=== PATIENT | female | born 1950 | race Caucasian/White ===

== ENCOUNTER 2016-08-05 13:36 | Inpatient (IN) | payer OTHER ==
[~2016-08-05] VITALS: Ht 170.2 cm; Wt 74.5 kg
[~2016-08-05 13:36] MED LIST: GLC/500 PO; GLYB5TAB8 PO; IBUP-1450 PO
[2016-08-05] MEDS ORDERED: SODIUM CHLORIDE 0.9% 1000ML 1,000 ML IV STA (14:06)
[2016-08-05] MEDS ORDERED: ONDANSETRON INJ 2 MG/ML 2 ML VIAL IV STA (14:06)
[2016-08-05] MEDS ORDERED: KETOROLAC TROMETHAMINE 30 MG/ML VIAL IV STA (14:06)
[2016-08-05 14:12] LABS: BASO % 0.2 %; BASO ABS # 0.02 K/uL (0-0.2); COMPLETE YES; EOS % 2.2 %; HEMATOCRIT 37.4 % (37-47); IG% 0.3 %; LYMPH % 20.8 %; LYMPH ABS # 1.95 K/uL (1.2-3.4); MEAN CORPUSCULAR HEMOGLOBIN 29.5 pg (25-34); MEAN CORPUSCULAR HGB CONC 33.2 g/dl (32-36); MEAN PLATELET VOLUME 10.1 fL (7.4-10.4); MONO % 7.5 %; PLATELET COUNT 218 K/uL (130-400); WHITE BLOOD COUNT 9.39 K/uL (4.8-10.8)
[2016-08-05 14:27] LABS: BUN/CREATININE RATIO 15.1 (10-20); CALCIUM 8.9 mg/dl (8.5-10.1); POTASSIUM 3.6 mmol/L (3.5-5.1)
[2016-08-05] MEDS: MoRPHine SULFATE 4 MG/ML 1 ML CARP\\VIAL IV PRN ×4 (14:32→17:18)
--- NOTE | 2016-08-05 14:32 | EMERGENCY ROOM VISIT NOTE ---
History Report prepared by Andreina: George Vital Under the Supervision of: Dr. Ash Rodriguez D.O. First contact with patient: 14:01 Chief Complaint: BACK PAIN Stated Complaint: Back pain History of Present Illness The patient is a 65 year old female with a history of sciatica who presents to the Emergency Room with complaints of persistent lower back pain for the past five days. The pain radiates down her right leg. The pain is worse when she sits down. The patient denies any weakness of the legs. She also denies any fevers, chills, hematuria, or numbness. The patient had Ibuprofen for pain this morning. She has been taking Oxycodone for pain as well, which she had leftover from a previous visit. The patient follow up with Dr. Hitchcock. The patient cannot recall having steroids for her back or when she had her last MRI. She has never followed up with a back specialist. She is s/p appendectomy and hysterectomy. The patient has a history of diabetes, and states that her BSG has been under control. The patient has never been diagnosed with cancer. Source of History: patient Onset: five days Position: back (lower) Timing: other (persistent) Modifying Factors (Worsening): other (sitting down) Associated Symptoms: No chills, No fevers, No numbness, No urinary symptoms , No weakness Review of Systems See HPI for pertinent positives & negatives. A total of 10 systems reviewed and were otherwise negative. 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 (3) Other ureteric obstruction (4) Renal calculus Surgical Problems: (1) S/P appendectomy (2) S/P hysterectomy Family History Cancer Diabetes mellitus Heart disease Kidney disease Kidney stones Social History Smoking Status: Former Smoker Alcohol Use: none Marital Status: single Housing Status: lives alone Current/Historical Medications Scheduled Glyburide (Micronase), 10 MG PO BID Metformin Hcl (Glucophage), 1,000 MG PO BID Scheduled PRN Ibuprofen (Motrin), 200-600 MG PO DIRECTED PRN for Pain or Fever Allergies Coded Allergies: No Known Allergies (Unverified , 08/05/16) Physical Exam Vital Signs Date Time Temp Pulse Resp B/P Pulse Ox O2 Delivery O2 Flow Rate FiO2 08/05/16 17:01 83 15 153/97 96 Room Air 08/05/16 15:59 84 14 136/74 96 Room Air 08/05/16 14:41 80 08/05/16 14:39 79 16 149/73 95 Room Air 08/05/16 13:43 36.7 89 24 171/79 97 Room Air Physical Exam GENERAL: Patient is awake, alert, very anxious appearing, appears to be in significant pain. EYES: The conjunctivae are clear. The pupils are round and reactive. EARS, NOSE, MOUTH AND THROAT: The nose is without any evidence of any deformity. Mucous membranes are moist tongue is midline NECK: The neck is nontender and supple. RESPIRATORY: Normal respiratory effort is noted there is no evidence of wheezing rhonchi or rales CARDIOVASCULAR: Regular rate and rhythm noted there no murmurs rubs or gallops normal S1 normal S2 GASTROINTESTINAL: The abdomen is soft. Bowel sounds are present in all quadrants. Abdomen is nontender PELVIS: The Pelvis is stable. No tenderness to palpation is noted. BACK: Lower lumbar tenderness to palpation noted, range of motion limited secondary to pain. Pain appeared to be illicited over the right sacroiliac joint. MUSCULOSKELETAL/EXTREMITIES: There is no evidence of gross deformity full range of motion is noted in the hips and shoulders SKIN: There is no obvious evidence of any rash. There are no petechiae, pallor or cyanosis noted. NEUROLOGIC: Patient is awake alert and oriented x3, patellar tendon reflex 1+ bilaterally, Achilles reflex 1+ bilaterally, straight toe raise was bilateral. Medical Decision & Procedures ER Provider Diagnostic Interpretation: MRI results as stated below per my review and radiologist interpretation. LUMBAR SPINE MRI HISTORY: Back pain LBP to RLE TECHNIQUE: Multiplanar multisequence MRI of the lumbar spine was performed without the use of contrast. COMPARISON: None. FINDINGS: For the purpose of the report the L5-S1 disc space will be located on axial image 27 of 30. Moderate degenerative disc changes throughout. Most prominent at L4-L5 and L5-S1. No evidence for bone marrow replacing process. L1-L2: No significant central canal or neural foraminal narrowing. L2-L3: Left lateral bulging disc. Moderate narrowing of the left neural foramina. L3-L4: Broad-based bulging disc with minimal impact anterior thecal sac. Moderate narrowing left neuroforamina. L4-L5: Prominent right central disc herniation creating significant multifactorial narrowing of the spinal canal. Significant compromise of the neuroforamina bilaterally. L5-S1: Mild broad-based left central bulging disc. Moderate compromise left neural foramina. Minimal impact anterior thecal sac. IMPRESSION: 1. Prominent right central disc herniation L4-L5. Significant multifactorial spinal stenosis. 2. This level also demonstrates significant right, and to lesser extent left neural foraminal narrowing. 3. Mild left central disc bulge L5-S1. 4. Mild narrowing of the neuroforamina on the left at L3-L4 and L2-L3. Electronically signed by: Samy Evans M.D. 08/05/2016 3:49 PM Dictated Date/Time: 08/05/2016 3:44 PM Laboratory Results 08/05/16 13:50 Red Blood Count 4.20, Mean Corpuscular Volume 89.0, Mean Corpuscular Hemoglobin 29.5, Mean Corpuscular Hemoglobin Concent 33.2, Mean Platelet Volume 10.1, Neutrophils (%) (Auto) 69.0, Lymphocytes (%) (Auto) 20.8, Monocytes (%) (Auto) 7.5, Eosinophils (%) (Auto) 2.2, Basophils (%) (Auto) 0.2, Neutrophils # (Auto) 6.48, Lymphocytes # (Auto) 1.95, Monocytes # (Auto) 0.70, Eosinophils # (Auto) 0.21, Basophils # (Auto) 0.02 08/05/16 13:50 Test 08/05/16 13:50 08/05/16 14:25 White Blood Count 9.39 K/uL (4.8-10.8) Red Blood Count 4.20 M/uL (4.2-5.4) Hemoglobin 12.4 g/dL (12.0-16.0) Hematocrit 37.4 % (37-47) Mean Corpuscular Volume 89.0 fL (80-100) Mean Corpuscular Hemoglobin 29.5 pg (25-34) Mean Corpuscular Hemoglobin Concent 33.2 g/dl (32-36) Platelet Count 218 K/uL (130-400) Mean Platelet Volume 10.1 fL (7.4-10.4) Neutrophils (%) (Auto) 69.0 % Lymphocytes (%) (Auto) 20.8 % Monocytes (%) (Auto) 7.5 % Eosinophils (%) (Auto) 2.2 % Basophils (%) (Auto) 0.2 % Neutrophils # (Auto) 6.48 K/uL (1.4-6.5) Lymphocytes # (Auto) 1.95 K/uL (1.2-3.4) Monocytes # (Auto) 0.70 K/uL (0.11-0.59) Eosinophils # (Auto) 0.21 K/uL (0-0.5) Basophils # (Auto) 0.02 K/uL (0-0.2) RDW Standard Deviation 42.1 fL (36.4-46.3) RDW Coefficient of Variation 13.0 % (11.5-14.5) Immature Granulocyte % (Auto) 0.3 % Immature Granulocyte # (Auto) 0.03 K/uL (0.00-0.02) Prothrombin Time 10.7 SECONDS (9.0-12.0) Prothromb Time International Ratio 1.0 (0.9-1.1) Activated Partial Thromboplast Time 26.1 SECONDS (21.0-31.0) Partial Thromboplastin Ratio 1.0 Anion Gap 12.0 mmol/L (3-11) Est Creatinine Clear Calc Drug Dose 59.1 ml/min Estimated GFR () 68.5 Estimated GFR (Non- 59.1 BUN/Creatinine Ratio 15.1 (10-20) Calcium Level 8.9 mg/dl (8.5-10.1) Total Bilirubin 0.5 mg/dl (0.2-1) Direct Bilirubin 0.1 mg/dl (0-0.2) Aspartate Amino Transf (AST/SGOT) 23 U/L (15-37) Alanine Aminotransferase (ALT/SGPT) 32 U/L (12-78) Alkaline Phosphatase 56 U/L (45-117) Total Protein 7.6 gm/dl (6.4-8.2) Albumin 3.8 gm/dl (3.4-5.0) Lipase 121 U/L (73-393) Urine Color YELLOW Urine Appearance CLOUDY (CLEAR) Urine pH 5.0 (4.5-7.5) Urine Specific [place] 1.009 (1.000-1.030) Urine Protein NEG (NEG) Urine Glucose (UA) 2+ (NEG) Urine Ketones NEG (NEG) Urine Occult Blood NEG (NEG) Urine Nitrite NEG (NEG) Urine Bilirubin NEG (NEG) Urine Urobilinogen NEG (NEG) Urine Leukocyte Esterase NEG (NEG) Urine WBC (Auto) 0 /hpf (0-5) Urine RBC (Auto) 0-4 /hpf (0-4) Urine Hyaline Casts (Auto) 1-5 /lpf (0-5) Urine Epithelial Cells (Auto) 10-20 /lpf (0-5) Urine Bacteria (Auto) NEG (NEG) Laboratory results per my review. Medications Administered Medications (Trade) Dose Ordered Sig/Adelita Route Start Time Stop Time Status Last Admin Dose Admin Morphine Sulfate (MoRPHine SULFATE INJ) 4 mg Q15M PRN IV 08/05/16 14:15 08/19/16 14:14 08/05/16 17:18 4 MG Ondansetron HCl 4 mg 4 mg NOW STAT IV 08/05/16 14:06 08/05/16 14:08 DC 08/05/16 14:31 4 MG Sodium Chloride (Nss 1000ml) 1,000 ml @ 125 mls/hr Q8H STAT IV 08/05/16 14:06 08/05/16 22:05 08/05/16 14:32 125 MLS/HR Ketorolac Tromethamine (Toradol Inj) 30 mg NOW STAT IV 08/05/16 14:06 08/05/16 14:08 DC 08/05/16 14:31 30 MG Dexamethasone Sodium Phosphate (Decadron Inj) 10 mg NOW ONCE IV 08/05/16 16:15 08/05/16 16:16 DC 08/05/16 16:58 10 MG ED Course 1404: The patient was evaluated in room B11b. A complete history and physical examination were performed. 1406: Toradol 30 mg IV, NSS 1000 ml @ 125 mls/hr, Zofran 4 mg IV. 1415: Morphine Sulfate 4 mg IV. 1614: Discussed the MRI report with Dr. Steve, Orthopedics. He will see the patient as an outpatient if she goes home or in the hospital if she stays. 1615: Decadron 10 mg IV. 1650: Updated the patient. She verbalized understanding and agreement of the treatment plan. 1714: Spoke with Dr. Jeong, [facility]. The patient will be evaluated. Medical Decision Etiologies such as musculoskeletal, disc herniation, fracture, aortic disease, metastatic disease, cord compression, discitis, infection, renal colic, gastrointestinal, acute exacerbation of chronic back pain, sciatica, cauda equina, as well as others were entertained. Nursing notes reviewed. The patient is a 65-year-old female who presented to the emergency department for an evaluation of low back pain. The patient was shoveling snow last week and has had slowly worsening low back pain over the course of the last few days. She is also noticed pain radiating to her right leg. The patient's reflexes were symmetric but diminished. Because of her past medical history as well as the degree of pain the patient had an MRI without contrast. The MRI did show signs of a herniated disc which could explain the patient's pain. I discussed the patient's laboratory and radiographic studies with her. She was treated with IV pain medication as well as IV steroids. On subsequent reevaluation she was somewhat improved. She still had significant pain with any ambulation. Initially I discussed her case with the orthopedic school library media specialist. I then discussed her case with the on-call [facility] hospitalist group. They've agreed to evaluate the patient in the emergency department for further management and disposition. Consults Time Called: 1610 Consulting Physician: Dr. Steve, Orthopedics Returned Call: [phone]: Discussed the MRI report with Dr. Steve [facility]opedic[facility] Additional Consults: Time Called: 1710 Consulted Physician: Dr. Jeong, [facility] Returned Call: 1714 Additional Comments: 171: Spoke with Dr. Jeong [facility]. The patient will be evaluated. Impression Primary Impression: Herniated disc Additional Impressions: Lumbar radiculopathy Intractable back pain Scribe Attestation The scribe's documentation has been prepared under my direction and personally reviewed by me in its entirety. I confirm that the note above accurately reflects all work, treatment, procedures, and medical decision making performed by me. Departure Information Dispostion Being Evaluated By Hospitalist Referrals Glory Mcneil PA-C (PCP) Patient Instructions My [facility] Problem Qualifiers
[2016-08-05 15:42] LABS: URINE APPEARANCE CLOUDY (CLEAR); URINE BILIRUBIN NEG (NEG); URINE COLOR YELLOW; URINE NITRITE NEG (NEG); URINE SPECIFIC GRAVITY 1.009 (1.000-1.030); UROBILINOGEN NEG (NEG)
[2016-08-05 15:44] LABS: MANUAL MICROSCOPIC REQUIRED? NO; REVIEW REQ? NO
--- NOTE | 2016-08-05 15:51 | DIAGNOSTIC IMAGING REPORT ---
LUMBAR SPINE MRI HISTORY: Back pain LBP to RLE TECHNIQUE: Multiplanar multisequence MRI of the lumbar spine was performed without the use of contrast. COMPARISON: None. FINDINGS: For the purpose of the report the L5-S1 disc space will be located on axial image 27 of 30. Moderate degenerative disc changes throughout. Most prominent at L4-L5 and L5-S1. No evidence for bone marrow replacing process. L1-L2: No significant central canal or neural foraminal narrowing. L2-L3: Left lateral bulging disc. Moderate narrowing of the left neural foramina. L3-L4: Broad-based bulging disc with minimal impact anterior thecal sac. Moderate narrowing left neuroforamina. L4-L5: Prominent right central disc herniation creating significant multifactorial narrowing of the spinal canal. Significant compromise of the neuroforamina bilaterally. L5-S1: Mild broad-based left central bulging disc. Moderate compromise left neural foramina. Minimal impact anterior thecal sac. IMPRESSION: 1. Prominent right central disc herniation L4-L5. Significant multifactorial spinal stenosis. 2. This level also demonstrates significant right, and to lesser extent left neural foraminal narrowing. 3. Mild left central disc bulge L5-S1. 4. Mild narrowing of the neuroforamina on the left at L3-L4 and L2-L3. Electronically signed by: Samy Evans M.D. 08/05/2016 3:49 PM Dictated Date/Time: 08/05/2016 3:44 PM
[2016-08-05] MEDS ORDERED: DEXAMETHASONE SOD INJ 10 MG/ML VIAL IV ONE (16:15)
[2016-08-05] MEDS ORDERED: GLUCAGON FOR INJ 1 MG VIAL SQ PRN (17:00)
[2016-08-05] MEDS ORDERED: ZOLPIDEM TARTRATE 5 MG TAB PO PRN (17:00)
[2016-08-05] MEDS ORDERED: ALUMINUM/MAGNESIUM/SIMETH (MAALOX MAX) 30 ML UDC PO PRN (17:00)
[2016-08-05] MEDS ORDERED: DiphenhydrAMINE HCL 50 MG/ML VIAL IV PRN (17:00)
[2016-08-05] MEDS ORDERED: LORAZEPAM 2 MG/ML 1 ML VIAL IV PRN (17:00)
[2016-08-05] MEDS ORDERED: ACETAMINOPHEN 325 MG TAB PO PRN (17:00)
[2016-08-05] MEDS ORDERED: PROMETHAZINE HCL INJ 12.5 MG in SODIUM CHLORIDE 0.9% 50ML 50 ML IV PRN (17:00)
[2016-08-05] MEDS ORDERED: DEXTROSE 50% 50 ML SYR IV PRN (17:00)
[2016-08-05] MEDS ORDERED: MAGNESIUM HYDROXIDE SUSP 30 ML UDC PO PRN (17:00)
[2016-08-05] MEDS ORDERED: GLUCOSE 10 TABS/TUBE PO PRN (17:00)
[2016-08-05] MEDS ORDERED: GLUCOSE 40% GEL 15 GM TUBE PO PRN (17:00)
[2016-08-05] MEDS ORDERED: ONDANSETRON INJ 2 MG/ML 2 ML VIAL IV PRN (17:00)
[2016-08-05] MEDS ORDERED: BISACODYL 10 MG SUPP PR PRN (17:00)
[2016-08-05] MEDS ORDERED: MoRPHine SULFATE 4 MG/ML 1 ML CARP\\VIAL IV PRN (17:00)
[2016-08-05 17:39] VITALS: O2SAT 96; Ht 170.2 cm; Wt 74.5 kg
[2016-08-05 17:49] LABS: PROTHROMBIN TIME (PATIENT) 10.7 SECONDS (9.0-12.0)
[2016-08-05 19:00] VITALS: BP 156/75; PULSE 84; TEMP 36.9; O2SAT 92
[2016-08-05] MEDS ORDERED: LORAZEPAM INJ 0.5 MG in SYRINGE 0.75 ML IV PRN (19:15)
[2016-08-05] MEDS: NSS + 20MEQ KCL 1000ML 1,000 ML IV SCH (20:02)
--- NOTE | 2016-08-05 21:05 | History and Physical ---
History & Physical Date & Time of Service: Aug 05, 2016 at 20:55 Chief Complaint: Herniation Of Lumber Intervertebral Disc W/Radicul Primary Care Physician: Glory Mcneil PA-C History of Present Illness Source: patient The patient is a 65-year-old female who developed worsening low back pain with radiation down her right leg after shoveling snow 5 days ago. She has not had any loss of bowel or bladder control. She reports that she's never had pain this intense in the past or going down her right leg. Past Medical/Surgical History Medical Problems: (1) Diabetes Status: Chronic Surgical Problems: (1) S/P appendectomy Status: Resolved (2) S/P hysterectomy Status: Resolved Family History Cancer Diabetes mellitus Heart disease Kidney disease Kidney stones Social History Smoking Status: Former Smoker Alcohol Use: none Drug Use: none Marital Status: single, Housing status: lives alone Occupational Status: retired Multi-Drug Resistant Organisms History of MDRO: No Allergies Coded Allergies: No Known Allergies (Unverified , 08/05/16) Home Medications Scheduled Glyburide (Micronase), 10 MG PO BID Metformin Hcl (Glucophage), 1,000 MG PO BID Scheduled PRN Ibuprofen (Motrin), 200-600 MG PO DIRECTED PRN for Pain or Fever Review of Systems The patient denies chest pain, palpitations, shortness of breath, cough, lower extremity swelling, vision change, hearing change, sore throat, fevers, chills, sweats, weight change, fatigue, nausea, vomiting, abdominal pain, pelvic pain, blood in urine or stool, dysuria, urinary frequency or urgency, lightheadedness , dizziness, headache, memory loss, rash, abnormal bruising or bleeding, focal weakness, numbness or tingling in arms, arthralgias or myalgias, neck pain, night sweats, or allergy symptoms. The review of systems is otherwise negative other than for that already noted above, and at least 10 systems have been reviewed. Physical Exam Vital Signs Date Time Temp Pulse Resp B/P Pulse Ox O2 Delivery O2 Flow Rate FiO2 08/05/16 19:00 36.9 84 16 156/75 92 Room Air 08/05/16 19:00 Room Air 08/05/16 18:22 87 17 160/77 95 Room Air 08/05/16 17:39 96 Room Air 08/05/16 17:01 83 15 153/97 96 Room Air 08/05/16 15:59 84 14 136/74 96 Room Air 08/05/16 14:41 80 08/05/16 14:39 79 16 149/73 95 Room Air 08/05/16 13:43 36.7 89 24 171/79 97 Room Air The patient is awake, well-developed and adequately nourished, alert and oriented 3, normocephalic and atraumatic, lying in bed and in mild acute distress secondary to low back and right leg pain. HEENT--PERRL, EOMI, mucous membranes and oropharynx moist. Neck--supple, no JVD or bruits, thyroid normal, trachea midline, no adenopathy. Heart--normal S1 and S2, no extra beats, no murmurs, rubs or gallops. Lungs--clear bilaterally with good air movement, no respiratory distress, no accessory muscle use. Abdomen--normal bowel sounds and soft, nontender and nondistended, no hernias or masses, no organomegaly. Extremities--no cyanosis, clubbing or edema. There are good distal pulses b/l. Dermatologic--normal skin turgor, normal color, warm and dry, no abnormal lymph nodes, no rash. Neurologic--cranial nerves II through XII grossly intact, motor exam limited due to pain. Sensory examination is intact. Rheumatologic--normal range of motion limited due to pain Psychiatric--normal affect. Diagnostics Laboratory Results Results Past 24 Hours Test 08/05/16 13:50 08/05/16 14:25 08/05/16 20:29 Range/Units White Blood Count 9.39 4.8-10.8 K/uL Red Blood Count 4.20 4.2-5.4 M/uL Hemoglobin 12.4 12.0-16.0 g/dL Hematocrit 37.4 37-47 % Mean Corpuscular Volume 89.0 80-100 fL Mean Corpuscular Hemoglobin 29.5 25-34 pg Mean Corpuscular Hemoglobin Concent 33.2 32-36 g/dl Platelet Count 218 130-400 K/uL Mean Platelet Volume 10.1 7.4-10.4 fL Neutrophils (%) (Auto) 69.0 % Lymphocytes (%) (Auto) 20.8 % Monocytes (%) (Auto) 7.5 % Eosinophils (%) (Auto) 2.2 % Basophils (%) (Auto) 0.2 % Neutrophils # (Auto) 6.48 1.4-6.5 K/uL Lymphocytes # (Auto) 1.95 1.2-3.4 K/uL Monocytes # (Auto) 0.70 0.11-0.59 K/uL Eosinophils # (Auto) 0.21 0-0.5 K/uL Basophils # (Auto) 0.02 0-0.2 K/uL RDW Standard Deviation 42.1 36.4-46.3 fL RDW Coefficient of Variation 13.0 11.5-14.5 % Immature Granulocyte % (Auto) 0.3 % Immature Granulocyte # (Auto) 0.03 0.00-0.02 K/uL Prothrombin Time 10.7 9.0-12.0 SECONDS Prothromb Time International Ratio 1.0 0.9-1.1 Activated Partial Thromboplast Time 26.1 21.0-31.0 SECONDS Partial Thromboplastin Ratio 1.0 Sodium Level 141 136-145 mmol/L Potassium Level 3.6 3.5-5.1 mmol/L Chloride Level 105 98-107 mmol/L Carbon Dioxide Level 24 21-32 mmol/L Anion Gap 12.0 3-11 mmol/L Blood Urea Nitrogen 15 7-18 mg/dl Creatinine 1.00 0.60-1.20 mg/dl Est Creatinine Clear Calc Drug Dose 59.1 ml/min Estimated GFR () 68.5 Estimated GFR (Non- 59.1 BUN/Creatinine Ratio 15.1 10-20 Random Glucose 168 70-99 mg/dl Calcium Level 8.9 8.5-10.1 mg/dl Total Bilirubin 0.5 0.2-1 mg/dl Direct Bilirubin 0.1 0-0.2 mg/dl Aspartate Amino Transf (AST/SGOT) 23 15-37 U/L Alanine Aminotransferase (ALT/SGPT) 32 12-78 U/L Alkaline Phosphatase 56 45-117 U/L Total Protein 7.6 6.4-8.2 gm/dl Albumin 3.8 3.4-5.0 gm/dl Lipase 121 73-393 U/L Urine Color YELLOW Urine Appearance CLOUDY CLEAR Urine pH 5.0 4.5-7.5 Urine Specific [place] 1.009 1.000-1.030 Urine Protein NEG NEG Urine Glucose (UA) 2+ NEG Urine Ketones NEG NEG Urine Occult Blood NEG NEG Urine Nitrite NEG NEG Urine Bilirubin NEG NEG Urine Urobilinogen NEG NEG Urine Leukocyte Esterase NEG NEG Urine WBC (Auto) 0 0-5 /hpf Urine RBC (Auto) 0-4 0-4 /hpf Urine Hyaline Casts (Auto) 1-5 0-5 /lpf Urine Epithelial Cells (Auto) 10-20 0-5 /lpf Urine Bacteria (Auto) NEG NEG Bedside Glucose 224 70-90 mg/dl Diagnostic Radiology Patient Name: SHAHRAM MUÑOZ Unit Number: [id number] Dictated: 08/05/[id number] Transcribed: 08/05/16 154 MS Printed Date/Time: [~ rep prt dt]/[~ rep prt tm] [~ rep ct labl] - [~ rep ct ivnm] [facility] [place] [address] Dictated: 08/05/[id number] Transcribed: 08/05/16 1544 MS Printed Date/Time: [~ rep prt dt]/[~ rep prt tm] [~ rep ct labl] - [~ rep ct ivnm] LUMBAR SPINE MRI HISTORY: Back pain LBP to RLE TECHNIQUE: Multiplanar multisequence MRI of the lumbar spine was performed without the use of contrast. COMPARISON: None. FINDINGS: For the purpose of the report the L5-S1 disc space will be located on axial image 27 of 30. Moderate degenerative disc changes throughout. Most prominent at L4-L5 and L5-S1. No evidence for bone marrow replacing process. L1-L2: No significant central canal or neural foraminal narrowing. L2-L3: Left lateral bulging disc. Moderate narrowing of the left neural foramina. L3-L4: Broad-based bulging disc with minimal impact anterior thecal sac. Moderate narrowing left neuroforamina. L4-L5: Prominent right central disc herniation creating significant multifactorial narrowing of the spinal canal. Significant compromise of the neuroforamina bilaterally. L5-S1: Mild broad-based left central bulging disc. Moderate compromise left neural foramina. Minimal impact anterior thecal sac. IMPRESSION: 1. Prominent right central disc herniation L4-L5. Significant multifactorial spinal stenosis. 2. This level also demonstrates significant right, and to lesser extent left neural foraminal narrowing. 3. Mild left central disc bulge L5-S1. 4. Mild narrowing of the neuroforamina on the left at L3-L4 and L2-L3. Electronically signed by: Samy Evans M.D. 08/05/2016 3:49 PM Dictated Date/Time: 08/05/2016 3:44 PM The status of this report is Signed. Draft = Not yet reviewed or approved by Radiologist. Signed = Reviewed and approved by Radiologist. <AttendingPhy></AttendingPhy> <FamilyPhy>Glory Mcneil PA-C</FamilyPhy> < PrimaryPhy>Glory Mcneil PA-C</PrimaryPhy> <UnitNumber>[id number]</ UnitNumber> <VisitNumber>[id number]</VisitNumber> <PatientName>SHAHRAM MUÑOZ</PatientName> <DateOfBirth>1950</DateOfBirth> <Location>C.[facility]</Location > <ServiceDate>08/05/16</ServiceDate> <MNE>ESINDI</MNE> <OrderingPhy>Ash Rodriguez D.O.</OrderingPhy> <OrderingPhyMNE>f rep ord dr phillips</OrderingPhyMNE> <DictatingPhyMNE>f rep dict dr phillips</DictatingPhyMNE> <CCListMNE>f rep ct taylae</ CCListMNE> <AdmittingPhyMNE>f pt admit dr phillips</AdmittingPhyMNE> <AttendingPhyMNE >f pt attend dr phillips</AttendingPhyMNE> <ConsultingPhyMNE>f pt consult dr phillips</ConsultingPhyMNE> <FamilyPhyMNE>f pt fam dr phillips</FamilyPhyMNE> <OtherPhyMNE>f pt other dr phillips</OtherPhyMNE> < PrimaryPhyMNE>f pt prim care dr phillips</PrimaryPhyMNE> <ReferringPhyMNE>f pt referring dr phillips</ReferringPhyMNE> Impression Assessment and Plan Prominent right central disc herniation with significant multifactorial spinal stenosis, and significant right and to a lesser extent left neural foraminal narrowing at the L4 to L5 level--the patient be admitted to the medical surgical floor for pain control. She's received Decadron 10 mg IV in the emergency department, and will receive Decadron 4 mg IV every [address]. [address] on morphine sulfate 2-4 mg IV every 2 hours when necessary, gabapentin 100 mg by mouth at bedtime, and will start a Lidoderm patch in the a.m.. We'll consult Dr. Prosper Steve from orthopedic spine surgery. Diabetes mellitus--continue glyburide 10 mg by mouth twice a day. Hold metformin 1000 mg by mouth twice a day. Start Lantus 12 units subcutaneous at bedtime tonight, to help address the probable increase in blood sugar with steroids. We'll place on Accu-Cheks before meals and at bedtime with NovoLog coverage. Level of Care Med/Surg Advanced Directives Existing Advance Directive: No Existing Living Will: No Existing Power of Sand Analyst: No Resuscitation Status FULL RESUSCITATION VTE Prophylaxis VTE Risk Assessment Done? Y/N: Yes Risk Level: Moderate Given or contraindicated: SCD's Social Service Consult None Apply
[2016-08-05] MEDS: LIDODERM (LIDOCAINE) PATCH 5% TD SCH (22:36)
[2016-08-05] MEDS: ENOXAPARIN 40 MG/0.4 ML SYR SQ SCH (22:36)
[2016-08-05] MEDS: DEXAMETHASONE INJ 4 MG in SYRINGE 0 ML IV SCH (22:36)
[2016-08-05] MEDS: DOCUSATE SODIUM 100 MG CAP PO SCH (22:42)
[2016-08-05] MEDS: INSULIN ASPART 100 UNITS/ML 3 ML PEN SC SCH (22:48)
[2016-08-05] MEDS: INSULIN GLARGINE SOLOSTAR 100 UNITS/ML 3 ML PEN SC SCH (22:48)
[2016-08-05 23:31] VITALS: BP 121/68; PULSE 79; TEMP 36.8; O2SAT 94
[2016-08-06] MEDS: MoRPHine SULFATE 2 MG/ML CARP IV PRN ×2 (01:34→07:14)
[2016-08-06] MEDS: DEXAMETHASONE INJ 4 MG in SYRINGE 0 ML IV SCH ×4 (04:59→21:25)
[2016-08-06] MEDS: NSS + 20MEQ KCL 1000ML 1,000 ML IV SCH ×2 (05:00→15:55)
[2016-08-06 05:53] LABS: COMPLETE YES; IG% 0.2 %; LYMPH % 14.3 %; LYMPH ABS # 0.95 K/uL (1.2-3.4); MEAN CORPUSCULAR HEMOGLOBIN 29.3 pg (25-34); MEAN CORPUSCULAR HGB CONC 32.9 g/dl (32-36); MEAN PLATELET VOLUME 9.9 fL (7.4-10.4); MONO % 2.6 %; NEUT % 82.9 %; PLATELET COUNT 186 K/uL (130-400); RED BLOOD COUNT 3.82 M/uL (4.2-5.4); WHITE BLOOD COUNT 6.66 K/uL (4.8-10.8)
[2016-08-06 06:30] LABS: BUN/CREATININE RATIO 19.9 (10-20); CALCIUM 8.2 mg/dl (8.5-10.1); CREATININE 0.77 mg/dl (0.60-1.20); MAGNESIUM 1.8 mg/dl (1.8-2.4); POTASSIUM 4.1 mmol/L (3.5-5.1)
[2016-08-06] MEDS: DOCUSATE SODIUM 100 MG CAP PO SCH ×2 (07:13→21:12)
[2016-08-06 07:38] VITALS: BP 133/76; PULSE 70; TEMP 36.5; O2SAT 95
[2016-08-06] MEDS: INSULIN ASPART 100 UNITS/ML 3 ML PEN SC SCH ×4 (08:53→21:22)
--- NOTE | 2016-08-06 10:16 | CONSULTATION REPORT ---
DATE OF CONSULTATION: 08/06/2016 CHIEF COMPLAINT: Low back pain, right lower extremity pain. SUBJECTIVE EXAMINATION: Ms. Davenport is a 65-year-old with an acute sudden onset of worsening low back pain and right lower extremity pain that began approximately a week ago. She reports the pain begins in her back and radiates down the front of her right leg to her knee. She denied any numbness or tingling or weakness to this lower extremity. She reports that because of the worsening severity of this pain, it prompted her visit to the emergency room where she was admitted under the medical service for pain control. She denies any left lower extremity symptoms or bowel or bladder function. She has had some prior back pain in her past, but not to this extent or not to this caliber. Consultation was placed to orthopedics spine for evaluation and treatment options. PAST MEDICAL AND SURGICAL HISTORY: Includes diabetes, appendicitis, status post appendectomy, and hysterectomy. FAMILY HISTORY: Cancer, diabetes, heart disease, kidney disease. SOCIAL HISTORY: She is , former smoker, nonalcohol user, nondrug user, lives alone and retired. ALLERGIES: No known allergies. CURRENT MEDICATIONS: Include glyburide and metformin. REVIEW OF SYSTEMS: The patient reports pertinent positives as noted above. She denies any chest pain, shortness of breath, cough or recent respiratory illnesses. She denies any racing heart, chest pain, bluing of the skin or dizziness. She denies any type of nausea, vomiting or fatigue. She denies any fevers or chills. She denies any urinary frequency or urgency. She denies any depression or mental health status changes. PHYSICAL EXAMINATION: VITAL SIGNS: Temperature 36.5, pulse 70, respiratory rate 16, blood pressure 133/76, pulse ox 95 on room air. GENERAL APPEARANCE: She is alert and oriented x3, sitting upright in bed in no acute distress. CUTANEOUS LUMBAR EXAMINATION: No dimplings, retractions, deformities, scarrings, or markings. LUMBAR EXAMINATION: The patient has normal posturing. She has painful range of motion which is diminished secondary to discomfort. Strength throughout her lower extremities is bilaterally symmetric 4/5 with hip flexion, knee flexion, extension, plantarflexion, dorsiflexion, eversion and great toe extension. Sensation is intact in all dermatomal patterns. Reflexes are diminished at the patella and Achilles. DIAGNOSTIC IMAGING: Lumbar spine MRI reviewed in full course today. Demonstrates multiple levels of degenerative disc disease most notably at L4-L5, L5-S1, Modic changes noted at L4-L5, L5-S1, significant stenosis exists at L4-L5 centrally and foraminally along with noted stenosis at L5-S1, more foraminally at this level. Facet arthrosis also noted. IMPRESSION: 1. Right lumbar radiculopathy. 2. Lumbar disc disease. 3. Lumbar stenosis. PLAN OF CARE: After discussion with the patient involving her findings I would repeat conservative and definitive measures in treating her symptoms given that she has not completed any type of conservative treatment up to this point. Regarding her disease, I would recommend attempting this first. Options are to include physical therapy versus interventional management to include injections. At this point pain control is an issue. I will defer this to medical services. Toradol as an adjunct medication can be considered for pain control. I would recommend consultation to physical therapy for evaluation and/or consultation to pain management for evaluation and consider an injection if pain control is not sustained. We also reviewed definitive measures, but ultimately would not like to make this her first choice in treatment. At this point, I will place a consultation to physical therapy for evaluation. Certainly at this time I do not see any acute indication for surgical management. We will be happy to follow her on an outpatient basis. If there are any questions or concerns regarding her treatment, please feel free to contact Dr. Steve's office for further recommendations and options. Thank you for the consultation and opportunity to participate in Ms. Davenport' care.
--- NOTE | 2016-08-06 14:55 | Family Medicine Progress Note ---
Progress Note Date of Service Aug 06, 2016. Subjective Pt evaluation today including: conversation w/ patient, physical exam, chart review, lab review Patient relatively comfortable at rest. Says that pain minimized with sitting at incline, but exacerbated with movement. Usually aching at 5/10 severity at best, becoming sharp 10/10. 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 6 days ago, pain post snow-shovelling, which became progressively more debilitating. Denies weakness, saddle paresthesia, and fecal incontinence. Has long standing urinary incontinence secondary to cystocele. Constitutional: No chills, No fever, No sweats, No weakness Respiratory: No cough, No shortness of breath Cardiovascular: No chest pain, No palpitations Abdomen: No constipation, No diarrhea, No nausea, No pain, No vomiting Musculoskeletal: + joint pain (Lumbar/sacral back) Female : No dysuria Neurologic: + balance problems (now using cane to ambulate), No numbness/ tingling, No weakness Resident Involvement: Resident Care Provided Care Provided: Adult [facility] Medicine Objective Vital Signs Date Time Temp Pulse Resp B/P Pulse Ox O2 Delivery O2 Flow Rate FiO2 08/06/16 15:17 36.4 84 16 133/65 96 Room Air 08/06/16 07:38 36.5 70 16 133/76 95 Room Air 08/06/16 07:25 Room Air 08/06/16 00:00 Room Air 08/05/16 23:31 36.8 79 14 121/68 94 Room Air 08/05/16 19:00 36.9 84 16 156/75 92 Room Air 08/05/16 19:00 Room Air 08/05/16 18:22 87 17 160/77 95 Room Air 08/05/16 17:39 96 Room Air Physical Exam General Appearance: WD/WN, no apparent distress Neck: supple Respiratory/Chest: lungs clear, normal breath sounds, no respiratory distress, no accessory muscle use Cardiovascular: regular rate, rhythm, no murmur Abdomen: normal bowel sounds, non tender, soft, no organomegaly, + pertinent finding Extremities: normal range of motion, no pedal edema, no calf tenderness Neurologic/Psychiatric: no motor/sensory deficits, alert, normal mood/affect, oriented x 3 Skin: normal color, warm/dry, no rash Laboratory Results Results Past 24 Hours Test 08/05/16 20:29 08/06/16 05:40 08/06/16 07:52 08/06/16 12:01 Range/Units Bedside Glucose 224 175 202 70-90 mg/dl White Blood Count 6.66 4.8-10.8 K/uL Red Blood Count 3.82 4.2-5.4 M/uL Hemoglobin 11.2 12.0-16.0 g/dL Hematocrit 34.0 37-47 % Mean Corpuscular Volume 89.0 80-100 fL Mean Corpuscular Hemoglobin 29.3 25-34 pg Mean Corpuscular Hemoglobin Concent 32.9 32-36 g/dl Platelet Count 186 130-400 K/uL Mean Platelet Volume 9.9 7.4-10.4 fL Neutrophils (%) (Auto) 82.9 % Lymphocytes (%) (Auto) 14.3 % Monocytes (%) (Auto) 2.6 % Eosinophils (%) (Auto) 0.0 % Basophils (%) (Auto) 0.0 % Neutrophils # (Auto) 5.53 1.4-6.5 K/uL Lymphocytes # (Auto) 0.95 1.2-3.4 K/uL Monocytes # (Auto) 0.17 0.11-0.59 K/uL Eosinophils # (Auto) 0.00 0-0.5 K/uL Basophils # (Auto) 0.00 0-0.2 K/uL RDW Standard Deviation 41.2 36.4-46.3 fL RDW Coefficient of Variation 12.9 11.5-14.5 % Immature Granulocyte % (Auto) 0.2 % Immature Granulocyte # (Auto) 0.01 0.00-0.02 K/uL Sodium Level 142 136-145 mmol/L Potassium Level 4.1 3.5-5.1 mmol/L Chloride Level 108 98-107 mmol/L Carbon Dioxide Level 26 21-32 mmol/L Anion Gap 8.0 3-11 mmol/L Blood Urea Nitrogen 15 7-18 mg/dl Creatinine 0.77 0.60-1.20 mg/dl Est Creatinine Clear Calc Drug Dose 76.8 ml/min Estimated GFR () 93.9 Estimated GFR (Non- 81.0 BUN/Creatinine Ratio 19.9 10-20 Random Glucose 188 70-99 mg/dl Calcium Level 8.2 8.5-10.1 mg/dl Magnesium Level 1.8 1.8-2.4 mg/dl Test 08/06/16 16:41 Range/Units Bedside Glucose 199 70-90 mg/dl Assessment and Plan 65 year old female with history of spinal stenosis and T2DM presents with acute low back pain with radicular symptoms Pain Xray showed prominent right central disc herniation with significant multifactorial spinal stenosis. Analgesic for pain control and steroids to help decrease acute inflammation administered. Orthoconsulted and recommend conservative and interventioal therapy prior to definitive intervention, with follow up as outpatient. - Continue Decadron 4mg IV every 6 hours, morphine sulfate 2-4mg IV every 2 hours PRN pain, gabapentin 100mg HS, Lidoderm and heat pad - OT/PT consulted - Consider local corticosteroid injection if conservative management unsuccessful. T2DM History of poorly controlled diabetes but recently modified medications. Last HbA1c 7.6% as per patient. Hold metformin 1000 mg by mouth twice a day in view of need for imaging. Acknowledge elevated sugars in view of steroid usage. - Continue glyburide 10mg BID - Continue Lantus and NovoLog sliding scale coverage with Accu-Cheks before meals and at bedtime Hypocalcemia - borderline - Supplemented with calcium citrate Continued [facility] stay due to: ambulation difficulties, multiple IV medications needed Resident Involvement: Resident Care Provided Care Provided: Adult Hospital Medicine History Resident Physician Supervision Note: I was present with Dr. Rankin during the history and exam. I discussed the case with the resident and agree with the findings and plan as documented in the note. Any exceptions or clarifications are listed here. Pt seen and examined at bedside. Sitting upright in bed - back pain is mild and aching but nonradiating and located predominantly on the right mid/lower back with significant worsening with movement including flexion/extension and movement of the legs. Intermittent radiation down the anterior thigh on the right with exacerbation of pain. Reports no change in continence, paresthesia, weakness, gait change, BOLIVAR. General Appearance: WD/WN, no apparent distress Respiratory: chest non-tender, lungs clear, normal breath sounds, no respiratory distress Cardiovascular: normal peripheral pulses, regular rate, rhythm, no edema, no murmur Gastrointestinal: normal bowel sounds, non tender, soft, no organomegaly Extremities: other (TTP centrally along the spine at the L2-3 region with exacerbation of local pain which extends to the paraspinals b/l) Neurologic/Psychiatric: no motor/sensory deficits (DTR 2+ b/l at knees), alert , normal mood/affect, oriented x 3 Assessment/Plan 65 y/o female h/o DMII and intermittent LBP presents with severe lower back pain radiating down the RLE LBP - XR L-spine reviewed - continue dexamethasone, morphine for breakthrough pain, heating pad, PT/OT evaluation - ortho spine c/s rec's conservative mgmt DMII - d/c PO hypoglycemics, lantus and aspart to be uptitrated with data present Dispo: Awaiting improvement on anti-inflammatory and evaluation by PT/OT
[2016-08-06 15:17] VITALS: BP 133/65; PULSE 84; TEMP 36.4; O2SAT 96
[2016-08-06] MEDS: KETOROLAC TROMETHAMINE 15 MG/ML VIAL IV PRN (16:00)
[2016-08-06] MEDS: CALCIUM CITRATE 950 MG TAB PO SCH (18:29)
[2016-08-06] MEDS: GABAPENTIN 100 MG CAP PO SCH (21:12)
[2016-08-06] MEDS: LIDODERM (LIDOCAINE) PATCH 5% TD SCH (21:12)
[2016-08-06] MEDS: ENOXAPARIN 40 MG/0.4 ML SYR SQ SCH (21:12)
[2016-08-06] MEDS: INSULIN GLARGINE SOLOSTAR 100 UNITS/ML 3 ML PEN SC SCH (21:21)
[2016-08-06] MEDS ORDERED: GABAPENTIN 100 MG CAP PO ONE (21:30)
[2016-08-06 23:13] VITALS: BP 148/78; PULSE 69; TEMP 36.7; O2SAT 94
[2016-08-07] MEDS: NSS + 20MEQ KCL 1000ML 1,000 ML IV SCH (01:37)
[2016-08-07] MEDS: DEXAMETHASONE INJ 4 MG in SYRINGE 0 ML IV SCH ×4 (03:29→21:31)
[2016-08-07 05:26] LABS: COMPLETE YES; HEMATOCRIT 34.2 % (37-47); IG% 0.3 %; LYMPH % 12.8 %; LYMPH ABS # 1.18 K/uL (1.2-3.4); MEAN CELL VOLUME 89.8 fL (80-100); MEAN CORPUSCULAR HEMOGLOBIN 28.9 pg (25-34); MEAN CORPUSCULAR HGB CONC 32.2 g/dl (32-36); MEAN PLATELET VOLUME 10.5 fL (7.4-10.4); MONO % 4.1 %; NEUT % 82.8 %; PLATELET COUNT 196 K/uL (130-400); RED BLOOD COUNT 3.81 M/uL (4.2-5.4); WHITE BLOOD COUNT 9.23 K/uL (4.8-10.8)
[2016-08-07 06:04] LABS: BUN/CREATININE RATIO 22.8 (10-20); CALCIUM 8.3 mg/dl (8.5-10.1); CREATININE 0.7 mg/dl (0.60-1.20); POTASSIUM 4.2 mmol/L (3.5-5.1)
[2016-08-07] MEDS: KETOROLAC TROMETHAMINE 15 MG/ML VIAL IV PRN (07:35)
[2016-08-07 07:58] VITALS: BP 147/72; PULSE 75; TEMP 36.4; O2SAT 96
[2016-08-07] MEDS: INSULIN ASPART 100 UNITS/ML 3 ML PEN SC SCH ×4 (09:41→21:26)
[2016-08-07] MEDS: DOCUSATE SODIUM 100 MG CAP PO SCH ×2 (09:42→21:29)
[2016-08-07] MEDS: CALCIUM CITRATE 950 MG TAB PO SCH ×3 (09:42→18:48)
--- NOTE | 2016-08-07 10:27 | Family Medicine Progress Note ---
Progress Note Date of Service Aug 07, 2016. Subjective Pt evaluation today including: conversation w/ patient, physical exam, chart review, lab review The patient was seen and examined at bedside. No acute overnight events. Pt is reporting discomfort due to her SCDs that continue to press her calves. Pt doesn't think her back pain has improved. She states she was told not to ambulate. Her concern is that if she goes home she will be unable to perform the activities of daily living which include taking care of her dogs and lighting her wood burning stove/heater? Pt denies any new complaints, denies radiating of her back pain, rates her back pain as 6/10, denies bladder or bowel incontinence. Plan of care was described to the patient and all questions were answered. Constitutional: No chills, No fever, No sweats, No weight loss Respiratory: No cough, No sputum Cardiovascular: No chest pain Abdomen: No diarrhea, No nausea, No pain, No vomiting Musculoskeletal: No joint pain, No muscle pain Neurologic: No memory loss Psychiatric: No depression symptoms Objective Physical Exam General Appearance: WD/WN, no apparent distress Respiratory/Chest: chest non-tender, lungs clear, normal breath sounds, no respiratory distress, no accessory muscle use Cardiovascular: regular rate, rhythm, no edema, no gallop, no JVD, no murmur Abdomen: normal bowel sounds, non tender, soft Extremities: + pertinent finding (Patient is able to turn her trunk to the left and right without back pain. Straight legt test was negative bilaterally. Patient is able to sit forward for posterior lung ausculation with minor centrally located back pain. Patient has FROM of her legs bilaterally. Pedal push is intact. Sensation to light touch is intact bilaterally over the lower extremities. Slight tenderness to palpation over the lumbar region over the spinous processes. Lidoderm patch is in place. ) Neurologic/Psychiatric: alert, normal mood/affect, oriented x 3 Skin: normal color, warm/dry, no rash Assessment and Plan 65 year old female with history of spinal stenosis and DM2 presents with acute low back pain with radiation down RLE after multiple episodes of recent shovelling snow of single car driveway. Lumbar MRI revealed right central disk herniation and spinal stenosis. Ortho recommended conservative management. Pt is improving clinically with OT/PT and pain medication. Hospital Day #2. Intractable Lower Back Pain and ambulatory dysfunction 2/2 Disk Herniation and Spinal Stenosis - Pt reports minimal to no clinical improvement, yet based on exam pt is improving clinically. Pt reports no radiation down RLE. Last morphine dose was 2mg on 08/06/16 at 7AM. - Lumbar MRI- right central disc herniation with significant multifactorial spinal stenosis. - Ortho-> conservative management. - Progress pain medications to PO, Oxycodone-Acetaminophen 5mg Q4 PRN and Tramadol 50mg QID scheduled. - continue with OT and PT. - Pt will need placement, likely [facility], tomorrow. - Pain management consult in place. DM2 - Continue glyburide 10mg BID - Continue Lantus and NovoLog sliding scale coverage with Accu-Cheks before meals and at bedtime Hypocalcemia - Ca2+ is 8.2 today - Supplemented with calcium citrate - Adding on vitamin D 2000 IU. DVT Proph - Lovenox Q24 Inj 40units. - Discontinued SCDs due to patient comfort. Dispo: Lives at home, full code. Resident Involvement: Resident Care Provided Care Provided: Adult Hospital Medicine Reviewed: Pt Seen/Exam by Me Constitutional: denies: fever Respiratory: negative: short of breath Cardiovascular: denies chest pain Musculoskeletal: positive: other (back pain better controlled with morphine. ) General Appearance: no apparent distress Respiratory: lungs clear, no respiratory distress Neurologic/Psychiatric: no motor/sensory deficits, alert, oriented x 3 Skin Characteristics: warm/dry Assessment/Plan I have reviewed the medical record and performed a history and physical examination of this patient today. I have discussed the case with Dr. Castro. The above note reflects my findings, conclusions, and recommendations. Transition to oral pain med. Will likely need chronic tramadol to control the pain. unclear why it was stopped by her pcp. pain mx consult pt/ot anticipate d/c in am if pain controlled.
[2016-08-07] MEDS ORDERED: CHOLECALCIFEROL 1000 INTER.UNIT TAB PO ONE (11:00)
[2016-08-07] MEDS ORDERED: OXYCODONE/ACETAMINOPHEN 5-325 TAB PO PRN (13:30)
[2016-08-07 15:07] VITALS: BP 154/74; PULSE 65; TEMP 36.7; O2SAT 97
[2016-08-07 15:15] VITALS: O2SAT 97
[2016-08-07] MEDS: TRAMADOL HCL 50 MG TAB PO SCH ×2 (16:23→21:29)
[2016-08-07] MEDS: INSULIN GLARGINE SOLOSTAR 100 UNITS/ML 3 ML PEN SC SCH (21:27)
[2016-08-07] MEDS: GABAPENTIN 100 MG CAP PO SCH (21:28)
[2016-08-07] MEDS: ENOXAPARIN 40 MG/0.4 ML SYR SQ SCH (21:30)
[2016-08-07] MEDS: LIDODERM (LIDOCAINE) PATCH 5% TD SCH (21:30)
[2016-08-07 23:21] VITALS: BP 152/69; PULSE 62; TEMP 36.7; O2SAT 98
[2016-08-08] MEDS: DEXAMETHASONE INJ 4 MG in SYRINGE 0 ML IV SCH ×3 (03:58→15:53)
[2016-08-08 06:52] LABS: COMPLETE YES; HEMATOCRIT 34.4 % (37-47); IG% 0.1 %; LYMPH ABS # 1.21 K/uL (1.2-3.4); MEAN CELL VOLUME 89.4 fL (80-100); MEAN CORPUSCULAR HEMOGLOBIN 29.4 pg (25-34); MEAN CORPUSCULAR HGB CONC 32.8 g/dl (32-36); MEAN PLATELET VOLUME 10.3 fL (7.4-10.4); MONO % 4.2 %; NEUT % 78.7 %; PLATELET COUNT 206 K/uL (130-400); RED BLOOD COUNT 3.85 M/uL (4.2-5.4); WHITE BLOOD COUNT 7.13 K/uL (4.8-10.8)
[2016-08-08 07:16] LABS: BUN/CREATININE RATIO 22.4 (10-20); CALCIUM 8.6 mg/dl (8.5-10.1); CREATININE 0.75 mg/dl (0.60-1.20); POTASSIUM 3.9 mmol/L (3.5-5.1)
[2016-08-08 07:51] VITALS: BP 165/80; PULSE 69; TEMP 36.8; O2SAT 97
[2016-08-08] MEDS: INSULIN ASPART 100 UNITS/ML 3 ML PEN SC SCH ×2 (08:59→12:58)
[2016-08-08] MEDS: DOCUSATE SODIUM 100 MG CAP PO SCH (08:59)
[2016-08-08] MEDS: CALCIUM CITRATE 950 MG TAB PO SCH ×2 (08:59→12:54)
[2016-08-08] MEDS ORDERED: CHOLECALCIFEROL 1000 INTER.UNIT TAB PO SCH (09:00)
[2016-08-08] MEDS: TRAMADOL HCL 50 MG TAB PO SCH ×3 (09:01→16:40)
--- NOTE | 2016-08-08 09:18 | CONSULTATION REPORT ---
DATE OF CONSULTATION: 08/08/2016 INPATIENT PAIN SERVICE CONSULTATION REPORT CHIEF COMPLAINT: Low back and right lower extremity radicular pain. HISTORY OF PRESENT ILLNESS: Ms. Davenport is a 65-year-old white female who was admitted due to acute low back and right lower extremity radicular pain traveling to the level of the knee. The patient reported onset approximately 1-2 weeks ago after shoveling snow. She reported progressive increase in pain in the axial lumbar spine, predominantly right sided, radiating into L4 distribution to the level of the knee. She describes the pain as aching, occasionally sharp, shooting and stabbing in characteristic, aggravated with positional change and ambulatory activity. Her pain has moderately improved during the inpatient admission. She is out of bed to the bathroom without complications and is reporting further improvement from yesterday. She denies pain below the level of the knee, weaknesses in the lower extremity or paresthesias. She denies any bowel or bladder incontinence. She denies left lower extremity radicular pain. The patient is concerned about returning to home as she lives alone and performs household activities to care for her pets and heat her home. Referral to rehabilitative setting has been discussed. The patient reports prior utilization of tramadol in the outpatient setting for control of chronic low back pain, which had been efficacious. There has been a recent change in her family care provider, who discontinued the tramadol. She finds tramadol to be efficacious without notable side effects. She reported prior use of 1-2 times daily and occasionally up to 4 times daily based on exacerbating activities. The patient denies any further constitutional complaints at today's visit. PAST MEDICAL HISTORY: 1. Insulin-dependent diabetes mellitus. 2. History of renal calculus. PAST SURGICAL HISTORY: 1. Appendectomy. 2. Hysterectomy. SOCIAL HISTORY: The patient is single and lives alone. She denies alcohol, tobacco or illicit drug use. FAMILY HISTORY: 1. Cancer -- unknown type. 2. Diabetes mellitus. 3. CAD. 4. Kidney disease. 5. Nephrolithiasis. ALLERGIES: No known drug allergies. CURRENT MEDICATIONS: Reviewed extensively in the EMR -- refer for current list. REVIEW OF SYSTEMS: The patient denies complaints related to cardiac, pulmonary, GI, , endocrine, neurologic, hepatic, renal, ENT, dermatologic, or musculoskeletal as described above in the HPI. PHYSICAL EXAMINATION: VITAL SIGNS: Temperature 36.8 degrees Celsius, pulse 69, respirations 18, BP 165/80, and pulse oximetry 97% on room air. GENERAL: Ms. Davenport is lying quietly upon entering the room in no acute distress. Speech and thought process are appropriate. Mood and affect are appropriate. Cognition is intact. BACK AND SPINE: Loss of lumbar lordosis. Lidoderm patch is present in the lumbosacral junction. She is nontender over the midline. She is tender to provocative testing of the lumbar facet joints bilaterally, right greater than left sided at the L4 through S1 level. She is moderately tender over the SI joints bilaterally, right greater than left sided. She is minimally tender to the gluteal musculature on the right, nontender correspondingly on the left. There is no appreciable myofascial spasm or myoneural trigger points. LOWER EXTREMITIES: The patient is tender over the right greater trochanter to direct palpation. Nontender correspondingly on the left. SLR was negative in the supine position at approximately 45 degrees bilaterally. No aggravation appreciated with dorsiflexion. Strength was 5/5 with dorsiflexion, plantar flexion, hip flexion and extension maneuvering. Sensation was intact without deficits. NEUROLOGIC: Cranial nerves grossly intact. Ambulatory function was not witnessed. No evidence of ankle clonus is appreciated. There is no evidence of edema, erythema or skin breakdown at the lower extremities. IMAGING STUDIES: Lumbar spine MRI dated 08/05/2016 was reviewed, which revealed a prominent right central disk herniation at L4-L5. There is significant multifactorial lumbar spinal canal stenosis. There is significant right and to a lesser extent left-sided neural foraminal narrowing at L4-L5. Mild left-sided central disk bulge at L5 and S1. Mild narrowing of the neural foramen on the left at L3-L4 and L2-L3 levels. ASSESSMENT: 1. Lumbar radiculopathy. 2. Prominent right central disk herniation at L4-L5, creating significant multifactorial narrowing of the spinal canal and significant compromise of the neural foramina bilaterally. 3. Lumbago. 4. Diabetes mellitus -- insulin dependent. TREATMENT AND RECOMMENDATIONS: 1. The patient appears to be symptomatically improving during the inpatient admission. Short-term rehabilitative stay appears to be appropriate to ensure she can return to her home as she lives alone for ADL activities. 2. Would recommend maintaining tramadol 50 mg q. 6 hours on a p.r.n. basis for breakthrough pain in the outpatient setting. 3. Agree with current medications at this time without change. Consider progressing gabapentin in the outpatient setting. 4. We discussed her potential candidacy for epidural steroid injection in the outpatient setting with persisting/increased symptomatic complaints of lumbar radicular pain. Information was provided for the patient to contact our clinic for evaluation in the outpatient setting. All of her questions were answered and she verbalized understanding. Thank you for allowing us to participate in the care of Ms. Davenport. AILYN
--- NOTE | 2016-08-08 09:23 | Family Medicine Progress Note ---
Progress Note Date of Service Aug 08, 2016. Subjective Pt evaluation today including: conversation w/ patient, physical exam, chart review, lab review The patient was seen and examined at bedside. No acute overnight events. Patient states that she has only minor improvement in her lower back pain. Patient has not received any PO percoset yet - patient has not been asking for it. Patient is resting comfortably in bed. Eating and urinating well. Back pain is not radiating. Pt denies urinary or bowel incontinence. Plan of care was described to the patient and all questions were answered. Constitutional: No chills, No fever, No sweats Respiratory: No cough, No shortness of breath, No sputum, No wheezing Abdomen: + constipation, No nausea, No pain Objective Physical Exam General Appearance: WD/WN, no apparent distress Eyes: normal inspection Respiratory/Chest: chest non-tender, lungs clear, normal breath sounds, no respiratory distress, no accessory muscle use Cardiovascular: regular rate, rhythm, no edema, no gallop, no JVD, no murmur Abdomen: normal bowel sounds, non tender, soft, no organomegaly Extremities: + pertinent finding (straight leg test negative, power 5/5 in both LE, sensation to light touch intact in outer and inner LE bilaterally, hand drip equal bilaterally. ) Neurologic/Psychiatric: alert, normal mood/affect, oriented x 3 Assessment and Plan 65 year old female with history of spinal stenosis and DM2 presents with acute low back pain with radiation down RLE after multiple episodes of recent shovelling snow of single car driveway. Lumbar MRI revealed right central disk herniation and spinal stenosis. Ortho recommended conservative management. Pt is improving clinically with OT/PT and pain medication. Hospital Day #2. Lower Back Pain 2/2 Disk Herniation and Spinal Stenosis - Pt reports minimal to no clinical improvement, yet based on exam pt is improving clinically. Pt reports no radiation down RLE. Last morphine dose was 2mg on 08/06/16 at 7AM. - Lumbar MRI- right central disc herniation with significant multifactorial spinal stenosis. - Ortho-> conservative management. - Progress pain medications to PO, Percocet Q4 PRN and Tramadol 50mg QID scheduled. - continue with OT and PT. - Pt will need placement, likely [facility], today. - Pain management consult in place. DM2 - Continue glyburide 10mg BID - Continue Lantus and NovoLog sliding scale coverage with Accu-Cheks before meals and at bedtime HTN - Systoic between 120-150s, consider HTCZ or GURVINDER if continues to be high. Constipation - c/w Colace Caps, no BM today, if doesn't improve consider adding Miralax. Hypocalcemia (Resolved) - Ca2+ is 8.6<--8.2 today - Supplemented with calcium citrate - Adding on vitamin D 2000 IU. DVT Proph - Lovenox Q24 Inj 40units. - Discontinued SCDs due to patient comfort. FULL CODE Resident Involvement: Resident Care Provided Care Provided: Adult Hospital Medicine
[2016-08-08 13:00] VITALS: BP 160/77
--- NOTE | 2016-08-08 14:18 | Discharge Summary ---
Discharge Summary Admission Date: Aug 05, 2016 at 17:33 [facility] Principal Diagnosis: Disk Herniation Problems/Secondary Diagnoses: Spinal Stenosis Diabetes Mellitus Type 2 (Samy Castro M.D.) Medication Reconciliation New Medications: Oxycodone Ir (Roxicodone Ir) 5 Mg Tab 5 MG PO BID PRN for Pain for 10 Days, #20 TAB Cholecalciferol (Vitamin D3) 1,000 Inter.unit Tab 2000 INTER.UNIT PO QAM for 30 Days, #60 TAB 2 Refills Tramadol HCl (Tramadol HCl) 50 Mg Tab 50 MG PO QID PRN for Pain MDD 4 for 10 Days, #40 TAB Continued Medications: Glyburide (Micronase) 5 Mg Tab 10 MG PO BID, TAB Ibuprofen (Motrin) 600 Mg Tab 200-600 MG PO DIRECTED PRN for Pain or Fever, #15 TAB Metformin Hcl (Glucophage) 500 Mg Tab 1000 MG PO BID, TAB Discharge Exam Subjective The patient was seen and examined at bedside. No acute overnight events. Patient states that she has only minor improvement in her lower back pain. Patient has not received any PO percoset yet - patient has not been asking for it. Patient is resting comfortably in bed. Eating and urinating well. Back pain is not radiating. Pt denies urinary or bowel incontinence. Plan of care was described to the patient and all questions were answered. Constitutional: No chills, No fever, No sweats Respiratory: No cough, No shortness of breath, No sputum, No wheezing Abdomen: + constipation, No nausea, No pain Physical Exam General Appearance: WD/WN, no apparent distress Eyes: normal inspection Respiratory/Chest: chest non-tender, lungs clear, normal breath sounds, no respiratory distress, no accessory muscle use Cardiovascular: regular rate, rhythm, no edema, no gallop, no JVD, no murmur Abdomen: normal bowel sounds, non tender, soft, no organomegaly Extremities: + pertinent finding (straight leg test negative, power 5/5 in both LE, sensation to light touch intact in outer and inner LE bilaterally, hand drip equal bilaterally. ) Neurologic/Psychiatric: alert, normal mood/affect, oriented x 3 (Samy Castro M.D.) Review of Systems: Constitutional: No fever Respiratory: No shortness of breath Cardiovascular: No chest pain Musculoskeletal: + problem reported (back pain much better controlled with medications) Physical Exam: General Appearance: no apparent distress Respiratory/Chest: lungs clear, no respiratory distress Cardiovascular: regular rate, rhythm Abdomen / GI: normal bowel sounds, non tender, soft Neurologic/Psychiatric: no motor/sensory deficits, alert, oriented x 3 Skin: warm/dry (Rosa Narvaez M.D.) Hospital Course 65 year old female with history of spinal stenosis and DM2 presents with acute low back pain with radiation down RLE after multiple episodes of recent shovelling snow of a single car driveway. Lumbar MRI revealed right central disk herniation and spinal stenosis. Orthopedics was consulted and recommended conservative management. Pain management was also consulted regarding their recommendations. Patient's symptoms were treated with Tramadol 50mg QID scheduled and Percocet Q4 PRN. The patient was also seen by occupational and physical therapy during her visit and was encouraged to ambulate. The patient improved clinically in the 48 hours after admission and placement for a rehabilitation facility was obtained. The patient's comorbidities include Type 2 Diabetes that in hospital was managed with long and short acting insulin to achieve excellent blood sugar controls. The patient's also had an incidental finding of hypocalcemia that was treated with calcium and Vitamin D 2000IU supplements. The patient's DVT Prophylaxis was daily Lovenox injections of 40units SQ. The patient was discharged on 10 days of Ultram 50mg QID (40 pills) and 20 Tabs of Oxycodone IR 5mg BID PRN for pain. The patient will likely need [facility] pain management of Ultram and/or other pain medication as her back pain seems to be a chronic issue. Total Time Spent: Greater than 30 minutes This includes examination of the patient, discharge planning, medication reconciliation, and communication with other providers. (Samy Castro M.D.) I have reviewed the medical record and performed a history and physical examination of this patient today. I have discussed the case with Dr Castro. The above note reflects my findings, conclusions, and recommendations. Total Time Spent: Greater than 30 minutes (35) (Rosa Narvaez M.D.) Discharge Instructions Please refer to the electronic Patient Visit Report (Discharge Instructions) for additional information. (Samy Castro M.D.) Follow-Up Follow up with Primary Care Provider for evaluation of lower back pain. 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 (Samy Castro M.D.) Additional Copies To Glory Mcneil PA-C Resident Involvement: Resident Care Provided Care Provided: [facility] (Samy Castro M.D.)
[2016-08-08] MEDS ORDERED: ULT50X PO (14:24)
[2016-08-08] MEDS ORDERED: OXYC1TAB3 PO ×2 (14:24→14:59)
[2016-08-08] MEDS ORDERED: VTMD1000 PO (14:24)
--- NOTE | 2016-08-08 14:26 | Discharge Instructions ---
Discharge Instructions Admission Reason for Admission: Herniation Of Lumber Intervertebral Disc W/Radicul Discharge Discharge Diagnosis / Problem: Disk Herniation and Spinal Stenosis Discharge Goals Goal(s): Decrease discomfort, Improve function, Improve disease control, Improve nutritional status, Diagnostic testing Activity Recommendations Activity Limitations: as noted below Lifting Limitations: none, gradually increase as tolerated Exercise/Sports Limitations: gradually increase as tolerated . Instructions / Follow-Up Instructions / Follow-Up Gradual return to normal activity. We recommend light activity as tolerated. Stop when you are in pain. Current Hospital Diet Patient's current hospital diet: Diabetes Type 2 Diet Discharge Diet Recommended Diet: Diabetes Type 2 Diet Pending Studies Studies pending at discharge: no Medical Emergencies . Who to Call and When: Medical Emergencies: If at any time you feel your situation is an emergency, please call 911 immediately. . Non-Emergent Contact Non-Emergency issues call your: Primary Care Provider . . "Provider Documentation" section prepared by Samy Castro. VTE Core Measure Inpt VTE Proph given/why not?: Enoxaparin (Lovenox)SQ
[2016-08-08] MEDS ORDERED: CHOL100027 PO (14:52)
[2016-08-08] MEDS ORDERED: TRAM-10 PO (14:59)
[2016-08-08 16:09] VITALS: BP 177/82; PULSE 67; TEMP 36.7; O2SAT 97
[2016-08-08 16:57] VITALS: BP 177/82; PULSE 67; TEMP 36.7; O2SAT 97
[2017-01-30] MEDS ORDERED: TRAM-10 PO (10:58)
[2017-01-30] MEDS ORDERED: CHOL1000 PO (10:58)
[2017-03-26] MEDS ORDERED: METH1TAB81 PO (15:03)
== END 2016-08-08 17:42 | DRG 552 ==
LOC: ENRESERVDT → ENRESERVTM → EDSEX 13:36 → EDBD 13:36 → C.EDB 13:37 → C.MSW 17:33
PROVIDERS: ADMIT Hospitalist; ATTEND Family Medicine
DX: M54.5 Low back pain (principal); G89.29 Other chronic pain; M51.16 Intervertebral disc disorders with radiculopathy, lumbar region; M48.06 Spinal stenosis, lumbar region; Y93.H1 Activity, digging, shoveling and raking; X50.0XXA Overexertion from strenuous movement or load, initial encounter; Y92.008 Other place in unspecified non-institutional (private) residence as the place of occurrence of the external cause; R26.2 Difficulty in walking, not elsewhere classified; E11.65 Type 2 diabetes mellitus with hyperglycemia; T38.0X5A Adverse effect of glucocorticoids and synthetic analogues, initial encounter; E83.51 Hypocalcemia; Z87.891 Personal history of nicotine dependence; Z79.84 Long term (current) use of oral hypoglycemic drugs

== ENCOUNTER → 2017-02-21 | Day surgery (SDC) | payer OTHER ==
[2017-01-30 10:58] VITALS: Ht 170.2 cm; Wt 70.9 kg
[~2017-02-21] VITALS: Ht 170.2 cm; Wt 70.9 kg
[~2017-02-21] MED LIST changes: +CHOL1000 PO; +IOPAMIDOL INJ 61% 15 ML VIAL ONE; +LIDOCAINE HCL 1% MPF 5 ML VIAL ONE; +METH1TAB81 PO; +SODIUM CHLORIDE 0.9% INJ 10 ML VIAL ONE; +TRAM-10 PO; +VTMD1000 PO
--- NOTE | 2017-02-21 15:08 | History & Physical Bridge - SC ---
H&P Re-Evaluation Bridge Note: I have examined the patient, reviewed the History & Physical and in the interval since the performance of the History & Physical I have noted the following changes of clinical significance: No changes noted
[2017-02-21 15:30] VITALS: TEMP 36.5
--- NOTE | 2017-02-21 15:37 | Discharge Instructions ---
Discharge Instructions Date of Service Feb 21, 2017. Visit Reason for Visit: Lumbar Radiculopathy Discharge Discharge Diagnosis / Problem: right leg Discharge Goals Goal(s): Decrease discomfort, Improve function Activity Recommendations Activity Limitations: resume your previous activity Anesthesia . Post Anesthesia Instructions: If you have had General Anesthesia or IV Sedation: * Do not drive today. * Resume driving when surgeon permits. * Do not make important decisions or sign legal documents today. * Call surgeon for: 1. Temperature elevations greater than 101 degrees F. 2. Uncontrollable pain. 3. Excessive bleeding. 4. Persistent nausea and vomiting. 5. Medication intolerance (nausea, vomiting or rash). * For nausea and vomiting use only clear liquids such as: tea, soda, bouillon until nausea subsides, then gradually increase diet as tolerated. * If you have any concerns or questions, call your surgeon's office. If physician is unavailable and it is an emergency, call 911 or go to the nearest emergency room. . Diet Recommendations Recommended Home Diet: resume previous diet Procedures Procedures Performed: LUMBAR EPIDURAL STEROID INJECTION Pending Studies Studies pending at discharge: no Medical Emergencies . Who to Call and When: Medical Emergencies: If at any time you feel your situation is an emergency, please call 911 immediately. . Non-Emergent Contact Non-Emergency issues call your: Specialist . . "Provider Documentation" section prepared by James Steele. .
[2017-02-21 15:48] VITALS: BP 163/77; PULSE 85; O2SAT 98
--- NOTE | 2017-02-21 16:05 | OPERATIVE REPORT ---
DATE OF OPERATION: 02/21/2017 PREOPERATIVE DIAGNOSIS: Lumbar disk disease with a right L5 radiculopathy. POSTOPERATIVE DIAGNOSIS: Same. INDICATIONS: The patient is a 66-year-old white female that has not responded appropriately to conservative measures. She has persistent right radiculopathy secondary to multifactorial stenosis with spondylitic changes and discogenic bulge. She presents today for an epidural steroid injection to try to relieve her right lower extremity radicular pain. CONSENT: Verbal and written consent was obtained from the patient. Risks and benefits were reviewed. Risks include, but are not limited to epidural abscess, epidural hematoma, allergic reaction, and dural puncture. The patient wishes to proceed. DESCRIPTION OF PROCEDURE: The patient was taken back to the special procedures room of [facility]. She was maintained in a prone position. Backside was cleansed with Betadine x3 and a dry sterile dressing was applied. Fluoroscope was used to identify the L5-S1 intralaminar space. Overlying skin on the right side was anesthetized with 4 mL of lidocaine 1% with a 25-gauge 1-1/2 inch needle. A 22-gauge 3-1/2 inch Tuohy needle was directed down towards the intralaminar space. It was advanced under lateral fluoroscopic guidance and loss of resistance was noted at a depth of 6 cm. Isovue-300 contrast 1 mL was injected in which demonstrated epidural uptake pattern, which was confirmed with lateral views. She then underwent injection after negative aspiration of 40 mg of Depo-Medrol and 4 mL of preservative free sodium chloride. Injection was well tolerated and reproduced a familiar radicular sensation down the leg. DISPOSITION: 1. The patient was taken out into the discharge recovery area, where she will be discharged home once discharge criteria have been met. 2. Follow up in the [facility] office in 2-4 weeks. I attest to the content of the Intraoperative Record and any orders documented therein. Any exception s are noted below.
== END | disposition home or self-care (01) ==
LOC: X.SURG 13:49
PROVIDERS: ATTEND Physical Medicine & Rehabilitation
DX: M51.16 Intervertebral disc disorders with radiculopathy, lumbar region (principal); E11.9 Type 2 diabetes mellitus without complications; I10 Essential (primary) hypertension; F32.9 Major depressive disorder, single episode, unspecified; F41.9 Anxiety disorder, unspecified; M10.9 Gout, unspecified; Z79.84 Long term (current) use of oral hypoglycemic drugs; Z79.899 Other long term (current) drug therapy; Z82.49 Family history of ischemic heart disease and other diseases of the circulatory system; Z83.3 Family history of diabetes mellitus

== ENCOUNTER → 2017-04-12 | Day surgery (SDC) | payer OTHER ==
[2017-03-26 15:03] VITALS: Ht 170.2 cm; Wt 70.9 kg
[~2017-04-12] VITALS: Ht 170.2 cm; Wt 70.9 kg
[~2017-04-12] MED LIST changes: -VTMD1000 PO
--- NOTE | 2017-04-12 14:45 | Discharge Instructions ---
Discharge Instructions Date of Service Apr 12, 2017. Visit Reason for Visit: Intervertebral Lumbar Disc Displacement Discharge Discharge Diagnosis / Problem: low back pain Discharge Goals Goal(s): Decrease discomfort, Improve function Medications Stopped Medications Name(s): ibuprofen, last dose 04/08/17 Activity Recommendations Activity Limitations: resume your previous activity Anesthesia . Post Anesthesia Instructions: If you have had General Anesthesia or IV Sedation: * Do not drive today. * Resume driving when surgeon permits. * Do not make important decisions or sign legal documents today. * Call surgeon for: 1. Temperature elevations greater than 101 degrees F. 2. Uncontrollable pain. 3. Excessive bleeding. 4. Persistent nausea and vomiting. 5. Medication intolerance (nausea, vomiting or rash). * For nausea and vomiting use only clear liquids such as: tea, soda, bouillon until nausea subsides, then gradually increase diet as tolerated. * If you have any concerns or questions, call your surgeon's office. If physician is unavailable and it is an emergency, call 911 or go to the nearest emergency room. . Diet Recommendations Recommended Home Diet: resume previous diet Pending Studies Studies pending at discharge: no Medical Emergencies . Who to Call and When: Medical Emergencies: If at any time you feel your situation is an emergency, please call 911 immediately. . Non-Emergent Contact Non-Emergency issues call your: Specialist . . "Provider Documentation" section prepared by James Steele. .
[2017-04-12 15:10] VITALS: TEMP 37
[2017-04-12 15:18] VITALS: BP 170/71; PULSE 85; O2SAT 99
--- NOTE | 2017-04-12 15:31 | OPERATIVE REPORT ---
DATE OF OPERATION: 04/12/2017 PREOPERATIVE DIAGNOSIS: L4-L5 herniated nucleus pulposus with a right lower extremity radiculopathy. POSTOPERATIVE DIAGNOSIS: Same. PROCEDURE: Right L4-L5 paramedian interlaminar epidural steroid injection under fluoroscopic guidance. INDICATIONS: The patient is a 66-year-old white female who underwent an epidural injection a month ago and did great 80% relief; however, the pain started to come back following a delivery of firewood she stacked and moved. She is doing better than she was prior to the injection, but not quite as well and a decision is made to do a second injection to try to stack the effects. PHYSICAL EXAMINATION: Pleasant female seated comfortably. She has no focal weakness. Negative seated straight leg raises. Intact sensation with the exception of the left S1 dermatomal distribution, which is reduced. CONSENT: Verbal and written consent was obtained from the patient. Risks and benefits were reviewed. Risks include, but are not limited to epidural abscess, epidural hematoma, allergic reaction, and dural puncture. The patient wishes to proceed. DESCRIPTION OF PROCEDURE: The patient was taken back to the special procedures room of the [facility]. She was maintained in a prone position. Backside was cleansed with Betadine x3 and a dry sterile dressing was applied. Fluoroscope was used to identify the L5-S1 intralaminar space, which was very narrowed. Overlying skin on the right side was anesthetized with 4 mL of lidocaine 1% with a 25-gauge 1-1/2 inch needle. A 22-gauge 3-1/2 inch Tuohy needle was then directed under fluoroscopic guidance into the intralaminar space. It was advanced under lateral fluoroscopic guidance. Loss of resistance was noted at a depth of 6 cm. Isovue-300 contrast 1 mL was injected in which demonstrated epidural uptake pattern and she then followed up with injection after negative aspiration of 40 mg of Depo-Medrol and 4 mL of preservative free sodium chloride. Injection reproduced a transient radicular sensation down the leg. DISPOSITION: 1. The patient was taken out into the discharge recovery area, where she will be discharged home once discharge criteria have been met. 2. Follow up in [facility] office in 4 weeks' time. I attest to the content of the Intraoperative Record and any orders documented therein. Any exception s are noted below.
== END | disposition home or self-care (01) ==
LOC: X.SURG 13:35
PROVIDERS: ATTEND Physical Medicine & Rehabilitation
DX: M51.26 Other intervertebral disc displacement, lumbar region (principal); M54.16 Radiculopathy, lumbar region

== ENCOUNTER → 2017-06-18 | Outpatient (CLI) | payer OTHER ==
[~2017-06-18] MED LIST changes: -IOPAMIDOL INJ 61% 15 ML VIAL ONE; -LIDOCAINE HCL 1% MPF 5 ML VIAL ONE; -METH1TAB81 PO; -SODIUM CHLORIDE 0.9% INJ 10 ML VIAL ONE
--- NOTE | 2017-06-19 07:53 | MAMMOGRAPHY REPORT ---
BILATERAL DIGITAL SCREENING MAMMOGRAM WITH CAD: 06/18/2017 CLINICAL HISTORY: Routine screening. Patient has no complaints. TECHNIQUE: Bilateral CC and MLO views were obtained. Current study was also evaluated with a Compute r Aided Detection (CAD) system. COMPARISON: No prior exams were available for comparison. BREAST COMPOSITION: There are scattered areas of fibroglandular density in both breasts. FINDINGS: There is an 11 mm mass with associated spiculation in the lower inner anterior left breast , for which additional spot compression tomosynthesis views and targeted ultrasound are recommended. A 6 mm focal asymmetry in the lower inner middle one third of the left breast could represent additi onal mass. Again, spot compression tomosynthesis views and possible ultrasound are recommended. Lef t axillary ultrasound is also recommended. Tomosynthesis CC and MLO images should also be performed of the right breast at the time of diagnostic workup. There are scattered benign rim calcifications in both breasts. No other suspicious mass, architectur al distortion or cluster of microcalcifications is seen. IMPRESSION: ACR BI-RADS CATEGORY 0: INCOMPLETE EVALUATION: NEED ADDITIONAL IMAGING EVALUATION The 11 mm left breast mass with associated spiculation and 6 mm focal asymmetry in the lower inner le ft breast need additional imaging evaluation. At the time of diagnostic workup, left axillary ultras ound and tomosynthesis CC and MLO views of the right breast should also be performed. The patient will be called to schedule an appointment. Approximately 10% of breast cancers are not detected with mammography. A negative mammographic report should not delay biopsy if a clinically suggestive mass is present. Tawnya Leyva M.D. ay/:06/18/2017 15:40:39 Machinery Mover: Ekaterina ANG(Noel)(M), [facility] letter sent: Addl Imaging 0 BI-RADS Code: ACR BI-RADS Category 0: Incomplete Evaluation: Need Additional Imaging Evaluation
== END | disposition home or self-care (01) ==
LOC: C.MAMM 14:26
PROVIDERS: ATTEND Physician Assistant
DX: Z12.31 Encounter for screening mammogram for malignant neoplasm of breast (principal); N63.20 Unspecified lump in the left breast, unspecified quadrant

== ENCOUNTER → 2017-06-21 | Outpatient (CLI) | payer OTHER ==
--- NOTE | 2017-06-21 14:35 | MAMMOGRAPHY REPORT ---
BILATERAL DIGITAL DIAGNOSTIC MAMMOGRAM TOMOSYNTHESIS AND TARGETED LEFT ULTRASOUND: 06/21/2017 CLINICAL HISTORY: Callback from screening mammogram for left breast masses. TECHNIQUE: Breast tomosynthesis in addition to standard 2D mammography was performed. Spot compress ion left CC and MLO 2-D and tomosynthesis images and right CC and MLO tomosynthesis images including C views were obtained. COMPARISON: Comparison is made to exam dated: 06/18/2017 mammogram - [facility]. BREAST COMPOSITION: There are scattered areas of fibroglandular density in both breasts. FINDINGS: The spot compression views demonstrate a spiculated irregular mass in the left 6:00 anterio r breast, which is ill-defined mammographically but measures at least 13 x 10 mm. Additionally, ther e is an irregular spiculated 6 mm mass within the left lower inner quadrant middle depth. The masses are approximately 2.7 cm apart mammographically. Tomosynthesis images of the right breast demonstra te no suspicious masses, calcifications, or areas of architectural distortion. Targeted ultrasound was performed of the left breast masses. In the left 6:00 subareolar breast, the re is an irregular spiculated hypoechoic solid mass which measures 1.3 x 1.4 x 1.2 cm. This extends to the skin surface. This corresponds with the larger mammographic mass and is highly suspicious. I n the left breast at 8:00, 3 cm from the nipple, there is an isoechoic irregular non-circumscribed so lid mass with internal vascularity which measures 5 x 3 x 5 mm. This corresponds with the other mamm ographic mass and is highly suspicious. Recommend ultrasound guided core needle biopsy of both kyra s for further evaluation. Targeted ultrasound was also performed of the left axilla. The ultrasound exam of the axilla is slig htly limited as the patient could not turn into an oblique position for the exam. However, morpholog ically normal left axillary lymph nodes are seen without evidence of axillary adenopathy. IMPRESSION: ACR BI-RADS CATEGORY 5: HIGHLY SUGGESTIVE OF MALIGNANCY, TARGETED ULTRASOUND ACR BI-RADS CATEGORY 5: HIGHLY SUGGESTIVE OF MALIGNANCY 1. Spiculated irregular 1.4 cm mass in the left 6:00 subareolar breast, as well as an irregular 5 mm mass in the left 8:00 breast. The masses are highly suspicious for malignancy and ultrasound-guided core needle biopsy 2 is recommended for further evaluation. 2. No evidence of left axillary adenopathy on ultrasound. 3. No mammographic evidence of malignancy in the right breast. A phone call was made to the physician's office to confirm faxed results were received. The patient has been verbally notified of the results. She tentatively scheduled the biopsies before leaving the department. Approximately 10% of breast cancers are not detected with mammography. A negative mammographic report should not delay biopsy if a clinically suggestive mass is present. Jessenia Rosales M.D. ah/:06/21/2017 12:07:14 Packing And Final Assembly Supervisor: Ekaterina ANG(Noel)(Omaira), [facility] letter sent: Abnormal 4/5 BI-RADS Code: ACR BI-RADS Category 5: Highly Suggestive Of Malignancy Ultrasound BI-RADS: ACR BI-RAD S Category 5: Highly Suggestive Of Malignancy
== END | disposition home or self-care (01) ==
LOC: C.MAMM 11:12
PROVIDERS: ATTEND Physician Assistant
DX: N63.42 Unspecified lump in left breast, subareolar (principal); N63.23 Unspecified lump in the left breast, lower outer quadrant; N64.89 Other specified disorders of breast

== ENCOUNTER → 2017-06-29 | Outpatient (CLI) | payer OTHER ==
[~2017-06-29] MED LIST changes: +ACAR25TA PO; +ANAS1TAB59 PO; +B-COCAP2 PO; +HYDR12.55 PO; +METF-384 PO; +NIFE30TA83 PO
--- NOTE | 2017-06-29 13:24 | Discharge Instructions ---
Discharge Instructions Procedure Procedure Date: Jun 29, 2017. Reason for visit: Left Masses--Pt Takes Ibuprofen For Back/Leg Pain. Discharge Discharge Date: Jun 29, 2017. Discharge Diagnosis: status post breast biopsy Instructions Activity Recommendations: Additional Limitations (see below) Return to School/Work: no limitations Recommended Home Diet: No Limitations Provider Instructions: ACTIVITY RECOMMENDATIONS: * No lifting, pushing, pulling or exercising the affected side for three days. RETURN TO SCHOOL/WORK: * You may return to work/school after the procedure, but do not perform any strenuous activities for 24 to 48 hours. MEDICATIONS: * Tylenol (two 325 mg) every four to six hours if needed for mild pain (if not allergic to Tylenol). DIET: * Resume previous diet. SPECIAL CARE INSTRUCTIONS: * Keep biopsy site dry for 24 hours. May shower after 24 hours, but do not soak (bathe) incision. * May remove Tegaderm (plastic patch) tomorrow AFTER showering. * Leave the steri-strips on for one week. Allow the steri-strips to fall off by themselves. If not off after one week, you may remove them. You may place a Bandaid crosswise over the strips, if desired. * Apply ice 10 minutes on and 10 minutes off as needed. * Wear a bra at bedtime to sleep more comfortably for 2-3 days. * Your referring physician should have the results after approximately 5 to 7 business days. * Call for unusual bleeding, fever, drainage, etc or if you have any questions call during normal business hours or after hours call Dr Rosales, . FOLLOW UP VISIT: Follow-up with Referring Physician as scheduled. Allergies Coded Allergies: No Known Allergies (Unverified , 04/12/17) Britton Chavez Recommendations: Call your doctor if: * Temperature above 101 degrees * Pain not relieved by pain medicine ordered * There is increased drainage or redness from any incision * You have any unanswered questions or concerns. Your Doctors Instructions noted above were prepared by provider Jessenia Rosales. Patient Signature Section: Patient Instructions Signature Page Aminata Davenport Patient (or Guardian) Signature/Date: I have read and understand the instructions given to me by my caregivers. Caregiver/RN/Doctor Signature/Date: The above-named patient and/or guardian has received patient instructions on this date. + Original Patient Signature Page (only) stays with chart. Please make copy for patient.
--- NOTE | 2017-07-03 13:37 | MAMMOGRAPHY REPORT ---
UNILATERAL LEFT DIGITAL DIAGNOSTIC MAMMOGRAM TOMOSYNTHESIS: 06/29/2017 CLINICAL HISTORY: Status post left breast biopsy 2. TECHNIQUE: Breast tomosynthesis in addition to standard 2D mammography was performed. Post procedur e left CC and ML tomosynthesis images including C views were obtained. COMPARISON: Comparison is made to exams dated: 06/29/2017 ultrasound biopsy, 06/21/2017 ultrasound, 06/21/2017 mammogram, and 06/18/2017 mammogram - [facility]. BREAST COMPOSITION: There are scattered areas of fibroglandular density in the left breast. FINDINGS: A new ribbon-shaped biopsy marker clip is seen within the biopsied mass in the left 6:00 s ubareolar breast. A new wing-shaped biopsy marker clip is seen at the site of the biopsied mass in t he left 8:00 breast. No significant postbiopsy hematoma is seen. The 2 masses are located approxima tely 2.7 cm apart on both views. IMPRESSION: POST PROCEDURE IMAGING FOR MARKER PLACEMENT New biopsy marker clips status post ultrasound guided biopsy of the left 6:00 and left 8:00 breast ma sses. Pathology results are pending. Approximately 10% of breast cancers are not detected with mammography. A negative mammographic report should not delay biopsy if a clinically suggestive mass is present. Jessenia Rosales M.D. /:06/29/2017 13:39:26 Miniature Set Designer: Rika ANG(Noel)(Omaira), [facility] BI-RADS Code: Post Procedure Imaging For Marker Placement
--- NOTE | 2017-07-03 13:37 | MAMMOGRAPHY REPORT ---
ULTRASOUND GUIDED BIOPSY LEFT BREAST: 06/29/2017 CLINICAL HISTORY: Suspicious mass in the left 8:00 breast. PATIENT CONSENT: The procedure, risks and benefits were discussed with the patient and informed writt en consent was obtained. A timeout was performed immediately prior to the procedure. PROCEDURE DESCRIPTION: With ultrasound guidance, aseptic technique, and lidocaine as the local anesth etic (1% lidocaine to anesthetize the skin and 1% lidocaine with epinephrine to anesthetize the deepe r tissues), the mass of concern in the left 8:00 breast was sampled 5 times with a 14-gauge Achieve b iopsy needle. Immediately thereafter, with ultrasound guidance, aseptic technique, and lidocaine as t he local anesthetic, a metallic localizer clip (wing-shaped) was placed at the biopsy site. Direct p ressure was applied to the site immediately post procedure and hemostasis was achieved. Postprocedur e unilateral mammograms were performed to confirm placement of the clip in the expected location of t he breast mass. The patient tolerated the procedure without complication. She was given wound care instructions. The specimens were sent to pathology for analysis. COMPARISON: Comparison is made to exams dated: 06/21/2017 ultrasound, 06/21/2017 mammogram, and 06/01 mammogram - [facility]. IMPRESSION: ULTRASOUND GUIDED BIOPSY Ultrasound guided core needle biopsy of the left 8:00 breast mass, with clip placement. The patient will receive pathology results from her referring provider. Jessenia Rosales M.D. ah/:06/29/2017 13:27:15 [facility] Caretaker: Sydney ANG(Noel)(M), [facility]
--- NOTE | 2017-07-03 13:37 | MAMMOGRAPHY REPORT ---
ULTRASOUND GUIDED BIOPSY LEFT BREAST: 06/29/2017 CLINICAL HISTORY: Suspicious mass in the left 6:00 subareolar breast. PATIENT CONSENT: The procedure, risks and benefits were discussed with the patient and informed writt en consent was obtained. A timeout was performed immediately prior to the procedure. PROCEDURE DESCRIPTION: With ultrasound guidance, aseptic technique, and lidocaine as the local anesth etic (1% lidocaine to anesthetize the skin and 1% lidocaine with epinephrine to anesthetize the deepe r tissues), the mass of concern in the left 6:00 subareolar breast was sampled 4 times with a 14-gaug e Achieve biopsy needle. Immediately thereafter, with ultrasound guidance, aseptic technique, and li docaine as the local anesthetic, a ribbon-shaped metallic localizer clip was placed centrally in the mass. Direct pressure was applied to the site immediately post procedure and hemostasis was achieved . Postprocedure unilateral mammograms were performed to confirm placement of the clip in the expecte d location of the breast mass. The patient tolerated the procedure without complication. She was gi heather wound care instructions. The specimens were sent to pathology for analysis. COMPARISON: Comparison is made to exams dated: 06/21/2017 ultrasound, 06/21/2017 mammogram, and 06/01 mammogram - [facility]. IMPRESSION: ULTRASOUND GUIDED BIOPSY Ultrasound guided core needle biopsy of the left 6:00 subareolar breast mass, with clip placement. T he patient will receive pathology results from her referring provider. Jessenia Rosales M.D. ah/:06/29/2017 13:25:50 Roll Former: Rika ANG(R)(M), [facility]
== END | disposition home or self-care (01) ==
LOC: C.MAMM 12:32
PROVIDERS: ATTEND Physician Assistant
DX: C50.912 Malignant neoplasm of unspecified site of left female breast (principal)

== ENCOUNTER → 2017-07-19 | Outpatient (CLI) | payer OTHER ==
[~2017-07-19] MED LIST changes: -ACAR25TA PO; -ANAS1TAB59 PO; -B-COCAP2 PO; +GADAVIST IV PRN; -HYDR12.55 PO; -METF-384 PO; -NIFE30TA83 PO
--- NOTE | 2017-07-20 13:59 | MAMMOGRAPHY REPORT ---
BREAST MRI OF BOTH BREASTS : 07/19/2017 CLINICAL HISTORY: Recent ultrasound-guided biopsies of left 6:00 and 8:00 breast masses, with patholo gy yielding malignancy of both masses. COMPARISON: Comparison is made to exams dated: 06/29/2017 mammogram, 06/29/2017 ultrasound biopsy, 1 ultrasound biopsy, 06/21/2017 ultrasound, 06/21/2017 mammogram, and 06/18/2017 mammogram - [facility]. Technique: The patient was placed prone in a dedicated breast imaging coil. Precontrast axial T1-larry ghted, axial T2-weighted fat saturation, and axial T1-weighted fat saturation images were obtained. After the administration of 7.5 mL of Gadavist IV contrast, sequential T1-weighted fat saturation chidi ges were obtained. Subtraction images were obtained of the dynamic contrast enhanced sequences, and 3-D reformations were performed. The ScoreStream software was used for kinetic analysis. Findings: Right breast: There is mild background parenchymal enhancement. There are no suspicious enhancing ma sses or areas of abnormal non-mass enhancement within the right breast. Left breast: There is mild background parenchymal enhancement. In the left 6:00 anterior breast, the re is an irregular enhancing mass which contains clip artifact, measuring 10 x 10 x 14 mm (series 6 i mage 29 and series [id number] image 72). The mass demonstrates a mixed plateau and persistent kinetic pat tern. Findings are consistent with the biopsy-proven malignancy. The mass abuts the overlying skin although there is no skin enhancement in this region. Additionally, there is an enhancing 5 mm mass within the left breast at approximately 8:00 middle depth, which contains clip artifact and is consis tent with the other biopsy-proven malignancy (series [id number] image 76). This demonstrates a mixed plat eau and persistent kinetic pattern. The masses are located approximately 2.5 cm apart on the sagitta l images. The remainder of the left breast is negative, without suspicious enhancing masses or areas of abnormal enhancement noted. There is no clear evidence of axillary adenopathy. The chest wall structures are negative. Visualiz ed portions of the extramammary soft tissues are grossly unremarkable. IMPRESSION: ACR BI-RADS CATEGORY 6: KNOWN BIOPSY PROVEN MALIGNANCY 1. Enhancing irregular 14 mm mass in the left 6:00 anterior breast and enhancing 5 mm mass in the le ft 8:00 breast middle depth, consistent with the biopsy proven malignancies. Appropriate clinical ac tion should be taken. No other suspicious findings seen within the left breast. 2. No MRI evidence of malignancy in the right breast. Jessenia Rosales M.D. 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
== END | disposition home or self-care (01) ==
LOC: C.MRI 12:52
PROVIDERS: ATTEND Surgery
DX: Z01.818 Encounter for other preprocedural examination (principal); C50.312 Malignant neoplasm of lower-inner quadrant of left female breast

== ENCOUNTER 2017-09-11 13:11 | Emergency (ER) | payer OTHER ==
[~2017-09-11] VITALS: Ht 162.6 cm; Wt 74.5 kg
[~2017-09-11 13:11] MED LIST changes: -GADAVIST IV PRN; +HYDR12.55 PO
[2017-09-11 13:13] VITALS: TEMP 36.4; Ht 162.6 cm; Wt 74.5 kg
[2017-09-11] MEDS ORDERED: SODIUM CHLORIDE 0.9% 500ML 500 ML IV STA (14:29)
[2017-09-11 15:09] LABS: BASO % 0.7 %; BASO ABS # 0.05 K/uL (0-0.2); EOS % 3.9 %; EOS ABS # 0.28 K/uL (0-0.5); HEMATOCRIT 35.6 % (37-47); IG# 0.02 K/uL (0.00-0.02); LYMPH % 29.6 %; LYMPH ABS # 2.12 K/uL (1.2-3.4); MEAN CELL VOLUME 85.6 fL (80-100); MEAN CORPUSCULAR HEMOGLOBIN 28.8 pg (25-34); MEAN CORPUSCULAR HGB CONC 33.7 g/dl (32-36); MEAN PLATELET VOLUME 9.1 fL (7.4-10.4); MONO % 6.8 %; MONO ABS # 0.49 K/uL (0.11-0.59); NEUT % 58.7 %; NEUT ABS # 4.21 K/uL (1.4-6.5); PLATELET COUNT 238 K/uL (130-400); RED CELL DISTRIBUTION WIDTH SD 40.4 fL (36.4-46.3); WHITE BLOOD COUNT 7.17 K/uL (4.8-10.8)
[2017-09-11 15:17] LABS: PTT PATIENT 23.8 SECONDS (21.0-31.0)
[2017-09-11 15:22] LABS: ALBUMIN 3.9 gm/dl (3.4-5.0); ALT/SGPT 37 U/L (12-78); AST/SGOT 28 U/L (15-37); BLOOD UREA NITROGEN 24 mg/dl (7-18); CALCIUM 9.7 mg/dl (8.5-10.1); CARBON DIOXIDE 28 mmol/L (21-32); CREATININE 1.42 mg/dl (0.60-1.20); GLUCOSE 206 mg/dl (70-99); POTASSIUM 3.9 mmol/L (3.5-5.1); SODIUM 133 mmol/L (136-145)
[2017-09-11 15:43] LABS: ALKALINE PHOSPHATASE 77 U/L (45-117); TOTAL PROTEIN 7.8 gm/dl (6.4-8.2)
[2017-09-11 16:21] VITALS: BP 153/65; PULSE 88; O2SAT 96
--- NOTE | 2017-09-11 20:05 | EMERGENCY ROOM VISIT NOTE ---
History Report prepared by Andreina: Cody Konwles Under the Supervision of: Dr. Geoff Truong M.D. First contact with patient: 14:21 Chief Complaint: HYPERGLYCEMIA Stated Complaint: HIGH BLOOD SUGAR Nursing Triage Summary: pt reports blood sugar is in the 400's today called pcp told to come to ed takes metformin and glyburide History of Present Illness The patient is a 66 year old female with a history of diabetes and hypertension who presents to the Emergency Room with complaints of worsening hyperglycemia that started a month ago after being started on HCTZ. The patient states that her blood sugars have been in the 200s to 300s, and was noted to have blood sugars over 400 today, so her primary care physician recommended that she come here for evaluation. She notes that she has been feeling tired but otherwise okay. She adds that she sometimes gets nauseous and feels like vomiting, but has not vomited. The patient says that when she gets up in the morning she has been spitting up white mucous. She denies having any flulike symptoms otherwise. The patient says that she takes Metformin and Glyburide for her diabetes, but does not take any insulin. She denies any chest pain, shortness of breath, fevers, chills, cough, or urinary symptoms. She states that she does not feel like she is getting a cold. The patient notes that her diet has not changed much recently, and she does eat some sugar but not enough to drive her sugars so high. She adds that she has breast cancer. Source of History: patient Onset: A month ago Position: other (global) Symptom Intensity: blood sugars up to 495 today Quality: other (hyperglycemia) Timing: worsening Associated Symptoms: + nausea (at times), + fatigue, No fevers, No chills, No cough, No chest pain, No SOB, No vomiting (but has been spitting up white mucous), No urinary symptoms Note: Associated symptoms: Denies feeling like she is getting a cold. Review of Systems See HPI for pertinent positives & negatives. A total of 10 systems reviewed and were otherwise negative. 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 (3) Other ureteric obstruction (4) Renal calculus Surgical Problems: (1) S/P appendectomy (2) S/P hysterectomy Family History Cancer Diabetes mellitus Heart disease Kidney disease Kidney stones Social History Smoking Status: Never Smoker Alcohol Use: none Drug Use: none Marital Status: single, Housing Status: lives alone Occupation Status: retired Current/Historical Medications Scheduled Cholecalciferol (Vitamin D3), 1 TAB PO QAM Glyburide (Micronase), 10 MG PO BID Hydrochlorothiazide (Hydrochlorothiazide), 1 TAB PO DAILY Metformin Hcl (Glucophage), 1,000 MG PO BID Scheduled PRN Ibuprofen (Motrin), 200-600 MG PO DIRECTED PRN for Pain or Fever Tramadol (Ultram), 50 MG PO BID PRN for Pain Allergies Coded Allergies: No Known Allergies (Unverified , 09/11/17) Physical Exam Vital Signs Date Time Temp Pulse Resp B/P (MAP) Pulse Ox O2 Delivery O2 Flow Rate FiO2 09/11/17 16:21 88 18 153/65 96 Room Air 09/11/17 15:15 84 09/11/17 15:02 82 16 144/93 95 Room Air 09/11/17 13:13 36.4 97 18 167/84 96 Room Air Physical Exam Constitutional: Vital signs reviewed. Eyes: Pupils are equal round reactive to light. Conjunctiva are noninjected. ENT: Pharynx is clear without erythema or exudate. Mucous membranes are moist. Neck supple without meningeal signs. Respiratory: Clear to auscultation bilaterally. Breath sounds are equal bilaterally. Cardiovascular: Regular rate and rhythm. No rubs or gallops. GI: Soft, nondistended and nontender. Bowel sounds are present. Musculoskeletal: No peripheral edema. No lower extremity tenderness. Integumentary: No cyanosis. Neurological: The patient is awake and alert. No focal deficits. Psychiatric: Normal affect. Medical Decision & Procedures Laboratory Results 09/11/17 15:00 Red Blood Count 4.16, Mean Corpuscular Volume 85.6, Mean Corpuscular Hemoglobin 28.8, Mean Corpuscular Hemoglobin Concent 33.7, Mean Platelet Volume 9.1, Neutrophils (%) (Auto) 58.7, Lymphocytes (%) (Auto) 29.6, Monocytes (%) (Auto) 6.8, Eosinophils (%) (Auto) 3.9, Basophils (%) (Auto) 0.7, Neutrophils # (Auto) 4.21, Lymphocytes # (Auto) 2.12, Monocytes # (Auto) 0.49, Eosinophils # (Auto) 0.28, Basophils # (Auto) 0.05 09/11/17 15:00 Test 09/11/17 13:18 09/11/17 15:00 09/11/17 15:50 Bedside Glucose 245 mg/dl (70-90) White Blood Count 7.17 K/uL (4.8-10.8) Red Blood Count 4.16 M/uL (4.2-5.4) Hemoglobin 12.0 g/dL (12.0-16.0) Hematocrit 35.6 % (37-47) Mean Corpuscular Volume 85.6 fL (80-100) Mean Corpuscular Hemoglobin 28.8 pg (25-34) Mean Corpuscular Hemoglobin Concent 33.7 g/dl (32-36) Platelet Count 238 K/uL (130-400) Mean Platelet Volume 9.1 fL (7.4-10.4) Neutrophils (%) (Auto) 58.7 % Lymphocytes (%) (Auto) 29.6 % Monocytes (%) (Auto) 6.8 % Eosinophils (%) (Auto) 3.9 % Basophils (%) (Auto) 0.7 % Neutrophils # (Auto) 4.21 K/uL (1.4-6.5) Lymphocytes # (Auto) 2.12 K/uL (1.2-3.4) Monocytes # (Auto) 0.49 K/uL (0.11-0.59) Eosinophils # (Auto) 0.28 K/uL (0-0.5) Basophils # (Auto) 0.05 K/uL (0-0.2) RDW Standard Deviation 40.4 fL (36.4-46.3) RDW Coefficient of Variation 13.0 % (11.5-14.5) Immature Granulocyte % (Auto) 0.3 % Immature Granulocyte # (Auto) 0.02 K/uL (0.00-0.02) Prothrombin Time 10.0 SECONDS (9.0-12.0) Prothromb Time International Ratio 1.0 (0.9-1.1) Activated Partial Thromboplast Time 23.8 SECONDS (21.0-31.0) Partial Thromboplastin Ratio 0.9 Anion Gap 8.0 mmol/L (3-11) Est Creatinine Clear Calc Drug Dose 38.5 ml/min Estimated GFR () 44.5 Estimated GFR (Non- 38.4 BUN/Creatinine Ratio 16.8 (10-20) Calcium Level 9.7 mg/dl (8.5-10.1) Total Bilirubin 0.2 mg/dl (0.2-1) Direct Bilirubin < 0.1 mg/dl (0-0.2) Aspartate Amino Transf (AST/SGOT) 28 U/L (15-37) Alanine Aminotransferase (ALT/SGPT) 37 U/L (12-78) Alkaline Phosphatase 77 U/L (45-117) Troponin I < 0.015 ng/ml (0-0.045) Total Protein 7.8 gm/dl (6.4-8.2) Albumin 3.9 gm/dl (3.4-5.0) Beta-Hydroxybutyric Acid 1.31 mg/dL (0.2-2.81) Urine Color YELLOW Urine Appearance CLEAR (CLEAR) Urine pH 5.0 (4.5-7.5) Urine Specific [place] 1.017 (1.000-1.030) Urine Protein NEG (NEG) Urine Glucose (UA) 3+ (NEG) Urine Ketones NEG (NEG) Urine Occult Blood TRACE (NEG) Urine Nitrite NEG (NEG) Urine Bilirubin NEG (NEG) Urine Urobilinogen NEG (NEG) Urine Leukocyte Esterase NEG (NEG) Urine WBC (Auto) 1-5 /hpf (0-5) Urine RBC (Auto) 0-4 /hpf (0-4) Urine Hyaline Casts (Auto) 1-5 /lpf (0-5) Urine Epithelial Cells (Auto) 10-20 /lpf (0-5) Urine Bacteria (Auto) NEG (NEG) Laboratory results as reviewed by me. Medications Administered Medications (Trade) Dose Ordered Sig/Adelita Route Start Time Stop Time Status Last Admin Dose Admin Sodium Chloride 500 ml @ 999 mls/hr Q31M STAT IV 09/11/17 14:29 09/11/17 14:59 DC 09/11/17 15:02 999 MLS/HR ECG Per My Interpretation Indication: other (hyperglycemia) Rate (beats per minute): 82 Rhythm: normal sinus Findings: no ectopy, other (no ST elevations) ED Course 1423: The patient was evaluated in room C7. A complete history and physical exam was performed. 1429: NSS 500 ml @ 999 mls/hr IV. 1539: I reevaluated the patient and told her about the test results. She will try to give a urine sample. Her blood pressure is down but not normal. 1609: Upon reevaluation, the patient appeared to be resting comfortably. I told the patient to stop taking the HCTZ. I discussed today's findings with her. She verbalized agreement of the treatment plan. She was discharged home. Medical Decision This is a 66-year-old female presents with hyperglycemia. Differential diagnosis includes diabetic ketoacidosis, HHS, dehydration, metabolic derangement, electrolyte abnormality, infection. I did perform a limited focused review of portions of the patient's old chart on the electronic medical record. The patient has had no recent pertinent visits to this hospital. I did evaluate the patient as noted above. The patient is presenting because she has had steadily increasing blood sugars for the past month. She thinks it is related to her being started on hydrochlorothiazide for her blood pressure. She has otherwise not had any changes in her medication. She denies any changes in her dietary intake of carbohydrates although does admit to some sugar intake which is normal for her. She denies any chest pain or shortness of breath to suggest an acute ischemic event. She denies any fevers or signs of infection other than some mucus production which is white in the morning. IV access was established. I did order and personally review the patient's 12- lead EKG as described above. I did order and review the patient's blood work as noted in the electronic medical record. Creatinine is elevated. No signs of DKA. She was treated with normal saline IV. I did order a urine analysis. I did speak to the ED pharmacist regarding her medications. She did feel that the hydrochlorothiazide may potentially be contributing to the hyperglycemia. Given her elevated creatinine I did recommend she stop taking the hydrochlorothiazide and to increase her fluid intake. She was advised to talk to her doctor as soon as possible about a replacement for the hydrochlorothiazide and also have her doctor recheck her blood work. The patient was discharged in good condition. Medication Reconcilliation Current Medication List: was personally reviewed by me Blood Pressure Screening Patient's blood pressure: Elevated blood pressure Impression Primary Impression: Hyperglycemia Additional Impressions: Dehydration Elevated serum creatinine Scribe Attestation The scribe's documentation has been prepared under my direct and personally reviewed by me in its entirety. I confirm that the note above accurately reflects all work, treatment, procedures, and medical decision making performed by me. Departure Information Dispostion Home / Self-Care Referrals Glory Mcneil PA-C (PCP) Patient Instructions ED Hyperglycemia Diabetic, My [facility] Additional Instructions You have been examined and treated today on an emergency basis only. This is not a substitute for, or an effort to provide, complete comprehensive medical care. It is impossible to recognize and treat all injuries or illnesses in a single emergency department visit. It is therefore important that you follow up closely with your physician. Call as soon as possible for an appointment. Return for worsening symptoms or if you develop fever, vomiting, chest pain, shortness of breath, very dark urine, decreased urinary output or any other concerning symptoms. Stop your hydrochlorothiazide. Problem Qualifiers
== END 2017-09-11 16:30 | disposition home or self-care (01) ==
LOC: C.EDB 13:12 → C.EDC 16:30
DX: E11.65 Type 2 diabetes mellitus with hyperglycemia (principal); E86.0 Dehydration; R79.89 Other specified abnormal findings of blood chemistry; C50.919 Malignant neoplasm of unspecified site of unspecified female breast; M51.16 Intervertebral disc disorders with radiculopathy, lumbar region; Z87.442 Personal history of urinary calculi; Z80.9 Family history of malignant neoplasm, unspecified; Z83.3 Family history of diabetes mellitus; Z82.49 Family history of ischemic heart disease and other diseases of the circulatory system; Z84.1 Family history of disorders of kidney and ureter; Z79.899 Other long term (current) drug therapy

== ENCOUNTER → 2018-02-01 | Outpatient (CLI) | payer OTHER ==
[~2018-02-01] MED LIST changes: +ACAR25TA PO; +ANAS1TAB59 PO; +B-CO1CAP17 PO; -GLC/500 PO; -HYDR12.55 PO; +METF-384 PO; +NIFE30TA83 PO
== END | disposition home or self-care (01) ==
LOC: C.RDSM 09:58
PROVIDERS: ATTEND Orthopaedic Surgery
DX: S82.891A Other fracture of right lower leg, initial encounter for closed fracture (principal); X58.XXXA Exposure to other specified factors, initial encounter

== ENCOUNTER → 2018-02-01 | Outpatient (CLI) | payer OTHER ==
--- NOTE | 2018-02-01 11:27 | DIAGNOSTIC IMAGING REPORT ---
THYROID ULTRASOUND HISTORY: SUBCLINICAL HYPERTHYROIDISM COMPARISON: None. FINDINGS: Right lobe: 5.1 x 1.7 x 1.5 cm. The gland is heterogeneous. However, no definite nodules. Left lobe: 4.3 x 1.9 x 0.9 cm. The gland is heterogeneous. However, no definite nodules. Isthmus: 3 mm in thickness. No nodules. IMPRESSION: Heterogeneous thyroid gland. No definite nodules. Electronically signed by: Johnny Nobles M.D. 02/01/2018 11:26 AM Dictated Date/Time: 02/01/2018 11:25 AM
== END | disposition home or self-care (01) ==
LOC: C.ULTR 10:25
PROVIDERS: ATTEND Physician Assistant
DX: E05.80 Other thyrotoxicosis without thyrotoxic crisis or storm (principal)

== ENCOUNTER 2021-12-26 11:59 | Observation (INO) ==
[2021-12-26] MEDS ORDERED: FAMOTIDINE 20MG IV PUSH 20 MG/5 ML SYR IV STA (12:08)
[2021-12-26] MEDS ORDERED: methylPREDNISolone 125 MG/2 ML VIAL IV STA (12:08)
--- NOTE | 2021-12-26 12:13 | Emergency Department Note ---
Impression & Plan Allergic reaction, Syncope ED Provider Note NAME: SHAHRAM MUÑOZ AGE: 70 SEX: F : 1950 ARRIVES VIA: Ambulance INFORMANT: Patient ED PROVIDER(S): Marcelo Heart DO CHIEF COMPLAINT: allergic reaction HPI: Patient is a 70-year-old female who has a past medical history of hypertension, diabetes and paroxysmal A. fib on apixaban who presents to the ER following working in her garden and being stung multiple times. She was digging up a piece of wood and was stung multiple times by bees. She went inside and passed out. She did call EMS after she woke up. When they arrived she was unresponsive. They gave her a dose of epinephrine. She was found to be hypoxic at 74% per the report. She denies any focal pain but notes that she has pain all over and this is normal for her. Denies any trouble breathing or swallowing. She does admit to some new pain over her right orbit. No chest pain or shortness of breath. No dysuria urgency or frequency. No other exacerbating or remitting factors. She was given IM epinephrine prior to arrival as well as 50 mg of Benadryl IV prior to arrival. ROS: See above HPI for pertinent positives & negatives. A total of 10 systems reviewed and were otherwise negative. PAST MEDICAL HISTORY:See Below PAST SURGICAL HISTORY:See Below FAMILY HISTORY:See Below SOCIAL HISTORY:See Below HOME MEDICATIONS:See Below ALLERGIES:See Below VITALS:See Below PHYSICAL EXAMINATION: GENERAL: alert, well appearing, well nourished, no distress, non-toxic HEAD: normal cephalic, Bruising over right eyebrow EYE EXAM: normal conjunctiva, PERRL and EOM's grossly intact OROPHARYNX: no exudate, no erythema, lips, buccal mucosa, and tongue normal and mucous membranes are moist NECK: supple, no nuchal rigidity, no adenopathy, non-tender CHEST: stable to compression anteriorly and posteriorly LUNGS: clear to auscultation. Normal chest wall mechanics HEART: no murmurs, S1 normal and S2 normal ABDOMEN: abdomen soft, non-tender, normo-active bowel sounds, no masses, no rebound or guarding. PELVIS: stable to compression anteriorly and posteriorly BACK: Back is symmetrical on inspection and there is no deformity, no midline tenderness, no CVA tenderness. SKIN: Diffuse blanching erythema which is raised throughout entire body UPPER EXTREMITIES: full active and passive range of motion of all joints without tenderness to palpation LOWER EXTREMITIES: full active and passive range of motion of all joints without tenderness to palpation NEURO EXAM: Normal sensorium, cranial nerves II-XII grossly intact, normal speech, no gross weakness of arms, no gross weakness of legs. GCS: 15. MEDICAL DECISION MAKING: Patient is a 70-year-old female who presents ER for above-stated complaint. IV was established blood work was obtained.Labs show leukocytosis of 12,000. No significant anemia. BMP with a creatinine 1.2 consistent with previous. LFTs bilirubin was unremarkable. Troponin was negative. Lipase was unremarkable. COVID was negative.Did obtain 2 troponins. On repeat evaluation she got up and she was very lightheaded. She was high also having some sacrum and right chest wall pain. X-rays of the ribs and sacrum were unremarkable. CT of the head was unremarkable as well.CT cervical spine was negative. With the 2 episodes of syncope and still being fairly dizzy following standing did discuss with hospitalist for further observation. She was given epinephrine and Benadryl p rior to arrival. She was given IV fluids, Pepcid and steroids while in the ER. Start Time: 1210 Reason: Patient with PMHx of Randal tarango underwent ED Observation for Syncope. Fam Hx: No pertinent family history SocHx: See Below Assessment(s): Reevaluated multiple times Summary: As discussed above in the MDM Disposition: 12/26/2021 at 6 PM. Total Time: 6 Triage Nursing notes reviewed. Limited review of prior medical records performed Vital Signs: reviewed and remarkable for tachy Differential diagnosis: Allergic reaction, anaphylaxis, urticaria, Lovell-Sanjiv syndrome, toxic epidermal necrolysis, erythema multiforme, contact dermatitis, cellulitis, as well as other pathologies. ER treatment provided: See below Diagnostics interpreted by me: ECG:EKG 1 Sinus tachycardia rate only 106 Normal axis Poor baseline QTC 438 EKG #2 Sinus tachycardia rate of 109 Left axis No PVCs Poor baseline in the inferior leads Cardiac Monitoring: An order was placed for continuous cardiac monitoring. The monitor shows a rate of 98 with sinus rhythm. Laboratory studies: As stated above and show below. 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) Family History Mother Myocardial infarction Social History Smoking Status: Never smoker Hx Alcohol Use: No Hx Substance Use: No Preferred Language: Danish Communication Ability: Effective Cosmetologist Required: No Beliefs That Will Affect Care: None Current Living Situation: Alone Feels Safe at Home: Yes Assistive Devices: Cane Allergies Allergies Allergy/AdvReac Type Severity Reaction Status Date / Time bee pollen Allergy Severe Anaphylaxis Verified 12/26/21 17:36 amlodipine AdvReac Unknown Unknown Verified 12/26/21 17:36 furosemide AdvReac Unknown Unknown Verified 12/26/21 17:36 hydrochlorothiazide AdvReac Unknown Unknown Verified 12/26/21 17:36 lisinopril AdvReac Unknown Unknown Verified 12/26/21 17:36 losartan AdvReac Unknown Unknown Verified 12/26/21 17:36 nifedipine AdvReac Unknown Unknown Verified 12/26/21 17:36 Home Meds Home Medications Medication Instructions Recorded Confirmed anastrozole 1 mg tablet 1 mg PO QAM 07/15/18 12/26/21 metformin 1,000 mg tablet 1,000 mg PO BID 07/15/18 12/26/21 levothyroxine 25 mcg tablet 25 mcg PO QAM 01/13/19 12/26/21 acetaminophen 500 mg tablet 500 mg PO UD PRN 05/25/19 12/26/21 (Tylenol Extra Strength) vitamin B complex 1 tab PO BID tab 06/05/19 12/26/21 insulin glargine 100 unit/mL (3 20 unit SUBCUT QPM ml 03/23/20 12/26/21 mL) subcutaneous pen (Lantus Solostar U-100 Insulin) nifedipine 30 mg tablet,extended 30 mg PO DAILY tab 06/02/20 12/26/21 release insulin glargine 100 unit/mL (3 35 unit SUBCUT QAM ml 06/02/21 12/26/21 mL) subcutaneous pen (Lantus Solostar U-100 Insulin) cholecalciferol (vitamin D3) 25 100 mcg PO DAILY 12/26/21 12/26/21 mcg (1,000 unit) tablet (Vitamin D3) diclofenac sodium 1 % topical gel 4 g TOPICAL QID PRN 12/26/21 12/26/21 tramadol 50 mg tablet 50 mg PO BID PRN 12/26/21 12/26/21 Previous Rx's Medication Instructions Recorded apixaban 5 mg tablet (Eliquis) 5 mg PO BID #180 tab 10/13/21 Results & Data (ED) Vital Signs Vital Signs - 24 hr 12/26/21 12:05 12/26/21 12:10 12/26/21 12:18 Pulse Rate 107 H 102 H Pulse Rate [Left Finger] 105 H Pulse Rhythm [Left Finger] Pulse Strength [Left Finger] Respiratory Rate 22 22 Respiratory Effort / Characteristics Labored Respiratory Depth Normal Respiratory Pattern Blood Pressure 127/78 Blood Pressure [Right Arm] 127/78 Blood Pressure Mean 94 Blood Pressure Mean [Right Arm] 94 Blood Pressure Position [Right Arm] Pulse Oximetry 98 98 97 Oxygen Delivery Method Room Air Room Air Room Air Sepsis Recent Fever Within 48 Hours No Sepsis New/Unexplained Change in Mental Status No Sepsis Action Taken by Nursing No Action Required Pulse Oximetry Post Tiitration 98 12/26/21 12:20 12/26/21 12:50 12/26/21 13:06 Pulse Rate 109 H 88 Pulse Rate [Left Finger] 100 H Pulse Rhythm [Left Finger] Regular Pulse Strength [Left Finger] Normal Respiratory Rate 20 20 18 Respiratory Effort / Characteristics Non-Labored Respiratory Depth Normal Respiratory Pattern Regular Blood Pressure Blood Pressure [Right Arm] 149/76 H Blood Pressure Mean Blood Pressure Mean [Right Arm] 100 Blood Pressure Position [Right Arm] Lying Pulse Oximetry 96 99 99 Oxygen Delivery Method Room Air Room Air Room Air Sepsis Recent Fever Within 48 Hours Sepsis New/Unexplained Change in Mental Status Sepsis Action Taken by Nursing Pulse Oximetry Post Tiitration 12/26/21 14:13 12/26/21 14:50 12/26/21 15:00 Pulse Rate 106 H Pulse Rate [Left Finger] 104 H 96 H Pulse Rhythm [Left Finger] Regular Regular Pulse Strength [Left Finger] Normal Normal Respiratory Rate 18 20 Respiratory Effort / Characteristics Non-Labored Respiratory Depth Normal Respiratory Pattern Regular Blood Pressure 159/69 H Blood Pressure [Right Arm] 136/76 Blood Pressure Mean 99 Blood Pressure Mean [Right Arm] 96 Blood Pressure Position [Right Arm] Standing Pulse Oximetry 98 93 93 Oxygen Delivery Method Room Air Room Air Sepsis Recent Fever Within 48 Hours Sepsis New/Unexplained Change in Mental Status Sepsis Action Taken by Nursing Pulse Oximetry Post Tiitration 12/26/21 16:00 12/26/21 17:00 Pulse Rate 102 H 107 H Pulse Rate [Left Finger] Pulse Rhythm [Left Finger] Pulse Strength [Left Finger] Respiratory Rate 22 22 Respiratory Effort / Characteristics Respiratory Depth Respiratory Pattern Blood Pressure 152/72 H 147/80 H Blood Pressure [Right Arm] Blood Pressure Mean 98 102 Blood Pressure Mean [Right Arm] Blood Pressure Position [Right Arm] Pulse Oximetry 93 93 Oxygen Delivery Method Sepsis Recent Fever Within 48 Hours Sepsis New/Unexplained Change in Mental Status Sepsis Action Taken by Nursing Pulse Oximetry Post Tiitration Laboratory Data Result diagrams: 12/26/21 12:12 12/26/21 13:27 Lab Results 12/26/21 12/26/21 12/26/21 Range/Units 12:12 12:12 12:25 WBC 12.00 H (4.8-10.8) K/uL RBC 4.43 (4.2-5.4) M/uL Hgb 13.4 (12.0-16.0) g/dL Hct 41.6 (37-47) % MCV 93.9 (80-100) fL MCH 30.2 (25-34) pg MCHC 32.2 (32-36) g/dL RDW Std Deviation 46.4 H (36.4-46.3) fL RDW Coeff of Ho 13.4 (11.5-14.5) % Plt Count 291 (130-400) K/uL MPV 9.7 (7.4-10.4) fL Immature Gran % (Auto) 0.5 % Neut % (Auto) 70.3 % Lymph % (Auto) 24.2 % Valencia % (Auto) 3.7 % Eos % (Auto) 1.2 % Baso % (Auto) 0.1 % Neut # (Auto) 8.45 H (1.4-6.5) K/uL Lymph # (Auto) 2.90 (1.2-3.4) K/uL Valencia # (Auto) 0.44 (0.11-0.59) K/uL Eos # (Auto) 0.14 (0-0.5) K/uL Baso # (Auto) 0.01 (0-0.2) K/uL Immature Gran # (Auto) 0.06 H (0.00-0.02) K/uL Sodium 140 (136-145) mmol/L Potassium TNP Chloride 105 (98-107) mmol/L Carbon Dioxide 23 (21-32) mmol/L Anion Gap 12 H (3-11) BUN 17 (6-23) mg/dl Creatinine 1.21 H (0.6-1.2) mg/dl Est Cr Clr Drug Dosing 44.4 ml/min Est GFR ( Amer) 52.5 ml/min Est GFR (Non-Af Amer) 45.3 ml/min BUN/Creatinine Ratio 14.0 (10-20) Glucose 180 H (70-99(Fasting)) mg/dl Calcium 9.3 (8.5-10.1) mg/dl Total Bilirubin 0.4 (0.2-1.0) mg/dl AST TNP ALT 21 (7-52) U/L Alkaline Phosphatase 54 (34-104) U/L Troponin I High Sens 7.5 (0-14) pg/ml Total Protein 7.1 (6.0-8.3) gm/dl Albumin 4.1 (3.4-5.0) gm/dl Globulin 3.0 (2.5-4.0) gm/dl Albumin/Globulin Ratio 1.4 (0.9-2) Lipase 32 (11-82) U/L SARS-CoV-2, RNA, NAAT NEGATIVE (NEGATIVE) 12/26/21 12/26/21 Range/Units 13:27 15:10 WBC (4.8-10.8) K/uL RBC (4.2-5.4) M/uL Hgb (12.0-16.0) g/dL Hct (37-47) % MCV (80-100) fL MCH (25-34) pg MCHC (32-36) g/dL RDW Std Deviation (36.4-46.3) fL RDW Coeff of Ho (11.5-14.5) % Plt Count (130-400) K/uL MPV (7.4-10.4) fL Immature Gran % (Auto) % Neut % (Auto) % Lymph % (Auto) % Valencia % (Auto) % Eos % (Auto) % Baso % (Auto) % Neut # (Auto) (1.4-6.5) K/uL Lymph # (Auto) (1.2-3.4) K/uL Valencia # (Auto) (0.11-0.59) K/uL Eos # (Auto) (0-0.5) K/uL Baso # (Auto) (0-0.2) K/uL Immature Gran # (Auto) (0.00-0.02) K/uL Sodium (136-145) mmol/L Potassium 4.2 Chloride (98-107) mmol/L Carbon Dioxide (21-32) mmol/L Anion Gap (3-11) BUN (6-23) mg/dl Creatinine (0.6-1.2) mg/dl Est Cr Clr Drug Dosing ml/min Est GFR ( Amer) ml/min Est GFR (Non-Af Amer) ml/min BUN/Creatinine Ratio (10-20) Glucose (70-99(Fasting)) mg/dl Calcium (8.5-10.1) mg/dl Total Bilirubin (0.2-1.0) mg/dl AST 17 ALT (7-52) U/L Alkaline Phosphatase (34-104) U/L Troponin I High Sens 9.4 (0-14) pg/ml Total Protein (6.0-8.3) gm/dl Albumin (3.4-5.0) gm/dl Globulin (2.5-4.0) gm/dl Albumin/Globulin Ratio (0.9-2) Lipase (11-82) U/L SARS-CoV-2, RNA, NAAT (NEGATIVE) Administered Medications Discontinued Medications Famotidine (Pepcid 20mg Iv Push) 20 mg in 5 mls @ 2.5 mls/min IV NOW STA Stop: 12/26/21 12:09 Last Admin: 12/26/21 12:15 Dose: 2.5 mls/min Documented by: [id number] Sodium Chloride (Nss 1000ml) 1,000 mls @ 999 mls/hr IV .Q1H1M ONE Stop: 12/26/21 13:14 Last Infusion: 12/26/21 13:23 Dose: 0 mls/hr Documented by: [id number] Admin: 12/26/21 12:17 Dose: 999 mls/hr Documented by: [id number] Methylprednisolone (Methylprednisolone 125 Mg/2 Ml Vial) 125 mg IV NOW STA Stop: 12/26/21 12:09 Last Admin: 12/26/21 12:15 Dose: 125 mg Documented by: [id number] Morphine Sulfate (Morphine Sulfate 4 Mg/Ml 1 Ml Carp\Vial) 4 mg IV NOW STA Stop: 12/26/21 16:13 Last Admin: 12/26/21 17:32 Dose: 4 mg Documented by: [id number] Ondansetron HCl (Ondansetron Inj 2 Mg/Ml 2 Ml Vial) 4 mg IV NOW STA Stop: 12/26/21 16:13 Last Admin: 12/26/21 17:32 Dose: 4 mg Documented by: [id number] Imaging Data Radiologist's Impression: Cervical Spine CT 12/26/21 12:08 CT cervical spine wo con CLINICAL HISTORY: 70 years-old Female with fall. Acute neck pain status post fall COMPARISON: Head CT of same day TECHNIQUE: Multiple axial CT images of the cervical spine were obtained without contrast. A dose lowering technique was utilized adhering to the principles of ALARA. FINDINGS: Moderate anterior predominant multilevel spondylitic spurring with moderate and moderate to severe multilevel facet arthrosis. No significant intervertebral disc space narrowing. 3 mm anterolisthesis C7 on T1 is likely degenerative. Multilevel neural foraminal narrowing. Diffusely heterogeneous thyroid. No pneumothorax. IMPRESSION: No acute cervical spine fracture or subluxation. ACT 112: Negative or not required by law. The above report was generated using voice recognition software. It may contain grammatical, syntax or spelling errors. Electronically signed by: Bola Stovall M.D. 12/26/2021 12:56 PM Chest X-Ray 12/26/21 12:08 XR chest 1V portable HISTORY: 70 years-old Female Chest Pain acute atypical chest pain COMPARISON: 05/25/2019 TECHNIQUE: Portable AP view of the chest FINDINGS: The cardiomediastinal and hilar silhouettes are within normal limits. Atherosclerosis of the thoracic aorta. There is no pneumothorax, pleural effusion, airspace consolidation or overt pulmonary edema. Degenerative changes of the shoulders and spine. Right shoulder rotator cuff calcific tendinosis. IMPRESSION: No acute process. ACT 112: Negative or not required by law. The above report was generated using voice recognition software. It may contain grammatical, syntax or spelling errors. Electronically signed by: Bola Stovall M.D. 12/26/2021 12:[address] 12/26/21 12:08 CT OF THE HEAD WITHOUT CONTRAST CLINICAL HISTORY: fall COMPARISON STUDY: Head CT July 15, 2018. CT DOSE: 1103.19 mGycm TECHNIQUE: Helical axial images of the head were obtained without IV contrast. Automated exposure control was utilized for the study. A dose lowering technique was utilized adhering to the principles of ALARA. FINDINGS: No acute intracranial hemorrhage, midline shift or mass effect is present. The ventricular system is unremarkable. The basal cisterns are patent. No extra-axial collections are present. There are no findings to suggest acute dural sinus thrombosis or acute territorial infarct. No significant calvarial ab normalities are present. Right periorbital contusion is present. Right globe is intact with no retrobulbar hematoma. Note is made of a polypoid mucosal thickening of the maxillary sinuses, greater on the right. There is extensive ethmoid sinus mucosal thickening. Findings have mildly progressed since exam of July 15, 2018. IMPRESSION: 1. No acute intracranial findings. 2. Right periorbital contusion. Right globe intact. 3. No acute calvarial fracture. ACT 112: Negative or not required by law. Electronically signed by: Phillip Flores M.D. 12/26/2021 12:50 PM Ribs X-Ray 12/26/21 16:11 RIGHT-SIDED RIB SERIES CLINICAL HISTORY: Fall. Right-sided chest wall pain. FINDINGS: 4 views from a right-sided rib series are correlated with chest x-ray performed the same day 12/26/2021. The skeletal structures are osteopenic. There is no radiographic evidence of acute/displaced right-sided rib fracture. Calcific tendinopathy is noted in the right shoulder. The visualized lung parenchyma appears clear. IMPRESSION: There is no radiographic evidence of acute/displaced right-sided rib fracture on the rib series. Electronically signed by: Bang Mckeon M.D. 12/26/2021 4:44 PM Sacrum and Coccyx X-Ray 12/26/21 16:24 SACRUM AND COCCYX 3 VIEWS CLINICAL HISTORY: Fall. Sacrococcygeal pain. FINDINGS: 3 views of the sacrum and coccyx are correlated with pelvic CT dated 06/11/2016. The skeletal structures are osteopenic. No fracture is seen. Degenerative sclerosis is noted in the sacroiliac joints. Mild degenerative change is seen in the hips. Lumbosacral spondylosis is partially visualized. IMPRESSION: There is no radiographic evidence of sacrococcygeal fracture. Electronically signed by: Bang Mckeon M.D. 12/26/2021 5:03 PM Discharge Plan Visit Data Chief Complaint: Allergic Reaction ED Provider: Marcelo Heart Discharge Problem: Allergic reaction, Syncope Forms Stand Alone Forms: [facility] Prescriptions Prescriptions: No Action Eliquis 5 mg tablet 5 mg PO BID Qty: 180 RF: 3 nifedipine 30 mg tablet extended release 30 mg PO DAILY RF: 0 levothyroxine 25 mcg tablet 25 mcg PO QAM RF: 0 Lantus Solostar U-100 Insulin 100 unit/mL (3 mL) insulin pen 20 unit subcut QPM RF: 0 Lantus Solostar U-100 Insulin 100 unit/mL (3 mL) insulin pen 35 unit subcut QAM RF: 0 anastrozole 1 mg tablet 1 mg PO QAM RF: 0 metformin 1,000 mg tablet 1,000 mg PO BID RF: 0 acetaminophen [Tylenol Extra Strength] 500 mg Tablet 500 mg PO UD PRN (Reason: Fever Or Pain) RF: 0 vitamin B complex tablet 1 tab PO BID RF: 0 tramadol 50 mg tablet 50 mg PO BID PRN (Reason: Pain, Moderate) RF: 0 diclofenac sodium 1 % gel 4 g TOPICAL QID PRN (Reason: Pain) RF: 0 cholecalciferol (vitamin D3) [Vitamin D3] 25 mcg (1,000 unit) Tablet 100 mcg PO DAILY RF: 0 Referrals Referrals: Satinder Liang MD [Primary Care Provider] - Discharge Problem: Allergic reaction Qualifiers: Encounter type: initial encounter Qualified Code(s): T78.40XA - Allergy, unspecified, initial encounter Syncope Qualifiers: Syncope type: unspecified Qualified Code(s): R55 - Syncope and collapse
[2021-12-26] MEDS ORDERED: SODIUM CHLORIDE 0.9% 1000ML 1,000 ML IV ONE (12:14)
[2021-12-26 12:37] LABS: Basophils # (auto) 0.01 K/uL (0-0.2); Basophils % (auto) 0.1 %; Eosinophils # (auto) 0.14 K/uL (0-0.5); Eosinophils % (auto) 1.2 %; Hematocrit (blood only) 41.6 % (37-47); Hemoglobin 13.4 g/dL (12.0-16.0); Immature Granulocytes # (auto) 0.06 K/uL (0.00-0.02); Immature Granulocytes % (auto) 0.5 %; Lymphocytes % (auto) 24.2 %; Mean Corpuscular Hemoglobin 30.2 pg (25-34); Mean Corpuscular Hgb Conc 32.2 g/dL (32-36); Mean Corpuscular Volume 93.9 fL (80-100); Mean Platelet Volume 9.7 fL (7.4-10.4); Monocytes # (auto) 0.44 K/uL (0.11-0.59); Monocytes % (auto) 3.7 %; Neutrophils # (auto) 8.45 K/uL (1.4-6.5); Neutrophils % (auto) 70.3 %; Platelet Count 291 K/uL (130-400); RDW Coefficient of Variation 13.4 % (11.5-14.5); RDW Standard Deviation 46.4 fL (36.4-46.3); Red Blood Count 4.43 M/uL (4.2-5.4)
--- NOTE | 2021-12-26 12:37 | XRay Report ---
XR chest 1V portable HISTORY: 70 years-old Female Chest Pain acute atypical chest pain COMPARISON: 05/25/2019 TECHNIQUE: Portable AP view of the chest FINDINGS: The cardiomediastinal and hilar silhouettes are within normal limits. Atherosclerosis of the thoracic aorta. There is no pneumothorax, pleural effusion, airspace consolidation or overt pulmonary edema. Degenerative changes of the shoulders and spine. Right shoulder rotator cuff calcific tendinosis. IMPRESSION: No acute process. ACT 112: Negative or not required by law. The above report was generated using voice recognition software. It may contain grammatical, syntax o r spelling errors. Electronically signed by: Bola Stovall M.D. 12/26/2021 12:36 PM
--- NOTE | 2021-12-26 12:51 | CT Scan Report ---
CT OF THE HEAD WITHOUT CONTRAST CLINICAL HISTORY: fall COMPARISON STUDY: Head CT July 15, 2018. CT DOSE: 1103.19 mGycm TECHNIQUE: Helical axial images of the head were obtained without IV contrast. Automated exposure con trol was utilized for the study. A dose lowering technique was utilized adhering to the principles o f ALARA. FINDINGS: No acute intracranial hemorrhage, midline shift or mass effect is present. The ventricular system is unremarkable. The basal cisterns are patent. No extra-axial collections are present. There are no findings to suggest acute dural sinus thrombosis or acute territorial infarct. No significant calvarial abnormalities are present. Right periorbital contusion is present. Right globe is intact wi th no retrobulbar hematoma. Note is made of a polypoid mucosal thickening of the maxillary sinuses, g reater on the right. There is extensive ethmoid sinus mucosal thickening. Findings have mildly progre ssed since exam of July 15, 2018. IMPRESSION: 1. No acute intracranial findings. 2. Right periorbital contusion. Right globe intact. 3. No acute calvarial fracture. ACT 112: Negative or not required by law. Electronically signed by: Phillip Flores M.D. 12/26/2021 12:50 PM
--- NOTE | 2021-12-26 12:58 | CT Scan Report ---
CT cervical spine wo con CLINICAL HISTORY: 70 years-old Female with fall. Acute neck pain status post fall COMPARISON: Head CT of same day TECHNIQUE: Multiple axial CT images of the cervical spine were obtained without contrast. A dose low ering technique was utilized adhering to the principles of ALARA. FINDINGS: Moderate anterior predominant multilevel spondylitic spurring with moderate and moderate to severe multilevel facet arthrosis. No significant intervertebral disc space narrowing. 3 mm anteroli sthesis C7 on T1 is likely degenerative. Multilevel neural foraminal narrowing. Diffusely heterogeneous thyroid. No pneumothorax. IMPRESSION: No acute cervical spine fracture or subluxation. ACT 112: Negative or not required by law. The above report was generated using voice recognition software. It may contain grammatical, syntax o r spelling errors. Electronically signed by: Bola Stovall M.D. 12/26/2021 12:56 PM
[2021-12-26 13:10] LABS: Alanine Aminotransferase 21 U/L (7-52); Albumin Globulin Ratio 1.4 (0.9-2); Albumin Level 4.1 gm/dl (3.4-5.0); Alkaline Phosphatase 54 U/L (34-104); Anion Gap 12 (3-11); Bilirubin,Total 0.4 mg/dl (0.2-1.0); Blood Urea Nitrogen 17 mg/dl (6-23); Calcium 9.3 mg/dl (8.5-10.1); Carbon Dioxide 23 mmol/L (21-32); Chloride 105 mmol/L (98-107); Creatinine Clr Calc Pharmacy 44.4 ml/min; Est GFR (African American) 52.5 ml/min; Est GFR (Non-African American) 45.3 ml/min; Glucose 180 mg/dl (70-99(Fasting)); Lipase 32 U/L (11-82); Sodium 140 mmol/L (136-145); Total Protein 7.1 gm/dl (6.0-8.3); Troponin I High Sensitivity 7.5 pg/ml (0-14)
--- NOTE | 2021-12-26 13:21 | Electrocardiogram Report ---
Test Reason : Blood Pressure : / mmHG Vent. Rate : 106 BPM Atrial Rate : 106 BPM P-R Int : 126 ms QRS Dur : 074 ms QT Int : 330 ms P-R-T Axes : 013 -13 029 degrees QTc Int : 438 ms Poor data quality, interpretation may be adversely affected Sinus tachycardia Abnormal ECG When compared with ECG of 25-MAY-2019 07:13, Premature atrial complexes are no longer Present HR has increased by 16 bpm Confirmed by Sandro Willis ([id number]) on 12/26/2021 1:20:57 PM Referred By: Confirmed By:Sandro Willis
[2021-12-26 14:05] LABS: Potassium 4.2 mmol/L (3.5-5.1)
--- NOTE | 2021-12-26 15:15 | Electrocardiogram Report ---
Test Reason : Blood Pressure : / mmHG Vent. Rate : 108 BPM Atrial Rate : 110 BPM P-R Int : 000 ms QRS Dur : 078 ms QT Int : 358 ms P-R-T Axes : 000 -13 032 degrees QTc Int : 479 ms Poor data quality, interpretation may be adversely affected Sinus tachycardia Abnormal ECG When compared with ECG of 26-DEC-2021 12:26, No significant change Confirmed by Sandro Willis ([id number]) on 12/26/2021 3:14:33 PM Referred By: REFERRED SELF Confirmed By:Sandro Willis
[2021-12-26] MEDS ORDERED: MoRPHine SULFATE 4 MG/ML 1 ML CARP\\VIAL IV STA (16:12)
[2021-12-26] MEDS ORDERED: ONDANSETRON INJ 2 MG/ML 2 ML VIAL IV STA (16:12)
--- NOTE | 2021-12-26 16:45 | XRay Report ---
RIGHT-SIDED RIB SERIES CLINICAL HISTORY: Fall. Right-sided chest wall pain. FINDINGS: 4 views from a right-sided rib series are correlated with chest x-ray performed the same da y 12/26/2021. The skeletal structures are osteopenic. There is no radiographic evidence of acute/displ aced right-sided rib fracture. Calcific tendinopathy is noted in the right shoulder. The visualized l brittany parenchyma appears clear. IMPRESSION: There is no radiographic evidence of acute/displaced right-sided rib fracture on the rib series. Electronically signed by: Bang Mckeon M.D. 12/26/2021 4:44 PM
--- NOTE | 2021-12-26 17:04 | XRay Report ---
SACRUM AND COCCYX 3 VIEWS CLINICAL HISTORY: Fall. Sacrococcygeal pain. FINDINGS: 3 views of the sacrum and coccyx are correlated with pelvic CT dated 06/11/2016. The skelet al structures are osteopenic. No fracture is seen. Degenerative sclerosis is noted in the sacroiliac joints. Mild degenerative change is seen in the hips. Lumbosacral spondylosis is partially visualized . IMPRESSION: There is no radiographic evidence of sacrococcygeal fracture. Electronically signed by: Bang Mckeon M.D. 12/26/2021 5:03 PM
--- NOTE | 2021-12-26 19:28 | History & Physical Report ---
Date of Service December 26, 2021 Assessment & Plan (1) 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 Pt received epi and diphenhydramine in the field, steroids and famotidine in the ED. 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 - will need to be discharged with script for epi pen and instructed on use (2) Periorbital contusion of right eye: Plan: - Monitor H&H - Ice/cool compresses for comfort (3) Syncope: Plan: Due to #1 - monitoring in PCU (4) Diabetes: Plan: - Continue Lantus but holding Metformin - Sliding scale insulin - Last A1c earlier this month - Accuchecks and diabetic diet (5) Paroxysmal atrial fibrillation: Plan: Continue anticoagulation with Eliquis (6) Malignant neoplasm of upper-inner quadrant of left breast in female, estrogen receptor positive: Plan: Continue Arimidex (7) Hypertension: (8) Chronic anticoagulation: (9) Hypothyroidism: Plan: Continue other home medications as appropriate. Pt seen and reviewed with collaborating physician, Dr. Meier. Plan of care discussed and as outlined above. DVT Prophylaxis: on Eliquis for PAF Code Status: Full code Ashlee Johnson PA-C History of Present Illness Chief Complaint: Allergic Reaction Primary Care Provider: Satinder Liang MD This is a 70 y/o female with a PMH of insulin-requiring DM, CKD3a, PAF on chronic AC with Eliquis, hx BRCA on Arimidex, HTN, GABRIELLA, dyslipidemia and hypothyroidism who presents to the ED today via EMS with an allergic reaction and syncope after multiple bee stings. Pt reports that she was working in her yard and apparently disturbed a nest of ground hornets. She was stung on the top of her head and on her right hand - she thinks that she was stung at least twice. She started to feel dizzy and lightheaded so she went inside. The next thing she remembers is waking up on the floor - she does not recall passing out. She called 911 and when EMS arrived, she was apparently unresponsive on the floor. She was found to be hypoxic so O2 applied via NRB. Pt was given Epi and Benadryl at the scene with improvement in her condition. Pt denies prior episodes of anaphylaxis but she did have a significant local reaction to a bee sting on her face previously. Initially, she had diffuse hives. Noted nausea and vomiting in the ambulance that is better at present. She has a feeling of "fogginess" and like "I couldn't concentrate" initially but this also seems to be improving. She denies palpitations, wheezing or chest pain. She has a large swollen area of bruising around her right eye that she reports is uncomfortable but not painful - she thinks that she caught her glasses on the chair leg when she passed out. She also has right rib pain from where she landed. She is on chronic anticoagulation with Eliquis. History of insulin-requiring DM. Last A1c was 7.2 on 12/14/21. Allergies Allergy/AdvReac Type Severity Reaction Status Date / Time bee pollen Allergy Severe Anaphylaxis Verified 12/26/21 17:36 amlodipine AdvReac Unknown Unknown Verified 12/26/21 17:36 furosemide AdvReac Unknown Unknown Verified 12/26/21 17:36 hydrochlorothiazide AdvReac Unknown Unknown Verified 12/26/21 17:36 lisinopril AdvReac Unknown Unknown Verified 12/26/21 17:36 losartan AdvReac Unknown Unknown Verified 12/26/21 17:36 nifedipine AdvReac Unknown Unknown Verified 12/26/21 17:36 Home Medications Medication Instructions Recorded Confirmed Type anastrozole 1 mg tablet 1 mg PO QAM 07/15/18 12/26/21 History metformin 1,000 mg tablet 1,000 mg PO BIDWMEAL 07/15/18 12/26/21 History levothyroxine 25 mcg tablet 25 mcg PO QAM 01/13/19 12/26/21 History acetaminophen 500 mg tablet 500 mg PO Q4H PRN 05/25/19 12/26/21 History (Tylenol Extra Strength) vitamin B complex 1 tab PO BID tab 06/05/19 12/26/21 History insulin glargine 100 unit/mL (3 20 unit SUBCUT QPM ml 03/23/20 12/26/21 History mL) subcutaneous pen (Lantus Solostar U-100 Insulin) nifedipine 30 mg tablet,extended 30 mg PO DAILY tab 06/02/20 12/26/21 History release insulin glargine 100 unit/mL (3 35 unit SUBCUT QAM ml 06/02/21 12/26/21 History mL) subcutaneous pen (Lantus Solostar U-100 Insulin) apixaban 5 mg tablet (Eliquis) 5 mg PO BID #180 tab 10/13/21 12/26/21 Rx cholecalciferol (vitamin D3) 25 100 mcg PO DAILY 12/26/21 12/26/21 History mcg (1,000 unit) tablet (Vitamin D3) diclofenac sodium 1 % topical gel 4 g TOPICAL QID PRN 12/26/21 12/26/21 History tramadol 50 mg tablet 50 mg PO HS 12/26/21 12/26/21 History Past Med/Surg History Medical History Chronic anticoagulation CKD (chronic kidney disease) stage 3, GFR 30-59 ml/min Diabetes Dyslipidemia Hypertension Hypothyroidism Iron deficiency anemia Malignant neoplasm of upper-inner quadrant of left breast in female, estrogen receptor positive (06/29/17) Paroxysmal atrial fibrillation Surgical History History of partial mastectomy of left breast 2018 - with sentinel node biopsy (Dr. Diana Jansen) Family History Mother Myocardial infarction Social History Smoking Status: Never smoker Second Hand Exposure: No; Do You Dip or Chew Tobacco: No; Tobacco Cessation Education Requested by Patient: No Hx Alcohol Use: No Hx Substance Use: No Preferred Language: Syriac Communication Ability: Effective Smasher Hand Required: No Beliefs That Will Affect Care: None Current Living Situation: Alone Other Information That Helps Us Care for You: No Feels Safe at Home: Yes Safety Concerns: Feels Safe At This Time Assistive Devices: Cane Review of Systems Review of Systems: All systems reviewed & are unremarkable except as noted in HPI & below Constitutional: no fever, no chills and no sweats Eyes: no diplopia Decreased vision right eye due to edema/ecchymosis with associated discomfort Ear, Nose, Mouth, Throat: no sore throat and no dysphagia Respiratory: no cough, no dyspnea and no wheezing Cardiovascular: + lightheadedness and + syncope; no chest pain and no palpitations Gastrointestinal: + nausea and + vomiting; no abdominal pain and no diarrhea/loose stools Genitourinary: no dysuria and no hematuria Musculoskeletal: right rib pain, pain in tailbone area Integumentary: as per Subjective / HPI; no yellowing of the skin Neurologic: as per Subjective / HPI; no headache(s) Psychiatric: no depression and no anxiety Physical Exam Constitutional: well developed and well nourished; no acute distress Eyes: right periorbital area and eyelids with significant edema and ecchymosis - unable to significantly open ENMT: external ear and nose normal, oropharynx normal Neck: trachea midline Respiratory: no respiratory distress and no labored breathing Auscultation: lungs clear to auscultation bilaterally; no rales, no rhonchi and no wheezes Cardiovascular: Rate/Rhythm: regular rhythm and + tachycardic Vessels: dorsalis pedis pulses present and radial pulses present Extremities: no edema Chest (Breasts): Additional Comments: right inferior lateral ribs with tenderness Gastrointestinal (Abdomen): Inspection/Auscultation: normal bowel sounds; abdomen not distended Percussion/Palpation: abdomen soft; abdomen nontender Musculoskeletal: Extremities: full ROM of extremities Skin: + ecchymosis (as noted); no jaundice Neurologic: moves all extremities; no focal motor deficits and not confused Speech / Cognition: normal speech Psychiatric: A+Ox3, euthymic affect Results & Data Results & Data ([facility]) Vital Signs (Past 12 Hours) Vital Signs Pulse Pulse Resp BP BP Pulse Ox 12/26/21 19:00 111 H 16 154/94 H 97 12/26/21 17:00 107 H 22 147/80 H 93 12/26/21 16:00 102 H 22 152/72 H 93 12/26/21 15:00 106 H 20 159/69 H 93 12/26/21 14:50 96 H 93 12/26/21 14:13 104 H 18 136/76 98 12/26/21 13:06 100 H 18 149/76 H 99 12/26/21 12:50 88 20 99 12/26/21 12:20 109 H 20 96 12/26/21 12:18 102 H 97 06/27/22 12:10 105 H 127/78 98 12/26/21 12:05 107 H 127/78 98 Laboratory Results Laboratory Results - last 24 hr 12/26/21 12/26/21 12/26/21 12:12 12:12 12:25 WBC 12.00 H RBC 4.43 Hgb 13.4 Hct 41.6 MCV 93.9 MCH 30.2 MCHC 32.2 RDW Std Deviation 46.4 H RDW Coeff of Ho 13.4 Plt Count 291 MPV 9.7 Immature Gran % (Auto) 0.5 Neut % (Auto) 70.3 Lymph % (Auto) 24.2 Isabella % (Auto) 3.7 Eos % (Auto) 1.2 Baso % (Auto) 0.1 Neut # (Auto) 8.45 H Lymph # (Auto) 2.90 Isabella # (Auto) 0.44 Eos # (Auto) 0.14 Baso # (Auto) 0.01 Immature Gran # (Auto) 0.06 H Sodium 140 Potassium TNP Chloride 105 Carbon Dioxide 23 Anion Gap 12 H BUN 17 Creatinine 1.21 H Est Cr Clr Drug Dosing 44.4 Est GFR ( Amer) 52.5 Est GFR (Non-Af Amer) 45.3 BUN/Creatinine Ratio 14.0 Glucose 180 H Calcium 9.3 Total Bilirubin 0.4 AST TNP ALT 21 Alkaline Phosphatase 54 Troponin I High Sens 7.5 Total Protein 7.1 Albumin 4.1 Globulin 3.0 Albumin/Globulin Ratio 1.4 Lipase 32 SARS-CoV-2, RNA, NAAT NEGATIVE 12/26/21 12/26/21 13:27 15:10 WBC RBC Hgb Hct MCV MCH MCHC RDW Std Deviation RDW Coeff of Ho Plt Count MPV Immature Gran % (Auto) Neut % (Auto) Lymph % (Auto) Isabella % (Auto) Eos % (Auto) Baso % (Auto) Neut # (Auto) Lymph # (Auto) Isabella # (Auto) Eos # (Auto) Baso # (Auto) Immature Gran # (Auto) Sodium Potassium 4.2 Chloride Carbon Dioxide Anion Gap BUN Creatinine Est Cr Clr Drug Dosing Est GFR ( Amer) Est GFR (Non-Af Amer) BUN/Creatinine Ratio Glucose Calcium Total Bilirubin AST 17 ALT Alkaline Phosphatase Troponin I High Sens 9.4 Total Protein Albumin Globulin Albumin/Globulin Ratio Lipase SARS-CoV-2, RNA, NAAT Diagnostic Findings Cervical Spine CT 12/26/21 - IMPRESSION: No acute cervical spine fracture or subluxation. Chest X-ray 12/26/21 - IMPRESSION: No acute process. Head CT 12/26/21 - IMPRESSION: 1. No acute intracranial findings. 2. Right periorbital contusion. Right globe intact. 3. No acute calvarial fracture. Right Rib X-ray 12/26/21 - IMPRESSION: There is no radiographic evidence of acute/displaced right-sided rib fracture on the rib series. Sacrum and Coccyx X-ray 12/26/21 - IMPRESSION: There is no radiographic evidence of sacrococcygeal fracture. Medications Administered Discontinued Medications Famotidine (Pepcid 20mg Iv Push) 20 mg in 5 mls @ 2.5 mls/min IV NOW STA Stop: 12/26/21 12:09 Last Admin: 12/26/21 12:15 Dose: 2.5 mls/min Documented by: [id number] Sodium Chloride (Nss 1000ml) 1,000 mls @ 999 mls/hr IV .Q1H1M ONE Stop: 12/26/21 13:14 Last Infusion: 12/26/21 13:23 Dose: 0 mls/hr Documented by: [id number] Admin: 12/26/21 12:17 Dose: 999 mls/hr Documented by: [id number] Methylprednisolone (Methylprednisolone 125 Mg/2 Ml Vial) 125 mg IV NOW STA Stop: 12/26/21 12:09 Last Admin: 12/26/21 12:15 Dose: 125 mg Documented by: [id number] Morphine Sulfate (Morphine Sulfate 4 Mg/Ml 1 Ml Carp\\Vial) 4 mg IV NOW STA Stop: 12/26/21 16:13 Last Admin: 12/26/21 17:32 Dose: 4 mg Documented by: [id number] Ondansetron HCl (Ondansetron Inj 2 Mg/Ml 2 Ml Vial) 4 mg IV NOW STA Stop: 12/26/21 16:13 Last Admin: 12/26/21 17:32 Dose: 4 mg Documented by: [id number] Code Status & VTE Plan VTE Prophylaxis Plan VTE Prophylaxis will be ordered: Yes Supervising Physician Co-Signing Physician Notes I have seen and examined the patient and have discussed the case with the provider above. I agree with the assessment and plan as stated with the following exceptions. 70 yo F with large local/anaphylactic reaction to hymenoptera stings (multiple). She was found unconscious and hypoxic by EMS and was given IM epinephrine and Benadryl 50mg IV prehospital. She was then treated wtih Famotidine, Solumedrol 125mg IV, NSS x 1L with improvement in hemodynamics. She is on apixaban and hit her head with questionable trauma from glasses that she was wearing, and has a significant periorbital hematoma. Cannot evaluate her pupils/sclera of this eye. She denies any pain in the eye. She is sore from sarah fall reporting right chest wall pain, back pain. She has no rash which was reported initially on the chest and abdomen. There are no hives present and she denies any itching. Physical exam reveals eye findings above and she is mentating clearly. She has no other overt bleding or bruising present. CV exam reveals S1/2 heard without m/g/r and reg rate and rhythm. Lungs are CTA throughout. There is pain to the right lateral chest wall. Abdomen is soft, NTND. No gross focal neuro deficits. Workup reveals a mild leukocytosis of 12K, otherwise normal CBC. BMP normal aside from a mildly elevated creat of 1.2 with 1.1 baseline. Multiple xrays revealed no evidence of fracture from the fall. Assessment as listed above. Regarding her anaphylaxis, this may be cyclical for a couple of days. Agree with scheduled prednisone and benadyrl for that reason. Adjust insulin accordingly . Cont to monitor for signs/symptoms of cognitive decline with current head trauma on apixaban. CT head is clear for now, but cont to monitor closely for any changes. Holding apixaban until starting to see some clearance of the ecchymosis and reduction of swelling. Ice as tolerated. Tylenol/tramadol ok for pain. Counseled on Allergy referral for consideration of VIT at discharge and agree with epi pen script at time of discharge, also. Roberta Meier DO [facility] Hospitalist (1) Syncope Syncope type: unspecified Qualified Code(s): R55 - Syncope and collapse
[2021-12-26] MEDS ORDERED: GLUCAGON FOR INJ 1 MG VIAL SQ PRN (21:34)
[2021-12-26] MEDS ORDERED: GLUCOSE 40% GEL 15 GM TUBE PO PRN (21:34)
[2021-12-26] MEDS ORDERED: DEXTROSE 50% 50 ML SYRINGE IV PRN (21:34)
[2021-12-26] MEDS ORDERED: APIXABAN 5 MG TABLET PO SCH (21:34)
[2021-12-26] MEDS ORDERED: CARBOHYDRATES FOR HYPOGLYCEMIA PO PRN (21:34)
[2021-12-26] MEDS ORDERED: ACETAMINOPHEN 500 MG TAB PO STA (21:34)
[2021-12-26] MEDS ORDERED: GLUCOSE 10 TABS/TUBE PO PRN (21:34)
[2021-12-26] MEDS ORDERED: traMADol HCL 50 MG TABLET PO SCH (21:34)
[2021-12-26] MEDS: INSULIN ASPART PER UNIT SC SCH (23:06)
[2021-12-26] MEDS: INSULIN GLARGINE SOLOSTAR 100 UNITS/ML 3 ML PEN SC SCH (23:07)
[2021-12-26] MEDS: VITAMIN B COMPLEX TAB PO SCH (23:08)
[2021-12-26] MEDS: diphenhydrAMINE Capsule 25 MG CAP PO SCH (23:09)
[2021-12-26] MEDS: predniSONE 20 MG TAB PO SCH (23:09)
[2021-12-27] MEDS: diphenhydrAMINE Capsule 25 MG CAP PO SCH ×2 (04:50→13:03)
[2021-12-27] MEDS: ACETAMINOPHEN 325 MG TAB PO PRN ×2 (04:50→15:33)
[2021-12-27] MEDS ORDERED: LEVOTHYROXINE SODIUM 25 MCG TABLET PO SCH (06:30)
[2021-12-27] MEDS: INSULIN ASPART PER UNIT SC SCH ×2 (08:22→12:37)
[2021-12-27] MEDS: INSULIN GLARGINE SOLOSTAR 100 UNITS/ML 3 ML PEN SC SCH (08:23)
[2021-12-27] MEDS: predniSONE 20 MG TAB PO SCH (08:24)
[2021-12-27] MEDS: VITAMIN B COMPLEX TAB PO SCH (08:24)
[2021-12-27] MEDS ORDERED: CHOLECALCIFEROL 1,000 UNITS 25 MCG TAB PO SCH (09:00)
[2021-12-27] MEDS ORDERED: APIXABAN 5 MG TABLET PO SCH (09:00)
[2021-12-27] MEDS ORDERED: ' PO SCH (09:00)
[2021-12-27] MEDS ORDERED: ANASTROZOLE 1 MG TAB PO SCH (09:00)
[2021-12-27] MEDS ORDERED: FAMOTIDINE 40 MG TABLET PO SCH (09:00)
[2021-12-27] MEDS ORDERED: cephALEXin 500 MG CAP PO SCH (13:45)
--- NOTE | 2021-12-27 14:52 | Discharge Summary ---
Date of Service December 27, 2021 Admission HPI Per Admitting Provider This is a 70 y/o female with a PMH of insulin-requiring DM, CKD3a, PAF on chronic AC with Eliquis, hx BRCA on Arimidex, HTN, GABRIELLA, dyslipidemia and hypothyroidism who presents to the ED today via EMS with an allergic reaction and syncope after multiple bee stings. Pt reports that she was working in her yard and apparently disturbed a nest of ground hornets. She was stung on the top of her head and on her right hand - she thinks that she was stung at least twice. She started to feel dizzy and lightheaded so she went inside. The next thing she remembers is waking up on the floor - she does not recall passing out. She called 911 and when EMS arrived, she was apparently unresponsive on the floor. She was found to be hypoxic so O2 applied via NRB. Pt was given Epi and Benadryl at the scene with improvement in her condition. Pt denies prior episodes of anaphylaxis but she did have a significant local reaction to a bee sting on her face previously. Initially, she had diffuse hives. Noted nausea and vomiting in the ambulance that is better at present. She has a feeling of "fogginess" and like "I couldn't concentrate" initially but this also seems to be improving. She denies palpitations, wheezing or chest pain. She has a large swollen area of bruising around her right eye that she reports is uncomfortable but not painful - she thinks that she caught her glasses on the chair leg when she passed out. She also has right rib pain from where she landed. She is on chronic anticoagulation with Eliquis. History of insulin-requiring DM. Last A1c was 7.2 on 12/14/21. Admission Exam Per Admitting Provider Constitutional: well developed and well nourished; no acute distress Eyes: right periorbital area and eyelids with significant edema and ecchymosis - unable to significantly open ENMT: external ear and nose normal, oropharynx normal Neck: trachea midline Respiratory: no respiratory distress and no labored breathing Auscultation: lungs clear to auscultation bilaterally; no rales, no rhonchi and no wheezes Cardiovascular: Rate/Rhythm: regular rhythm and + tachycardic Vessels: dorsalis pedis pulses present and radial pulses present Extremities: no edema Chest (Breasts): Additional Comments: right inferior lateral ribs with tenderness Gastrointestinal (Abdomen): Inspection/Auscultation: normal bowel sounds; abdomen not distended Percussion/Palpation: abdomen soft; abdomen nontender Musculoskeletal: Extremities: full ROM of extremities Skin: + ecchymosis (as noted); no jaundice Neurologic: moves all extremities; no focal motor deficits and not confused Speech / Cognition: normal speech Psychiatric: A+Ox3, euthymic affect Principal Diagnosis 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 NAD, on RA. HEENT: No pallor, no icterus. Pupils equal, round and reactive to light. Oral mucosa moist. Rt eye edema/ecchymoses noted, no signs of infection, non tender, vision not affected in Rt eye when lids forced open. NECK: No JVD, no neck masses. HEART: S1 and S2 heard. Regular rate and rhythm. No murmur, no gallop. RESPIRATORY SYSTEM: Normal AP diameter. No accessory muscle use. No wheezing, no crackles. ABDOMEN: Soft, bowel sounds present, nontender, no distention. CENTRAL NERVOUS SYSTEM: No facial droop. Speech is clear. Obeys simple commands. Moves extremities. EXTREMITIES: No edema, no erythema seen. Discharge Data Allergies Allergy/AdvReac Type Severity Reaction Status Date / Time bee pollen Allergy Severe Anaphylaxis Verified 12/26/21 17:36 amlodipine AdvReac Unknown Unknown Verified 12/26/21 17:36 furosemide AdvReac Unknown Unknown Verified 12/26/21 17:36 hydrochlorothiazide AdvReac Unknown Unknown Verified 12/26/21 17:36 lisinopril AdvReac Unknown Unknown Verified 12/26/21 17:36 losartan AdvReac Unknown Unknown Verified 12/26/21 17:36 nifedipine AdvReac Unknown Unknown Verified 12/26/21 17:36 Consultations 12/26/21 17:13 ED Decision to Admit Stat Ordered Studies 12/26/21 12:08 CT cervical spine wo con Stat CT head/brain wo con Stat Hospital Course (1) 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 Pt received epi and diphenhydramine in the field, steroids and famotidine in the ED. Patient with no dizziness or lightheadedness, no wheezing/belly pain/shortness of breath, no new complaints, reports eating okay, physical therapy evaluated. Discharging home with home health PT. CM to assist with DC planning. No new issues overnight. Patient to continue with Medrol Dosepak, famotidine and Benadryl as prescribed upon discharge. Patient will be discharged with epinephrine autoinjector, pamphlets on emergency anaphylaxis plan provided. Instructions on use of epinephrine autoinjector provided. Patient will need to follow-up with PCP in a week time. 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 (2). Orbital contusion of right eye Plan: -H&H stable, WBC mildly elevated. Prophylactic antibiotic. Patient to follow- up with PCP. Avoid trauma to the right eye. - Ice/cool compresses for comfort. (3) Syncope: Plan: Due to #1 -patient with no complaints of lightheadedness or dizziness. Patient reports feeling better back to baseline. (4) Diabetes: Plan: - Continue Lantus but holding Metformin - Sliding scale insulin - Last A1c earlier this month -Follow-up with primary care physician for chronic management of diabetes. (5) Paroxysmal atrial fibrillation: Plan: Eliquis on hold due to contusion of right eye until evaluated by PCP in 3 to 5 days upon discharge. Patient in sinus rhythm on telemetry review. (6) Malignant neoplasm of upper-inner quadrant of left breast in female, estrogen receptor positive: Plan: Continue Arimidex (7) Hypertension: (8) Chronic anticoagulation: (9) Hypothyroidism: Plan: Continue other home medications as appropriate. Patient being discharged to home with home health PT with following instruction at the point of discharge: Follow-up with your primary care physician within a week time. You will be provided with pamphlets with information for anaphylaxis emergency plan prior to discharge. You will be discharged with epinephrine autoinjector. Collect the epinephrine autoinjector while going to your home today. You will also be discharged on Medrol Dosepak/famotidine/Benadryl. Take your medications as prescribed. Start your Medrol Dosepak from tomorrow morning. Few instruction regarding use of epinephrine autoinjector: In the setting of an allergic reaction, use the epinephrine autoinjector immediatelyif you: Are having trouble breathing. Feel tightness in the throat. Feel lightheaded or think you might pass out. Epinephrineshould ideally be injected into the mid-outer part of the thigh, into the underlying muscle. The autoinjector should be held in place for at le ast three seconds after the injection. If the you are alone,epinephrine should be self-administered first, and then you should call for help and be transported to the nearest emergency department as soon as possible in case the symptoms of anaphylaxis worsen or recur without further exposure to the trigger. It is important to make to be clear that the reason for proceeding to the emergency department is the possibility of worsening or recurrent symptoms. 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 For your right eye contusion, clean with clean water, cold compresses 3-4 times a day. Avoid picking/tearing/rupturing the overlying skin. Avoid excessive pressure. You will be discharged on prophylactic antibiotic, have your primary care physician evaluate you in 3 to 5 days upon discharge and discuss further management accordingly. If you have any increasing swelling/redness/pain, contact your primary care physician or emergency immediately. Because of your right eye contusion, will hold your Eliquis upon discharge, you will need your primary care physician visit in 3 to 5 days prior to resuming Eliquis for further evaluation and resuming of your Eliquis. Get your blood work CBC and CMP done in a week time and have the results forwarded to your primary care physician. You can use your home tramadol for your severe pain. You can take [id number] extra strength Tylenol for pain. Take your medications as prescribed. 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 Periorbital contusion of right eye Syncope Activity: Resume your previous activity Non-emergency contact: Primary Care Provider Call non-emergency contact if: you have any medication questions, your symptoms worsen, your pain is not controlled and your temperature is above 101 Follow-up/Referrals: Satinder Liang MD [Primary Care Provider] - (Date & Time 12/30/2021 12:00 PM Provider Satinder Liang MD Department [facility] ) Diet: Carb Consistent or DM2 and Heart Healthy Addtl Attending Provider Instructions: Follow-up with your primary care physician within a week time. You will be provided with pamphlets with information for anaphylaxis emergency plan prior to discharge. You will be discharged with epinephrine autoinjector. Collect the epinephrine autoinjector while going to your home today. You will also be discharged on Medrol Dosepak/famotidine/Benadryl. Take your medications as prescribed. Start your Medrol Dosepak from tomorrow morning. Few instruction regarding use of epinephrine autoinjector: In the setting of an allergic reaction, use the epinephrine autoinjector immediatelyif you: Are having trouble breathing. Feel tightness in the throat. Feel lightheaded or think you might pass out. Epinephrineshould ideally be injected into the mid-outer part of the thigh, into the underlying muscle. The autoinjector should be held in place for at least three seconds after the injection. If the you are alone,epinephrine should be self-administered first, and then you should call for help and be transported to the nearest emergency department as soon as possible in case the symptoms of anaphylaxis worsen or recur without further exposure to the trigger. It is important to make to be clear that the reason for proceeding to the emergency department is the possibility of worsening or recurrent symptoms. 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 For your right eye contusion, clean with clean water, cold compresses 3-4 times a day. Avoid picking/tearing/rupturing the overlying skin. Avoid excessive pressure. You will be discharged on prophylactic antibiotic, have your primary care physician evaluate you in 3 to 5 days upon discharge and discuss further management accordingly. If you have any increasing swelling/redness/pain, contact your primary care physician or emergency immediately. Because of your right eye contusion, will hold your Eliquis upon discharge, you will need your primary care physician visit in 3 to 5 days prior to resuming Eliquis for further evaluation and resuming of your Eliquis. Get your blood work CBC and CMP done in a week time and have the results forwarded to your primary care physician. You can use your home tramadol for your severe pain. You can take [id number] extra strength Tylenol for pain. Take your medications as prescribed. Pending Studies at Discharge: No Stand-Alone Forms: My [facility], Smoking Cessation Medications and DC Order Prescriptions: New cephalexin 500 mg Capsule 500 mg PO BID 7 Days Qty: 14 RF: 0 diphenhydramine HCl [Benadryl] 25 mg Capsule 25 mg PO Q8H 3 Days Qty: 9 RF: 0 famotidine 40 mg Tablet 40 mg PO BID 6 Days Qty: 12 RF: 0 methylprednisolone [Medrol (Cristofer)] 4 mg tablets,dose pack 4 mg PO DAILY Qty: 21 RF: 0 epinephrine 0.3 mg/0.3 mL auto-injector 0.3 mg IM .q5-15m PRN (Reason: anaphylaxis) Qty: 2 RF: 0 Continued nifedipine 30 mg tablet extended release 30 mg PO DAILY RF: 0 levothyroxine 25 mcg tablet 25 mcg PO QAM RF: 0 Lantus Solostar U-100 Insulin 100 unit/mL (3 mL) insulin pen 20 unit subcut QPM RF: 0 Lantus Solostar U-100 Insulin 100 unit/mL (3 mL) insulin pen 35 unit subcut QAM RF: 0 anastrozole 1 mg tablet 1 mg PO QAM RF: 0 metformin 1,000 mg tablet 1,000 mg PO BIDWMEAL RF: 0 acetaminophen [Tylenol Extra Strength] 500 mg Tablet 500 mg PO Q4H PRN (Reason: Fever Or Pain) RF: 0 vitamin B complex tablet 1 tab PO BID RF: 0 tramadol 50 mg tablet 50 mg PO HS RF: 0 diclofenac sodium 1 % gel 4 g TOPICAL QID PRN (Reason: Pain) RF: 0 cholecalciferol (vitamin D3) [Vitamin D3] 25 mcg (1,000 unit) Tablet 100 mcg PO DAILY RF: 0 Discontinued Eliquis 5 mg tablet 5 mg PO BID Qty: 180 RF: 3 Discharge Orders: Discharge Order (Routine); Ordered 12/27/21 Ordered By: Lori Salas Admission Data Admit Date/Time: 12/26/21 19:00 Attending Provider: Lori Salas Admit Provider: Roberta Meier Primary Care Provider: Satinder Liang Other Providers: Roberta Meier ; Holden Wills holli
[2021-12-27 15:54] VITALS: BP 144/69; PULSE 99; TEMP 98.4; O2SAT 97
== END 2021-12-27 17:17 | disposition home health service (06) ==
LOC: ED 11:59 → 2S 11:59 → SUATTDRO 19:00 → 2S 20:53

== ENCOUNTER 2023-09-01 18:26 | Inpatient (IN) ==
--- NOTE | 2023-09-01 18:58 | XRay Report ---
XR chest 1V portable HISTORY: 72 years-old Female Chest pain, nonspecific COMPARISON: 12/18/2022 TECHNIQUE: AP view of the chest FINDINGS: Cardiomediastinal hilar silhouettes are within normal limits. No pneumothorax, pleural effusion or ai rspace consolidation. Bones appear grossly intact. IMPRESSION: No acute process. ACT 112: Negative or not required by law. The above report was generated using voice recognition software. It may contain grammatical, syntax o r spelling errors. Electronically signed by: Bola Stovall M.D. 09/01/2023 6:56 PM
[2023-09-01 19:16] LABS: Basophils # (auto) 0.05 K/uL (0.00-0.20); Basophils % (auto) 0.6 %; Eosinophils # (auto) 0.25 K/uL (0.00-0.50); Eosinophils % (auto) 2.8 %; Hematocrit (blood only) 39.3 % (37.0-47.0); Hemoglobin 12.9 g/dl (12.0-16.0); Immature Granulocytes # (auto) 0.03 K/uL (0.01-0.20); Immature Granulocytes % (auto) 0.3 %; Lymphocytes # (auto) 1.77 K/uL (1.20-3.40); Lymphocytes % (auto) 19.7 %; Mean Corpuscular Hgb Conc 32.8 g/dL (32.0-36.0); Mean Corpuscular Volume 91.4 fL (80.0-100.0); Mean Platelet Volume 9.7 fL (9.4-12.4); Monocytes # (auto) 0.65 K/uL (0.11-0.59); Monocytes % (auto) 7.2 %; Neutrophils # (auto) 6.24 K/uL (1.40-6.50); Neutrophils % (auto) 69.4 %; Platelet Count 284 K/uL (130-400); RDW Coefficient of Variation 12.7 % (11.5-14.5); RDW Standard Deviation 41.4 fL (36.4-46.3); White Blood Count 8.99 K/ul (4.8-10.8)
--- NOTE | 2023-09-01 19:38 | Emergency Department Note ---
Impression & Plan Chest pain ED Provider Note NAME: SHAHRAM MUÑOZ AGE: 72 SEX: F : 1950 ARRIVES VIA: Ambulance INFORMANT: Patient, ED PROVIDER(S): Sarah Soares MD CHIEF COMPLAINT: Chest pain HPI: This is a 72-year-old female with history of previous breast cancer, CKD, paroxysmal atrial fibrillation on Eliquis presenting for chest pain. Patient notes that over the past 2 days she has intermittent chest pain in the center of her chest. The pain she reports is a burning sensation. She reports it goes into her bilateral shoulder blades, not into her back. She took Tums which sometimes improves her symptoms but today the symptoms got significantly worse and she has as 10/10 pain. She does not feel short of breath currently but does feel SOB when she has the pain spiking. Otherwise she notes no nausea or vomiting. No new diarrhea. No history of blood clots or leg swelling. ROS: See above HPI for pertinent positives & negatives. A total of 10 systems reviewed and were otherwise negative. PAST MEDICAL HISTORY: See Below PAST SURGICAL HISTORY: See Below FAMILY HISTORY: See Below SOCIAL HISTORY: See Below HOME MEDICATIONS: See Below ALLERGIES: See Below VITALS: See Below PHYSICAL EXAMINATION: General: resting comfortably in no acute distress Head: Normocephalic and atraumatic Eyes: Normal inspection, extraocular muscles intact Ear, nose, throat: Normal external exam Neck: Normal range of motion Respiratory: lungs clear to auscultation bilaterally Cardiovascular: Tachycardic regular rate/rhythm, no murmur GI: soft, nontender, no guarding or rebound Extremities: nontender, moves all extremities Neuro: The patient awake and alert, appropriately conversive, no focal deficits, symmetric faces Skin: Warm, dry, and intact MEDICAL DECISION MAKING: This is a 72-year-old female with history of breast cancer, CKD, atrial fibrillation on Eliquis presenting for chest pain. -Will do blood work, EKG and chest x-ray -Patient reassessed after 1 L were saline with only minimal improvement heart rate -Patient still having symptoms including chest pain - chest Xray independently interpreted by me showing no pneumothorax, focal opacity, or pleural effusions. -Patient is still currently tachycardic with intermittent chest pain. While patient is on Eliquis, concern for PE as patient still tachycardic with unclear etiology, will do CTA of the chest to rule out pulm embolism. -CTA at this time reveals no acute process in the arteries as per radiology. -Laboratories reviewed showing no leukocytosis or anemia, troponin is only minimally elevated at 19. -Due to tachycardia 100 etiology as well as persistent chest pain, will admit for further workup. Patient is moderate heart score at this time. Differential diagnosis: ACS, PE, dissection, pneumonia ER treatment provided: See below Diagnostics interpreted by me: ECG: ECG independently interpreted by me with sinus tachycardia, rate of 120, possible left axis deviation, normal TN, normal QRS, normal QTc, no ST segment elevations consistent with STEMI criteria Cardiac Monitoring: An order was placed for continuous cardiac monitoring. The monitor shows a rate of 117 with sinus] rhythm. Laboratory studies: As stated above and show below. Imaging studies: See below. Past Med/Surg History Medical History Chronic anticoagulation CKD (chronic kidney disease) stage 3, GFR 30-59 ml/min Diabetes Dyslipidemia Hypertension Hypothyroidism Iron deficiency anemia Malignant neoplasm of upper-inner quadrant of left breast in female, estrogen receptor positive (06/29/17) Paroxysmal atrial fibrillation Surgical History History of partial mastectomy of left breast Family History Mother Myocardial infarction Social History Smoking Status: Never smoker Second Hand Exposure: No; Do You Dip or Chew Tobacco: No; Hx Alcohol Use: No Hx Substance Use: No Preferred Language: [place] Communication Ability: Effective Office Support Assistant Required: No Beliefs That Will Affect Care: None marital status: / Current Living Situation: Alone Feels Safe at Home: Yes Assistive Devices: Cane Allergies Allergies Allergy/AdvReac Type Severity Reaction Status Date / Time bee pollen Allergy Severe Anaphylaxis Verified 04/02/23 11:17 amlodipine AdvReac Unknown Unknown Verified 04/02/23 11:17 furosemide AdvReac Unknown Unknown Verified 04/02/23 11:17 hydrochlorothiazide AdvReac Unknown Unknown Verified 04/02/23 11:17 lisinopril AdvReac Unknown Unknown Verified 04/02/23 11:17 losartan AdvReac Unknown Unknown Verified 04/02/23 11:17 Home Meds Home Medications Medication Instructions Recorded Confirmed apixaban 5 mg tablet (Eliquis) 5 mg PO BID 09/01/23 09/01/23 diclofenac sodium 1 % topical gel 4 g topical QID PRN Pain 09/01/23 09/01/23 epinephrine 0.3 mg/0.3 mL 0.3 mg IM UD PRN Anaphylaxis 09/01/23 09/01/23 injection, auto-injector insulin glargine 100 unit/mL (3 33 unit subcut UD 09/01/23 09/01/23 mL) subcutaneous pen (Lantus Solostar U-100 Insulin) levothyroxine 25 mcg tablet 25 mcg PO DAILY 09/01/23 09/01/23 metformin 1,000 mg tablet 1,000 mg PO BID 09/01/23 09/01/23 nifedipine 30 mg tablet,extended 30 mg PO DAILY 09/01/23 09/01/23 release tramadol 50 mg tablet 50 mg PO BID PRN Pain 09/01/23 09/01/23 acetaminophen 500 mg tablet 500 mg PO Q4H PRN Fever Or Pain 09/02/23 09/02/23 cholecalciferol (vitamin D3) 50 100 mcg PO QAM 09/02/23 09/02/23 mcg (2,000 unit) tablet (Vitamin D3) vitamin B complex 1 tab PO BID 09/02/23 09/02/23 Results & Data (ED) Vital Signs Vital Signs - 24 hr 09/01/23 18:37 09/01/23 18:53 09/01/23 18:53 Temperature 37.2 C Temperature Source Oral Pulse Rate 121 H 120 H Pulse Rate [Apical] Pulse Rate from SpO2 Sensor Respiratory Rate 18 Respiratory Effort / Characteristics Non-Labored Non-Labored Respiratory Depth Normal Normal Respiratory Pattern Regular Blood Pressure 154/79 H Blood Pressure [Left Arm] Blood Pressure Mean 104 Blood Pressure Mean [Left Arm] Pulse Oximetry 98 Oxygen Delivery Method Sepsis Recent Fever Within 48 Hours No Sepsis New/Unexplained Change in Mental Status N/A Sepsis Action Taken by Nursing No Action Required 09/01/23 19:01 09/01/23 19:01 09/01/23 19:01 Temperature Temperature Source Pulse Rate 116 H Pulse Rate [Apical] 117 H Pulse Rate from SpO2 Sensor Respiratory Rate 18 18 Respiratory Effort / Characteristics Respiratory Depth Respiratory Pattern Blood Pressure Blood Pressure [Left Arm] 154/79 H Blood Pressure Mean Blood Pressure Mean [Left Arm] 104 Pulse Oximetry 96 98 Oxygen Delivery Method Room Air Room Air Sepsis Recent Fever Within 48 Hours Sepsis New/Unexplained Change in Mental Status Sepsis Action Taken by Nursing 09/01/23 19:49 09/01/23 22:00 09/01/23 22:36 Temperature Temperature Source Pulse Rate 123 H 111 H 108 H Pulse Rate [Apical] Pulse Rate from SpO2 Sensor 124 H 111 H Respiratory Rate 12 16 Respiratory Effort / Characteristics Respiratory Depth Respiratory Pattern Blood Pressure 149/84 H 152/84 H Blood Pressure [Left Arm] Blood Pressure Mean 105 106 Blood Pressure Mean [Left Arm] Pulse Oximetry 97 98 Oxygen Delivery Method Room Air Sepsis Recent Fever Within 48 Hours Sepsis New/Unexplained Change in Mental Status Sepsis Action Taken by Nursing 09/01/23 23:49 Temperature Temperature Source Pulse Rate Pulse Rate [Apical] 112 H Pulse Rate from SpO2 Sensor Respiratory Rate 22 Respiratory Effort / Characteristics Respiratory Depth Respiratory Pattern Blood Pressure Blood Pressure [Left Arm] 137/88 Blood Pressure Mean Blood Pressure Mean [Left Arm] 104 Pulse Oximetry 96 Oxygen Delivery Method Room Air Sepsis Recent Fever Within 48 Hours Sepsis New/Unexplained Change in Mental Status Sepsis Action Taken by Nursing Laboratory Data 09/02/23 06:32 09/02/23 06:32 Lab Results 09/01/23 09/01/23 09/01/23 Range/Units 18:49 21:06 23:39 WBC 8.99 (4.8-10.8) K/ul RBC 4.30 (4.20-5.40) M/uL Hgb 12.9 (12.0-16.0) g/dl Hct 39.3 (37.0-47.0) % MCV 91.4 (80.0-100.0) fL MCH 30.0 (25.0-34.0) pg MCHC 32.8 (32.0-36.0) g/dL RDW Std Deviation 41.4 (36.4-46.3) fL RDW Coeff of Ho 12.7 (11.5-14.5) % Plt Count 284 (130-400) K/uL MPV 9.7 (9.4-12.4) fL Immature Gran % (Auto) 0.3 % Neut % (Auto) 69.4 % Lymph % (Auto) 19.7 % Barrow % (Auto) 7.2 % Eos % (Auto) 2.8 % Baso % (Auto) 0.6 % Neut # (Auto) 6.24 (1.40-6.50) K/uL Lymph # (Auto) 1.77 (1.20-3.40) K/uL Barrow # (Auto) 0.65 H (0.11-0.59) K/uL Eos # (Auto) 0.25 (0.00-0.50) K/uL Baso # (Auto) 0.05 (0.00-0.20) K/uL Immature Gran # (Auto) 0.03 (0.01-0.20) K/uL Sodium TNP 133 L Potassium TNP TNP 3.8 Chloride 99 (98-107) mmol/L Carbon Dioxide 22 (21-32) mmol/L Anion Gap TNP BUN 16 (6-23) mg/dl Creatinine 0.95 (0.6-1.2) mg/dl Est Cr Clr Drug Dosing 56.7 ml/min Est GFR ( Amer) 69.4 ml/min Est GFR (Non-Af Amer) 59.8 ml/min BUN/Creatinine Ratio 16.8 (10-20) Glucose 230 H (70-99(Fasting)) mg/dl Calcium 9.8 (8.6-10.3) mg/dl Total Bilirubin 0.3 (0.2-1.0) mg/dl AST TNP TNP 15 ALT 21 (7-52) U/L Alkaline Phosphatase 55 (34-104) U/L Troponin I High Sens 19.0 H 44.8 H D (0-14) pg/ml Total Protein 8.0 (6.0-8.3) gm/dl Albumin 4.7 (3.4-5.0) gm/dl Globulin 3.3 (2.5-4.0) gm/dl Albumin/Globulin Ratio 1.4 (0.9-2) Lipase 38 (11-82) U/L Administered Medications Apixaban (Apixaban 5 Mg Tablet) 5 mg PO BID LALO Stop: 10/02/23 08:59 Last Admin: 09/02/23 07:17 Dose: 5 mg Documented By: ES Insulin Aspart (Insulin Aspart Per Unit Charge) 0 units SC Q6 LALO Stop: 10/02/23 05:59 Last Admin: 09/02/23 06:06 Dose: Not Given Documented By: NEDA Co-signed By: REGLA Insulin Glargine (Lantus Per Unit Charge) 15 units SQ BID LALO Stop: 10/02/23 08:59 Last Admin: 09/02/23 07:17 Dose: Not Given Documented By: JORGE Levothyroxine Sodium (Levothyroxine Sodium 25 Mcg Tablet) 25 mcg PO DAILY[facility] Stop: 10/02/23 06:29 Last Admin: 09/02/23 06:06 Dose: 25 mcg Documented By: NEDA Nifedipine (Nifedipine Extended Rel 30 Mg Tabcr) 30 mg PO DAILY LALO Stop: 10/02/23 08:59 Last Admin: 09/02/23 07:17 Dose: 30 mg Documented By: JORGE Tramadol HCl (Tramadol Hcl 50 Mg Tablet) 50 mg PO BID PRN PRN Reason: Pain Stop: 10/02/23 00:46 Last Admin: 09/02/23 04:38 Dose: 50 mg Documented By: NEDA Discontinued Medications Acetaminophen (Ofirmev) 1,000 mg in 100 mls @ 400 mls/hr IV NOW STA Stop: 09/01/23 19:47 Last Infusion: 09/01/23 20:22 Dose: Infused Documented By: Admin: 09/01/23 19:52 Dose: 400 mls/hr Documented By: REID Sodium Chloride (Nss) 1,000 mls @ 999 mls/hr IV .Q1H1M ONE Stop: 09/01/23 21:31 Last Infusion: 09/01/23 22:40 Dose: Infused Documented By: Admin: 09/01/23 21:06 Dose: 999 mls/hr Documented By: REID Insulin Aspart (Insulin Aspart Per Unit Charge) 6 units SC NOW STA Stop: 09/01/23 23:57 Last Admin: 09/02/23 01:18 Dose: Not Given Documented By: NEDA Co-signed By: SHAW Ioversol (Optiray 320 125ml) 119 ml IV ONCE ONE Stop: 09/01/23 20:34 Last Admin: 09/01/23 20:33 Dose: 119 ml Documented By: KP Ketorolac Tromethamine (Ketorolac Tromethamine 15 Mg/Ml Vial) 15 mg IV NOW ONE Stop: 09/01/23 19:33 Last Admin: 09/01/23 19:52 Dose: Not Given Documented By: REID Metoprolol Tartrate (Metoprolol Tartrate 1 Mg/Ml Vial) 2.5 mg IV NOW STA Stop: 09/02/23 00:27 Last Admin: 09/02/23 01:23 Dose: 2.5 mg Documented By: NEDA Metoprolol Tartrate (Metoprolol Tartrate 1 Mg/Ml Vial) 2.5 mg IV NOW STA Stop: 09/02/23 07:41 Last Admin: 09/02/23 08:48 Dose: 2.5 mg Documented By: JORGE Imaging Data Radiologist's Impression: Chest X-Ray 09/01/23 18:32 XR chest 1V portable HISTORY: 72 years-old Female Chest pain, nonspecific COMPARISON: 12/18/2022 TECHNIQUE: AP view of the chest FINDINGS: Cardiomediastinal hilar silhouettes are within normal limits. No pneumothorax, pleural effusion or airspace consolidation. Bones appear grossly intact. IMPRESSION: No acute process. ACT 112: Negative or not required by law. The above report was generated using voice recognition software. It may contain grammatical, syntax or spelling errors. Electronically signed by: Bola Stovall M.D. 09/01/2023 6:56 PM Discharge Plan Visit Data Chief Complaint: Chest Pain Stated Complaint: CHEST PAIN ED Provider: Sarah Soares Discharge Problem: Chest pain Patient Disposition: Admitted As Inpatient Discharge Instructions Interventions: ED Discharge Assessment Last Done: 09/02/23 00:48
[2023-09-01] MEDS: KETOROLAC TROMETHAMINE 15 MG/ML VIAL IV ONE (19:52)
[2023-09-01] MEDS: ACETAMINOPHEN 1,000 MG/100 ML VIAL IV STA (19:52)
[2023-09-01 20:19] LABS: Alanine Aminotransferase 21 U/L (7-52); Albumin Globulin Ratio 1.4 (0.9-2); Albumin Level 4.7 gm/dl (3.4-5.0); Alkaline Phosphatase 55 U/L (34-104); BUN Creatinine Ratio 16.8 (10-20); Bilirubin,Total 0.3 mg/dl (0.2-1.0); Blood Urea Nitrogen 16 mg/dl (6-23); Calcium 9.8 mg/dl (8.6-10.3); Carbon Dioxide 22 mmol/L (21-32); Chloride 99 mmol/L (98-107); Creatinine Clr Calc Pharmacy 56.7 ml/min; Est GFR (African American) 69.4 ml/min; Est GFR (Non-African American) 59.8 ml/min; Globulin 3.3 gm/dl (2.5-4.0); Glucose 230 mg/dl (70-99(Fasting)); Lipase 38 U/L (11-82)
[2023-09-01] MEDS: OPTIRAY 320 125ml IV ONE (20:33)
--- OUTSIDE RECORDS SUMMARY | 2023-09-01 20:57 | External Medical Summary | Summary of Care ---
Author Name Unknown Organization [facility] Address [address] [place] [address] Phone [phone] Care Team Providers Care Fertilizer Supervisor Name Role Phone Satinder Sevilla MD Primary Care Provider [phone] Reason for Visit * Reason Onset Date Comments Medication Refill 07/16/2023 Encounter Details Date Type Department Care Team (Late st Contact Info) Description 07/16/2023 Refill [facility] [address] [place] [address] Satinder Sevilla MD [address] [place] [address] Allergies Active Allergy Reactions Criticality Noted Date Comments Bee Venom Anaphylaxis High 12/26/2021 documented as of this encounter (statuses as of 07/17/2023) Medications Medication Sig Dispensed Refills Start Date End Date Status Cholecalciferol (VITAMIN D) 1000 units Tablet Take 4 Tablets by mouth in the morning. 0 Active B Complex Capsule Take by mouth 1 Capsule 2 times a day . 0 Active Apixaban 5 MG Oral Tablet Take 1 Tablet by mouth in the morning and 1 Tablet before bedtime. 0 Active acetaminophen (TYLENOL) 500 MG Tablet Take 1 Tablet by mouth every 6 hours as needed for Pain. 0 Active Nystatin 580364 UNIT/GM External Powder (Nystop)Indication s:Fungal infection of skin Apply topically to affected area 3 times a day . Apply to area under breast twice daily x 2 weeks. 15 g 2 12/14/2021 Active diphenhydrAMINE HCl 25 MG Oral Capsule (Benadryl) Take 1 Capsule by mouth in the morning and 1 Capsule at noon and 1 Capsule before bedtime. 0 2021 Active Famotidine 40 MG Oral Tablet (Pepcid) Take 1 Tablet by mouth in the morning and 1 Tablet before bedtime. 0 2021 Active Diclofenac Sodium 1 % External Gel (Voltaren) APPLY 4 GRAMS TOPICALLY 4 TIMES DAILY TO AFFECTED AREA 350 g 3 10/10/2022 Active BD Pen Needle Short U/F 31G X 8 MM (Insulin Pen Needle) USE TWICE DAILY 200 Each 2 10/10/2022 Active EPINEPHrine 0.3 MG/0.3ML Injection Solution Auto-injector (Autoinjector) Inject 0.3 mg into a large muscle as needed for Anaphylaxis (severe allergic reaction). 2 Each 1 12/05/2022 Active traMADol HCl 50 MG Oral Tablet (Ultram)Indication s:Lumbar radiculopathy Take 1 Tablet by mouth 2 times a day as needed for Pain, Moderate. 60 Tablet 0 06/07/2023 Active NIFEdipine ER 30 MG Oral Tablet Extended Release 24 Hour (Adalat CC) Take 1 Tablet by mouth in the morning. On an empty stomach. 90 Tablet 3 07/17/2023 Active metFORMIN HCl 1000 MG Oral Tablet (Glucophage) TAKE 1 TABLET BY MOUTH TWICE DAILY WITH MORNING MEAL AND WITH EVENING MEAL 180 Tablet 1 07/17/2023 Active Levothyroxine Sodium 25 MCG Oral Capsule (Tirosint) Take 1 Capsule by mouth daily first thing in the morning. (at least 30 min prior to breakfast or other meds) 90 Capsule 2 07/17/2023 Active Insulin Glargine Solostar 100 UNIT/ML Subcutaneous Solution Pen-injector (Lantus SoloStar) 35 units in the AM and 20 units in the PM 60 mL 1 07/17/2023 Active NIFEdipine ER 30 MG Oral Tablet Extended Release 24 Hour (Adalat CC) Take 1 Tablet by mouth in the morning. On an empty stomach. 90 Tablet 3 09/13/2022 4 Discontinue d(Refill) Levothyroxine Sodium 25 MCG Oral Capsule (Tirosint) Take 1 Capsule by mouth daily first thing in the morning. (at least 30 min prior to breakfast or other meds) 90 Capsule 2 10/10/2022 4 Discontinue d(Refill) Insulin Glargine Solostar 100 UNIT/ML Subcutaneous Solution Pen-injector (Lantus SoloStar) 35 units in the AM and 20 units in the PM 60 mL 1 03/07/2023 4 Discontinue d(Refill) metFORMIN HCl 1000 MG Oral Tablet (Glucophage) TAKE 1 TABLET BY MOUTH TWICE DAILY WITH MORNING MEAL AND WITH EVENING MEAL 180 Tablet 1 03/12/2023 4 Discontinue d(Refill) documented as of this encounter (statuses as of 07/17/2023) Active Problems Problem Noted Date Diagnosed Date Paroxysmal atrial fibrillation 08/06/2021 HTN, goal below 140/90 08/06/2021 Dyslipidemia, goal LDL below 100 08/06/2021 Type 2 diabetes mellitus wit h hemoglobin A1c goal of less than 8.0% 08/06/2021 Acquired hypothyroidism 08/06/2021 Stage 3a chronic kidney disease 08/06/2021 MEDICATION USE AGREEMENT 03/01/2021 Iron deficiency anemia 11/02/2020 Malignant neoplasm of left b reast in female, estrogen receptor positive 08/30/2017 documented as of this encounter (statuses as of 07/17/2023) Social History Tobacco Use Types Packs/Day Years Used Date Smoking Tobacco: Never Smokeless Tobacco: Never Alcohol Use Standard Drinks/Week Comments No 0 (1 standard drink = 0.6 oz pur e alcohol) PHQ-2 Answer Date Recorded PHQ Adult Total Score 6 11/03/2022 Hunger Vital Sign Answer Date Recorded Within the past 12 months, y ou worried that your food would run out before you got the money to buy more. Never true 11/04/19 23 Within the past 12 months, t he food you bought just didn't last and you didn't have money to get more. Never true 11/03/2022 Sex and Gender Information Value Date Recorded Sex Assigned at Female 11/02/2021 1:37 PM EDT Gender Identity Female 11/02/2021 1:37 PM EDT Sexual Orientation Not on file Job Start Date Occupation Industry Not on file Not on file Not on file documented as of this encounter Miscellaneous Notes * Telephone Encounter - Sid Pickering, [facility] - 07/17/2023 12:37 PM EST Signed Prescriptions: Disp Refills NIFEdipine ER 30 MG Oral Tablet Extended R*90 Tab*3 Sig: Take 1 Tablet by mouth in the morning. On an empty stomach. Authorizing Provider: SATINDER SEVILLA Ordering User: SID PICKERING metFORMIN HCl 1000 MG Oral Tablet (Glucoph*180 Ta*1 Sig: TAKE 1 TABLET BY MOUTH TWICE DAILY WITH MORNING MEAL AND WITH EVENI NG MEAL Authorizing Provider: SATINDER SEVILLA Ordering User: SID PICKERING Levothyroxine Sodium 25 MCG Oral Capsule (*90 Cap*2 Sig: Take 1 Capsule by mouth daily first thing in the morning. (at least 30 min prior to breakfast or other meds) Authorizing Provider: SATINDER SEVILLA Ordering User: SID PICKERING Insulin Glargine Solostar 100 UNIT/ML Subc*60 mL 1 Si units in the AM and 20 units in the PM Authorizing Provider: SATINDER SEVILLA Ordering User: SID PICKERING * Telephone Encounter - Anila Moya quality control inspector heading - 07/16/2023 11:27 AM EST Did you pend patient's preferred pharmacy and medication before forwarding?yes Pharmacy: [facility] Pending Prescriptions: Disp Refills NIFEdipine ER 30 MG Oral Tablet Extended *90 Tab*3 Sig: Take 1 Tablet by mouth in the morning. On an empty stomach. metFORMIN HCl 1000 MG Oral Tablet (Glucop*180 Ta*1 Levothyroxine Sodium 25 MCG Oral Capsule *90 Cap*2 Sig: Take 1 Capsule by mouth daily first thing in the morning. (at least 30 min prior to breakfast or other meds) Insulin Glargine Solostar 100 UNIT/ML Sub*60 mL 1 Si units in the AM and 20 units in the PM Last Visit: 12/18/2022 (in office), Visit date not found (telemedicine) Next Visit: 01/22/2024 If no future appointments scheduled, and last appointment is greater than a year ago, please schedule patient for a follow-up appointment Last date the medication was ordered: 09/13/2022, 03/12/2023,10/10/2022,03/07/2023 Is this request for a controlled substance?No Urine Drug Screen:No results found for this or any previous visit. Patient Phone Numbers Labs: Lab Results Component Value Date/Time CREAT 1.0 06/28/2023 11:45 AM CREAT 0.94 (A) 01/26/2021 12:00 AM CREAT 1.1 (H) 08/30/2017 11:21 AM POTASSIUM 4.4 06/28/2023 11:45 AM POTASSIUM 4.3 01/26/2021 12:00 AM POTASSIUM 4.1 08/30/2017 11:21 AM TSH 4.21 (H) 06/28/2023 11:45 AM TSH 3.66 01/26/2021 12:00 AM LDLCALC 103 06/08/2021 12:55 PM LDLCALC 01/26/2021 12:00 AM Comment: NOT CALCULATED WITH TRIGLYCERIDES GREATER THAN 400 MG/DL LDLDIRECT 86 09/27/2022 11:13 AM ALT 26 06/28/2023 11:45 AM ALT 34 08/16/2017 12:22 PM HGBA1C 7.0 (H) 06/28/2023 11:45 AM HGBA1C 7.1 (H) 01/26/2021 12:00 AM documented in this encounter Plan of Treatment Upcoming Encounters Date Type Department Care Team (Late st Contact Info) Description 10/01/2023 2:30 PM EDT Office Visit Hematology/Oncology State Gretchen Horn [address] [facility] [place] [address] Gracie Tellez CRNP [address] [place] [address] 11/12/2023 1:00 PM EDT Nurse Only Ancillary Department, [place] [address] [place] [facility] [place] [address] [place], Nurse Annual Wellness [address] [place] [facility] [place] [address] 01/22/2024 1:20 PM EDT Office Visit Family Practice, [place] [address] [place] [facility] [place] [id number] Satinder Sevilla MD [address] [place] [facility] [place] [address] Health Maintenance Due Date Last Done Comments COVID-19 Vaccine (#1) 06/28/1951 Pneumococcal Vaccine: 65+ Years (1 - PCV) 1956 Hepatitis C Screening 1968 DTaP,Tdap,and Td Vaccines (1 - Tdap) 1969 Cologuard 12/28/1995 Colonoscopy 12/28/1995 Sigmoidoscopy 12/28/1995 Zoster Vaccines (1 of 2) 2000 Hepatitis B (1 of 3 - Risk 3-dose series) 2010 Colorectal Cancer Screening 08/20/2019 Fecal Occult Blood Test 08/20/2019 08/20/2018 Diabetic Eye Exam 12/06/2022 12/06/2021, 11/02/2021 Influenza Vaccine (FLU shot) (#1) 2023 Mammogram 08/10/2023 08/10/2022, 02/0 03/2023, 07/24/2022, Additional history exists Albumin/Creatinine Ratio 09/28/2023 023, 12/14/2021, 07/14/2020 CKD HGB USE SMARTSET 52517 09/28/202309/27, 09/27/2022, 12/14/2021, Additional history exists CKD PHOS USE SMARTSET 64297 09/28/2023 09/27/2022, 0 08/30/2017 Depression Screening 11/04/2023 11/03/2022 Diabetic Foot Exam 11/04/2023 11/03/2022, 11/02/2021 GFR 12/28/2023 06/28/2023, 08/31, 12/14/2021, Additional history exists HbA1c 12/28/2023 06/28/2023, 08/31, 06/19/2022, Additional history exists TSH 06/28/2024 06/28/2023, 06/01, 12/14/2021, Additional history exists Lipid Panel 09/28/2027 09/27/2022, 06/08/2021 DXA Scan 12/09/2028 12/09/2021, 11/30, 12/04/2019, Additional history exists GARDASIL-HPV IMMUNIZATION SERIES Aged Out No longer eligible based on patient's age to complete this topic MENINGOCOCCAL (MENACTRA/MENVEO) Aged Out No longer eligible based on patient's age to complete this topic documented as of this encounter Medical Devices Not on filedocumented as of this encounter Care Teams Fertilizer Supervisor Relationship Specialty Start Date End Date Satinder Sevilla MD [address] [facility] [place] [place] [address] PCP - General Family Medicine 06/15/21 documented as of this encounter
--- OUTSIDE RECORDS SUMMARY | 2023-09-01 20:57 | External Medical Summary ---
Author Name Unknown Address Unknown Organization [id number]:[facility] [place] [address] [facility] [address] Laboratory Report Ordering Provider Test Date Status ROEL ISRAEL 06/28/2023 11:45:15 Final Observation Date Value Abnormality Reference (Units ) Status HbA1C 06/28/2023 11:45:15 7.0 Above high normal 4. 0-5.6 (%) Final The use of HbA1c to monitor glycemic status is based on normal hemoglobin and HbA composition. This test should not be used in patients with abnormal hemoglobin that affects the half life of the red blood cell or the in vivo glycation rates. Glucose, estimated average 06/28/2023 11:45:15 154 Above high normal <126 (mg/dL) Aki alvarez Performing Location [facility] [place] [facility] [address] [facility] Marce[facility]arde[facility] [address]
--- OUTSIDE RECORDS SUMMARY | 2023-09-01 20:57 | External Medical Summary | Summary of Care ---
Author Name Unknown Organization [facility] Address [address] [place] [address] Phone [phone] Care Team Providers Care Sleeper Cutter Name Role Phone Satinder Liang MD Primary Care Provider +1- [phone] Reason for Visit * Reason Comments Outpatient Testing Encounter Details Date Type Department Care Team (Late st Contact Info) Description 06/28/2023 11:40 AM EST Laboratory Laboratory, [facility] [address] [place] [address] [facility], [facility] [address] [place] [address] Type 2 diabetes mellitus with hemoglobin A1c goal of less than 8.0% ([facility]); Acquired hypothyroidism Allergies Active Allergy Reactions Criticality Noted Date Comments Bee Venom Anaphylaxis High 12/26/2021 documented as of this encounter (statuses as of 06/28/2023) Medications Medication Sig Dispensed Refills Start Date [...] as needed for Pain. 0 Active Nystatin 868615 UNIT/GM External Powder (Nystop)Indications: Fungal infection of skin Apply topically to affected [...] 1 Tablet before bedtime. 0 2021 Active NIFEdipine ER 30 MG Oral Tablet Extended Release 24 Hour (Adalat CC) Take 1 Tablet by mouth in the morning. On an empty stomach. 90 Tablet 3 09/13/2022 Active Diclofenac Sodium 1 % External Gel (Voltaren) APPLY 4 GRAMS TOPICALLY 4 TIMES DAILY TO AFFECTED AREA 350 g 3 10/10/2022 Active BD Pen Needle Short U/F 31G X 8 MM (Insulin Pen Needle) USE TWICE DAILY 200 Each 2 10/10/2022 Active Levothyroxine Sodium 25 MCG Oral Capsule (Tirosint) Take 1 Capsule by mouth daily first thing in the morning. (at least 30 min prior to breakfast or other meds) 90 Capsule 2 10/10/2022 Active EPINEPHrine 0.3 MG/0.3ML Injection Solution Auto-injector (Autoinjector) Inject 0.3 mg into a large muscle as needed for Anaphylaxis (severe allergic reaction). 2 Each 1 12/05/2022 Active Insulin Glargine Solostar 100 UNIT/ML Subcutaneous Solution Pen-injector (Lantus SoloStar) 35 units in the AM and 20 units in the PM 60 mL 1 03/07/2023 Active metFORMIN HCl 1000 MG Oral Tablet (Glucophage) TAKE 1 TABLET BY MOUTH TWICE DAILY WITH MORNING MEAL AND WITH EVENING MEAL 180 Tablet 1 03/12/2023 Active traMADol HCl 50 MG Oral Tablet (Ultram)Indications: Lumbar radiculopathy Take 1 Tablet by mouth 2 times a day as needed for Pain, Moderate. 60 Tablet 0 06/07/2023 Active documented as of this encounter (statuses as of 06/28/2023) Active Problems Problem Noted Date Diagnosed Date [...] as of this encounter (statuses as of 06/28/2023) Social History Tobacco Use Types Packs/Day Years [...] on file documented as of this encounter Plan of Treatment Upcoming Encounters Date Type Department Care Team (Late st Contact Info) Description 07/10/2023 1:20 PM EST Office Visit Family [facility], [facility] [address] [facility] [address] [facility]atinder [facility]ang [facility] [address] [facility] [address] 10/01/2023 2:30 PM EDT Office Visit Hematology/Oncology [facility] [place] [address] [facility] [address] Gracie Tellez CRNP [address] [place] [address] [place] [address] 11/12/2023 1:00 PM EDT Nurse Only [facility] Department, [facility] [address] [facility] [place] [address] Latisha Nurse [facility] [address] [facility] [address] Pending Results Name Type Priority Associated Diagnoses Date /Time HEMOGLOBIN A1C Lab Routine Type 2 diabetes mellitus with hemoglobin A1c goal of less than 8.0% (HCC) 06/28/2023 11:45 AM EST COMPREHENSIVE METABOLIC PANEL Lab Routine Type 2 diabetes mellitus with hemoglobin A1c goal of less than 8.0% (HCC) 06/28/2023 11:45 AM EST TSH WITH FREE T4 IF INDICATED Lab Routine Type 2 diabetes mellitus with hemoglobin A1c goal of less than 8.0% (HCC) Acquired hypothyroidism 06/28/2023 11:45 AM EST Health Maintenance Due Date Last Done Comments [...] 11/02/2021 Influenza Vaccine (FLU shot) (#1) 2023 GFR 03/30/2023 09/27/2022, 11/30, 09/14/2021, Additional history exists HbA1c 03/30/2023 09/27/2022, 06/01, 12/14/2021, Additional history exists TSH 06/19/2023 06/19/2022, 11/30, 06/08/2021, Additional history exists Mammogram 08/10/2023 08/10/2022, 03/2023, 07/24/2022, Additional history exists Albumin/Creatinine Ratio 09/28/20232 023, 12/14/2021, 07/14/2020 CKD HGB USE SMARTSET 32158 09/28/202309/27, 09/27/2022, 12/14/2021, Additional history exists CKD PHOS USE SMARTSET 00409 09/28/2023 09/27/2022, 0 08/30/2017 Depression Screening 11/04/2023 11/03/2022 Diabetic Foot Exam 11/04/2023 11/03/2022, 11/02/2021 Lipid Panel 09/28/2027 09/27/2022, 06/08/2021 DXA Scan 12/09/2028 12/09/2021, 11/30, 12/04/2019, Additional history exists GARDASIL-HPV IMMUNIZATION SERIES Aged Out No longer eligible based on patient's age to complete this topic MENINGOCOCCAL (MENACTRA/MENVEO) Aged Out No longer eligible based on patient's age to complete this topic documented as of this encounter Medical Devices Not on filedocumented as of this encounter Visit Diagnoses Diagnosis Type 2 diabetes mellitus with hemoglobin A1c goal of less than 8.0% (HCC) Acquired hypothyroidism Unspecified hypothyroidism documented in this encounter Care Teams Sleeper Cutter Relationship Specialty Start Date End Date Satinder Liang MD [address] [place] [facility] [place] [address] PCP - General Family Medicine 06/15/21 documented as of this encounter
--- OUTSIDE RECORDS SUMMARY | 2023-09-01 20:57 | External Medical Summary | Summary of Care ---
Author Name Unknown Organization [facility] Address [address] [place] [address] Phone [phone] Care Team Providers Care Child Care Specialist Name Role Phone Jhonatan Sevilla MD Primary Care Provider +1- [phone] Reason for Visit * Reason Onset Date Comments Medication Refill 08/06/2023 Encounter Details Date Type Department Care Team (Late st Contact Info) Description 08/06/2023 Refill [facility] [address] [place] [address] Jhonatan Sevilla MD [address] [place] [address] Lumbar radiculopathy Allergies Active Allergy Reactions Criticality Noted Date Comments Bee Venom Anaphylaxis High 12/26/2021 documented as of this encounter (statuses as of 08/07/2023) Medications Medication Sig Dispensed Refills Start Date [...] as needed for Pain. 0 Active Nystatin 423648 UNIT/GM External Powder (Nystop)Indication s:Fungal infection of [...] allergic reaction). 2 Each 1 12/05/2022 Active NIFEdipine ER 30 MG Oral Tablet [...] the PM 60 mL 1 07/17/2023 Active traMADol HCl 50 MG Oral Tablet (Ultram)Indication s:Lumbar radiculopathy Take 1 Tablet by mouth 2 times a day as needed for Pain, Moderate. 60 Tablet 0 08/07/2023 Active traMADol HCl 50 MG Oral Tablet (Ultram)Indication s:Lumbar radiculopathy Take 1 Tablet by mouth 2 times a day as needed for Pain, Moderate. 60 Tablet 0 06/07/2023 4 Discontinue d(Refill) documented as of this encounter (statuses as of 08/07/2023) Active Problems Problem Noted Date Diagnosed Date [...] as of this encounter (statuses as of 08/07/2023) Social History Tobacco Use Types Packs/Day Years [...] encounter Miscellaneous Notes * Telephone Encounter - Jhonatan Sevilla MD - 08/07/2023 7:18 PM ESTSigned Prescriptions: Disp Refills traMADol HCl 50 MG Oral Tablet (Ultram) 60 Tab*0 Sig: Take 1 Tablet by mouth 2 times a day as needed for Pain, Moderate.Authorizing Provider: JHONATAN SEVILLA---- * Telephone Encounter - Guido Tang [facility] - 08/07/2023 10:34 AM EST Pending Prescriptions: Disp Refills traMADol HCl 50 MG Oral Tablet (Ultram) 60 Tab*0 Sig: Take 1 Tablet by mouth 2 times a day as needed for Pain, Moderate. * Telephone Encounter - Guido Tang [facility] - 08/07/2023 10:33 AM EST I have reviewed the patients controlled substance dispensing history in the Prescription Drug Monitoring Program in compliance with the [facility] regulations before prescribing a controlled substance. PDMP checked on 08/07/2023. Pending Prescriptions: Disp Refills traMADol HCl 50 MG Oral Tablet (Ultram) 60 Tab*0 Sig: Take 1 Tablet by mouth 2 times a day as needed for Pain, Moderate. Last Visit: 12/18/2022 (in office), Visit date not found (telemedicine) Next Visit: 01/22/2024 Date medication was last filled: 06/07/2023 Date medication is due for refill: 07/06/2023 [facility] [address] [place] [address] [place] Is this request for a controlled substance? Yes and Urine Drug Screen Not completed Toxicology results: No results found for this or any previous visit. Please approve if appropriate. Thank you, Guido Tang, PharmD Clinical Pharmacist [facility] ([facility]) (Formerly Telepharm[facility]) [phone] 08/07/2023, 10:33 AM * Telephone Encounter - Leyla Carmona PHARM Tech - 08/06/2023 11:12 AM EST Did you pend patient's preferred pharmacy and medication before forwarding?yes [facility] [address] [place] [address] [place] Pending Prescriptions: Disp Refills traMADol HCl 50 MG Oral Tablet (Ultram) 60 Tab*0 Sig: Take 1 Tablet by mouth 2 times a day as needed for Pain, Moderate. Last Visit: 12/18/2022 (in office), Visit date not found (telemedicine) Next Visit: 01/22/2024 If no future appointments scheduled, and last appointment is greater than a year ago, please schedule patient for a follow-up appointment Last date the medication was ordered: 06/07/2023 Is this request for a controlled substance?Yes, What was the last refill date 06/07/2023 w/ quantity 60 and dosage 50mg and Urine Drug Screen Not completed Urine Drug Screen:No results found for this [...] 10/01/2023 2:30 PM EDT Office Visit Hematology/Oncology [facility] [place] [address] [place] [address] [facility]ac[facility]elle[facility] [address] [facility] [place] [address] 11/12/2023 1:00 PM EDT Nurse Only Ancillary Department, [place] [address], [place] [id number] [place], [facility] [address] [place] [address] 01/22/2024 1:20 PM EDT Office Visit Family Practice, [place] [address] [place] [address] Jhonatan Sevilla MD [address] [place], [place] [phone] Health Maintenance Due Date Last Done Comments [...] (FLU shot) (#1) 2023 Mammogram 08/10/2023 08/10/2022, 0203/2023, 07/24/2022, Additional history exists Albumin/Creatinine Ratio 09/28/2023 023, 12/14/2021, 07/14/2020 CKD HGB USE SMARTSET 71715 09/28/202309/27, 09/27/2022, 12/14/2021, Additional history exists CKD PHOS USE SMARTSET 24510 09/28/2023 09/27/2022, 0 08/30/2017 Depression Screening 11/04/2023 [...] as of this encounter Visit Diagnoses Diagnosis Lumbar radiculopathy Thoracic or lumbosacral neuritis or radiculitis, unspecified documented in this encounter Care Teams Child Care Specialist Relationship Specialty Start Date End Date Jhonatan Sevilla MD [address] [place] [address] PCP - General Family Medicine 06/15/21 documented as of this encounter
--- OUTSIDE RECORDS SUMMARY | 2023-09-01 20:57 | External Medical Summary ---
Author Name Unknown Address Unknown Organization K01:[facility] [place] - [address] [place] [address] Laboratory Report Ordering Provider Test Date Status ROEL ISRAEL 06/28/2023 11:45:15 Final Observation Date Value Abnormality Reference (Units ) Status TSH 06/28/2023 11:45:15 4.21 Above high normal 0. 27-4.20 (uIU/mL) Final Performing Location [facility] [place] - [address] [place] [address]
--- OUTSIDE RECORDS SUMMARY | 2023-09-01 20:58 | External Medical Summary | Summary of Care ---
Author Name Unknown Organization [facility] Address [address] [place] [address] Phone [phone] Care Team Providers Care Ultrasound Manager Name Role Phone Satinder Liang MD Primary Care Provider +1- [phone] Reason for Visit * Reason Onset Date Comments Health Maintenance 06/19/2023 Encounter Details Date Type Department Care Team (Late st Contact Info) Description 06/19/2023 Telephone [facility] [address] [place] [address] Satinder Liang MD [address] [place] [address] Health Maintenance Allergies Active Allergy Reactions Criticality Noted Date Comments Bee Venom Anaphylaxis High 12/26/2021 documented as of this encounter (statuses as of 06/19/2023) Medications Medication Sig Dispensed Refills Start Date [...] as needed for Pain. 0 Active Nystatin 863012 UNIT/GM External Powder (Nystop)Indications: Fungal infection of [...] as of this encounter (statuses as of 06/19/2023) Active Problems Problem Noted Date Diagnosed Date [...] as of this encounter (statuses as of 06/19/2023) Social History Tobacco Use Types Packs/Day Years [...] encounter Miscellaneous Notes * Telephone Encounter - Ciara Sloan ANAMIKA - 06/19/2023 1:53 PM EST Care Gaps Comprehensive Care Outreach Last Office/Telemedicine Visit: 12/18/2022 (in office), Visit date not found (telemedicine) Next Office Visit: 07/10/2023 Hemoglobin AIC Results: Lab Results Component Value Date/Time HEMOGLOBIN A1C - [facility] 7.2 (H) 09/27/2022 11:13 AM HEMOGLOBIN A1C - [facility] 7.0 (H) 06/19/2022 10:43 AM HEMOGLOBIN A1C - [facility] 7.2 (H) 12/14/2021 12:24 PM Reviewed Health Maintenance below: Health Maintenance Topic Date Due COVID-19 Vaccine (1) Never done Pneumococcal Vaccine: 65+ Years (1 - PCV) Never done Hepatitis C Screening Never done DTaP,Tdap,and Td Vaccines (1 - Tdap) Never done Zoster Vaccines (1 of 2) Never done Hepatitis B (1 of 3 - Risk 3-dose series) Never done Colorectal Cancer Screening 08/20/2019 Diabetic Eye Exam 12/06/2022 Influenza Vaccine (FLU shot) (1) Never done HbA1c 03/30/2023 GFR 03/30/2023 TSH 06/19/2023 Labs already ordered Eye declined Colon declined Care Gap Outreach Action Taken: declined HM documented in this encounter Plan of Treatment Upcoming Encounters Date Type Department Care Team (Late st Contact Info) Description 07/10/2023 1:20 PM EST Office Visit Family Practice, [place] [address] [place] [address] Satinder Liang MD [address] [place] [address] 10/01/2023 2:30 PM EDT Office Visit Hematology/Oncology [facility] [address] [place] [address] Gracie Tellez CRNP [address] [place] [address] 11/12/2023 1:00 PM EDT Nurse Only Ancillary Department, [place] [address] [place] [address] [place], Nurse [facility] [address], [place] [phone] Health Maintenance Due Date Last Done Comments [...] 023, 12/14/2021, 07/14/2020 CKD HGB USE SMARTSET 92706 09/28/202309/27, 09/27/2022, 12/14/2021, Additional history exists CKD PHOS USE SMARTSET 84643 09/28/2023 09/27/2022, 0 08/30/2017 Depression Screening 11/04/2023 [...] filedocumented as of this encounter Care Teams Ultrasound Manager Relationship Specialty Start Date End Date Satinder Liang MD [address] [facility] [place] [id number] PCP - General Family Medicine 06/15/21 documented as of this encounter
--- OUTSIDE RECORDS SUMMARY | 2023-09-01 20:58 | External Medical Summary | Summary of Care ---
Author Name Unknown Organization [facility] Address [address] [place] [address] Phone [phone] Care Team Providers Care Paradichlorobenzene Tender Name Role Phone Jhonatan Sevilla MD Primary Care Provider +1- [phone] Reason for Visit * Reason Onset Date Comments Medication Refill 03/06/2023 Encounter Details Date Type Department Care Team Description 03/06/2023 Refill [facility] [address] [place] [address] Jhonatan Sevilla MD [address] [place] [address] Allergies Active Allergy Reactions Severity Noted Date Comments Bee Venom Anaphylaxis High 12/26/2021 documented as of this encounter (statuses as of 03/07/2023) Medications Medication Sig Dispensed Refills Start Date [...] as needed for Pain. 0 Active Nystatin 612444 UNIT/GM External Powder (Nystop)Indication s:Fungal infection of [...] other meds) 90 Capsule 2 10/10/2022 Active traMADol HCl 50 MG Oral Tablet (Ultram)Indication s:Lumbar radiculopathy Take 1 Tablet by mouth 2 times a day as needed for Pain, Moderate. 60 Tablet 0 12/05/2022 Active metFORMIN HCl 1000 MG Oral Tablet (Glucophage) Take 1 Tablet by mouth 2 times a day with morning and evening meals. 180 Tablet 1 12/05/2022 Active EPINEPHrine 0.3 MG/0.3ML Injection Solution Auto-injector (Autoinjector) Inject 0.3 mg into a large muscle as needed for Anaphylaxis (severe allergic reaction). 2 Each 1 12/05/2022 Active Insulin Glargine Solostar 100 UNIT/ML Subcutaneous Solution Pen-injector (Lantus SoloStar) 35 units in the AM and 20 units in the PM 60 mL 1 03/07/2023 Active Insulin Glargine Solostar 100 UNIT/ML Subcutaneous Solution Pen-injector (Lantus SoloStar) 35 units in the AM and 20 units in the PM 60 mL 1 08/18/2022 3 Discontinue d(Refill) documented as of this encounter (statuses as of 03/07/2023) Active Problems Problem Noted Date Paroxysmal atrial fibrillation 2 HTN, goal below 140/90 08/06/2021 Dyslipidemia, goal LDL below 100 022 Type 2 diabetes mellitus with hemoglobin A1c goal of less than 8.0% 08/06/2021 Acquired hypothyroidism 08/06/2021 Stage 3a chronic kidney disease 08/06/19 22 MEDICATION USE AGREEMENT 03/01/2021 Iron deficiency anemia 11/02/2020 Malignant neoplasm of left breast in fem fahad, estrogen receptor positive 08/30/2017 documented as of this encounter (statuses as of 03/07/2023) Social History Tobacco Use Types Packs/Day Years Used Date Smoking Tobacco: Never Smokeless Tobacco: Never Alcohol Use Standard Drinks/Week Comments No 0 (1 standard drink = 0.6 oz pur e alcohol) Food Insecurity Answer Date Recorded Within the past 12 months, y ou worried that your food would run out before you got money to buy more. Never true 11/03/2022 Within the past 12 months, t he food you bought just didn't last and you didn't have money to get more. Never true 11/03/2022 Sex Assigned at Date Recorded Female 11/02/2021 1:37 PM E DT Job Start Date Occupation Industry Not on file Not on file Not on file documented as of this encounter Miscellaneous Notes * Telephone Encounter - Juan R Pretty RPh - 03/07/2023 11:49 AM EDTSigned Prescriptions: Disp Refills Insulin Glargine Solostar 100 UNIT/ML Subc*60 mL 1 Si units in the AM and 20 units in the PM Authorizing Provider: JHONATAN SEVILLA Ordering User: JUAN R PRETTY * Telephone Encounter - Cherelle Sellers compliance reviewer - 03/06/2023 11:00 AM EDT Did you pend patient's preferred pharmacy and medication before forwarding?yes [facility]acy: [facility] [place] Pending Prescriptions: Disp Refills Insulin Glargine Solostar 100 UNIT/ML Sub*60 mL 1 Si units in the AM and 20 units in the PM Last Visit: 12/18/2022 (in office), Visit date not found (telemedicine) Next Visit: 07/10/2023 If no future appointments scheduled, and last appointment is greater than a year ago, please schedule patient for a follow-up appointment Last date the medication was ordered: 08/18/2022 Is this request for a controlled substance?No Urine Drug Screen:No results found for this or any previous visit. Patient Phone Numbers Labs: Lab Results Component Value Date/Time CREAT 0.9 09/27/2022 11:13 AM CREAT 0.94 (A) 01/26/2021 12:00 AM CREAT 1.1 (H) 08/30/2017 11:21 AM POTASSIUM 4.0 09/27/2022 11:13 AM POTASSIUM 4.3 01/26/2021 12:00 AM POTASSIUM 4.1 08/30/2017 11:21 AM TSH 3.78 06/19/2022 10:43 AM TSH 3.66 01/26/2021 12:00 AM LDLCALC 103 06/08/2021 12:55 PM LDLCALC 01/26/2021 12:00 AM Comment: NOT CALCULATED WITH TRIGLYCERIDES GREATER THAN 400 MG/DL LDLDIRECT 86 09/27/2022 11:13 AM ALT 27 09/27/2022 11:13 AM ALT 34 08/16/2017 12:22 PM HGBA1C 7.2 (H) 09/27/2022 11:13 AM HGBA1C 7.1 (H) 01/26/2021 12:00 AM documented in this encounter Plan of Treatment Upcoming Encounters Date Type Specialty Care Team Description 07/10/2023 Office Visit Family Medicine Jhonatan Sevilla MD [address], [place] [phone] 10/01/2023 Office Visit Hematology Oncology Gracie Tellez CRNP [address] [place] [address] [place] [address] 11/12/2023 Nurse Only Nurse [facility] [address] [facility] [place] [id number] Health Maintenance Due Date Last Done Comments COVID-19 Vaccine (#1) 06/28/1951 Pneumococcal Vaccine: 65+ Years (1 - PCV) 1956 Hepatitis C Screening 1968 DTaP,Tdap,and Td Vaccines (1 - Tdap) 1969 Cologuard 12/28/1995 Colonoscopy 12/28/1995 Colorectal Cancer Screening 12/28/1995 Fecal Occult Blood Test 12/28/1995 Sigmoidoscopy 12/28/1995 Zoster Vaccines (1 of 2) 2000 DIABETES-EYE EXAM 12/06/2022 12/06/2021, 11/02/2021 Influenza Vaccine (FLU shot) (#1) 2023 GFR 03/30/2023 09/27/2022, 11/30, 09/14/2021, Additional history exists HbA1c 03/30/2023 09/27/2022, 06/01, 12/14/2021, Additional history exists TSH 06/19/2023 06/19/2022, 11/30, 06/08/2021, Additional history exists Mammogram 08/10/2023 08/10/2022, 07/03, 07/21/2021, Additional history exists Albumin/Creatinine Ratio 09/28/2023 023, 12/14/2021, 07/14/2020 CKD HGB USE SMARTSET 35769 09/28/202309/27, 09/27/2022, 12/14/2021, Additional history exists CKD PHOS USE SMARTSET 83479 09/28/2023 09/27/2022, 0 08/30/2017 Depression Screening, Annual for Pts 12 and Over 11/04/2023 11/03/2022 Diabetic Foot Exam 11/04/2023 11/03/2022, 11/02/2021 Lipid Panel 09/28/2027 09/27/2022, 06/08/2021 DXA Scan 12/09/2028 12/09/2021, 12/04/2019 GARDASIL-HPV IMMUNIZATION SERIES Aged Out No longer eligible based on patient's age to complete this topic Hepatitis B Aged Out No longer eligi ble based on patient's age to complete this topic MENINGOCOCCAL (MENACTRA/MENVEO) Aged Out No longer eligible based on patient's age to complete this topic documented as of this encounter Medical Devices Not on filedocumented as of this encounter Care Teams Paradichlorobenzene Tender Relationship Specialty Start Date End Date Jhonatan Sevilla MD [address], [place] [phone] PCP - General Family Medicine 06/15/21 documented as of this encounter
--- OUTSIDE RECORDS SUMMARY | 2023-09-01 20:58 | External Medical Summary | Summary of Care ---
Author Name Unknown Organization [facility] Address [address] [place] [address] Phone [phone] Care Team Providers Care Rocket Test Fire Worker Name Role Phone Jhonatan Sevilla MD Primary Care Provider +1- [phone] Reason for Visit * Reason Onset Date Comments Medication Refill 06/07/2023 Encounter Details Date Type Department Care Team (Late st Contact Info) Description 06/07/2023 Refill [facility] [address] [place] [address] Jhonatan Sevilla MD [address] [place] [address] Lumbar radiculopathy Allergies Active Allergy Reactions Criticality Noted Date Comments Bee Venom Anaphylaxis High 12/26/2021 documented as of this encounter (statuses as of 06/07/2023) Medications Medication Sig Dispensed Refills Start Date [...] as needed for Pain. 0 Active Nystatin 486534 UNIT/GM External Powder (Nystop)Indication s:Fungal infection of [...] Pain, Moderate. 60 Tablet 0 06/07/2023 Active traMADol HCl 50 MG Oral Tablet (Ultram)Indication s:Lumbar radiculopathy Take 1 Tablet by mouth 2 times a day as needed for Pain, Moderate. 60 Tablet 0 03/13/2023 3 Discontinue d(Refill) documented as of this encounter (statuses as of 06/07/2023) Active Problems Problem Noted Date Diagnosed Date [...] as of this encounter (statuses as of 06/07/2023) Social History Tobacco Use Types Packs/Day Years [...] Telephone Encounter - Jhonatan Sevilla MD - 06/07/2023 4:37 PM ESTSigned Prescriptions: Disp Refills traMADol HCl 50 MG Oral Tablet (Ultram) 60 Tab*0 Sig: Take 1 Tablet by mouth 2 times a day as needed for Pain, Moderate.Authorizing Provider: JHONATAN SEVILLA--- * Telephone Encounter - Laura Valenzuela [facility] - 06/07/2023 1:14 PM ESTPending Prescriptions: Disp Refills traMADol HCl 50 MG Oral Tablet (Ultram) 60 Tab*0 Sig: Take 1 Tablet by mouth 2 times a day as needed for Pain, Moderate. * Telephone Encounter - Laura Valenzuela RPh - 06/07/2023 1:14 PM EST I have reviewed the patients controlled substance dispensing history in the Prescription Drug Monitoring Program in compliance with the [facility] regulations before prescribing a controlled substance. PDMP checked on 06/07/2023. Pending Prescriptions: Disp Refills traMADol HCl 50 MG Oral Tablet (Ultram) 60 Tab*0 Sig: Take 1 Tablet by mouth 2 times a day as needed for Pain, Moderate. Last Visit: 12/18/2022 (in office), Visit date not found (telemedicine) Next Visit: 07/10/2023 Date medication was last filled: 04/05/23 Date medication is due for refill: 05/04/23 [facility]: [facility] [address] [place] [address] [place] NICHOLAS Is this request for a controlled substance? Yes and Urine Drug Screen Not completed Toxicology results: No results found for this or any previous visit. Please approve if appropriate. Thanks, Laura Valenzuela, PharmD Clinical Pharmacist [facility] ([facility]) [phone] 06/07/2023, 1:14 PM * Telephone Encounter - Sharmin Killian CPhT - 06/07/2023 10:54 AM EST Did you pend patient's preferred pharmacy and medication before forwarding?yes Pharmacy: [facility] [address] [place] [address] Rima NICHOLAS Pending Prescriptions: Disp Refills traMADol HCl [...] appointment Last date the medication was ordered: 03/13/2023 Is this request for a controlled substance?No [...] Description 07/10/2023 1:20 PM EST Office Visit [facility] [address] [facility] [place] [id number] Jhonatan Sevilla MD [address] [facility] [place] [address] 10/01/2023 2:30 PM EDT Office Visit Hematology/Oncology [employer] [address] [facility], [place] [address] Gracie Tellez CRNP [address] [place] [address] 11/12/2023 1:00 PM EDT Nurse Only Ancillary Department, [place] [address] [facility] [place] [address] [place], Nurse [facility] [address] [facility] [place] [address] Health Maintenance Due Date Last Done Comments [...] 03/2023, 07/24/2022, Additional history exists Albumin/Creatinine Ratio 09/28/202309/27/2 023, 12/14/2021, 07/14/2020 CKD HGB USE SMARTSET 34460 09/28/202309/27, 09/27/2022, 12/14/2021, Additional history exists CKD PHOS USE SMARTSET 65483 09/28/2023 09/27/2022, 0 08/30/2017 Depression Screening 11/04/2023 [...] unspecified documented in this encounter Care Teams Rocket Test Fire Worker Relationship Specialty Start Date End Date Jhonatan Sevilla MD [address] [facility] [place] [address] PCP - General Family Medicine 06/15/21 documented as of this encounter
--- OUTSIDE RECORDS SUMMARY | 2023-09-01 20:58 | External Medical Summary ---
Author Name Unknown Address Unknown Organization K01:[facility] [place] [address] [facility] [place] [address] Laboratory Report Ordering Provider Test Date Status SUSAN ISRAELJOSE 06/28/2023 11:45:15 Final Observation Date Value Abnormality Reference (Units ) Status BUN 06/28/2023 11:45:15 11 6-20 (mg/dL) Final Creatinine 06/28/2023 11:45:15 1.0 0.5-1.0 (mg/dL) Final Glomerular filtration rate/1.73 sq M.predicted [Volume Rate/Area] in Serum, Plasma or Blood by Creatinine-based formula (CKD-EPI) 06/28/2023 11:45:15 61 >=60 (mL/min) Final eGFR is calculated based on the CKD-EPI 2020 equation SODIUM 06/28/2023 11:45:15 139 135-146 (m mol/L) Final Potassium 06/28/2023 11:45:15 4.4 3.5-5.1 (m mol/L) Final Cl 06/28/2023 11:45:15 101 98-107 (mm ol/L) Final CO2 06/28/2023 11:45:15 26 22-32 (mmo l/L) Final Anion gap 06/28/2023 11:45:15 12 7-15 (mmol /L) Final Glucose 06/28/2023 11:45:15 120 70-120 (mg /dL) Final Albumin 06/28/2023 11:45:15 4.6 3.8-5.0 (g /dL) Final AST (Aspartate aminotransferase) 06/28/2023 11:45:15 16 10-35 (U/L) Final Alk Phos 06/28/2023 11:45:15 63 35-130 (U/ L) Final Bilirubin, Total 06/28/2023 11:45:15 0.3 <=1 .2 (mg/dL) Final Calcium 06/28/2023 11:45:15 10.1 8.4-10.2 ( mg/dL) Final Protein 06/28/2023 11:45:15 7.3 6.0-8.3 (g /dL) Final ALT (Alanine aminotransferase) 06/28/2023 11:45:15 26 10-35 (U/L) Final Performing Location [facility] [address]. [facility] [address]
--- OUTSIDE RECORDS SUMMARY | 2023-09-01 20:58 | External Medical Summary | Summary of Care ---
Author Name Unknown Organization [facility] Address [address] [place] [address] Phone [phone] Care Team Providers Care Pilot Captain Name Role Phone Jhonatan Sevilla MD Primary Care Provider +1- [phone] Reason for Visit * Reason Onset Date Comments Medication Refill 03/12/2023 Encounter Details Date Type Department Care Team Description 03/12/2023 Refill [facility] [address] [place] [address] Jhonatan Sevilla MD [address] [place] [address] Lumbar radiculopathy Allergies Active Allergy Reactions Severity Noted Date Comments Bee Venom Anaphylaxis High 12/26/2021 documented as of this encounter (statuses as of 03/13/2023) Medications Medication Sig Dispensed Refills Start Date [...] as needed for Pain. 0 Active Nystatin 229798 UNIT/GM External Powder (Nystop)Indication s:Fungal infection of [...] the PM 60 mL 1 03/07/2023 Active traMADol HCl 50 MG Oral Tablet (Ultram)Indication s:Lumbar radiculopathy Take 1 Tablet by mouth 2 times a day as needed for Pain, Moderate. 60 Tablet 0 03/13/2023 Active traMADol HCl 50 MG Oral Tablet (Ultram)Indication s:Lumbar radiculopathy Take 1 Tablet by mouth 2 times a day as needed for Pain, Moderate. 60 Tablet 0 12/05/2022 3 Discontinue d(Refill) documented as of this encounter (statuses as of 03/13/2023) Active Problems Problem Noted Date Paroxysmal atrial fibrillation 2 HTN, goal below 140/90 08/06/2021 Dyslipidemia, goal LDL below 100 022 Type 2 diabetes mellitus with hemoglobin A1c goal of less than 8.0% 08/06/2021 Acquired hypothyroidism 08/06/2021 Stage 3a chronic kidney disease 08/06/19 MEDICATION USE AGREEMENT 03/01/2021 Iron deficiency anemia 11/02/2020 Malignant neoplasm of left breast in fem fahad, estrogen receptor positive 08/30/2017 documented as of this encounter (statuses as of 03/13/2023) Social History Tobacco Use Types Packs/Day Years [...] Telephone Encounter - Jhonatan Sevilla MD - 03/13/2023 4:46 PM EDTSigned Prescriptions: Disp Refills traMADol HCl 50 MG Oral Tablet (Ultram) 60 Tab*0 Sig: Take 1 Tablet by mouth 2 times a day as needed for Pain, Moderate.Authorizing Provider: JHONATAN SEVILLA--- * Telephone Encounter - Nguyễn Flannery [facility] - 03/13/2023 12:51 PM EDTPending Prescriptions: Disp Refills traMADol HCl 50 MG Oral Tablet (Ultram) 60 Tab*0 Sig: Take 1 Tablet by mouth 2 times a day as needed for Pain, Moderate. * Telephone Encounter - Nguyễn Flannery RPh - 03/13/2023 12:51 PM EDT I have reviewed the patients controlled substance dispensing history in the Prescription Drug Monitoring Program in compliance with the [facility] regulations before prescribing a controlled substance. PDMP checked on 03/13/2023. Pending Prescriptions: Disp Refills traMADol HCl 50 MG Oral Tablet (Ultram) 60 Tab*0 Sig: Take 1 Tablet by mouth 2 times a day as needed for Pain, Moderate. Last Visit: 12/18/2022 (in office), Visit date not found (telemedicine) Next Visit: 07/10/2023 Date medication was last filled: 12-05-22 Date medication is due for refill: 01-03-23 [facility] [address] [place] [address] [place] N[place]OLAS Is this request for a controlled substance? and Urine Drug Screen Not completed Toxicology results: No results found for this or any previous visit. Please approve if appropriate. Thanks, Nguyễn Flannery, TariPh. Clinical Pharmacist [facility] [phone] 03/13/2023,12:51 PM * Telephone Encounter - Cherelle Sellers slab inspector - 03/12/2023 10:41 AM EDT Did you pend patient's preferred pharmacy and medication before forwarding?yes [facility] [address] [place] [address] Rima NICHOLAS Pending Prescriptions: Disp Refills traMADol [...] appointment Last date the medication was ordered: 12/05/2022 Is this request for a controlled substance?Yes, What was the last refill date 12/05/2022 w/ quantity 60 and dosage 50mg and [...] Family Medicine Jhonatan Sevilla MD [address] [place] [address] 10/01/2023 Office Visit Hematology Oncology Gracie Tellez CRNP [address] [place] [address] 11/12/2023 Nurse Only Nurse Adriel [facility] [address] [place] [id number] Health Maintenance Due Date Last Done Comments [...] 023, 12/14/2021, 07/14/2020 CKD HGB USE SMARTSET 37492 09/28/202309/27, 09/27/2022, 12/14/2021, Additional history exists CKD PHOS USE SMARTSET 85663 09/28/2023 09/27/2022, 0 08/30/2017 Depression Screening 11/04/2023 [...] unspecified documented in this encounter Care Teams Pilot Captain Relationship Specialty Start Date End Date Jhonatan Sevilla MD [address] [place] [address] PCP - General Family Medicine 06/15/21 documented as of this encounter
--- OUTSIDE RECORDS SUMMARY | 2023-09-01 20:58 | External Medical Summary | Summary of Care ---
Author Name Unknown Organization [facility] Address [address] [place] [address] Phone [phone] Care Team Providers Care Electrical Engineering Designer Name Role Phone Jhonatan Sevilla MD Primary Care Provider +1- [phone] Reason for Visit * Reason Onset Date Comments Medication Refill 03/12/2023 Encounter Details Date Type Department Care Team Description 03/12/2023 Refill [facility] [address] [place] [address] Jhonatan Sevilla MD [address] [place] [address] Lumbar radiculopathy Allergies Active Allergy [...] as needed for Pain. 0 Active Nystatin 388506 UNIT/GM External Powder (Nystop)Indication s:Fungal infection of [...] Provider: JHONATAN SEVILLA---- * Telephone Encounter - Nguyễn Flannery [facility] - 03/13/2023 12:51 PM EDTPending Prescriptions: Disp Refills traMADol HCl 50 MG Oral Tablet (Ultram) 60 Tab*0 Sig: Take 1 Tablet by mouth 2 times a day as needed for Pain, Moderate. * Telephone Encounter - Nguyễn Flannery RPh - 03/13/2023 12:51 PM EDT I have reviewed the patients controlled substance dispensing history in the Prescription Drug Monitoring Program in compliance with the [facility] regulations before prescribing a controlled substance. PDMP [...] medication is due for refill: 01-03-23 [facility] [address] [place] [address] Rima NICHOLAS Is this request for a controlled substance? and Urine Drug Screen Not completed Toxicology results: No results found for this or any previous visit. Please approve if appropriate. Thanks, Nguyễn Flannery, TariPh. Clinical Pharmacist [facility] [phone] 03/13/2023,12:51 PM * Telephone Encounter - Cherelle Sellers weft straightener - 03/12/2023 10:41 AM EDT Did you pend patient's preferred pharmacy and medication before forwarding?yes [facility] [address] [place] [address] R[place] NICHOLAS Pending Prescriptions: Disp Refills traMADol [...] Jhonatan Sevilla MD [address] [place] [address] 10/01/2023 Office Visit Hematology Oncology Gracie Tellez CRNP [address] [place] [address] 11/12/2023 Nurse Only Nurse Adriel [facility] [address] [place] [id number] Health Maintenance Due Date Last Done Comments [...] 023, 12/14/2021, 07/14/2020 CKD HGB USE SMARTSET 87736 09/28/202309/27, 09/27/2022, 12/14/2021, Additional history exists CKD PHOS USE SMARTSET 59720 09/28/2023 09/27/2022, 0 08/30/2017 Depression Screening 11/04/2023 [...] unspecified documented in this encounter Care Teams Electrical Engineering Designer Relationship Specialty Start Date End Date Jhonatan Sevilla MD [address] [place] [address] PCP - General Family Medicine 06/15/21 documented as of this encounter
--- OUTSIDE RECORDS SUMMARY | 2023-09-01 20:58 | External Medical Summary | Summary of Care ---
Author Name Unknown Organization [facility] Address [address] [place] [address] Phone [phone] Care Team Providers Care Sexual Assault Counsellor Name Role Phone Satinder Liang MD Primary Care Provider +1- [phone] Reason for Visit * Reason Onset Date Comments Health Maintenance 06/19/2023 Encounter Details Date Type Department Care Team (Late st Contact Info) Description 06/19/2023 Telephone [facility] [address] [place] [address] Satinder Liang MD [address] [place] [address] Health Maintenance Allergies Active Allergy [...] as needed for Pain. 0 Active Nystatin 861118 UNIT/GM External Powder (Nystop)Indications: Fungal infection of [...] 1:20 PM EST Office Visit Family Practice, [place] [address] [place] [address] Satinder Liang MD [address] [place] [address] 10/01/2023 2:30 PM EDT Office Visit Hematology/Oncology [facility] [address] [place] [address] Gracie Tellez CRNP [address] [place] [address] 11/12/2023 1:00 PM EDT Nurse Only Ancillary Department, [place] [address] [place] [address] [place], Nurse [facility] [address], [place] [phone] Health Maintenance Due Date Last Done Comments [...] 023, 12/14/2021, 07/14/2020 CKD HGB USE SMARTSET 85973 09/28/202309/27, 09/27/2022, 12/14/2021, Additional history exists CKD PHOS USE SMARTSET 69092 09/28/2023 09/27/2022, 0 08/30/2017 Depression Screening 11/04/2023 [...] filedocumented as of this encounter Care Teams Sexual Assault Counsellor Relationship Specialty Start Date End Date [facility]atinder Liang [facility] [address] [facility] [place] [id number] PCP - General Family Medicine 06/15/21 documented as of this encounter
--- OUTSIDE RECORDS SUMMARY | 2023-09-01 20:58 | External Medical Summary ---
Author Name Unknown Address Unknown Organization K01:[facility] - [address] [place] [address] Laboratory Report Ordering Provider Test Date Status ROEL ISRAEL 06/28/2023 11:45:15 Final Observation Date Value Abnormality Reference (Units ) Status T4, Free 06/28/2023 11:45:15 1.0 0.9-1.7 (n g/dL) Final Performing Location [facility] - [address] [place] [address]
--- OUTSIDE RECORDS SUMMARY | 2023-09-01 20:58 | External Medical Summary | Summary of Care ---
Author Name Unknown Organization [facility] Address [address] [place] [address] Phone [phone] Care Team Providers Care Agency Sales Representative Name Role Phone Jhonatan Sevilla MD Primary Care Provider +1- [phone] Reason for Visit * Reason Comments eRx-Medication Refill Encounter Details Date Type Department Care Team Description 03/11/2023 Refill [facility] [address] [place] [address] Jhonatan Sevilla MD [address] [place] [address] Allergies Active Allergy Reactions Severity Noted Date Comments Bee Venom Anaphylaxis High 12/26/2021 documented as of this encounter (statuses as of 03/12/2023) Medications Medication Sig Dispensed Refills Start Date [...] as needed for Pain. 0 Active Nystatin 738332 UNIT/GM External Powder (Nystop)Indication s:Fungal infection of skin Apply topically to affected area 3 times a day . Apply to area under breast twice daily x 2 weeks. 15 g 2 2 Active diphenhydrAMINE HCl 25 MG Oral Capsule (Benadryl) Take 1 Capsule by mouth in the morning and 1 Capsule at noon and 1 Capsule before bedtime. 0 2 Active Famotidine 40 MG Oral Tablet (Pepcid) Take 1 Tablet by mouth in the morning and 1 Tablet before bedtime. 0 2 Active NIFEdipine ER 30 MG Oral Tablet Extended Release 24 Hour (Adalat CC) Take 1 Tablet by mouth in the morning. On an empty stomach. 90 Tablet 3 3 Active Diclofenac Sodium 1 % External Gel (Voltaren) APPLY 4 GRAMS TOPICALLY 4 TIMES DAILY TO AFFECTED AREA 350 g 3 3 Active BD Pen Needle Short U/F 31G X 8 MM (Insulin Pen Needle) USE TWICE DAILY 200 Each 2 3 Active Levothyroxine Sodium 25 MCG Oral Capsule (Tirosint) Take 1 Capsule by mouth daily first thing in the morning. (at least 30 min prior to breakfast or other meds) 90 Capsule 2 3 Active traMADol HCl 50 MG Oral Tablet (Ultram)Indication s:Lumbar radiculopathy Take 1 Tablet by mouth 2 times a day as needed for Pain, Moderate. 60 Tablet 0 3 Active EPINEPHrine 0.3 MG/0.3ML Injection Solution Auto-injector (Autoinjector) Inject 0.3 mg into a large muscle as needed for Anaphylaxis (severe allergic reaction). 2 Each 1 3 Active Insulin Glargine Solostar 100 UNIT/ML Subcutaneous Solution Pen-injector (Lantus SoloStar) 35 units in the AM and 20 units in the PM 60 mL 1 3 Active metFORMIN HCl 1000 MG Oral Tablet (Glucophage) TAKE 1 TABLET BY MOUTH TWICE DAILY WITH MORNING MEAL AND WITH EVENING MEAL 180 Tablet 1 3 Active metFORMIN HCl 1000 MG Oral Tablet (Glucophage) Take 1 Tablet by mouth 2 times a day with morning and evening meals. 180 Tablet 1 3 03/12/20 23 Discontinued documented as of this encounter (statuses as of 03/12/2023) Active Problems Problem Noted Date Paroxysmal atrial [...] as of this encounter (statuses as of 03/12/2023) Social History Tobacco Use Types Packs/Day Years [...] encounter Miscellaneous Notes * Telephone Encounter - Allie Cisneros RP - 03/12/2023 10:55 AM EDTSigned Prescriptions: Disp Refills metFORMIN HCl 1000 MG Oral Tablet (Glucoph*180 Ta*1 Sig: TAKE 1 TABLET BY MOUTH TWICE DAILY WITH MORNING MEAL AND WITH EVENING MEAL Authorizing Provider: JHONATAN SEVILLA Ordering User: ALLIE CISNEROS * Telephone Encounter - DENNYS Lovell - 03/12/2023 10:41 AM EDT Pt calling to check on status of rx. Caller can be reached at [phone]. Thanks, Cherelle Sellers Feeder Tender [facility] ([facility]) 03/12/2023,10:41 AM * Telephone Encounter - Hoda Garcia CPhT - 03/12/2023 10:28 AM EDT Pt requesting HIGH PRIORITY due to out of med Did you pend patient's preferred pharmacy and medication before forwarding?yes [facility] [address] Pending Prescriptions: Disp Refills metFORMIN HCl 1000 MG Oral Tablet (Glucop*180 Ta*0 Sig: TAKE 1 TABLET BY MOUTH TWICE DAILY WITH MORNING MEAL AND WITH EVENING MEAL Last Visit: 12/18/2022 (in office), Visit date not found (telemedicine) Next Visit: 07/10/2023 If no future appointments scheduled, and last appointment is greater than a year ago, please schedule patient for a follow-up appointment Last date the medication was ordered: 12/05/22 Is this request for a controlled substance?No [...] Family Medicine [facility]honatan [facility]illa [facility] [address] [facility] [place] [address] 10/01/2023 Office Visit Hematology Oncology Gracie Tellez CRNP [address] [place] [address] 11/12/2023 Nurse Only Ancillary Nurse Lat[facility] [address] [place] [address] Health Maintenance Due Date Last Done Comments [...] 023, 12/14/2021, 07/14/2020 CKD HGB USE SMARTSET 00441 09/28/202309/27, 09/27/2022, 12/14/2021, Additional history exists CKD PHOS USE SMARTSET 90101 09/28/2023 09/27/2022, 0 08/30/2017 Depression Screening 11/04/2023 [...] filedocumented as of this encounter Care Teams Agency Sales Representative Relationship Specialty Start Date End Date Jhonatan Sevilla MD [address] [place] [address] PCP - General Family Medicine 06/15/21 documented as of this encounter
[2023-09-01] MEDS: SODIUM CHLORIDE 0.9% 1,000 ML IV ONE (21:06)
--- NOTE | 2023-09-01 21:19 | CT Scan Report ---
Exam(s): CTA CHEST IV Amt: OPTIRAY 320 119ML EXAM: CT Angiography Chest With Intravenous Contrast CLINICAL HISTORY: Reason for exam: PE. TECHNIQUE: Axial computed tomographic angiography images of the chest with intravenous contrast. Automated exposure control was utilized for the study. A dose lowering technique was utilized adhering to the principles of ALARA. MIP reconstructed images were created and reviewed. COMPARISON: No relevant prior studies available. FINDINGS: Pulmonary arteries: Unremarkable. No pulmonary embolism. Aorta: No acute findings. No thoracic aortic aneurysm. Lungs: Peripheral scarring in the lateral left upper lobe. Triangular nodular areas within the periphery of the right lower lobe best seen on series 3 image 42 and image 31 most consistent with scarring. No mass. No consolidation. Pleural space: Unremarkable. No significant effusion. No pneumothorax. Heart: Unremarkable. No cardiomegaly. No significant pericardial effusion. No evidence of RV dysfunction. Bones/joints: No acute fracture. No dislocation. Soft tissues: Unremarkable. Lymph nodes: Unremarkable. No enlarged lymph nodes. IMPRESSION: No acute findings in the visualized arteries of the chest. Electronically signed by: Panfilo Soares M.D. 09/01/23 21:18 PM
[2023-09-01 22:17] LABS: Sodium 133 mmol/L (136-145)
[2023-09-02 00:03] LABS: Potassium 3.8 mmol/L (3.5-5.1)
--- NOTE | 2023-09-02 00:20 | History & Physical Report ---
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 Patient states last 3 to 4 days she is having severe chest pain in the middle of the chest radiating to both shoulders. Pain is on and off. 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 Initially thought it could be GERD and took Tums which helped a little bit but the pain is coming back. When the pain is severe she gets short of breath. Denies any sweating. No nausea. No dizziness. No headache. No blurred visions. No runny nose or sore throat. No cough. No fevers. No abdominal pain. Normal bowel and bladder movements. Currently resting comfortably and hemodynamically stable. Chest pains Rule out ACS Initial troponin 19 Will follow serial enzymes and echo N.p.o. Telemetry Cardiology consult in a.m. History of paroxysmal atrial fibrillation Currently had tachycardia we will do a dose of IV Lopressor Continue Eliquis. Hypertension On nifedipine We will monitor Diabetes Cut back Lantus to 15'units twice daily as patient currently n.p.o. Sliding scale Will monitor. 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 Patient states last 3 to 4 days she is having severe chest pain in the middle of the chest radiating to both shoulders. Pain is on and off. 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 Initially thought it could be GERD and took Tums which helped a little bit but the pain is coming back. When the pain is severe she gets short of breath. Denies any sweating. No nausea. No dizziness. No headache. No blurred visions. No runny nose or sore throat. No cough. No fevers. No abdominal pain. Normal bowel and bladder movements. Currently resting comfortably and hemodynamically stable. Past medical history. As mentioned above Past surgical history. Left axillary lymph node biopsy, left partial mastectomy Social history. No smoking. No alcohol use. No drug use. Family history. No family history on file Allergies Allergy/AdvReac Type Severity Reaction Status Date / Time bee pollen Allergy Severe Anaphylaxis Verified 04/02/23 11:17 amlodipine AdvReac Unknown Unknown Verified 04/02/23 11:17 furosemide AdvReac Unknown Unknown Verified 04/02/23 11:17 hydrochlorothiazide AdvReac Unknown Unknown Verified 04/02/23 11:17 lisinopril AdvReac Unknown Unknown Verified 04/02/23 11:17 losartan AdvReac Unknown Unknown Verified 04/02/23 11:17 Home Medications Medication Instructions Recorded Confirmed Type apixaban 5 mg tablet (Eliquis) 5 mg PO BID 09/01/23 09/01/23 History diclofenac sodium 1 % topical gel 4 g topical QID PRN Pain 09/01/23 09/01/23 History epinephrine 0.3 mg/0.3 mL 0.3 mg IM UD PRN Anaphylaxis 09/01/23 09/01/23 History injection, auto-injector insulin glargine 100 unit/mL (3 33 unit subcut UD 09/01/23 09/01/23 History mL) subcutaneous pen (Lantus Solostar U-100 Insulin) levothyroxine 25 mcg tablet 25 mcg PO DAILY 09/01/23 09/01/23 History metformin 1,000 mg tablet 1,000 mg PO BID 09/01/23 09/01/23 History nifedipine 30 mg tablet,extended 30 mg PO DAILY 09/01/23 09/01/23 History release tramadol 50 mg tablet 50 mg PO BID PRN Pain 09/01/23 09/01/23 History acetaminophen 500 mg tablet 500 mg PO Q4H PRN Fever Or Pain 09/02/23 09/02/23 History cholecalciferol (vitamin D3) 50 100 mcg PO QAM 09/02/23 09/02/23 History mcg (2,000 unit) tablet (Vitamin D3) vitamin B complex 1 tab PO BID 09/02/23 09/02/23 History Past Med/Surg History Medical History Chronic anticoagulation CKD (chronic kidney disease) stage 3, GFR 30-59 ml/min Diabetes Dyslipidemia Hypertension Hypothyroidism Iron deficiency anemia Malignant neoplasm of upper-inner quadrant of left breast in female, estrogen r eceptor positive (06/29/17) Paroxysmal atrial fibrillation Surgical History History of partial mastectomy of left breast Family History Mother Myocardial infarction Social History Smoking Status: Never smoker Second Hand Exposure: No; Do You Dip or Chew Tobacco: No; Hx Alcohol Use: No Hx Substance Use: No Preferred Language: Latvian Communication Ability: Effective 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 ENT- oropharynx clear Neck- supple, no JVD. Lungs- clear to auscultation no wheezing or crackles. Heart- regular rhythm; no murmur, no gallop. Abdomen- normal bowel sounds, soft, nontender, no distension. Extremities- no pretibial edema, no erythema seen. Neuro- alert, oriented x 3; PERRL, no facial palsy; no dysarthria; moves extremities. Skin- warm & dry Results & Data Results & Data Vital Signs (Past 12 Hours) Vital Signs Temp Pulse Pulse Resp BP BP Pulse Ox 09/01/23 23:49 112 H 22 137/88 96 09/01/23 22:36 108 H 09/01/23 22:00 111 H 16 152/84 H 98 09/01/23 19:49 123 H 12 149/84 H 97 09/01/23 19:01 117 H 18 154/79 H 98 09/01/23 19:01 09/01/23 19:01 116 H 18 96 09/01/23 18:53 37.2 C 120 H 18 154/79 H 98 09/01/23 18:37 121 H O2 Del Method 09/01/23 23:49 Room Air 09/01/23 22:36 09/01/23 22:00 Room Air 09/01/23 19:49 09/01/23 19:01 09/01/23 19:01 Room Air 09/01/23 19:01 Room Air 09/01/23 18:53 09/01/23 18:37 Diagnostic Findings Laboratory Results WBC 8.99 K/ul (4.8-10.8) 09/01/23 18:49 RBC 4.30 M/uL (4.20-5.40) 09/01/23 18:49 Hgb 12.9 g/dl (12.0-16.0) 09/01/23 18:49 Hct 39.3 % (37.0-47.0) 09/01/23 18:49 MCV 91.4 fL (80.0-100.0) 09/01/23 18:49 MCH 30.0 pg (25.0-34.0) 09/01/23 18:49 MCHC 32.8 g/dL (32.0-36.0) 09/01/23 18:49 RDW Std Deviation 41.4 fL (36.4-46.3) 09/01/23 18:49 RDW Coeff of Ho 12.7 % (11.5-14.5) 09/01/23 18:49 Plt Count 284 K/uL (130-400) 09/01/23 18:49 MPV 9.7 fL (9.4-12.4) 09/01/23 18:49 Immature Gran % (Auto) 0.3 % 09/01/23 18:49 Neut % (Auto) 69.4 % 09/01/23 18:49 Lymph % (Auto) 19.7 % 09/01/23 18:49 Duchesne % (Auto) 7.2 % 09/01/23 18:49 Eos % (Auto) 2.8 % 09/01/23 18:49 Baso % (Auto) 0.6 % 09/01/23 18:49 Neut # (Auto) 6.24 K/uL (1.40-6.50) 09/01/23 18:49 Lymph # (Auto) 1.77 K/uL (1.20-3.40) 03/02/24 18:49 Duchesne # (Auto) 0.65 K/uL (0.11-0.59) H 09/01/23 18:49 Eos # (Auto) 0.25 K/uL (0.00-0.50) 09/01/23 18:49 Baso # (Auto) 0.05 K/uL (0.00-0.20) 09/01/23 18:49 Immature Gran # (Auto) 0.03 K/uL (0.01-0.20) 09/01/23 18:49 Sodium 133 mmol/L (136-145) L 09/01/23 21:06 Potassium 3.8 mmol/L (3.5-5.1) 09/01/23 23:39 Chloride 99 mmol/L (98-107) 09/01/23 18:49 Carbon Dioxide 22 mmol/L (21-32) 09/01/23 18:49 Anion Gap TNP 09/01/23 18:49 BUN 16 mg/dl (6-23) 09/01/23 18:49 Creatinine 0.95 mg/dl (0.6-1.2) 09/01/23 18:49 Est Cr Clr Drug Dosing 56.7 ml/min 09/01/23 18:49 Est GFR ( Amer) 69.4 ml/min 09/01/23 18:49 Est GFR (Non-Af Amer) 59.8 ml/min 09/01/23 18:49 BUN/Creatinine Ratio 16.8 (10-20) 09/01/23 18:49 Glucose 230 mg/dl (70-99(Fasting)) H 09/01/23 18:49 POC Glucose 84 mg/dl (70-99) 09/02/23 00:04 Calcium 9.8 mg/dl (8.6-10.3) 09/01/23 18:49 Total Bilirubin 0.3 mg/dl (0.2-1.0) 09/01/23 18:49 AST 15 U/L (13-39) 09/01/23 23:39 ALT 21 U/L (7-52) 09/01/23 18:49 Alkaline Phosphatase 55 U/L (34-104) 09/01/23 18:49 Troponin I High Sens 19.0 pg/ml (0-14) H 09/01/23 18:49 Total Protein 8.0 gm/dl (6.0-8.3) 09/01/23 18:49 Albumin 4.7 gm/dl (3.4-5.0) 09/01/23 18:49 Globulin 3.3 gm/dl (2.5-4.0) 09/01/23 18:49 Albumin/Globulin Ratio 1.4 (0.9-2) 09/01/23 18:49 Lipase 38 U/L (11-82) 09/01/23 18:49 Impressions Chest X-Ray 09/01/23 18:32 XR chest 1V portable HISTORY: 72 years-old Female Chest pain, nonspecific COMPARISON: 12/18/2022 TECHNIQUE: AP view of the chest FINDINGS: Cardiomediastinal hilar silhouettes are within normal limits. No pneumothorax, pleural effusion or airspace consolidation. Bones appear grossly intact. IMPRESSION: No acute process. ACT 112: Negative or not required by law. The above report was generated using voice recognition software. It may contain grammatical, syntax or spelling errors. Electronically signed by: Bola Stovall M.D. 09/01/2023 6:56 PM Chest CTA 09/01/23 19:31 Exam(s): CTA CHEST IV Amt: OPTIRAY 320 119ML EXAM: CT Angiography Chest With Intravenous Contrast CLINICAL HISTORY: Reason for exam: PE. TECHNIQUE: Axial computed tomographic angiography images of the chest with intravenous contrast. Automated exposure control was utilized for the study. A dose lowering technique was utilized adhering to the principles of ALARA. MIP reconstructed images were created and reviewed. COMPARISON: No relevant prior studies available. FINDINGS: Pulmonary arteries: Unremarkable. No pulmonary embolism. Aorta: No acute findings. No thoracic aortic aneurysm. Lungs: Peripheral scarring in the lateral left upper lobe. Triangular nodular areas within the periphery of the right lower lobe best seen on series 3 image 42 and image 31 most consistent with scarring. No mass. No consolidation. Pleural space: Unremarkable. No significant effusion. No pneumothorax. Heart: Unremarkable. No cardiomegaly. No significant pericardial effusion. No evidence of RV dysfunction. Bones/joints: No acute fracture. No dislocation. Soft tissues: Unremarkable. Lymph nodes: Unremarkable. No enlarged lymph nodes. IMPRESSION: No acute findings in the visualized arteries of the chest. Electronically signed by: Panfilo Soares M.D. 09/01/23 21:18 PM ECG Additional Comments: ECG. Sinus tachycardia rate of 120. Right superior axis deviation. Code Status & VTE Plan VTE Prophylaxis Plan VTE Prophylaxis will be ordered: Yes
[2023-09-02 00:28] LABS: Troponin I High Sensitivity 44.8 pg/ml (0-14)
[2023-09-02] MEDS ORDERED: GLUCOSE 40% GEL 15 GM TUBE PO PRN (00:47)
[2023-09-02] MEDS ORDERED: GLUCAGON FOR INJ 1 MG VIAL SQ PRN (00:47)
[2023-09-02] MEDS ORDERED: DEXTROSE 50% 50 ML SYRINGE IV PRN (00:47)
[2023-09-02] MEDS ORDERED: GLUCOSE 10 TAB/TUBE PO PRN (00:47)
[2023-09-02] MEDS ORDERED: ACETAMINOPHEN 325 MG TAB PO PRN (00:47)
[2023-09-02] MEDS: INSULIN ASPART PER UNIT CHARGE SC STA (01:18)
[2023-09-02] MEDS: METOPROLOL TARTRATE 1 MG/ML VIAL IV STA ×2 (01:23→08:48)
[2023-09-02] MEDS: traMADol HCL 50 MG TABLET PO PRN (04:38)
[2023-09-02] MEDS: INSULIN ASPART PER UNIT CHARGE SC SCH (06:06)
[2023-09-02] MEDS: LEVOTHYROXINE SODIUM 25 MCG TABLET PO SCH (06:06)
[2023-09-02 07:02] LABS: Basophils # (auto) 0.05 K/uL (0.00-0.20); Basophils % (auto) 0.6 %; Eosinophils # (auto) 0.28 K/uL (0.00-0.50); Eosinophils % (auto) 3.4 %; Hematocrit (blood only) 38.7 % (37.0-47.0); Hemoglobin 12.4 g/dl (12.0-16.0); Immature Granulocytes # (auto) 0.04 K/uL (0.01-0.20); Immature Granulocytes % (auto) 0.5 %; Lymphocytes # (auto) 2.32 K/uL (1.20-3.40); Mean Corpuscular Volume 90.4 fL (80.0-100.0); Mean Platelet Volume 9.2 fL (9.4-12.4); Monocytes # (auto) 0.68 K/uL (0.11-0.59); Monocytes % (auto) 8.2 %; Neutrophils # (auto) 4.91 K/uL (1.40-6.50); Neutrophils % (auto) 59.3 %; Platelet Count 240 K/uL (130-400); RDW Coefficient of Variation 12.7 % (11.5-14.5); RDW Standard Deviation 41.8 fL (36.4-46.3); Red Blood Count 4.28 M/uL (4.20-5.40); White Blood Count 8.28 K/ul (4.8-10.8)
[2023-09-02] MEDS: APIXABAN 5 MG TABLET PO SCH (07:17)
[2023-09-02] MEDS: LANTUS PER UNIT CHARGE SQ SCH (07:17)
[2023-09-02] MEDS: NIFEdipine EXTENDED REL 30 MG TABCR PO SCH (07:17)
[2023-09-02 07:29] LABS: Calcium 9.4 mg/dl (8.6-10.3); Magnesium 1.7 mg/dl (1.7-2.4); Potassium 3.8 mmol/L (3.5-5.1)
[2023-09-02 07:35] LABS: BUN Creatinine Ratio 15.7 (10-20); Est GFR (African American) 81.7 ml/min; Est GFR (Non-African American) 70.4 ml/min
[2023-09-02 07:41] LABS: Troponin I High Sensitivity 87.1 pg/ml (0-14)
--- NOTE | 2023-09-02 08:31 | Electrocardiogram Report ---
Test Reason : Blood Pressure : / mmHG Vent. Rate : 120 BPM Atrial Rate : 120 BPM P-R Int : 152 ms QRS Dur : 074 ms QT Int : 316 ms P-R-T Axes : 000 192 137 degrees QTc Int : 446 ms Possible Limb lead reversal Sinus tachycardia Right superior axis deviation Low voltage QRS Abnormal ECG When compared with ECG of 26-DEC-2021 13:31, QRS axis Shifted left Otherwise no significant change Confirmed by Sandro Willis ([id number]) on 09/02/2023 8:31:37 AM Referred By: REFERRED SELF Confirmed By:Sandro Willis
--- NOTE | 2023-09-02 09:31 | XCELERA ---
[id number] \\[id number]
--- NOTE | 2023-09-02 10:42 | Cardiology Consultation ---
Date of Consultation September 02, 2023 Assessment & Plan (1) Chest pain: (2) Tachycardia: (3) Diabetes: (4) H/O atrial fibrillation without current medication: Plan 72-year-old woman with remote history of paroxysmal atrial fibrillation and multiple vascular risk factors admitted with intermittent chest pain. Although her current mild tachycardia appears to be sinus on ECG and telemetry, the paroxysmal nature and persistent heart rate elevation in the absence of increased physiologic demand suggests that the rhythm may be inappropriate sinus tachycardia or an atrial tachycardia, possibly even atrial flutter. Unclear whether this tachycardia is the cause of her chest discomfort, possibly she becomes more tachycardic and develops demand ischemia. No direct evidence of thrombotic event or ongoing myocardial ischemia currently, no chest pain and ECG shows isoelectric ST segments. For this reason as well as the fact that she is already anticoagulated with apixaban, no need for heparinization. Recommend initiation of negative chronotropic medication to address tachycardia and reduce myocardial demand, initiate metoprolol tartrate 25 mg every 6 hours. Would hold a.m. dose of nifedipine tomorrow until effect of metoprolol on blood pressure is evaluated. Would hold further doses of apixaban, given possibility of cardiac catheterization. NPO after midnight given potential procedure. Would add magnesium supplement given borderline value (1.7) and current tachdysrhythmia as well as history of atrial fibrillation. Depending upon clinical course and heart rate/rhythm overnight, decide on exercise treadmill test or cardiac catheterization in the morning to further risk stratify. History of Present Illness Reason for Consultation: Chest pain Requesting Physician: Antoni Denis MD Attending Physician: Antoni Denis MD History of Present Illness 72-year-old woman with history of paroxysmal atrial fibrillation (apixaban/no routine negative chronotropic) with multiple vascular risk factors (HTN, DM/on insulin, age, dyslipidemia) who presented to the ER after several days of intermittent chest discomfort radiating to her shoulders, mild troponin elevation (from 19 up to 87), with apparent mild sinus tachycardia with isoelectric ST segments. At recent baseline, she has some activity limitations due to lumbar radiculopathy, but has been able to carry laundry up the stairs, chop wood, and perform other activities without difficulty. About 4 days ago, she noted the onset of severe (10/10) anterior chest discomfort radiating to her shoulders lasting 30 to 60 minutes at a time, denied dyspnea but notes sometimes it was hard to take a deep breath, no diaphoresis, palpitations, presyncope, or synco pe. No obvious relation to respiration, position, or activity. Had significant discomfort upon presenting to the ER yesterday, this resolved and did not recur overnight or this morning. She does note occasional reflux type symptoms for which she takes Tums, not on routine anti-acid therapy. Evaluation thus far shows apparent mild sinus tachycardia on ECG with isoelectric ST segments, mild troponin elevation is noted, unremarkable echocardiogram and chest CT. Telemetry is notable for persistent mild tachycardia 110 bpm range with an abrupt drop to 80 bpm around 12:30 AM lasting until 2 AM before resuming mild tachycardia at 110 bpm. She was comfortable at the time of my evaluation this morning and had no somatic complaints. Allergies Allergy/AdvReac Type Severity Reaction Status Date / Time bee pollen Allergy Severe Anaphylaxis Verified 04/02/23 11:17 amlodipine AdvReac Unknown Unknown Verified 04/02/23 11:17 furosemide AdvReac Unknown Unknown Verified 04/02/23 11:17 hydrochlorothiazide AdvReac Unknown Unknown Verified 04/02/23 11:17 lisinopril AdvReac Unknown Unknown Verified 04/02/23 11:17 losartan AdvReac Unknown Unknown Verified 04/02/23 11:17 Home Medications Medication Instructions Recorded Confirmed Type apixaban 5 mg tablet (Eliquis) 5 mg PO BID 09/01/23 09/01/23 History diclofenac sodium 1 % topical gel 4 g topical QID PRN Pain 09/01/23 09/01/23 History epinephrine 0.3 mg/0.3 mL 0.3 mg IM UD PRN Anaphylaxis 09/01/23 09/01/23 History injection, auto-injector insulin glargine 100 unit/mL (3 33 unit subcut UD 09/01/23 09/01/23 History mL) subcutaneous pen (Lantus Solostar U-100 Insulin) levothyroxine 25 mcg tablet 25 mcg PO DAILY 09/01/23 09/01/23 History metformin 1,000 mg tablet 1,000 mg PO BID 09/01/23 09/01/23 History nifedipine 30 mg tablet,extended 30 mg PO DAILY 09/01/23 09/01/23 History release tramadol 50 mg tablet 50 mg PO BID PRN Pain 09/01/23 09/01/23 History acetaminophen 500 mg tablet 500 mg PO Q4H PRN Fever Or Pain 09/02/23 09/02/23 History cholecalciferol (vitamin D3) 50 100 mcg PO QAM 09/02/23 09/02/23 History mcg (2,000 unit) tablet (Vitamin D3) vitamin B complex 1 tab PO BID 09/02/23 09/02/23 History Patient History Medical History (Updated 09/02/23 @ 10:57 by Sandro Willis MD) Syncope (2021) Allergic reaction Rib pain on right side Hypothyroidism Iron deficiency anemia Dyslipidemia CKD (chronic kidney disease) stage 3, GFR 30-59 ml/min Chronic anticoagulation Paroxysmal atrial fibrillation Hypertension Malignant neoplasm of upper-inner quadrant of left breast in female, estrogen receptor positive (06/29/17) Diabetes Surgical History History of partial mastectomy of left breast 2017 - with sentinel node biopsy (Dr. 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 Afebrile. Mildly hypertensive. Pulse 110 bpm and regular. Respirations 20 but unlabored. Skin: no ecchymoses or generalized lesions. HEENT: unremarkable. Neck: JVP at the clavicle at 90 degrees, no carotid bruits. Lungs: clear bilaterally. Cardiac: regular/tachycardic rhythm, normal S1-2, no obvious murmur. Abdomen: benign. Extremities: no edema, pulses intact. Neurologic: normal affect and conversation, nonfocal. Results & Data Laboratory Results Troponin values 19, 44, 87. Potassium 3.8, magnesium 1.7. BUN 13, creatinine 0.83. Normal CBC. Diagnostic Findings Initial ECG showed sinus tachycardia with limb lead reversal and isoelectric ST segments. Compared with 2021 ECG, limb lead reversal noted, otherwise no change. Repeat ECG shows sinus tachycardia with poor R wave progression and isoelectric ST segments. Limb lead reversal corrected, otherwise no significant change. Echocardiogram showed EF 60 to 65% with no wall motion normalities, mild LVH, no significant valvular disease on technically limited Doppler. No change compared with 2019 study. Chest x-ray unremarkable. Chest CT showed no acute abnormalities. PG Care Time/CCT Total # of Minutes Spent Total Time Spent with Patient: Total time spent is greater than 50% in coordination of care (as documented) at patient's floor/unit and/or counseling patient: Coding Level of Care Code 94505 IN/OBS CONSULT LVL 4,60M Diagnoses Chest pain R07.9 Tachycardia R00.0 Diabetes E11.9 H/O atrial fibrillation without current medication Z86.79
--- NOTE | 2023-09-02 10:46 | Electrocardiogram Report ---
Test Reason : Blood Pressure : / mmHG Vent. Rate : 110 BPM Atrial Rate : 110 BPM P-R Int : 170 ms QRS Dur : 072 ms QT Int : 332 ms P-R-T Axes : 057 018 049 degrees QTc Int : 449 ms Sinus tachycardia Poor R wave progression, consider anterior OK vs. lead placement vs. LVH Abnormal ECG When compared with ECG of 01-SEP-2023 18:33, Limb lead reversal corrected Otherwise no significant change Confirmed by Sandro Willis ([id number]) on 09/02/2023 10:46:23 AM Referred By: REFERRED SELF Confirmed By:Sandro Willis
--- NOTE | 2023-09-02 11:36 | Hospitalist Progress Note ---
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 Patient states last 3 to 4 days she is having severe chest pain in the middle of the chest radiating to both shoulders. Pain is on and off. 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 Initially thought it could be GERD and took Tums which helped a little bit but the pain is coming back. When the pain is severe she gets short of breath. Denies any sweating. No nausea. No dizziness. No headache. No blurred visions. Chest pains Rule out ACS Initial troponin 19 serial enzymes obtained -> increased to 80s Echo obtained - LV systolic function is normal. EF 60 to 65%. LV wall motion is normal. There is mild concentric LVH. RV is normal in size and function. No significant valvular disease on technically limited Doppler. Telemetry NPO after MN Cardiology consulted and discussed with - Recommend initiation of negative chronotropic medication to address tachycardia and reduce myocardial demand, initiate metoprolol tartrate 25 mg every 6 hours. Would hold a.m. dose of nifedipine tomorrow until effect of metoprolol on blood pressure is evaluated. Would hold further doses of apixaban, given possibility of cardiac catheterization. NPO after midnight given potential procedure. Would add magnesium supplement given borderline value (1.7) and current tachdysrhythmia as well as history of atrial fibrillation. Depending upon clinical course and heart rate/rhythm overnight, decide on exercise treadmill test or cardiac catheterization in the morning to further risk stratify. History of paroxysmal atrial fibrillation Currently tachycardic, received IV Lopressor in ED/ on admission Continue Eliquis. Hypertension On nifedipine - hold AM dose , as above We will monitor Diabetes Cut back Lantus to 15'units twice daily as patient currently n.p.o. Sliding scale Will monitor. Hypothyroidism On Synthyroid DVT prophylaxis On Eliquis - on hold, as above Disposition Observation med/tele Full code Admission and Anticipated Discharge Date Admission Date: September 01, 2023 Subjective Pt seen in follow up of chest pain, tachycardia Cardiology consulted and discussed with Patient currently lying in bed, in the ED. Currently does not have any chest pain. She continues to be tachycardic. Denies any shortness of breath or cough. Denies any fevers chills, abdominal pain, nausea vomiting or diarrhea. Starting on metoprolol, n.p.o. after midnight, continue to closely monitor. Review of Systems Review of Systems: All systems reviewed & are unremarkable except as noted in Subjective Physical Exam Physical Exam: General- WD/ WN F in NAD Head- atraumatic Eyes- PERRL. ENT- oropharynx clear Neck- supple Lungs- clear to auscultation no wheezing or crackles. Heart- +tachycardic, no murmur Abdomen- normal bowel sounds, soft, nontender, no distension. Extremities- no pretibial edema, no erythema seen. Neuro- alert, oriented x 3; PERRL, no facial palsy; no dysarthria; moves extremities. Skin- warm & dry Results & Data Results & Data Vital Signs (Past 12 Hours) Vital Signs Temp Pulse Pulse Resp BP BP Pulse Ox 09/02/23 10:46 113 H 20 143/87 H 96 09/02/23 09:36 108 H 20 143/86 H 95 09/02/23 08:51 110 H 133/89 09/02/23 08:48 113 H 145/76 H 09/02/23 07:17 36.6 C 112 H 20 146/83 H 94 09/02/23 07:08 110 H 09/02/23 06:08 111 H 20 146/78 H 94 09/02/23 03:00 106 H 09/02/23 01:46 78 134/82 09/02/23 01:38 79 09/02/23 01:37 79 18 139/75 95 09/02/23 01:23 87 146/76 H 09/01/23 23:49 112 H 22 137/88 96 O2 Del Method 09/02/23 10:46 Room Air 09/02/23 09:36 Room Air 09/02/23 08:51 09/02/23 08:48 09/02/23 07:17 Room Air 09/02/23 07:08 09/02/23 06:08 Room Air 09/02/23 03:00 09/02/23 01:46 09/02/23 01:38 09/02/23 01:37 Room Air 09/02/23 01:23 09/01/23 23:49 Room Air Laboratory Results 09/02/23 09/02/23 09/02/23 Range/Units 07:15 06:32 06:04 WBC 8.28 (4.8-10.8) K/ul RBC 4.28 (4.20-5.40) M/uL Hgb 12.4 (12.0-16.0) g/dl Hct 38.7 (37.0-47.0) % MCV 90.4 (80.0-100.0) fL MCH 29.0 (25.0-34.0) pg MCHC 32.0 (32.0-36.0) g/dL RDW Std Deviation 41.8 (36.4-46.3) fL RDW Coeff of Ho 12.7 (11.5-14.5) % Plt Count 240 (130-400) K/uL MPV 9.2 L (9.4-12.4) fL Immature Gran % (Auto) 0.5 % Neut % (Auto) 59.3 % Lymph % (Auto) 28.0 % [place] % (Auto) 8.2 % Eos % (Auto) 3.4 % Baso % (Auto) 0.6 % Neut # (Auto) 4.91 (1.40-6.50) K/uL Lymph # (Auto) 2.32 (1.20-3.40) K/uL [place] # (Auto) 0.68 H (0.11-0.59) K/uL Eos # (Auto) 0.28 (0.00-0.50) K/uL Baso # (Auto) 0.05 (0.00-0.20) K/uL Immature Gran # (Auto) 0.04 (0.01-0.20) K/uL Sodium 138 Potassium 3.8 Chloride 104 (98-107) mmol/L Carbon Dioxide 27 (21-32) mmol/L Anion Gap 7 BUN 13 (6-23) mg/dl Creatinine 0.83 (0.6-1.2) mg/dl Est Cr Clr Drug Dosing 65.0 ml/min Est GFR ( Amer) 81.7 ml/min Est GFR (Non-Af Amer) 70.4 ml/min BUN/Creatinine Ratio 15.7 (10-20) Glucose 83 (70-99(Fasting)) mg/dl POC Glucose 88 85 (70-99) mg/dl Estimat Average Glucose Pending Hemoglobin A1c Pending Calcium 9.4 (8.6-10.3) mg/dl Magnesium 1.7 (1.7-2.4) mg/dl Total Bilirubin (0.2-1.0) mg/dl AST ALT (7-52) U/L Alkaline Phosphatase (34-104) U/L Troponin I High Sens 87.1 H* D (0-14) pg/ml Total Protein (6.0-8.3) gm/dl Albumin (3.4-5.0) gm/dl Globulin (2.5-4.0) gm/dl Albumin/Globulin Ratio (0.9-2) Lipase (11-82) U/L 09/02/23 09/01/23 09/01/23 Range/Units 00:04 23:39 21:06 WBC (4.8-10.8) K/ul RBC (4.20-5.40) M/uL Hgb (12.0-16.0) g/dl Hct (37.0-47.0) % MCV (80.0-100.0) fL MCH (25.0-34.0) pg MCHC (32.0-36.0) g/dL RDW Std Deviation (36.4-46.3) fL RDW Coeff of Ho (11.5-14.5) % Plt Count (130-400) K/uL MPV (9.4-12.4) fL Immature Gran % (Auto) % Neut % (Auto) % Lymph % (Auto) % [place] % (Auto) % Eos % (Auto) % Baso % (Auto) % Neut # (Auto) (1.40-6.50) K/uL Lymph # (Auto) (1.20-3.40) K/uL [place] # (Auto) (0.11-0.59) K/uL Eos # (Auto) (0.00-0.50) K/uL Baso # (Auto) (0.00-0.20) K/uL Immature Gran # (Auto) (0.01-0.20) K/uL Sodium 133 L Potassium 3.8 TNP Chloride (98-107) mmol/L Carbon Dioxide (21-32) mmol/L Anion Gap BUN (6-23) mg/dl Creatinine (0.6-1.2) mg/dl Est Cr Clr Drug Dosing ml/min Est GFR ( Amer) ml/min Est GFR (Non-Af Amer) ml/min BUN/Creatinine Ratio (10-20) Glucose (70-99(Fasting)) mg/dl POC Glucose 84 (70-99) mg/dl Estimat Average Glucose Hemoglobin A1c Calcium (8.6-10.3) mg/dl Magnesium (1.7-2.4) mg/dl Total Bilirubin (0.2-1.0) mg/dl AST 15 TNP ALT (7-52) U/L Alkaline Phosphatase (34-104) U/L Troponin I High Sens 44.8 H D (0-14) pg/ml Total Protein (6.0-8.3) gm/dl Albumin (3.4-5.0) gm/dl Globulin (2.5-4.0) gm/dl Albumin/Globulin Ratio (0.9-2) Lipase (11-82) U/L 09/01/23 Range/Units 18:49 WBC 8.99 (4.8-10.8) K/ul RBC 4.30 (4.20-5.40) M/uL Hgb 12.9 (12.0-16.0) g/dl Hct 39.3 (37.0-47.0) % MCV 91.4 (80.0-100.0) fL MCH 30.0 (25.0-34.0) pg MCHC 32.8 (32.0-36.0) g/dL RDW Std Deviation 41.4 (36.4-46.3) fL RDW Coeff of Ho 12.7 (11.5-14.5) % Plt Count 284 (130-400) K/uL MPV 9.7 (9.4-12.4) fL Immature Gran % (Auto) 0.3 % Neut % (Auto) 69.4 % Lymph % (Auto) 19.7 % [place] % (Auto) 7.2 % Eos % (Auto) 2.8 % Baso % (Auto) 0.6 % Neut # (Auto) 6.24 (1.40-6.50) K/uL Lymph # (Auto) 1.77 (1.20-3.40) K/uL [place] # (Auto) 0.65 H (0.11-0.59) K/uL Eos # (Auto) 0.25 (0.00-0.50) K/uL Baso # (Auto) 0.05 (0.00-0.20) K/uL Immature Gran # (Auto) 0.03 (0.01-0.20) K/uL Sodium TNP Potassium TNP Chloride 99 (98-107) mmol/L Carbon Dioxide 22 (21-32) mmol/L Anion Gap TNP BUN 16 (6-23) mg/dl Creatinine 0.95 (0.6-1.2) mg/dl Est Cr Clr Drug Dosing 56.7 ml/min Est GFR ( Amer) 69.4 ml/min Est GFR (Non-Af Amer) 59.8 ml/min BUN/Creatinine Ratio 16.8 (10-20) Glucose 230 H (70-99(Fasting)) mg/dl POC Glucose (70-99) mg/dl Estimat Average Glucose Hemoglobin A1c Calcium 9.8 (8.6-10.3) mg/dl Magnesium (1.7-2.4) mg/dl Total Bilirubin 0.3 (0.2-1.0) mg/dl AST TNP ALT 21 (7-52) U/L Alkaline Phosphatase 55 (34-104) U/L Troponin I High Sens 19.0 H (0-14) pg/ml Total Protein 8.0 (6.0-8.3) gm/dl Albumin 4.7 (3.4-5.0) gm/dl Globulin 3.3 (2.5-4.0) gm/dl Albumin/Globulin Ratio 1.4 (0.9-2) Lipase 38 (11-82) U/L Medications Administered Current Inpatient Medications Acetaminophen (Acetaminophen 325 Mg Tab) 650 mg PO Q4H PRN PRN Reason: Pain or Fever Stop: 10/02/23 00:46 Apixaban (Apixaban 5 Mg Tablet) 5 mg PO BID LALO Stop: 10/02/23 08:59 Last Admin: 09/02/23 07:17 Dose: 5 mg Dextrose (Dextrose 50% 50 Ml Syringe) 25 - 50 ml IV UD PRN; Protocol PRN Reason: Hypoglycemia Protocol Stop: 10/02/23 00:46 Glucagon (Glucagon For Inj 1 Mg Vial) 1 mg SQ UD PRN; Protocol PRN Reason: Hypoglycemia Protocol Stop: 10/02/23 00:46 Glucose (Glucose 10 Tab/Tube) 4 - 8 tab PO UD PRN; Protocol PRN Reason: Hypoglycemia Treatment Stop: 10/02/23 00:46 Glucose (Glucose 40% Gel 15 Gm Tube) 15 - 30 gm PO UD PRN; Protocol PRN Reason: Hypoglycemia Protocol Stop: 10/02/23 00:46 Magnesium Sulfate/Dextrose (Magnesium Sulfate / D5w) 1 gm in 100 mls @ 50 mls/hr IV ONE ONE Stop: 09/02/23 13:31 Insulin Aspart (Insulin Aspart Per Unit Charge) 0 units SC Q6 LALO Stop: 10/02/23 05:59 Last Admin: 09/02/23 06:06 Dose: Not Given Insulin Glargine (Lantus Per Unit Charge) 15 units SQ BID LALO Stop: 10/02/23 08:59 Last Admin: 09/02/23 07:17 Dose: Not Given Levothyroxine Sodium (Levothyroxine Sodium 25 Mcg Tablet) 25 mcg PO DAILYBB LALO Stop: 10/02/23 06:29 Last Admin: 09/02/23 06:06 Dose: 25 mcg Magnesium Oxide (Magnesium Oxide 400 Mg Tab) 400 mg PO BID LALO Stop: 10/02/23 11:44 Miscellaneous (Carbohydrates For Hypoglycemia ) 15 - 30 gm PO UD PRN PRN Reason: Hypoglycemia Protocol Stop: 10/02/23 00:46 Nifedipine (Nifedipine Extended Rel 30 Mg Tabcr) 30 mg PO DAILY LALO Stop: 10/02/23 08:59 Last Admin: 09/02/23 07:17 Dose: 30 mg Nitroglycerin (Nitroglycerin Sl 0.4 Mg/Tab Tab) 0.4 mg SL Q5M PRN PRN Reason: Chest Pain Stop: 10/02/23 00:46 Tramadol HCl (Tramadol Hcl 50 Mg Tablet) 50 mg PO BID PRN PRN Reason: Pain Stop: 10/02/23 00:46 Last Admin: 09/02/23 04:38 Dose: 50 mg
[2023-09-02] MEDS: PANTOprazole 40 MG TAB PO SCH (14:15)
[2023-09-02] MEDS: MAGNESIUM OXIDE 400 MG TAB PO SCH (14:15)
[2023-09-02] MEDS: MAGNESIUM SULFATE / D5W 1 GM/100 ML BAG IV ONE (14:15)
[2023-09-02] MEDS: FAMOTIDINE 20MG IV PUSH 20 MG/5 ML SYR IV STA (14:21)
[2023-09-03 06:13] LABS: Hematocrit (blood only) 39.6 % (37.0-47.0); Hemoglobin 12.4 g/dl (12.0-16.0); Mean Corpuscular Hemoglobin 28.8 pg (25.0-34.0); Mean Corpuscular Hgb Conc 31.3 g/dL (32.0-36.0); Mean Corpuscular Volume 91.9 fL (80.0-100.0); Mean Platelet Volume 8.9 fL (9.4-12.4); Platelet Count 253 K/uL (130-400); RDW Coefficient of Variation 12.7 % (11.5-14.5); RDW Standard Deviation 42.5 fL (36.4-46.3); Red Blood Count 4.31 M/uL (4.20-5.40); White Blood Count 7.67 K/ul (4.8-10.8)
[2023-09-03 06:40] LABS: BUN Creatinine Ratio 16.8 (10-20); Calcium 9.4 mg/dl (8.6-10.3); Creatinine Clr Calc Pharmacy 46.2 ml/min; Est GFR (African American) 60.1 ml/min; Est GFR (Non-African American) 51.8 ml/min; Magnesium 2.1 mg/dl (1.7-2.4); Phosphorus 3.7 mg/dl (2.5-4.9)
--- NOTE | 2023-09-03 08:04 | Electrocardiogram Report ---
Test Reason : Blood Pressure : / mmHG Vent. Rate : 081 BPM Atrial Rate : 081 BPM P-R Int : 142 ms QRS Dur : 082 ms QT Int : 368 ms P-R-T Axes : -25 -09 043 degrees QTc Int : 427 ms Normal sinus rhythm Normal ECG When compared with ECG of 02-SEP-2023 09:54, HR has decreased by 29 bpm Confirmed by Sandro Willis ([id number]) on 09/03/2023 8:04:23 AM Referred By: REFERRED SELF Confirmed By:Sandro Willis
[2023-09-03 08:23] LABS: Estimated Average Glucose 154 mg/dl
--- NOTE | 2023-09-03 10:57 | Cardiology Progress Note ---
Date of Service September 03, 2023 Assessment & Plan (1) Chest pain: (2) Tachycardia: (3) Diabetes: (4) H/O atrial fibrillation without current medication: Plan Etiology of chest pain remains unclear, although characteristics not particularly suggestive of myocardial ischemia and ECG appears benign, she did have enzyme elevations and now has discomfort at rest. Given uncertainty regarding possibility of coronary artery disease and rest symptoms, we will not proceed with stress study but will plan for cardiac catheterization. Spoke with Dr. Garibay, he would like to see her off apixaban for 48 hours, therefore cardiac catheterization arranged for tomorrow morning. Can resume diet today. Tachycardia still appears paroxysmal, would still recommend initiating metoprolol to tartrate 25 mg every 6 hours, holding nifedipine (to avoid hypotension once metoprolol is added) and to continue holding apixaban (and anticipation of cardiac catheterization). Agree with magnesium supplement. Further recommendations based on cardiac catheterization results tomorrow. Admission and Anticipated Discharge Date Admission Date: September 02, 2023 Subjective Patient slept well and had no symptoms overnight, but upon waking this morning she notes vague mild chest "soreness" which seems to increase somewhat if she takes a deep breath or if she gets up to walk around. Telemetry showed predominantly sinus rhythm at 80 bpm, there were still intermittent episodes of abrupt elevation to 110 bpm but they were not sustained. She denied any subjective palpitations, dyspnea, diaphoresis, lightheadedness, presyncope, or syncope. Troponin declining. ECG this morning benign. Physical Exam Physical Exam: No distress. BP normotensive. Pulse 90 bpm and regular. Respirations 17 and unlabored. Skin: no ecchymoses or generalized lesions. HEENT: unremarkable. Neck: JVP at the clavicle at 90 degrees, no carotid bruits. Lungs: clear bilaterally. Cardiac: regular rhythm, normal S1-2, no obvious murmur. Abdomen: benign. Extremities: no edema, pulses intact. Neurologic: normal affect and conversation, nonfocal. Results & Data Vital Signs (Past 12 Hours) Vital Signs Temp Pulse Resp BP Pulse Ox O2 Del Method 09/03/23 07:59 98.8 F 92 H 17 130/63 94 Room Air 09/03/23 03:28 99.3 F 79 18 134/76 95 Room Air 09/02/23 23:02 97.9 F 85 18 129/68 94 Room Air Laboratory Results Troponin values 19, 44, 87, 88, 69. Normal electrolytes, BUN 18, creatinine 1.07. PG Care Time/CCT Total # of Minutes Spent Total Time Spent with Patient: Total time spent is greater than 50% in coordination of care (as documented) at patient's floor/unit and/or counseling patient: Coding Level of Care Code 79046 SUB INP/OBS CARE 2/35MIN Diagnoses Chest pain R07.9 Tachycardia R00.0 Diabetes E11.9 H/O atrial fibrillation without current medication Z86.79
--- NOTE | 2023-09-03 11:18 | Hospitalist Progress Note ---
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 Patient states last 3 to 4 days she is having severe chest pain in the middle of the chest radiating to both shoulders. Pain is on and off. 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 Initially thought it could be GERD and took Tums which helped a little bit but the pain is coming back. When the pain is severe she gets short of breath. Denies any sweating. No nausea. No dizziness. No headache. No blurred visions. Chest pains Rule out ACS Initial troponin 19 serial enzymes obtained -> increased to 80s Echo obtained - LV systolic function is normal. EF 60 to 65%. LV wall motion is normal. There is mild concentric LVH. RV is normal in size and function. No significant valvular disease on technically limited Doppler. Telemetry NPO after MN Cardiology consulted and discussed with - start metoprolol tartrate 25 mg every 6 hours, hold nifedipine, hold further doses of apixaban, given possibility of cardiac catheterization. NPO after midnight given potential procedure. Plan for poss. cardiac cath tmrw History of paroxysmal atrial fibrillation Currently tachycardic, received IV Lopressor in ED/ on admission Continue Eliquis. Hypertension hold nifedipine for now , as above We will monitor Diabetes Lantus Sliding scale Will monitor. Hypothyroidism On Synthyroid DVT prophylaxis On Eliquis - on hold, as above Disposition - med/tele Full code Admission and Anticipated Discharge Date Admission Date: September 02, 2023 Subjective Pt seen in follow up of chest pain, tachycardia Cardiology consulted and discussed with Patient currently sitting up in bed, in NAD. Currently chest pain improved. Denies any shortness of breath or cough. Denies any fevers chills, abdominal pain, nausea vomiting or diarrhea. Discussed with cardiology, possible cardiac cath tomorrow. Review of Systems Review of Systems: All systems reviewed & are unremarkable except as noted in Subjective Physical Exam Physical Exam: General- WD/ WN F in NAD Head- atraumatic Eyes- PERRL. ENT- oropharynx clear Neck- supple Lungs- clear to auscultation no wheezing or crackles. Heart- rrr, no murmur Abdomen- normal bowel sounds, soft, nontender, no distension. Extremities- no pretibial edema, no erythema seen. Neuro- alert, oriented x 3; PERRL, no facial palsy; no dysarthria; moves extremities. Skin- warm & dry Results & Data Results & Data Vital Signs (Past 12 Hours) Vital Signs Temp Pulse Resp BP Pulse Ox O2 Del Method 09/03/23 07:59 37.1 C 92 H 17 130/63 94 Room Air 09/03/23 03:28 37.4 C 79 18 134/76 95 Room Air Laboratory Results 09/03/23 09/03/23 09/02/23 Range/Units 06:22 05:47 19:59 WBC 7.67 (4.8-10.8) K/ul RBC 4.31 (4.20-5.40) M/uL Hgb 12.4 (12.0-16.0) g/dl Hct 39.6 (37.0-47.0) % MCV 91.9 (80.0-100.0) fL MCH 28.8 (25.0-34.0) pg MCHC 31.3 L (32.0-36.0) g/dL RDW Std Deviation 42.5 (36.4-46.3) fL RDW Coeff of Ho 12.7 (11.5-14.5) % Plt Count 253 (130-400) K/uL MPV 8.9 L (9.4-12.4) fL Sodium 136 (136-145) mmol/L Potassium 4.0 (3.5-5.1) mmol/L Chloride 101 (98-107) mmol/L Carbon Dioxide 28 (21-32) mmol/L Anion Gap 7 (3-11) BUN 18 (6-23) mg/dl Creatinine 1.07 (0.6-1.2) mg/dl Est Cr Clr Drug Dosing 46.2 ml/min Est GFR ( Amer) 60.1 ml/min Est GFR (Non-Af Amer) 51.8 ml/min BUN/Creatinine Ratio 16.8 (10-20) Glucose 153 H (70-99(Fasting)) mg/dl POC Glucose 143 H 123 H (70-99) mg/dl Estimat Average Glucose mg/dl Hemoglobin A1c (4.5-5.6) % Calcium 9.4 (8.6-10.3) mg/dl Phosphorus 3.7 (2.5-4.9) mg/dl Magnesium 2.1 (1.7-2.4) mg/dl Troponin I High Sens (0-14) pg/ml 09/02/23 09/02/23 09/02/23 Range/Units 17:54 16:27 12:20 WBC (4.8-10.8) K/ul RBC (4.20-5.40) M/uL Hgb (12.0-16.0) g/dl Hct (37.0-47.0) % MCV (80.0-100.0) fL MCH (25.0-34.0) pg MCHC (32.0-36.0) g/dL RDW Std Deviation (36.4-46.3) fL RDW Coeff of Ho (11.5-14.5) % Plt Count (130-400) K/uL MPV (9.4-12.4) fL Sodium (136-145) mmol/L Potassium (3.5-5.1) mmol/L Chloride (98-107) mmol/L Carbon Dioxide (21-32) mmol/L Anion Gap (3-11) BUN (6-23) mg/dl Creatinine (0.6-1.2) mg/dl Est Cr Clr Drug Dosing ml/min Est GFR ( Amer) ml/min Est GFR (Non-Af Amer) ml/min BUN/Creatinine Ratio (10-20) Glucose (70-99(Fasting)) mg/dl POC Glucose 131 H (70-99) mg/dl Estimat Average Glucose mg/dl Hemoglobin A1c (4.5-5.6) % Calcium (8.6-10.3) mg/dl Phosphorus (2.5-4.9) mg/dl Magnesium (1.7-2.4) mg/dl Troponin I High Sens 69.2 H* D 88.8 H* (0-14) pg/ml 09/02/23 09/02/23 Range/Units 12:04 06:32 WBC (4.8-10.8) K/ul RBC (4.20-5.40) M/uL Hgb (12.0-16.0) g/dl Hct (37.0-47.0) % MCV (80.0-100.0) fL MCH (25.0-34.0) pg MCHC (32.0-36.0) g/dL RDW Std Deviation (36.4-46.3) fL RDW Coeff of Ho (11.5-14.5) % Plt Count (130-400) K/uL MPV (9.4-12.4) fL Sodium (136-145) mmol/L Potassium (3.5-5.1) mmol/L Chloride (98-107) mmol/L Carbon Dioxide (21-32) mmol/L Anion Gap (3-11) BUN (6-23) mg/dl Creatinine (0.6-1.2) mg/dl Est Cr Clr Drug Dosing ml/min Est GFR ( Amer) ml/min Est GFR (Non-Af Amer) ml/min BUN/Creatinine Ratio (10-20) Glucose (70-99(Fasting)) mg/dl POC Glucose 107 H (70-99) mg/dl Estimat Average Glucose 154 mg/dl Hemoglobin A1c 7.0 H (4.5-5.6) % Calcium (8.6-10.3) mg/dl Phosphorus (2.5-4.9) mg/dl Magnesium (1.7-2.4) mg/dl Troponin I High Sens (0-14) pg/ml
[2023-09-03] MEDS: METOPROLOL TARTRATE 25 MG TAB PO SCH (12:34)
[2023-09-03] MEDS ORDERED: Nursing to Pharmacy Communication SCH (14:00)
[2023-09-03] MEDS: INSULIN ASPART PER UNIT CHARGE SC SCH (17:10)
[2023-09-04 06:27] LABS: Hemoglobin 12.8 g/dl (12.0-16.0); Mean Corpuscular Hemoglobin 29.2 pg (25.0-34.0); Mean Corpuscular Volume 91.3 fL (80.0-100.0); Platelet Count 247 K/uL (130-400); RDW Coefficient of Variation 12.5 % (11.5-14.5); RDW Standard Deviation 41.4 fL (36.4-46.3); Red Blood Count 4.38 M/uL (4.20-5.40); White Blood Count 7.65 K/ul (4.8-10.8)
[2023-09-04 06:48] LABS: BUN Creatinine Ratio 20.6 (10-20); Calcium 9.4 mg/dl (8.6-10.3); Est GFR (African American) 67.6 ml/min; Est GFR (Non-African American) 58.3 ml/min; Magnesium 2.1 mg/dl (1.7-2.4); Phosphorus 3.9 mg/dl (2.5-4.9); Potassium 3.9 mmol/L (3.5-5.1)
--- NOTE | 2023-09-04 08:55 | Hospitalist Progress Note ---
Date of Service September 04, 2023 Assessment & Plan (1) Chest pain: Plan: 72 yo F with past med history significant for type 2 diabetes, hyperlipidemia, hypothyroidism, paroxysmal atrial fibrillation, hypertension, CKD stage III, iron deficiency anemia, 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 Patient states last 3 to 4 days she is having severe chest pain in the middle of the chest radiating to both shoulders. Pain is on and off. 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 Initially thought it could be GERD and took Tums which helped a little bit but the pain is coming back. When the pain is severe she gets short of breath. Denies any sweating. No nausea. No dizziness. No headache. No blurred visions. Chest pains Rule out ACS Initial troponin 19 serial enzymes obtained -> increased to 80s Echo obtained - LV systolic function is normal. EF 60 to 65%. LV wall motion is normal. There is mild concentric LVH. RV is normal in size and function. No significant valvular disease on technically limited Doppler. Telemetry Cardiology consulted and discussed with - start metoprolol tartrate 25 mg every 6 hours, hold nifedipine, hold further doses of apixaban, given possibility of cardiac catheterization. NPO after midnight given potential procedure. Plan for cardiac cath today History of paroxysmal atrial fibrillation Currently tachycardic, received IV Lopressor in ED/ on admission Continue Eliquis. Hypertension hold nifedipine for now , as above We will monitor Diabetes Lantus Sliding scale Will monitor. Hypothyroidism On Synthyroid DVT prophylaxis On Eliquis - on hold, as above Disposition - med/tele Full code Admission and Anticipated Discharge Date Admission Date: September 02, 2023 Subjective Pt seen in follow up of chest pain, tachycardia Cardiology consulted and discussed with Patient currently sitting up in bed, in NAD. Currently chest pain improved. Denies any shortness of breath or cough. Denies any fevers chills, abdominal pain, nausea vomiting or diarrhea. Pt also reports chopping wood at home and feels that is why she had b/l shoulder and chest pain. Chest pain seems to be now mostly resolved. She walks in her room w/o any CP. However says when she pulls on blankets and such she feels CP. Discussed with cardiology, plan for cardiac cath today. Review of Systems Review of Systems: All systems reviewed & are unremarkable except as noted in Subjective Physical Exam Physical Exam: General- WD/ WN F in NAD Head- atraumatic Eyes- PERRL. ENT- oropharynx clear Neck- supple Lungs- clear to auscultation no wheezing or crackles. Heart- rrr, no murmur Abdomen- normal bowel sounds, soft, nontender, no distension. Extremities- no pretibial edema, no erythema seen. Neuro- alert, oriented x 3; PERRL, no facial palsy; no dysarthria; moves extremities. Skin- warm & dry Results & Data Results & Data Vital Signs (Past 12 Hours) Vital Signs Temp Pulse Pulse Resp BP BP Pulse Ox 09/04/23 07:29 36.9 C 100 H 18 129/88 94 09/04/23 05:00 37 C 96 H 16 146/89 H 93 09/03/23 23:02 36.8 C 69 18 120/67 98 09/03/23 22:01 92 H O2 Del Method 09/04/23 07:29 Room Air 09/04/23 05:00 Room Air 09/03/23 23:02 Room Air 09/03/23 22:01 Laboratory Results 09/04/23 09/04/23 09/03/23 Range/Units 06:13 06:09 20:04 WBC 7.65 (4.8-10.8) K/ul RBC 4.38 (4.20-5.40) M/uL Hgb 12.8 (12.0-16.0) g/dl Hct 40.0 (37.0-47.0) % MCV 91.3 (80.0-100.0) fL MCH 29.2 (25.0-34.0) pg MCHC 32.0 (32.0-36.0) g/dL RDW Std Deviation 41.4 (36.4-46.3) fL RDW Coeff of Ho 12.5 (11.5-14.5) % Plt Count 247 (130-400) K/uL MPV 9.0 L (9.4-12.4) fL Sodium 136 (136-145) mmol/L Potassium 3.9 (3.5-5.1) mmol/L Chloride 101 (98-107) mmol/L Carbon Dioxide 26 (21-32) mmol/L Anion Gap 9 (3-11) BUN 20 (6-23) mg/dl Creatinine 0.97 (0.6-1.2) mg/dl Est Cr Clr Drug Dosing 51.0 ml/min Est GFR ( Amer) 67.6 ml/min Est GFR (Non-Af Amer) 58.3 ml/min BUN/Creatinine Ratio 20.6 H (10-20) Glucose 122 H (70-99(Fasting)) mg/dl POC Glucose 115 H 145 H (70-99) mg/dl Calcium 9.4 (8.6-10.3) mg/dl Phosphorus 3.9 (2.5-4.9) mg/dl Magnesium 2.1 (1.7-2.4) mg/dl 09/03/23 09/03/23 Range/Units 16:29 11:37 WBC (4.8-10.8) K/ul RBC (4.20-5.40) M/uL Hgb (12.0-16.0) g/dl Hct (37.0-47.0) % MCV (80.0-100.0) fL MCH (25.0-34.0) pg MCHC (32.0-36.0) g/dL RDW Std Deviation (36.4-46.3) fL RDW Coeff of Ho (11.5-14.5) % Plt Count (130-400) K/uL MPV (9.4-12.4) fL Sodium (136-145) mmol/L Potassium (3.5-5.1) mmol/L Chloride (98-107) mmol/L Carbon Dioxide (21-32) mmol/L Anion Gap (3-11) BUN (6-23) mg/dl Creatinine (0.6-1.2) mg/dl Est Cr Clr Drug Dosing ml/min Est GFR ( Amer) ml/min Est GFR (Non-Af Amer) ml/min BUN/Creatinine Ratio (10-20) Glucose (70-99(Fasting)) mg/dl POC Glucose 102 H 124 H (70-99) mg/dl Calcium (8.6-10.3) mg/dl Phosphorus (2.5-4.9) mg/dl Magnesium (1.7-2.4) mg/dl Medications Administered Current Inpatient Medications Acetaminophen (Acetaminophen 325 Mg Tab) 650 mg PO Q4H PRN PRN Reason: Pain or Fever Stop: 10/02/23 00:46 Apixaban (Apixaban 5 Mg Tablet) 5 mg PO BID [facility] Stop: 10/02/23 08:59 Last Admin: 09/02/23 07:17 Dose: 5 mg Dextrose (Dextrose 50% 50 Ml Syringe) 25 - 50 ml IV UD PRN; Protocol PRN Reason: Hypoglycemia Protocol Stop: 10/02/23 00:46 Glucagon (Glucagon For Inj 1 Mg Vial) 1 mg SQ UD PRN; Protocol PRN Reason: Hypoglycemia Protocol Stop: 10/02/23 00:46 Glucose (Glucose 10 Tab/Tube) 4 - 8 tab PO UD PRN; Protocol PRN Reason: Hypoglycemia Treatment Stop: 10/02/23 00:46 Glucose (Glucose 40% Gel 15 Gm Tube) 15 - 30 gm PO UD PRN; Protocol PRN Reason: Hypoglycemia Protocol Stop: 10/02/23 00:46 Insulin Aspart (Insulin Aspart Per Unit Charge) 0 units SC ACHS [facility] Stop: 10/02/23 05:59 Last Admin: 09/04/23 06:14 Dose: Not Given Insulin Glargine (Lantus Per Unit Charge) 15 units SQ BID [facility] Stop: 10/02/23 08:59 Last Admin: 09/03/23 20:37 Dose: 15 units Levothyroxine Sodium (Levothyroxine Sodium 25 Mcg Tablet) 25 mcg PO DAILYBB [facility] Stop: 10/02/23 06:29 Last Admin: 09/04/23 05:09 Dose: 25 mcg Magnesium Oxide (Magnesium Oxide 400 Mg Tab) 400 mg PO BID [facility] Stop: 10/02/23 11:44 Last Admin: 09/03/23 20:37 Dose: 400 mg Metoprolol Tartrate (Metoprolol Tartrate 25 Mg Tab) 25 mg PO Q6H [facility] Stop: 10/03/23 11:59 Last Admin: 09/04/23 05:08 Dose: 25 mg Miscellaneous (Carbohydrates For Hypoglycemia ) 15 - 30 gm PO UD PRN PRN Reason: Hypoglycemia Protocol Stop: 10/02/23 00:46 Nifedipine (Nifedipine Extended Rel 30 Mg Tabcr) 30 mg PO DAILY [facility] Stop: 10/02/23 08:59 Last Admin: 09/02/23 07:17 Dose: 30 mg Nitroglycerin (Nitroglycerin Sl 0.4 Mg/Tab Tab) 0.4 mg SL Q5M PRN PRN Reason: Chest Pain Stop: 10/02/23 00:46 Pantoprazole Sodium (Pantoprazole 40 Mg Tab) 40 mg PO QAM [facility] Stop: 10/02/23 11:44 Last Admin: 09/03/23 09:54 Dose: 40 mg Tramadol HCl (Tramadol Hcl 50 Mg Tablet) 50 mg PO BID PRN PRN Reason: Pain Stop: 10/02/23 00:46 Last Admin: 09/04/23 07:35 Dose: 50 mg
--- NOTE | 2023-09-04 09:20 | Cardiology Progress Note ---
Date of Service September 04, 2023 Assessment & Plan (1) Chest pain: (2) Elevated troponin I level: (3) Tachycardia: (4) Diabetes: (5) H/O atrial fibrillation without current medication: Plan Mrs Davenport is a 72 year old female with a history of Hypertension, Type 2 Diabetes Mellitus, Dyslipidemia, Breast Cancer, Vertigo, Multinodular Thyroid with Hypothyroidism, CKD, Depression, Paroxysmal Atrial Tachycardia, and Paroxysmal Atrial Fibrillation who was admitted on 09/01/23 with anterior chest pain/soreness that was present off and on over the preceding 4 days. She thought it may be related to reflux because it seemed to be much worse after eating. This chest pain/soreness does not radiate and it is without associated symptoms. She specifically denies any associated nausea, vomiting, diaphoresis, and dyspnea. She does have frequent episodes of either paroxysmal atrial tachycardia vs inappropriate sinus tachycardia -- however she does not feel her heart speed up and her HR is usually right around 100 bpm with this rhythm. Patient still has some intermittent chest pain/soreness today -- it is not exertional. She thinks she slept in an awkward position and that it may be why she has ongoing symptoms. Etiology of chest pain remains unclear, although its characteristics are not particularly suggestive of myocardial ischemia and EKG appears benign, she did have enzyme elevations and now has discomfort at rest. Given uncertainty regarding possibility of coronary artery disease and rest symptoms, we will plan to carry out a Cardiac Catheterization today with Dr. Garibay. Her last dose of Eliquis was on the morning of 09/02/23. Tachycardia still appears paroxysmal, recommend continuing Metoprolol Tartrate 25 mg every 6 hours, she is still on Nifedipine and she is normotensive. C ontinue holding apixaban (and anticipation of cardiac catheterization). Agree with magnesium supplement. Further recommendations based on cardiac catheterization results today. Admission and Anticipated Discharge Date Admission Date: September 02, 2023 Supervising Physician Co-Signing Physician Notes Cardiac catheterization showed severe subtotal occlusion of the LAD for which the patient underwent placement of 2 drug-eluting stents. As per Dr. Garibay, will require dual antiplatelet therapy for 1 to 2 years, he recommended ticagrelor 90 mg twice daily and apixaban 5 mg twice daily in place of aspirin. Subjective Mrs Davenport is a 72 year old female with a history of Hypertension, Type 2 Diabetes Mellitus, Dyslipidemia, Breast Cancer, Vertigo, Multinodular Thyroid with Hypothyroidism, CKD, Depression, Paroxysmal Atrial Tachycardia, and Paroxysmal Atrial Fibrillation who was admitted on 09/01/23 with anterior chest pain/soreness that was present off and on over the preceding 4 days. She thought it may be related to reflux because it seemed to be much worse after eating. This chest pain/soreness does not radiate and it is without associated symptoms. She specifically denies any associated nausea, vomiting, diaphoresis, and dyspnea. She does have frequent episodes of either paroxysmal atrial tachycardia vs inappropriate sinus tachycardia -- however she does not feel her heart speed up and her HR is usually right around 100 bpm with this rhythm. Patient still has some intermittent chest pain/soreness today -- it is not exertional. She thinks she slept in an awkward position and that it may be why she has ongoing symptoms. She is scheduled for Cardiac Catheterization today. HISTORICAL BACKGROUND: Patient was admitted to [facility] on 07/15/2018 after having a Syncopal Episode --which was her first syncopal episode ever. She was in her usual state of health that day, ate a normal breakfast, and went outside to cut wood. She was bending over frequently because the tarps were frozen to the ground. She began to note a sensation of dizziness which had both a lightheaded component and a vertiginous component. Because she was feeling this way, she attempted to walk into her home. Before she got inside she had to stop and hold onto a work table because she was becoming progressively more lightheaded. The next thing she was aware of was regaining consciousness while lying on the ground. She is uncertain how long she was unconscious for. Patient denied any associated chest discomfort, tightness, or pressure. No associated nausea, vomiting, diaphoresis, or dyspnea. No sensation of palpitations or skipped heartbeats. Apparently she checked her blood sugar as soon as she went back into the house and it was over 400 mg/dL. EMS was summoned. They found that her blood sugar was around 200 mg/dL. She was hypertensive with a normal heart rate on admission. During this admission, her telemetry monitoring did not show any bradyarrhythmias or significant tachyarrhythmias. No cardiac pauses or evidence of AV block. Her TSH was elevated at 5.040 uIU/ml. Echocardiogram showed normal LV size and systolic function. LVEF 60% to 65%, no significant valvular abnormalities. No regional wall motion abnormalities. Patient subsequently underwent a 30 Day Cardiac Event Monitor August 2018 which showed: -- Predominantly NSR. -- PAC's were present. -- Two brief runs of Paroxysmal Atrial Fibrillation -- < 10 seconds each. -- Ventricular Tachycardia x 12 beats at 147 bpm. -- Various arrhythmias were asymptomatic. -- Two brief episodes of PSVT. At her visit on 01/06/2019 she complained of some exertional chest fullness with push mowing her lawn. She denied any associated symptoms, specifically denying any associated nausea, vomiting, diaphoresis, or dyspnea. Symptoms typically resolved within 5 minutes of resting. She subsequently underwent a Dobutamine Stress Echocardiogram 01/23/2019 which showed: -- No Evidence of Myocardial Ischemia at 86% MPHR. -- No EKG changes with dobutamine infusion. -- Normal LV size, wall motion, and systolic function. -- LVEF 55% to 60%. -- Normal RV size and systolic function. -- No significant valvular abnormalities. The patient was hospitalized in November 2021 after sustaining a syncopal episode and an allergic reaction after being stung by several bees. Physical Exam Physical Exam: Blood pressure is 129/88, pulse 98 and regular. General: Patient in no acute distress. HEENT: Head is atraumatic, normocephalic. EOMs intact without nystagmus. Sclerae anicteric. Facies symmetric. No perioral cyanosis. Neck: No JVD. JVP is not elevated. Carotid upstrokes +2 bilaterally without bruits. Chest and Lungs: Clear to auscultation throughout all lung al[place], no wheezes, rales, or rhonchi. CVS: S1 and S2 are regular at a rate of 98 bpm. No obvious murmurs, gallops, or rubs. PMI is nondisplaced. No lifts, heaves, or thrills. No abdominal aortic or renal bruits. Abdominal Exam: Bowel sounds present. No masses, organomegaly, or tenderness. Extremities: No clubbing or cyanosis. No edema. Intact radial pulses bilaterally. Neurologic Exam: Patient is awake, alert, and oriented. Pleasant and cooperative. Answers questions appropriately. Speech is clear. Results & Data Vital Signs (Past 12 Hours) Vital Signs Temp Pulse Pulse Resp BP BP Pulse Ox 09/04/23 07:29 36.9 C 100 H 18 129/88 94 09/04/23 05:00 37 C 96 H 16 146/89 H 93 09/03/23 23:02 36.8 C 69 18 120/67 98 09/03/23 22:01 92 H O2 Del Method 09/04/23 07:29 Room Air 09/04/23 05:00 Room Air 09/03/23 23:02 Room Air 09/03/23 22:01 Laboratory Results Laboratory Results - last 24 hr 09/03/23 09/03/23 09/03/23 11:37 16:29 20:04 WBC RBC Hgb Hct MCV MCH MCHC RDW Std Deviation RDW Coeff of Ho Plt Count MPV Sodium Potassium Chloride Carbon Dioxide Anion Gap BUN Creatinine Est Cr Clr Drug Dosing Est GFR ( Amer) Est GFR (Non-Af Amer) BUN/Creatinine Ratio Glucose POC Glucose 124 H 102 H 145 H Calcium Phosphorus Magnesium 09/04/23 09/04/23 06:09 06:13 WBC 7.65 RBC 4.38 Hgb 12.8 Hct 40.0 MCV 91.3 MCH 29.2 MCHC 32.0 RDW Std Deviation 41.4 RDW Coeff of Ho 12.5 Plt Count 247 MPV 9.0 L Sodium 136 Potassium 3.9 Chloride 101 Carbon Dioxide 26 Anion Gap 9 BUN 20 Creatinine 0.97 Est Cr Clr Drug Dosing 51.0 Est GFR ( Amer) 67.6 Est GFR (Non-Af Amer) 58.3 BUN/Creatinine Ratio 20.6 H Glucose 122 H POC Glucose 115 H Calcium 9.4 Phosphorus 3.9 Magnesium 2.1 Medications Administered Medication List Apixaban (Apixaban 5 Mg Tablet) 5 mg PO BID [facility] Stop: 10/02/23 08:59 Last Admin: 09/02/23 07:17 Dose: 5 mg Documented By: ES Insulin Aspart (Insulin Aspart Per Unit Charge) 0 units SC ACHS [facility] Stop: 10/02/23 05:59 Last Admin: 09/04/23 06:14 Dose: Not Given Documented By: Admin: 09/03/23 20:38 Dose: 1 units Documented By: CJC Co-signed By: TONY Admin: 09/03/23 17:10 Dose: 6 units Documented By: VEE Co-signed By: ARCHIE Insulin Glargine (Lantus Per Unit Charge) 15 units SQ BID [facility] Stop: 10/02/23 08:59 Last Admin: 09/03/23 20:37 Dose: 15 units Documented By: RICKEY Co-signed By: TONY Admin: 09/03/23 09:34 Dose: 15 units Documented By: VEE Co-signed By: ARCHIE Admin: 09/02/23 20:42 Dose: 15 units Documented By: EKATERINA Co-signed By: ERICA Admin: 09/02/23 07:17 Dose: Not Given Documented By: JORGE Levothyroxine Sodium (Levothyroxine Sodium 25 Mcg Tablet) 25 mcg PO DAILYBB [facility] Stop: 10/02/23 06:29 Last Admin: 09/04/23 05:09 Dose: 25 mcg Documented By: Admin: 09/03/23 06:33 Dose: 25 mcg Documented By: Admin: 09/02/23 06:06 Dose: 25 mcg Documented By: NEDA Magnesium Oxide (Magnesium Oxide 400 Mg Tab) 400 mg PO BID [facility] Stop: 10/02/23 11:44 Last Admin: 09/03/23 20:37 Dose: 400 mg Documented By: Admin: 09/03/23 09:54 Dose: 400 mg Documented By: Admin: 09/02/23 20:53 Dose: 400 mg Documented By: Admin: 09/02/23 14:15 Dose: 400 mg Documented By: JIMMY Metoprolol Tartrate (Metoprolol Tartrate 25 Mg Tab) 25 mg PO Q6H [facility] Stop: 10/03/23 11:59 Last Admin: 09/04/23 05:08 Dose: 25 mg Documented By: Admin: 09/03/23 23:04 Dose: 25 mg Documented By: Admin: 09/03/23 17:11 Dose: 25 mg Documented By: Admin: 09/03/23 12:34 Dose: 25 mg Documented By: VEE Nifedipine (Nifedipine Extended Rel 30 Mg Tabcr) 30 mg PO DAILY [facility] Stop: 10/02/23 08:59 Last Admin: 09/02/23 07:17 Dose: 30 mg Documented By: JORGE Pantoprazole Sodium (Pantoprazole 40 Mg Tab) 40 mg PO QAM [facility] Stop: 10/02/23 11:44 Last Admin: 09/03/23 09:54 Dose: 40 mg Documented By: Admin: 09/02/23 14:15 Dose: 40 mg Documented By: JIMMY Tramadol HCl (Tramadol Hcl 50 Mg Tablet) 50 mg PO BID PRN PRN Reason: Pain Stop: 10/02/23 00:46 Last Admin: 09/04/23 07:35 Dose: 50 mg Documented By: Admin: 09/02/23 04:38 Dose: 50 mg Documented By: NEDA Discontinued Medications Acetaminophen (Ofirmev) 1,000 mg in 100 mls @ 400 mls/hr IV NOW STA Stop: 09/01/23 19:47 Last Infusion: 09/01/23 20:22 Dose: Infused Documented By: Admin: 09/01/23 19:52 Dose: 400 mls/hr Documented By: REID Sodium Chloride (Nss) 1,000 mls @ 999 mls/hr IV .Q1H1M ONE Stop: 09/01/23 21:31 Last Infusion: 09/01/23 22:40 Dose: Infused Documented By: Admin: 09/01/23 21:06 Dose: 999 mls/hr Documented By: REID Magnesium Sulfate/Dextrose (Magnesium Sulfate / D5w) 1 gm in 100 mls @ 50 mls/hr IV ONE ONE Stop: 09/02/23 13:31 Last Infusion: 09/02/23 16:35 Dose: Infused Documented By: Admin: 09/02/23 14:15 Dose: 50 mls/hr Documented By: JIMMY Famotidine (Pepcid 20mg Iv Push) 20 mg in 5 mls @ 2.5 mls/min IV NOW STA Stop: 09/02/23 11:42 Last Admin: 09/02/23 14:21 Dose: 2.5 mls/min Documented By: JUANI Insulin Aspart (Insulin Aspart Per Unit Charge) 6 units SC NOW STA Stop: 09/01/23 23:57 Last Admin: 09/02/23 01:18 Dose: Not Given Documented By: NEDA Co-signed By: SHAW Insulin Aspart (Insulin Aspart Per Unit Charge) 0 units SC Q6 [facility] Stop: 10/02/23 05:59 Last Admin: 09/03/23 12:42 Dose: 3 units Documented By: VEE Co-signed By: MICHAEL Admin: 09/03/23 06:32 Dose: 1 units Documented By: EKATERINA Co-signed By: SHAYY Admin: 09/03/23 01:00 Dose: Not Given Documented By: Admin: 09/02/23 16:54 Dose: 4 units Documented By: JUANI Co-signed By: AMY Admin: 09/02/23 12:31 Dose: Not Given Documented By: Admin: 09/02/23 06:06 Dose: Not Given Documented By: NEDA Co-signed By: REGLA Ioversol (Optiray 320 125ml) 119 ml IV ONCE ONE Stop: 09/01/23 20:34 Last Admin: 09/01/23 20:33 Dose: 119 ml Documented By: KP Ketorolac Tromethamine (Ketorolac Tromethamine 15 Mg/Ml Vial) 15 mg IV NOW ONE Stop: 09/01/23 19:33 Last Admin: 09/01/23 19:52 Dose: Not Given Documented By: REID Metoprolol Tartrate (Metoprolol Tartrate 1 Mg/Ml Vial) 2.5 mg IV NOW STA Stop: 09/02/23 00:27 Last Admin: 09/02/23 01:23 Dose: 2.5 mg Documented By: NEDA Metoprolol Tartrate (Metoprolol Tartrate 1 Mg/Ml Vial) 2.5 mg IV NOW STA Stop: 09/02/23 07:41 Last Admin: 09/02/23 08:48 Dose: 2.5 mg Documented By: JORGE PG Care Time/CCT Total # of Minutes Spent Total Time Spent with Patient: Total time spent is greater than 50% in coordination of care (as documented) at patient's floor/unit and/or counseling patient:35 [place] [address] SUB INP/OBS CARE 3/50MIN Patient Type Established Medical Decision Making High Complexity Diagnoses Chest pain, unspecified type R07.9 Chest pain type: unspecified Elevated troponin I level R79.89 Tachycardia R00.0 Diabetes E11.9 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
--- NOTE | 2023-09-04 13:23 | Pre Anesthesia Assessment ---
Date of Service September 04, 2023 Pre Sedation Assessment Vital Signs Temp Pulse Pulse Resp BP BP Pulse Ox 09/04/23 12:46 90 18 137/69 96 09/04/23 10:41 36.8 C 79 20 121/70 94 09/04/23 07:29 36.9 C 100 H 18 129/88 94 09/04/23 05:00 37 C 96 H 16 146/89 H 93 09/03/23 23:02 36.8 C 69 18 120/67 98 09/03/23 22:01 92 H 09/03/23 20:30 09/03/23 19:38 37.1 C 84 18 131/73 95 09/03/23 15:32 83 09/03/23 15:15 36.8 C 80 17 141/75 H 95 O2 Del Method 09/04/23 12:46 Room Air 09/04/23 10:41 Room Air 09/04/23 07:29 Room Air 09/04/23 05:00 Room Air 09/03/23 23:02 Room Air 09/03/23 22:01 09/03/23 20:30 Room Air 09/03/23 19:38 Room Air 09/03/23 15:32 09/03/23 15:15 Room Air Cardiovascular RRR, no murmur, no edema Respiratory normal respiratory effort, lungs clear to auscultation Pre-Sedation Airway Assessment Smoking Status: Never smoker Hx Sleep Apnea: No Short, Thick Neck: No Thyromental Distance: > or= 3.5 Finger Breadths Oral Cavity: + Dental Abnormalities Mallampati Class: II ASA: ASA3 NPO Status Date of Last Intake of Fluids: 09/03/23 Time of Last Intake of Fluids: 22:00 Date of Last Intake of Solid Food: 09/03/23 Time of Last Intake of Solid Foods: 22:00 Notes The planned sedation has been discussed with the patient. Informed Consent was obtained. I have identified the patient, determined the appropriateness of sedation and have assessed the patient immediately prior to the procedure. All medicine(s) and interventions are by my order.
[2023-09-04] MEDS: HEPARIN (PORCINE) 1000 UNIT/ML 10 ML (CATH LAB USE ONLY) ONE (14:56)
[2023-09-04] MEDS: fentaNYL citrate PF 100 MCG/2 ML VIAL ONE (14:56)
[2023-09-04] MEDS: MIDAZOLAM HCL 1 MG/ML 2ML VIAL ONE ×2 (14:57→14:58)
[2023-09-04] MEDS: niCARdipine HCL INJ 2.5 MG/ML 10 ML AMP ONE (14:57)
[2023-09-04] MEDS: NITROGLYCERIN/D5W 100MCG/ML 20ML SYR ONE (14:57)
--- NOTE | 2023-09-04 14:57 | Post Anesthesia Assessment ---
Date of Service September 04, 2023 Post Sedation Assessment Vital Signs Temp Pulse Pulse Resp BP BP Pulse Ox 09/04/23 12:46 90 18 137/69 96 09/04/23 10:41 36.8 C 79 20 121/70 94 09/04/23 07:29 36.9 C 100 H 18 129/88 94 09/04/23 05:00 37 C 96 H 16 146/89 H 93 09/03/23 23:02 36.8 C 69 18 120/67 98 09/03/23 22:01 92 H 09/03/23 20:30 09/03/23 19:38 37.1 C 84 18 131/73 95 09/03/23 15:32 83 09/03/23 15:15 36.8 C 80 17 141/75 H 95 O2 Del Method 09/04/23 12:46 Room Air 09/04/23 10:41 Room Air 09/04/23 07:29 Room Air 09/04/23 05:00 Room Air 09/03/23 23:02 Room Air 09/03/23 22:01 09/03/23 20:30 Room Air 09/03/23 19:38 Room Air 09/03/23 15:32 09/03/23 15:15 Room Air Recovery Score Activity: Moves 4 extremities Respiration: Deep Breath/Cough Circulation: +/-20% PreAnes Value Consciousness: Fully Awake Oxygen Saturation: > 92% On Room Air Discharge Sedation Level of Care: Fast Track Phase II Post Sedation Plan On clinical assessment, the patient appears to have tolerated the sedation without complications. Patient is recovering as anticipated. Patient will continue to be monitored by nursing and may be discharged when sedation discharge criteria are met per below protocol. Upon Completions of procedure up to 15 minutes continue every 5 minute vital signs and the P.A.R. score; then discharge to a Phase I or Fast Track to Phase II per the following guidelines: * Discharge Patient to appropriate Phase II area if PAR is 8 or greater or return to pre- procedure baseline. The post - procedure orders will be as directed. * If PAR score is less than 8 or not return to pre-procedure baseline then patient will follow Phase I monitoring till PAR is reached for Phase II. The Phase I may be done in procedure room or may call to secure a Phase I area. * If naloxone or flumazenil are used for reversal, hold in Phase I for continued monitoring from when last reversal dose was given for a minimum of 60 minutes or longer pending the nurse and/or physician discretion of patient condition before discharge to Phase II. Please call the Sedation Physician to re-evaluate and complete post-note for discharge to Phase II area. Do NOT discharge from procedure sedation or Phase 1 until post- sedation evaluation note is complete by procedure /sedation MD Sedation Discharge Instructions to be given to the patient at discharge to home.
[2023-09-04] MEDS: IODIXANOL (VISIPAQUE) 320 MG/ML 100ML IV ONE (14:58)
[2023-09-04] MEDS: OPTIRAY 350 ONE (14:58)
[2023-09-04] MEDS: ASPIRIN 81 MG CHEW ONE (14:59)
[2023-09-04] MEDS: TICAGRELOR 90 MG TAB ONE (14:59)
[2023-09-04] MEDS: DOPamine 400MG / 250ML D5W (Cath Lab Use ONLY) IV ONE (15:00)
[2023-09-04] MEDS: ATORVASTATIN 40 MG TAB PO SCH (15:53)
--- NOTE | 2023-09-04 16:12 | Cardiac Catheterization ---
[facility] Data: Produce Service Team Member Cardiac Status Clinical evaluation leading to the procedure CAD Presenation: Non STEMI Anginal Classification: CCS IV Heart Failure: No Cardiogenic Shock within 24 Hours: No Cardiac Arrest within 24 Hours: No Imaging Studies Past 6 Months: Yes Stress Studies Past 6 Months: No Coronary Anatomy Dominant: Left Left Main (% Stenosis): Normal LAD (% Stenosis): Mid (50 to 70%) and Distal (99%) D1 (% Stenosis): Ostial D2 (% Stenosis): Normal Circumflex (% Stenosis): Normal OM1 (% Stenosis): Normal OM2 (% Stenosis): Proximal (30%) OM3 (% Stenosis): Normal L PL1 (% Stenosis): Normal L PL2 (% Stenosis): Normal L PDA (% Stenosis): Proximal (Up to 50%) and Mid (Up to 50%) RCA (% Stenosis): Proximal (100% chronic total occlusion) Diagnostic Physicians Name: Félix Garibay MD, PhD Closure Device Percutaneous Entry Location: Radial Closure Device: Radial Band Recommendations: Medical Therapy and/or Counseling and PCI without planned CABG PCI Indication: PCI for high risk Non-ZOHAIB Lesion Segment Name: Mid and distal LAD Culprit Artery: Yes Stenosis Prior to Rx (%): 99% Chronic Total Occlusion: No Pre-Procedure ALFIE Flow: 1 Previously Treated Lesion: No Lesion Complexity: High/C Lesion Length (mm): 26 Thrombus Present: No Bifurcation Lesion: Yes Guidewire Across Lesion: Yes Intraprocedure Events Significant Disection: No Perforation: No Cardiac Cath Procedure Full Procedure Date September 04, 2023 Pre-Procedure Diagnosis Pre-Procedure Diagnosis: Non STEMI AUC Score AUC Score: 07 Post-Procedure Diagnosis Post-Procedure Diagnosis: Severe CAD and Successful PCI Procedure(s) Performed Procedure(s) Performed: Coronary Angiography, Drug Eluting Stent and Ultrasound Guided Vascular Access Sample Card Maker Félix Garibay MD, PhD Estimated Blood Loss Estimated Blood Loss: 10 cc Medication(s) Medication(s): Dopamine, Fentanyl, Heparin, Lidocaine 1%, Nicardipine, Nitroglycerin and Versed Summary of Findings Brief description: Patient was brought to the cardiac catheterization suite where she was shaved and prepped in a sterile fashion. Sedated using IV Versed and fentanyl. Soft tissues of the right wrist were anesthetized using 3 mL of 1% Xylocaine. Using the ultrasound for guidance (image saved), the right radial artery was accessed and a 6 [place] radial artery glide sheath was placed. Patient was provided anticoagulation with IV heparin and antispasmodics including nicardipine and nitroglycerin. All catheters were advanced and exchanged over a 0.035 J-tip wire. Left coronary angiography in orthogonal views with a 5 [place] 4 diagnostic catheter. Right coronary angiography in orthogonal views with a 5 [place] 4 diagnostic catheter. The diagnostic catheters were removed. Patient had hypotension and therefore was provided IV dopamine and fluids until her pressure returned to normal. Decision was made to proceed with PCI of the LAD. ACT was checked intermittently throughout the case and additional heparin was provided as needed to maintain therapeutic anticoagulation. A 6 [place] EBU 3.0 guide catheter was used to engage the left main coronary. A [employer] guidewire was advanced down the LAD and positioned distally beyond the lesion. Lesion predilated with a 1.5 x 8 mm trek balloon at 14 elise. Lesion predilated with a 2.0 x 15 mm sprinter inflated in 3 areas at 14 elise, 14 elise, and final inflation to 18 elise. Predilatation with a 2.5 x 20 mm trek at 12 elise followed by 14 elise x 2. A 2.75 x 26 mm Davi JOSE DAVID was implanted across the lesion initially at 13 elise. After it was deflated the stent balloon was then pulled back so that half of it remained in the proximal portion of the stent and the proximal half of it was in the more proximal diseased segment. This was then dilated to 14 elise. The balloon was then removed. A 3.0 x 12 mm [place] drug-eluting stent was then advanced and positioned with its distal edge overlapped with the proximal edge of the first stent. This was deployed at 12 elise. The stent balloon was then advanced into the proximal portion of the first stent where an additional inflation was done to 12 elise. Finally, the balloon was pulled back into the first stent and this was postdilated to 15 elise. The balloon was then removed. Final angiographic evaluation was performed. Guidewire and guide catheter were subsequently removed. Radial artery sheath was removed and hemostasis was obtained using the vascular band. Patient was hemodynamically stable and asymptomatic. She was returned to the recovery area. This ended the case. Coronary angiography findings: [id number]. Bifurcates into LAD and circumflex. No disease. LAD-proximal segment without disease and then just before the first major diagonal branch there is a 50 to 70% stenosis. There is then an aneurysmal segment in the midportion of the vessel followed by a long subtotal (99%) early distal vessel lesion which has no more than ALFIE I flow beyond the lesion. First major diagonal has ostial 60% stenosis, is small to medium in caliber and branches. Second diagonal is PCI and is noted medium to large and long without significant disease. It is located more towards the apex. FAr-afepa-dnbqzch and dominant vessel. The AV groove vessel has no disease. It provides a small to medium caliber OM1, large branching OM 2 which has proximal 30% stenosis, small to medium caliber OM 3, large posterolateral branch #1, small to medium caliber posterolateral #2. All of these additional branches have no disease. The circumflex then terminates in a large caliber long PDA which has proximal and mid up to 50% stenosis. It provides left to right collateralization. RCA-small caliber and 100% occluded proximally. It is probably nondominant it appears that the collaterals from left to right go to RV marginal branches. PCI of LAD-0% residual stenosis post PCI with implantation of 2 overlapped drug- eluting stents. ALFIE-3 flow post PCI No evidence of dissection or perforation post PCI Summary: 1. Severe subtotal occlusion of the LAD. Culprit for non-ST elevation [place]. 2. Successful PCI with implantation of 2 overlapped drug-eluting stents in the LAD. 3. Dual antiplatelet therapy for 1 to 2 years as tolerated. Ticagrelor 90 mg p.o. twice daily and we will substitute Eliquis 5 mg p.o. twice daily for aspirin. 4. Guideline directed medical therapy for secondary prevention of coronary disease to include; high intensity statin therapy, and beta-sy. Patient has intolerance to GURVINDER inhibitor/ARB. Hemodynamics Rest Ao:: 65/45 mmHg Final Ao: 174/84 mmHg LV: Not performed Recommendations Recommendations: Medical Therapy and/or Counseling and PCI without planned CABG Radiation Exposure (mGy) 1265 mGy, fluoroscopy time 12.7 minutes Contrast (mls) 160 mL Anesthesia 3 mg Versed, 100 mcg fentanyl IV. Start time 1344 end time 1444 Procedural Complication(s) None Disposition Produce Service Team Member Holding/Recovery I attest to the content of the Intraoperative Record and any orders documented therein. Any exceptions are noted below. [facility] Card Cath Procedure Codes Cardiac Catheterization Procedure 1: Cardiovascular Cath Procedures: 13231 Coronaries Therapeutic Services & Ancillary Procedure 1: Cardiovascular Tx and Anc Procedures: 00964 Ultrasonic Guidance Vascular Access Moderate Sedation Procedure 1: Sedation/Anesthesia: 27174 Mod Sedation by the same physician;Init15 Min Child Age 5 & Up (Initial 15 min, start 1344) Procedure 2: Sedation/Anesthesia: 81479 Mod Sedation by the same physician; Ea [id number] Minutes (Additional 45 min, end 1444) Stenting Procedure 1: Cardiovascular Stent Procedures: 98796 Perc transluminal revascularization of acute sub/total occl, aMI (LD) PG Care Time/CCT Total # of Minutes Spent Total Time Spent with Patient: Total time spent is greater than 50% in coordination of care (as documented) at patient's floor/unit and/or counseling patient:
[2023-09-04] MEDS: hydrALAZINE HCL 20 MG/ML VIAL IV STA (16:36)
[2023-09-04] MEDS: NITROGLYCERIN SL 0.4 MG/TAB TAB SL PRN (17:39)
[2023-09-04] MEDS: PROMETHAZINE HCL 6.25 MG in SODIUM CHLORIDE 0.9% 50 ML IV ONE (18:07)
[2023-09-05] MEDS: CARBOHYDRATES FOR HYPOGLYCEMIA PO PRN (07:09)
[2023-09-05] MEDS: APIXABAN 5 MG TABLET PO SCH (08:23)
[2023-09-05] MEDS: TICAGRELOR 90 MG TAB PO SCH (08:23)
--- NOTE | 2023-09-05 09:51 | Hospitalist Progress Note ---
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 Patient states last 3 to 4 days she is having severe chest pain in the middle of the chest radiating to both shoulders. Pain is on and off. 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 Initially thought it could be GERD and took Tums which helped a little bit but the pain is coming back. When the pain is severe she gets short of breath. Denies any sweating. No nausea. No dizziness. No headache. No blurred visions. Chest pains Rule out ACS Initial troponin 19 serial enzymes obtained -> increased to 80s Echo obtained - LV systolic function is normal. EF 60 to 65%. LV wall motion is normal. There is mild concentric LVH. RV is normal in size and function. No significant valvular disease on technically limited Doppler. Telemetry Cardiology consulted and discussed with - started metoprolol tartrate 25 mg every 6 hours, plan to switch to succinate. Since BP remains normotensive, can remain off nifedipine. S/p cardiac cath on 09/05/2023 - s/p JOSE DAVID x2 to LAD. Patient continued to have chest pains after cardiac cath, ECG appears benign. Possible acid reflux as episodes happened after eating. Increase her PPI, gave Pepcid and Tums as well. Continue to closely monitor on telemetry. History of paroxysmal atrial fibrillation Currently tachycardic, received IV Lopressor in ED/ on admission Continue Eliquis. Hypertension hold nifedipine for now, as above We will monitor Diabetes Lantus Sliding scale Will monitor. Hypothyroidism On Synthyroid DVT prophylaxis On Eliquis - on hold, as above Disposition - med/tele Full code Admission and Anticipated Discharge Date Admission Date: September 02, 2023 Subjective Pt seen in follow up of chest pain, tachycardia, now is s/p JOSE DAVID x2 in LAD Cardiology consulted and discussed with Patient was having some intermittent chest pain after cardiac cath, ECG repeated and cardiology monitored closely Now also increasing meds for possible gerd Review of Systems Review of Systems: All systems reviewed & are unremarkable except as noted in Subjective Physical Exam Physical Exam: General- WD/ WN F in NAD Head- atraumatic Eyes- PERRL. ENT- oropharynx clear Neck- supple Lungs- clear to auscultation no wheezing or crackles. Heart- rrr, no murmur Abdomen- normal bowel sounds, soft, nontender, no distension. Extremities- no pretibial edema, no erythema seen. Neuro- alert, oriented x 3; PERRL, no facial palsy; no dysarthria; moves extremities. Skin- warm & dry Results & Data Results & Data Vital Signs (Past 12 Hours) Vital Signs Temp Pulse Resp BP Pulse Ox O2 Del Method 09/05/23 07:56 37.0 C 77 18 126/66 98 Room Air 09/05/23 02:56 36.5 C 78 18 116/67 97 Room Air 09/04/23 22:56 36.5 C 103 H 18 118/72 95 Room Air Medications Administered Current Inpatient Medications Acetaminophen (Acetaminophen 325 Mg Tab) 650 mg PO Q4H PRN PRN Reason: Pain or Fever Stop: 10/02/23 00:46 Apixaban (Apixaban 5 Mg Tablet) 5 mg PO BID [facility] Stop: 10/05/23 08:59 Last Admin: 09/05/23 08:23 Dose: 5 mg Atorvastatin Calcium (Atorvastatin 40 Mg Tab) 40 mg PO QAM [facility] Stop: 10/04/23 14:59 Last Admin: 09/05/23 08:23 Dose: 40 mg Dextrose (Dextrose 50% 50 Ml Syringe) 25 - 50 ml IV UD PRN; Protocol PRN Reason: Hypoglycemia Protocol Stop: 10/02/23 00:46 Glucagon (Glucagon For Inj 1 Mg Vial) 1 mg SQ UD PRN; Protocol PRN Reason: Hypoglycemia Protocol Stop: 10/02/23 00:46 Glucose (Glucose 10 Tab/Tube) 4 - 8 tab PO UD PRN; Protocol PRN Reason: Hypoglycemia Treatment Stop: 10/02/23 00:46 Glucose (Glucose 40% Gel 15 Gm Tube) 15 - 30 gm PO UD PRN; Protocol PRN Reason: Hypoglycemia Protocol Stop: 10/02/23 00:46 Insulin Aspart (Insulin Aspart Per Unit Charge) 0 units SC ACHS [facility] Stop: 10/02/23 05:59 Last Admin: 09/05/23 08:24 Dose: Not Given Insulin Glargine (Lantus Per Unit Charge) 15 units SQ BID [facility] Stop: 10/02/23 08:59 Last Admin: 09/05/23 08:22 Dose: 15 units Levothyroxine Sodium (Levothyroxine Sodium 25 Mcg Tablet) 25 mcg PO DAILYBB [facility] Stop: 10/02/23 06:29 Last Admin: 09/05/23 05:56 Dose: 25 mcg Magnesium Oxide (Magnesium Oxide 400 Mg Tab) 400 mg PO BID [facility] Stop: 10/02/23 11:44 Last Admin: 09/05/23 08:23 Dose: 400 mg Metoprolol Tartrate (Metoprolol Tartrate 25 Mg Tab) 25 mg PO Q6H [facility] Stop: 10/03/23 11:59 Last Admin: 09/05/23 05:56 Dose: 25 mg Miscellaneous (Carbohydrates For Hypoglycemia ) 15 - 30 gm PO UD PRN PRN Reason: Hypoglycemia Protocol Stop: 10/02/23 00:46 Last Admin: 09/05/23 07:27 Dose: 15 gm Nifedipine (Nifedipine Extended Rel 30 Mg Tabcr) 30 mg PO DAILY [facility] Stop: 10/02/23 08:59 Last Admin: 09/02/23 07:17 Dose: 30 mg Pantoprazole Sodium (Pantoprazole 40 Mg Tab) 40 mg PO QAM [facility] Stop: 10/02/23 11:44 Last Admin: 09/05/23 08:23 Dose: 40 mg Ticagrelor (Ticagrelor 90 Mg Tab) 90 mg PO BID [facility] Stop: 10/05/23 08:59 Last Admin: 09/05/23 08:23 Dose: 90 mg Tramadol HCl (Tramadol Hcl 50 Mg Tablet) 50 mg PO BID PRN PRN Reason: Pain Stop: 10/02/23 00:46 Last Admin: 09/04/23 19:48 Dose: 50 mg (1) Chest pain Chest pain type: unspecified Qualified Code(s): R07.9 - Chest pain, unspecified
[2023-09-05 10:24] VITALS: RESP 18
--- NOTE | 2023-09-05 10:27 | Electrocardiogram Report ---
Test Reason : Blood Pressure : / mmHG Vent. Rate : 082 BPM Atrial Rate : 082 BPM P-R Int : 142 ms QRS Dur : 082 ms QT Int : 378 ms P-R-T Axes : -34 -04 043 degrees QTc Int : 441 ms Unusual P axis, possible ectopic atrial rhythm Minor Nonspecific T wave abnormality Septal leads Abnormal ECG When compared with ECG of 04-SEP-2023 17:40, Ectopic atrial rhythm has replaced Sinus rhythm Nonspecific T wave abnormality now present Septal leads Confirmed by Sandro Willis ([id number]) on 09/05/2023 10:26:53 AM Referred By: REFERRED SELF Confirmed By:Sandro Willis
[2023-09-05 10:45] LABS: Hematocrit (blood only) 38.9 % (37.0-47.0); Hemoglobin 12.4 g/dl (12.0-16.0); Mean Corpuscular Hemoglobin 29.3 pg (25.0-34.0); Mean Corpuscular Hgb Conc 31.9 g/dL (32.0-36.0); Mean Platelet Volume 9.2 fL (9.4-12.4); Platelet Count 259 K/uL (130-400); RDW Coefficient of Variation 12.9 % (11.5-14.5); Red Blood Count 4.23 M/uL (4.20-5.40); White Blood Count 10.29 K/ul (4.8-10.8)
[2023-09-05 11:00] LABS: BUN Creatinine Ratio 18.8 (10-20); Calcium 9.4 mg/dl (8.6-10.3); Est GFR (African American) 64.4 ml/min; Est GFR (Non-African American) 55.6 ml/min; Magnesium 2.3 mg/dl (1.7-2.4); Phosphorus 2.9 mg/dl (2.5-4.9); Potassium 4.1 mmol/L (3.5-5.1)
[2023-09-05] MEDS ORDERED: Nursing to Pharmacy Communication SCH (13:45)
--- NOTE | 2023-09-05 15:48 | Cardiology Progress Note ---
Date of Service September 05, 2023 Assessment & Plan (1) CAD (coronary artery disease): (2) Status post insertion of drug-eluting stent into left anterior descending (LAD) artery: (3) Tachycardia: (4) H/O atrial fibrillation without current medication: Plan Patient with remaining RCA chronic total occlusion with collateralization after stenting of LAD yesterday. Her subsequent chest pain episodes are likely noncardiac, given benign ECG and apparent relationship to meals. Given possibility this represents reflux/gastritis, increased Protonix from 40 mg daily to 40 mg twice daily. Still with episodic mild sinus tachycardia which seems inappropriate, however rate is improved on beta-sy therapy. Could consolidate metoprolol to tartrate 25 mg every 6 hours to metoprolol succinate 100 mg daily. This will serve the dual purpose of preventing inappropriate tachycardia and reducing cardiac demand during activities in patient with significant underlying coronary artery disease. Since BP remains normotensive, can remain off nifedipine. Given recurring, not fully explain symptoms, favor monitoring her 1 more day. Admission and Anticipated Discharge Date Admission Date: September 02, 2023 Subjective Cardiac catheterization yesterday showed subtotal occlusion of the LAD, 2 drug- eluting stents placed. Right coronary artery was completely occluded with extensive left to right collateralization. Patient had some chest pain last evening, resolved without intervention, ECGs appear benign. She notes that the episodes happened after eating, she states she has had some postprandial discomfort which feels like indigestion. She does have intermittent reflux symptoms as well. Telemetry shows predominantly sinus rhythm, but with abrupt onset/intermittent mild sinus tachycardia (slower than earlier episodes of paroxysmal sinus tachycardia) Physical Exam Physical Exam: No distress. BP normotensive. Pulse 73 bpm and regular. Respirations 18 and unlabored. Skin: no ecchymoses or generalized lesions. HEENT: unremarkable. Neck: JVP at the clavicle at 90 degrees, no carotid bruits. Lungs: clear bilaterally. Cardiac: regular rhythm, normal S1-2, no obvious murmur. Abdomen: benign. Extremities: no edema, pulses intact. Neurologic: normal affect and conversation, nonfocal. Results & Data Vital Signs (Past 12 Hours) Vital Signs Temp Pulse Resp BP BP Pulse Ox O2 Del Method 09/05/23 14:41 98.6 F 73 18 122/61 96 Room Air 09/05/23 10:23 98.4 F 78 18 128/65 95 Room Air 09/05/23 09:31 86 20 113/56 L 98 Room Air 09/05/23 07:56 98.6 F 77 18 126/66 98 Room Air PG Care Time/CCT Total # of Minutes Spent Total Time Spent with Patient: Total time spent is greater than 50% in coordination of care (as documented) at patient's floor/unit and/or counseling patient: Coding Level of Care Code 93853 SUB INP/OBS CARE 3/50MIN Diagnoses CAD (coronary artery disease) I25.10 Status post insertion of drug-eluting stent into left anterior descending (LAD) artery Z95.5 Tachycardia R00.0 H/O atrial fibrillation without current medication Z86.79
--- NOTE | 2023-09-05 15:54 | Electrocardiogram Report ---
Test Reason : Blood Pressure : / mmHG Vent. Rate : 092 BPM Atrial Rate : 092 BPM P-R Int : 154 ms QRS Dur : 086 ms QT Int : 374 ms P-R-T Axes : 058 009 058 degrees QTc Int : 462 ms Poor data quality, interpretation may be adversely affected Normal sinus rhythm Normal ECG When compared with ECG of 03-SEP-2023 05:17, No significant change was found Confirmed by Sandro Willis ([id number]) on 09/05/2023 3:54:23 PM Referred By: REFERRED SELF Confirmed By:Sandro Willis
[2023-09-05] MEDS: CALCIUM CARBONATE 500 MG CHEWABLE TAB PO SCH (16:49)
[2023-09-05] MEDS: FAMOTIDINE 20MG IV PUSH 20 MG/5 ML SYR IV SCH (16:49)
[2023-09-05] MEDS: PANTOprazole 40 MG TAB PO SCH (19:36)
[2023-09-06 06:52] LABS: Hematocrit (blood only) 39.4 % (37.0-47.0); Hemoglobin 12.8 g/dl (12.0-16.0); Mean Corpuscular Hemoglobin 29.5 pg (25.0-34.0); Mean Corpuscular Hgb Conc 32.5 g/dL (32.0-36.0); Mean Corpuscular Volume 90.8 fL (80.0-100.0); Mean Platelet Volume 9.2 fL (9.4-12.4); Platelet Count 269 K/uL (130-400); RDW Coefficient of Variation 12.6 % (11.5-14.5); RDW Standard Deviation 41.5 fL (36.4-46.3); Red Blood Count 4.34 M/uL (4.20-5.40); White Blood Count 8.95 K/ul (4.8-10.8)
[2023-09-06 07:21] LABS: BUN Creatinine Ratio 16.1 (10-20); Calcium 9.8 mg/dl (8.6-10.3); Creatinine Clr Calc Pharmacy 41.9 ml/min; Est GFR (African American) 53.4 ml/min; Magnesium 2.3 mg/dl (1.7-2.4); Phosphorus 4.7 mg/dl (2.5-4.9); Potassium 4.4 mmol/L (3.5-5.1)
[2023-09-06 11:16] VITALS: BP 112/69; PULSE 83; TEMP 98.2; O2SAT 97
--- NOTE | 2023-09-06 13:08 | Discharge Summary ---
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 Patient states last 3 to 4 days she is having severe chest pain in the middle of the chest radiating to both shoulders. Pain is on and off. 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 Initially thought it could be GERD and took Tums which helped a little bit but the pain is coming back. When the pain is severe she gets short of breath. Denies any sweating. No nausea. No dizziness. No headache. No blurred visions. No runny nose or sore throat. No cough. No fevers. No abdominal pain. Normal bowel and bladder movements. Currently resting comfortably and hemodynamically stable. Past medical history. As mentioned above Past surgical history. Left axillary lymph node biopsy, left partial mastectomy Social history. No smoking. No alcohol use. No drug use. Family history. No family history on file Admission Exam Per Admitting Provider General- Not in distress Head- atraumatic Eyes- PERRL. ENT- oropharynx clear Neck- supple, no JVD. Lungs- clear to auscultation no wheezing or crackles. Heart- regular rhythm; no murmur, no gallop. Abdomen- normal bowel sounds, soft, nontender, no distension. Extremities- no pretibial edema, no erythema seen. Neuro- alert, oriented x 3; PERRL, no facial palsy; no dysarthria; moves extremities. Skin- warm & dry Principal Diagnosis NSTEMI, s/p JOSE DAVID to LAD Tachycardia Discharge Exam General- WD/ WN F in NAD Head- atraumatic Eyes- PERRL. ENT- oropharynx clear Neck- supple Lungs- clear to auscultation no wheezing or crackles. Heart- rrr, no murmur Abdomen- normal bowel sounds, soft, nontender, no distension. Extremities- no pretibial edema, no erythema seen. Neuro- alert, oriented x 3; PERRL, no facial palsy; no dysarthria; moves extremities. Skin- warm & dry Discharge Data Allergies Allergy/AdvReac Type Severity Reaction Status Date / Time bee pollen Allergy Severe Anaphylaxis Verified 04/02/23 11:17 amlodipine AdvReac Unknown Unknown Verified 04/02/23 11:17 furosemide AdvReac Unknown Unknown Verified 04/02/23 11:17 hydrochlorothiazide AdvReac Unknown Unknown Verified 04/02/23 11:17 lisinopril AdvReac Unknown Unknown Verified 04/02/23 11:17 losartan AdvReac Unknown Unknown Verified 04/02/23 11:17 Consultations 09/01/23 22:30 ED Decision to Admit Stat 09/02/23 08:00 Consult Cardiology Routine Procedures Performed Operation Date: 09/04/23 11:00 Actual Procedures p Cineradiography w/Routine Exam - Félix Garibay MD, PhD p Cath, Coronaries ONLY (no LV) - Félix Garibay MD, PhD s Ultrasound Vascular Access - Félix Garibay MD, PhD p Drug Eluting Stent SGl Vessel - Félix Garibay MD, PhD Ordered Studies 09/01/23 19:31 CT for pulmonary embolism PE [CT angio chest PE protocol] Stat 09/04/23 06:56 CL Cath Imgs for PACS use only Routine Hospital Course (1) Chest pain: 72 yo F with past med history significant for type 2 diabetes, hyperlipidemia, hypothyroidism, paroxysmal atrial fibrillation, hypertension, CKD stage III, iron deficiency anemia, 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 Patient states last 3 to 4 days she is having severe chest pain in the middle of the chest radiating to both shoulders. Pain is on and off. 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 Initially thought it could be GERD and took Tums which helped a little bit but the pain is coming back. When the pain is severe she gets short of breath. Denies any sweating. No nausea. No dizziness. No headache. No blurred visions. Chest pains NSTEMI Telemetry Initial troponin 19 serial enzymes obtained -> increased to 80s Echo obtained - LV systolic function is normal. EF 60 to 65%. LV wall motion is normal. There is mild concentric LVH. RV is normal in size and function. No significant valvular disease on technically limited Doppler. Cardiology consulted and discussed with - started metoprolol tartrate 25 mg every 6 hours, switch to metoprolol succinate 100 mg daily on discharge. Stop nifedipine on discharge. S/p cardiac cath on 09/05/2023 - s/p JOSE DAVID x2 to LAD. Continue apixaban and brillinta on discharge. Follow up with cardiology. History of paroxysmal atrial fibrillation Tachycardic in ED, received IV Lopressor in ED/ on admission Continue Eliquis. Cont. metoprolol. Hypertension Stop nifedipine, cont. w/ metoprolol We will monitor Diabetes Lantus Sliding scale Will monitor. 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 The appointment with your primary care physician was scheduled for you for September 10. Take metoprolol succinate 100 mg daily. Stop taking nifedipine. Take Brilintanew medication as prescribed. You were also started on pantoprazole, for acid reflux. Take it as prescribed. Pending Studies at Discharge: No Stand-Alone Forms: [employer], Smoking Cessation Medications and DC Order Prescriptions: New Brilinta 90 mg Tablet 90 mg PO BID Qty: 60 0RF atorvastatin 40 mg Tablet 40 mg PO QAM Qty: 30 0RF metoprolol succinate 100 mg tablet extended release 24 hr 100 mg PO DAILY Qty: 30 0RF pantoprazole 40 mg Tablet,Delayed Release (Dr/Ec) 40 mg PO DAILY Qty: 30 0RF Continued tramadol 50 mg tablet 50 mg PO BID PRN (Reason: Pain) levothyroxine 25 mcg tablet 25 mcg PO DAILY metformin 1,000 mg tablet 1,000 mg PO BID epinephrine 0.3 mg/0.3 mL auto-injector 0.3 mg IM UD PRN (Reason: Anaphylaxis) insulin glargine [Lantus Solostar U-100 Insulin] 100 unit/mL (3 mL) insulin pen 33 unit SUBCUT UD Rx Instructions: 33units in am and 20units in pm. diclofenac sodium 1 % gel 4 g TOPICAL QID PRN (Reason: Pain) Eliquis 5 mg tablet 5 mg PO BID vitamin B complex [B Complex Vitamin] Tablet 1 tab PO BID cholecalciferol (vitamin D3) [Vitamin D3] 50 mcg (2,000 unit) Tablet 100 mcg PO QAM acetaminophen [Tylenol Ex Str Rapid Release] 500 mg Tablet 500 mg PO Q4H PRN (Reason: Fever Or Pain) Discontinued nifedipine 30 mg tablet extended release 30 mg PO DAILY Discharge Orders: Discharge Order (Routine); Ordered 09/06/23 Ordered By: Antoni Denis Admission Data Admit Date/Time: 09/02/23 12:56 Attending Provider: Antoni Denis Admit Provider: Bakari Garvey Primary Care Provider: Satinder Liang Other Providers: Bakari Garvey; Arnoldo Allen; Sandro Willis; Ash Linton; Félix Garibay; Toribio Barcenas; Jonathon Elise Jr; Mark Louis; Tish King; Tawnya Peters; Sid Lopez; Sid Nair; Elio Mary; Kristi Cisneros; Norma Hicks; Adalid Jerry; Jassi Ramirez; Justin Pereira; Jeyson Worrell
[2023-09-06] MEDS ORDERED: METOPROLOL SUCC 50MG EXT REL TAB PO SCH (13:15)
--- NOTE | 2023-09-06 13:59 | Cardiology Progress Note ---
Date of Service September 06, 2023 Assessment & Plan (1) CAD (coronary artery disease): (2) Status post insertion of drug-eluting stent into left anterior descending (LAD) artery: (3) Tachycardia: (4) H/O atrial fibrillation without current medication: Plan Doing well today, okay for discharge. Recommendations for cardiac discharge medications: 1. Ticagrelor 90 mg twice daily. 2. Apixaban 5 mg twice daily (will take the place of aspirin for dual antiplatelet therapy along with ticagrelor). 3. Continue atorvastatin 40 mg daily (titrate as outpatient to achieve LDL less than 70). 4. Discontinue nifedipine. 5. Metoprolol succinate 100 mg daily (important to help avoid tachycardia with remaining RCA total occlusion/collateralization as well as to diminish likelihood of her inappropriate sinus tachycardia). 6. Recommend proton pump inhibitor at least temporarily for her GI symptoms/possible reflux or gastritis. I will arrange for follow-up with Arnoldo Allen PA-C (he has seen her regularly) in approximately 3 to 4 weeks. Admission and Anticipated Discharge Date Admission Date: September 02, 2023 Subjective Uneventful night, she feels much better, no further chest or abdominal disco mfort. No dyspnea or palpitations. She did note mild sense of "bloodshot eyes" and very minimal oral bleeding from her lip area last evening, both seem to have resolved. Telemetry showed sinus rhythm at 70 to 80 bpm. No episodes of sinus tachycardia. Physical Exam Physical Exam: No distress. BP normotensive. Pulse 83 bpm and regular. Respirations 18 and unlabored. Skin: no ecchymoses or generalized lesions. HEENT: unremarkable. Neck: JVP at the clavicle at 90 degrees, no carotid bruits. Lungs: clear bilaterally. Cardiac: regular rhythm, normal S1-2, no obvious murmur. Abdomen: benign. Extremities: no edema, pulses intact. Right wrist access site with ecchymoses but no hematoma, pulse intact. Neurologic: normal affect and conversation, nonfocal. Results & Data Vital Signs (Past 12 Hours) Vital Signs Temp Pulse Pulse Resp BP BP BP 09/06/23 13:14 98.2 F 83 18 112/69 124/70 129/72 09/06/23 11:15 98.2 F 83 18 112/69 09/06/23 08:00 74 09/06/23 07:47 98.1 F 76 18 135/76 09/06/23 05:52 77 124/70 09/06/23 02:49 97.9 F 89 18 119/76 Pulse Ox O2 Del Method 09/06/23 13:14 97 09/06/23 11:15 97 Room Air 09/06/23 08:00 09/06/23 07:47 96 Room Air 09/06/23 05:52 09/06/23 02:49 95 Room Air Laboratory Results Normal electrolytes, BUN 19, creatinine 1.18. PG Care Time/CCT Total # of Minutes Spent Total Time Spent with Patient: Total time spent is greater than 50% in coordination of care (as documented) at patient's floor/unit and/or counseling patient: Coding Level of Care Code 82030 SUB INP/OBS CARE 3/50MIN Diagnoses CAD (coronary artery disease) I25.10 Status post insertion of drug-eluting stent into left anterior descending (LAD) artery Z95.5 Tachycardia R00.0 H/O atrial fibrillation without current medication Z86.79
[2023-09-06] MEDS ORDERED: METOPROLOL SUCC 50MG EXT REL TAB PO ONE (21:00)
== END 2023-09-06 14:34 | disposition home or self-care (01) | DRG 322 ==
LOC: EDINP 18:26 → ED 18:26 → SUATTDRO 23:55 → 2E 09-02 00:48
PROC: CLB.CCO (2023-09-04 11:00)

== ENCOUNTER 2023-09-09 05:33 | Observation (INO) ==
--- OUTSIDE RECORDS SUMMARY | 2023-09-09 05:39 | External Medical Summary | Summary of Care ---
Author Name Unknown Organization [facility] Address [address] [facility] [place] [address] Phone [phone] Care Team Providers Care Ship Worker Name Role Phone Satinder Liang MD Primary Care Provider [phone]- [phone] Encounter Details Date Type Department Care Team (Late st Contact Info) Description 09/04/2023 Result Scan Unspecified Department <No scans attached> Allergies Active Allergy Reactions Criticality Noted Date Comments Bee Venom Anaphylaxis High 12/26/2021 documented as of this encounter (statuses as of 09/05/2023) Medications Medication Sig Dispensed Refills Start Date [...] as needed for Pain. 0 Active Nystatin 908636 UNIT/GM External Powder (Nystop)Indications: Fungal infection of [...] Pain, Moderate. 60 Tablet 0 08/07/2023 Active documented as of this encounter (statuses as of 09/05/2023) Active Problems Problem Noted Date Diagnosed Date [...] as of this encounter (statuses as of 09/05/2023) Social History Tobacco Use Types Packs/Day Years [...] Care Team (Late st Contact Info) Description 09/11/2023 11:20 AM EDT Office Visit [place] [address] [place] [place] [phone] Muriel De Guzman MD [address] [place] [facility] [place] [address] 11/12/2023 1:00 PM EDT Nurse Only Ancillary Department, [place] [address] [facility] [place] [id number] Taylor, Nurse Annual [facility]ness [address] [place] [facility] [place] [address] 01/22/2024 1:20 PM EDT Office Visit [place] [address] [place] [facility] [place] [phone] Satinder Liang MD [address] [place] [place] [address] 02/15/2024 12:00 PM EDT Office Visit Hematology/Oncology [facility] [place] [address] [place] [phone] Gracie Tellez CRNP [address] [place], [place] [address] [address] Health Maintenance Due Date Last Done Comments Pneumococcal Vaccine: 65+ Years (1 of 2 - PCV) 1956 Hepatitis C Screening 1968 DTaP,Tdap,and Td Vaccines (1 - Tdap) 1969 Cologuard 12/28/1995 Colonoscopy 12/28/1995 Sigmoidoscopy 12/28/1995 Zoster Vaccines (1 of 2) 2000 Colorectal Cancer Screening 08/20/2019 Fecal Occult Blood Test 08/20/2019 08/20/2018 Diabetic Eye Exam 12/06/2022 12/06/2021, 11/02/2021 COVID-19 Vaccine ( - 2022- season) 2023 Influenza Vaccine (FLU shot) (#1) 2023 Mammogram 08/10/2023 08/10/2022, 03/2023, 07/24/2022, Additional history exists Albumin/Creatinine Ratio 09/28/2023 023, 12/14/2021, 07/14/2020 CKD HGB USE SMARTSET 37380 09/28/202309/27, 09/27/2022, 12/14/2021, Additional history exists CKD PHOS USE SMARTSET 63981 09/28/2023 09/27/2022, 0 08/30/2017 Depression Screening 11/04/2023 [...] Not on filedocumented as of this encounter Procedures Procedure Name Priority Date/Time Associated Diagnosis Comments CARDIAC CATH SCANNED RESULT 09/04/2023 documented in this encounter Results * CARDIAC CATH SCANNED RESULT (09/04/2023) 09/04/2023 No Physician Data Unknown CARD CATH documented in this encounter Care Teams Ship Worker Relationship Specialty Start Date End Date Satinder Liang MD [address] [place] [address] PCP - General Family Medicine 06/15/21 documented as of this encounter
[2023-09-09 06:20] LABS: Basophils # (auto) 0.03 K/uL (0.00-0.20); Basophils % (auto) 0.3 %; Eosinophils # (auto) 0.46 K/uL (0.00-0.50); Eosinophils % (auto) 4.7 %; Hematocrit (blood only) 34.9 % (37.0-47.0); Hemoglobin 11.5 g/dl (12.0-16.0); Immature Granulocytes # (auto) 0.05 K/uL (0.01-0.20); Immature Granulocytes % (auto) 0.5 %; Lymphocytes # (auto) 1.89 K/uL (1.20-3.40); Lymphocytes % (auto) 19.1 %; Mean Corpuscular Hemoglobin 29.6 pg (25.0-34.0); Mean Corpuscular Volume 89.9 fL (80.0-100.0); Mean Platelet Volume 9.6 fL (9.4-12.4); Monocytes # (auto) 0.78 K/uL (0.11-0.59); Monocytes % (auto) 7.9 %; Neutrophils # (auto) 6.68 K/uL (1.40-6.50); Neutrophils % (auto) 67.5 %; Platelet Count 273 K/uL (130-400); RDW Coefficient of Variation 12.7 % (11.5-14.5); RDW Standard Deviation 41.3 fL (36.4-46.3); Red Blood Count 3.88 M/uL (4.20-5.40); White Blood Count 9.89 K/ul (4.8-10.8)
[2023-09-09 06:39] LABS: Albumin Globulin Ratio 1.5 (0.9-2); Albumin Level 4.3 gm/dl (3.4-5.0); BUN Creatinine Ratio 12.6 (10-20); Bilirubin,Total 0.3 mg/dl (0.2-1.0); Calcium 9.2 mg/dl (8.6-10.3); Creatinine Clr Calc Pharmacy 46.2 ml/min; Est GFR (African American) 62.9 ml/min; Est GFR (Non-African American) 54.3 ml/min; Globulin 2.9 gm/dl (2.5-4.0); Potassium 3.7 mmol/L (3.5-5.1); Total Protein 7.2 gm/dl (6.0-8.3)
[2023-09-09 06:44] LABS: Troponin I High Sensitivity 44.3 pg/ml (0-14)
--- NOTE | 2023-09-09 06:47 | Emergency Department Note ---
Impression & Plan Elevated troponin I level ED Provider Note Name: SHAHRAM MUÑOZ Age: 72 Sex: Female Arrives Via: Ambulance Informant: Patient ED Provider: Joe Cancino MD Chief Complaint: Chest and back pain Impression: As per impressions above Medical Decision Makin-year-old female recently hospitalized for NSTEMI and placement of LAD stent arrives for evaluation of tearing right chest and back pain going down her right arm. This is same arm she had been catheterized for stenting. On my evaluation she is still quite uncomfortable despite IV fentanyl prior to my evaluation. She was given IV Dilaudid with mild improvement. CT angiography was obtained which reveals no evidence of dissection. Laboratory work is relatively reassuring besides troponin is mildly elevated. Initial troponin is 44 which is a bit lower than it was when she was in the hospital and a repeat troponin is down to 22. EKG x 2 shows no evidence of ischemia. Continued pain though so was given further IV narcotic. After discussing with cardiology they agree this is unlikely ACS however if intractable pain post stenting will likely need hospitalization. I discussed this with the patient and she does not feel that she can tolerate pain at home. Hospitalist was consulted for further management. There is no evidence of DVT or PE and she is fully anticoagulated. Triage/Nursing Notes reviewed by Me Differential:Cardiac ischemia, aortic dissection, pulmonary embolism, pneumothorax, pneumonia, pericarditis, myocarditis, esophageal rupture, GERD, cholecystitis, pancreatitis, musculoskeletal, as well as other pathologies. Vital Signs: reviewed and remarkable for no significant abnormalities Interventions: dilaudid 1mg iv & 0.5mg iv, nss bolus Labs:ED labs Reviewed by me and remarkable for elevated troponin Imaging:X ray results are stated below per my interpretation: Chest: 1 view: No infiltrate, no effusion, normal cardiac border. CT angiogram of the chest with without contrast as per my informal interpretation reveals no evidence of pneumothorax, aortic dissection, effusion, pneumonia or other acute concerning finding. Confirmed by radiologist. EKG:As per my interpretation. Indication chest pain. Normal sinus rhythm at 94 beats minute QTc of 437. There is no ectopy nor ischemia appreciated. When compared to September 05, 2023 she is now in normal sinus rhythm Cardiac/Tele Monitoring: Cardiac Monitoring: An Order was placed for continuous cardiac monitoring. The monitor shows a rate of 90 with a normal sinus rhythm. Consults:Dr. Willis cardiology who does know patient. Dr. Cabrera of the [facility]ist service Plan: Disposition:Hospitalization. Condition: Good History of Present Illness: 72-year-old female arrives for evaluation of right chest and back pain. Sudden onset around to the a.m. She took a tramadol but pain continued throughout the night. Eventually called 911. Was given fentanyl and route with mild improvement. Notes a tearing pain from her right shoulder blade and back into her right arm. Earlier today she was feeling numbness in her right arm. She recently had a heart catheterization with stents through the right arm. She has been on Eliquis for her A-fib paroxysmal and is also on Brilinta for her recent stenting. She denies any falls, trauma, injuries. She denies any specific shortness of breath. She is not having any left-sided or substernal chest pain. She has not had any headache, neck pain, fevers, chills, abdominal pain, lower back pain other than her chronic, urinary symptoms, leg swelling, calf pain or other concerning signs or symptoms. She denies a history of aortic problems. Past Medical History:CAD, stents cardiac, anaphylaxis, CKD, paroxysmal A-fib, breast cancer, hypothyroidism, hypertension, diabetes Home Medications:See Below Allergies:Amlodipine, Lasix, hydrochlorothiazide, lisinopril, losartan, Bees Vitals:Blood Pressure: 140/72, Pulse 91, RR 22, T 36.5C, O2 98% on RA Physical Exam: GENERAL: Patient is anxious and uncomfortable appearing and in moderate distress. RESPIRATORY: No dyspnea. Clear to auscultation and equal bilaterally. CARDIOVASCULAR: Regular rate and rhythm.No murmur appreciated. GASTROINTESTINAL: Abdomen soft, non-tender, no peritonitis. BACK: Vague tenderness palpation medial to right scapula upper back. No rash . No midline tenderness, no CVA tenderness EXTREMITIES: Normal motion all extremities, no cyanosis, no edema. Bruising over the right arm with intact pulses. NEUROLOGIC: Alert and oriented. No focal neurologic deficits appreciated SKIN: No rash, no jaundice, no diaphoresis. PSYCH: Appropriate GCS: 15 ED Course: Times/Reassessments: Patient did have return of pain. Repeat EKG reassuring. Patient not comfortable with discharge given persistent pain I think hospitalization reasonable Joe Cancino MD Past Med/Surg History Medical History (Updated 09/09/23 @ 13:22 by Joe Cancino MD) Syncope (2021) Allergic reaction Rib pain on right side Hypothyroidism Iron deficiency anemia Dyslipidemia CKD (chronic kidney disease) stage 3, GFR 30-59 ml/min Chronic anticoagulation Paroxysmal atrial fibrillation Hypertension Malignant neoplasm of upper-inner quadrant of left breast in female, estrogen receptor positive (06/29/17) Diabetes Surgical History History of partial mastectomy of left breast 2018 - with sentinel node biopsy (Dr. Diana Jansen) Family History Mother Myocardial infarction Social History Smoking Status: Never smoker Second Hand Exposure: No; Do You Dip or Chew Tobacco: No; Hx Alcohol Use: No Hx Substance Use: No Preferred Language: Hebrew Communication Ability: Effective Welfare Visitor Required: No Beliefs That Will Affect Care: None marital status: / Current Living Situation: Alone Feels Safe at Home: Yes Assistive Devices: Cane Allergies Allergies Allergy/AdvReac Type Severity Reaction Status Date / Time bee pollen Allergy Severe Anaphylaxis Verified 04/02/23 11:17 amlodipine AdvReac Unknown Unknown Verified 04/02/23 11:17 furosemide AdvReac Unknown Unknown Verified 04/02/23 11:17 hydrochlorothiazide AdvReac Unknown Unknown Verified 04/02/23 11:17 lisinopril AdvReac Unknown Unknown Verified 04/02/23 11:17 losartan AdvReac Unknown Unknown Verified 04/02/23 11:17 Home Meds Home Medications Medication Instructions Recorded Confirmed apixaban 5 mg tablet (Eliquis) 5 mg PO BID 09/01/23 09/09/23 diclofenac sodium 1 % topical gel 4 g topical QID PRN Pain 09/01/23 09/09/23 epinephrine 0.3 mg/0.3 mL 0.3 mg IM UD PRN Anaphylaxis 09/01/23 09/09/23 injection, auto-injector insulin glargine 100 unit/mL (3 33 unit subcut UD 09/01/23 09/09/23 mL) subcutaneous pen (Lantus Solostar U-100 Insulin) levothyroxine 25 mcg tablet 25 mcg PO DAILY 09/01/23 09/09/23 metformin 1,000 mg tablet 1,000 mg PO BID 09/01/23 09/09/23 tramadol 50 mg tablet 50 mg PO BID PRN Pain 09/01/23 09/09/23 acetaminophen 500 mg tablet 500 mg PO Q4H PRN Fever Or Pain 09/02/23 09/09/23 cholecalciferol (vitamin D3) 50 100 mcg PO QAM 09/02/23 09/09/23 mcg (2,000 unit) tablet (Vitamin D3) vitamin B complex 1 tab PO BID 09/02/23 09/09/23 Previous Rx's Medication Instructions Recorded atorvastatin 40 mg tablet 40 mg PO QAM #30 tabs 09/06/23 metoprolol succinate 100 mg 100 mg PO DAILY #30 tabs 09/06/23 tablet,extended release 24 hr pantoprazole 40 mg tablet,delayed 40 mg PO DAILY #30 tabs 09/06/23 release ticagrelor 90 mg tablet (Brilinta) 90 mg PO BID #60 tabs 09/06/23 Results & Data (ED) Vital Signs Vital Signs - 24 hr 09/09/23 05:39 09/09/23 05:39 09/09/23 05:42 Temperature 36.5 C Temperature Source Oral Pulse Rate 92 H 92 H Pulse Rate [Left Finger] Pulse Rhythm Regular Pulse Rhythm [Left Finger] Pulse Strength Normal Pulse Strength [Left Finger] Respiratory Rate 18 Respiratory Effort / Characteristics Non-Labored Spontaneous Non-Labored Spontaneous Respiratory Depth Normal Normal Respiratory Pattern Regular Blood Pressure 140/72 Blood Pressure [Left Arm] Blood Pressure Mean 94 Blood Pressure Mean [Left Arm] Blood Pressure Position Sitting Blood Pressure Position [Left Arm] Pulse Oximetry 98 Oxygen Delivery Method Room Air Room Air Sepsis Recent Fever Within 48 Hours No Sepsis New/Unexplained Change in Mental Status N/A Sepsis Action Taken by Nursing No Action Required 09/09/23 05:49 09/09/23 06:54 09/09/23 07:39 Temperature Temperature Source Pulse Rate 91 H Pulse Rate [Left Finger] 91 H 95 H Pulse Rhythm Regular Pulse Rhythm [Left Finger] Regular Regular Pulse Strength Pulse Strength [Left Finger] Normal Normal Respiratory Rate 22 20 18 Respiratory Effort / Characteristics Non-Labored Spontaneous Non-Labored Spontaneous Respiratory Depth Normal Normal Respiratory Pattern Regular Regular Blood Pressure Blood Pressure [Left Arm] 112/62 155/82 H Blood Pressure Mean Blood Pressure Mean [Left Arm] 78 106 Blood Pressure Position Blood Pressure Position [Left Arm] Sitting Pulse Oximetry 98 99 97 Oxygen Delivery Method Room Air Room Air Room Air Sepsis Recent Fever Within 48 Hours Sepsis New/Unexplained Change in Mental Status Sepsis Action Taken by Nursing 09/09/23 09:00 Temperature Temperature Source Pulse Rate Pulse Rate [Left Finger] 91 H Pulse Rhythm Pulse Rhythm [Left Finger] Pulse Strength Pulse Strength [Left Finger] Respiratory Rate 16 Respiratory Effort / Characteristics Respiratory Depth Respiratory Pattern Blood Pressure Blood Pressure [Left Arm] 140/73 Blood Pressure Mean Blood Pressure Mean [Left Arm] 95 Blood Pressure Position Blood Pressure Position [Left Arm] Sitting Pulse Oximetry 98 Oxygen Delivery Method Room Air Sepsis Recent Fever Within 48 Hours Sepsis New/Unexplained Change in Mental Status Sepsis Action Taken by Nursing Laboratory Data 09/09/23 05:50 09/09/23 05:50 Lab Results 09/09/23 09/09/23 09/09/23 Range/Units 05:50 07:37 07:52 WBC 9.89 (4.8-10.8) K/ul RBC 3.88 L (4.20-5.40) M/uL Hgb 11.5 L (12.0-16.0) g/dl Hct 34.9 L (37.0-47.0) % MCV 89.9 (80.0-100.0) fL MCH 29.6 (25.0-34.0) pg MCHC 33.0 (32.0-36.0) g/dL RDW Std Deviation 41.3 (36.4-46.3) fL RDW Coeff of Ho 12.7 (11.5-14.5) % Plt Count 273 (130-400) K/uL MPV 9.6 (9.4-12.4) fL Immature Gran % (Auto) 0.5 % Neut % (Auto) 67.5 % Lymph % (Auto) 19.1 % [place] % (Auto) 7.9 % Eos % (Auto) 4.7 % Baso % (Auto) 0.3 % Neut # (Auto) 6.68 H (1.40-6.50) K/uL Lymph # (Auto) 1.89 (1.20-3.40) K/uL [place] # (Auto) 0.78 H (0.11-0.59) K/uL Eos # (Auto) 0.46 (0.00-0.50) K/uL Baso # (Auto) 0.03 (0.00-0.20) K/uL Immature Gran # (Auto) 0.05 (0.01-0.20) K/uL PT 10.8 (9.0-12.0) Seconds INR 1.0 (0.9-1.1) APTT 30 (21-31) Seconds PTT Ratio 1.1 Sodium 136 (136-145) mmol/L Potassium 3.7 (3.5-5.1) mmol/L Chloride 104 (98-107) mmol/L Carbon Dioxide 23 (21-32) mmol/L Anion Gap 9 (3-11) BUN 13 (6-23) mg/dl Creatinine 1.03 (0.6-1.2) mg/dl Est Cr Clr Drug Dosing 46.2 ml/min Est GFR ( Amer) 62.9 ml/min Est GFR (Non-Af Amer) 54.3 ml/min BUN/Creatinine Ratio 12.6 (10-20) Glucose 136 H (70-99(Fasting)) mg/dl Calcium 9.2 (8.6-10.3) mg/dl Total Bilirubin 0.3 (0.2-1.0) mg/dl AST 21 (13-39) U/L ALT 31 (7-52) U/L Alkaline Phosphatase 62 (34-104) U/L Troponin I High Sens 44.3 H 22.2 H D (0-14) pg/ml Total Protein 7.2 (6.0-8.3) gm/dl Albumin 4.3 (3.4-5.0) gm/dl Globulin 2.9 (2.5-4.0) gm/dl Albumin/Globulin Ratio 1.5 (0.9-2) Lipase 37 (11-82) U/L Urine Color Yellow Urine Appearance Clear (Clear) Urine pH 6.5 (4.5-7.5) Ur Specific [place] 1.012 (1.000-1.030) Urine Protein Negative (Negative) Urine Glucose (UA) Negative (Negative) Urine Ketones Negative (Negative) Urine Blood Negative (Negative) Urine Nitrite Negative (Negative) Urine Bilirubin Negative (Negative) Urine Urobilinogen Negative (Negative) Ur Leukocyte Esterase Negative (Negative) Administered Medications Atorvastatin Calcium (Atorvastatin 40 Mg Tab) 40 mg PO QAM LALO Stop: 10/09/23 10:53 Last Admin: 09/09/23 11:22 Dose: 40 mg Documented By: DILLON Insulin Aspart (Insulin Aspart Per Unit Charge) 0 units SC ACHS LALO Stop: 10/09/23 11:29 Last Admin: 09/09/23 12:56 Dose: Not Given Documented By: DILLON Insulin Glargine (Lantus Per Unit Charge) 15 units SQ BID LALO Stop: 10/09/23 10:53 Last Admin: 09/09/23 11:22 Dose: 15 units Documented By: DILLON Co-signed By: BOGDAN Pantoprazole Sodium (Pantoprazole 40 Mg Tab) 40 mg PO DAILY LALO Stop: 10/09/23 10:53 Last Admin: 09/09/23 11:22 Dose: 40 mg Documented By: DILLON Vitamin B Complex (Vitamin B Complex Tab) 1 tab PO BID LALO Stop: 10/09/23 10:53 Last Admin: 09/09/23 11:22 Dose: 1 tab Documented By: DILLON Discontinued Medications Acetaminophen (Acetaminophen 500 Mg Tab) 1,000 mg PO NOW STA Stop: 09/09/23 09:28 Last Admin: 09/09/23 10:42 Dose: 1,000 mg Documented By: GRICELDA Apixaban (Apixaban 5 Mg Tablet) 5 mg PO NOW STA Stop: 09/09/23 09:48 Last Admin: 09/09/23 10:40 Dose: 5 mg Documented By: GRICELDA Cyclobenzaprine HCl (Cyclobenzaprine Hcl 10 Mg Tab) 10 mg PO NOW STA Stop: 09/09/23 09:26 Last Admin: 09/09/23 10:41 Dose: 10 mg Documented By: GRICELDA Hydromorphone HCl (Hydromorphone Inj 0.5 Mg/0.5 Ml Syr) 0.5 mg IV NOW STA Stop: 09/09/23 06:45 Last Admin: 09/09/23 06:58 Dose: 0.5 mg Documented By: GRICELDA Hydromorphone HCl (Hydromorphone Inj 0.5 Mg/0.5 Ml Syr) 0.25 mg IV NOW STA Stop: 09/09/23 08:52 Last Admin: 09/09/23 09:16 Dose: 0.25 mg Documented By: GRICELDA Sodium Chloride (Nss) 1,000 mls @ 999 mls/hr IV .Q1H1M ONE Stop: 09/09/23 07:44 Last Infusion: 09/09/23 10:57 Dose: Infused Documented By: Admin: 09/09/23 06:58 Dose: 999 mls/hr Documented By: GRICELDA Ioversol (Optiray 320 125ml) 112 ml IV ONCE ONE Stop: 09/09/23 07:15 Last Admin: 09/09/23 07:15 Dose: 112 ml Documented By: AR Metoprolol Succinate (Metoprolol Succ 50mg Ext Rel Tab) 100 mg PO NOW STA Stop: 09/09/23 09:49 Last Admin: 09/09/23 10:40 Dose: 100 mg Documented By: GRICELDA Ticagrelor (Ticagrelor 90 Mg Tab) 90 mg PO NOW STA Stop: 09/09/23 09:48 Last Admin: 09/09/23 10:39 Dose: 90 mg Documented By: GRICELDA Imaging Data Radiologist's Impression: Chest X-Ray 09/09/23 05:36 XR chest 1V portable CLINICAL HISTORY: Chest pain, nonspecific TECHNIQUE: Single frontal radiograph of the chest was obtained. Comparison: Comparison is made to chest radiograph 09/01/2023 FINDINGS: No lines and tubes are seen. The cardiomediastinal silhouette is normal. The lungs are clear. No evidence of pleural effusion or pneumothorax. IMPRESSION: No acute chest disease. ACT 112: Negative or not required by law. Electronically signed by: Pavel Venegas M.D. 09/09/2023 8:43 AM Chest CTA 09/09/23 06:44 CT angio chest dissec wo/w con CLINICAL HISTORY: right chest/back pain. recent right arm cath TECHNIQUE: Multidetector row helical CT of the chest was performed before and after injection of IV contrast. Coronal, sagittal, and MIP reformations were obtained. Automated dose lowering techniques and/or adjustment according to patient size were utilized for this exam. CT DOSE: 2518.45 mGy.cm Comparison: None available at the time of this dictation. FINDINGS: Lungs and pleura: Left apical scarring is seen. Heart and pericardium: Heart size is normal. No pericardial effusion. Vessels: No aortic dissection or intramural hematoma is seen. Mediastinum and amadou: Unremarkable. Chest wall and lower neck: Unremarkable. Abdomen: Unremarkable. Bones: Degenerative changes in the thoracic spine. IMPRESSION: No acute abnormality and in particular no evidence of acute aortic injury. ACT 112: Negative or not required by law. Electronically signed by: Pavel Venegas M.D. 09/09/2023 7:39 AM Discharge Plan Visit Data Chief Complaint: Chest Pain Stated Complaint: Chest Pain, Upper Back Pain ED Provider: Joe Cancino Discharge Problem: Elevated troponin I level Discharge Instructions Interventions: ED Discharge Assessment Last Done: 09/09/23 10:54
[2023-09-09 06:50] LABS: Partial Thromboplastin Ratio 1.1; Partial Thromboplastin Time 30 Seconds (21-31); Prothrombin Time 10.8 Seconds (9.0-12.0)
[2023-09-09] MEDS: SODIUM CHLORIDE 0.9% 1,000 ML IV ONE (06:58)
[2023-09-09] MEDS: HYDROmorphone INJ 0.5 MG/0.5 ML SYR IV STA ×2 (06:58→09:16)
[2023-09-09] MEDS: OPTIRAY 320 125ml IV ONE (07:15)
--- NOTE | 2023-09-09 07:41 | CT Scan Report ---
CT angio chest dissec wo/w con CLINICAL HISTORY: right chest/back pain. recent right arm cath TECHNIQUE: Multidetector row helical CT of the chest was performed before and after injection of IV c ontrast. Coronal, sagittal, and MIP reformations were obtained. Automated dose lowering techniques an d/or adjustment according to patient size were utilized for this exam. CT DOSE: 2518.45 mGy.cm Comparison: None available at the time of this dictation. FINDINGS: Lungs and pleura: Left apical scarring is seen. Heart and pericardium: Heart size is normal. No pericardial effusion. Vessels: No aortic dissection or intramural hematoma is seen. Mediastinum and amadou: Unremarkable. Chest wall and lower neck: Unremarkable. Abdomen: Unremarkable. Bones: Degenerative changes in the thoracic spine. IMPRESSION: No acute abnormality and in particular no evidence of acute aortic injury. ACT 112: Negative or not required by law. Electronically signed by: Pavel Venegas M.D. 09/09/2023 7:39 AM
[2023-09-09 07:51] LABS: Appearance Urine Clear (Clear); Bilirubin Urine Negative (Negative); Blood Urine Negative (Negative); Color Urine Yellow; Glucose Urine UA Negative (Negative); Ketones Urine Negative (Negative); Leukocyte Esterase Urine Negative (Negative); Nitrite Urine Negative (Negative); Protein Urine Negative (Negative); Specific Gravity Urine 1.012 (1.000-1.030); Urobilinogen Urine Negative (Negative); pH Urine 6.5 (4.5-7.5)
--- NOTE | 2023-09-09 08:15 | Electrocardiogram Report ---
Test Reason : Blood Pressure : / mmHG Vent. Rate : 094 BPM Atrial Rate : 094 BPM P-R Int : 160 ms QRS Dur : 084 ms QT Int : 350 ms P-R-T Axes : 029 006 066 degrees QTc Int : 437 ms Normal sinus rhythm Diffuse Minor Nonspecific T wave abnormality Abnormal ECG When compared with ECG of 05-SEP-2023 09:35, Sinus rhythm has replaced Ectopic atrial rhythm Confirmed by Sandro Willis ([id number]) on 09/09/2023 8:15:26 AM Referred By: Confirmed By:Sandro Willis
--- NOTE | 2023-09-09 08:20 | Electrocardiogram Report ---
Test Reason : Blood Pressure : / mmHG Vent. Rate : 095 BPM Atrial Rate : 095 BPM P-R Int : 182 ms QRS Dur : 084 ms QT Int : 334 ms P-R-T Axes : 028 -14 054 degrees QTc Int : 419 ms Normal sinus rhythm Poor R wave progression, consider anterior DE vs. lead placement vs. LVH Diffuse Minor Nonspecific T wave abnormality Abnormal ECG When compared with ECG of 09-SEP-2023 05:39, No significant change was found Confirmed by Sandro Willis ([id number]) on 09/09/2023 8:19:44 AM Referred By: REFERRED SELF Confirmed By:Sandro Willis
--- NOTE | 2023-09-09 08:45 | XRay Report ---
XR chest 1V portable CLINICAL HISTORY: Chest pain, nonspecific TECHNIQUE: Single frontal radiograph of the chest was obtained. Comparison: Comparison is made to chest radiograph 09/01/2023 FINDINGS: No lines and tubes are seen. The cardiomediastinal silhouette is normal. The lungs are clear. No evid ence of pleural effusion or pneumothorax. IMPRESSION: No acute chest disease. ACT 112: Negative or not required by law. Electronically signed by: Pavel Venegas M.D. 09/09/2023 8:43 AM
--- NOTE | 2023-09-09 09:16 | History & Physical Report ---
Date of Service September 09, 2023 Assessment & Plan (1) Non-cardiac chest pain: (2) CAD (coronary artery disease): (3) Status post insertion of drug-eluting stent into left anterior descending (LAD) artery: (4) Paroxysmal atrial fibrillation: Plan Ms. Davenport is a 72 year old woman with past medical history remarkable for HTN, DMTII, HLD, hypothyroidism, paroxysmal atrial fibrillation, HTN, CKDIII, chronic GABRIELLA, prior breast cancer (left, ER+), obstructive CAD s/p JOSE DAVID to LAD on 09/04/23 presented to [facility] ED due to chest pain and right arm pain on 09/08 and admitted for evaluation of such. Patient with recent admission for NSTEMI. Troponin mildly elevated to 44 with downtrend in setting of known chronic occlusions. Pain is not consistent with ACS, given reproduction of symptoms with palpation along right neck, occipital region. #Neck pain with radiculopathic symptoms, c/f occipital neuralgia #Non-cardiac chest pain #ACS r/o -Pain reproduced on palpation of base of skull, with radiation to posterior scapula (right) and down into arm/shoulder, around front of clavicle -Less suspicious for coronary syndrome and notably no new ischemic changes on EKG, dpwntrending trop; reports medication compliance -Admit to med/tele for 24 hour monitoring -Nitro prn chest pain -Resume meds below -Cervical spine XR -Trial of Flexeril/Tylenol combo with myoflex #Obstructive CAD s/p JOSE DAVID LAD on 09/03 #HTN #HLD #Prior NSTEMI -Trop downtrending on admission, repeat x2 for ACS r/o -Continue Brilinta 90mg BID and eliquis 5mg BID (not on ASA) -Continue Statin -Continue Toprol 100mg daily -EKG prn for chest pain -Consider formal cards consult if troponin peaks, ischemic changes or symptoms suggestive of cardiac chest pain #Paroxysmal Atrial fibrillation -NSR on admission -Continue Metoprolol XL 100mg daily -Continue Eliquis -Monitor on tele #DMTII - Glargine 30 U qam/ 20 Uqpm, Metformin 1000 BID - Start with 15 U BID and SSI, adjust as tolerated while inpatient #Hypothyroidism -Continue Levothyroxine DVT eliquis Admit med tele/obs Admission and Anticipated Discharge Date Admission Date: Time spent evaluating patient, direct bedside care, chart review, placing orders, interpretation of diagnostic studies, discussion with consultants, patient, and family members, as well as other required patient management activities is 60 minutes. History of Present Illness Chief Complaint: Chest pain Primary Care Provider: Satinder Liang MD Ms. Davenport is a 72 year old woman with past medical history remarkable for HTN, DMTII, HLD, hypothyroidism, paroxysmal atrial fibrillation, HTN, CKDIII, chronic GABRIELLA, prior breast cancer (left, ER+), obstructive CAD s/p JOSE DAVID to LAD on 09/04/23 presented to [facility] ED due to chest pain and right arm pain. Patient states that she noted pain that seemed to start in her neck on the right side that came on suddenly around 10pm 09/07. She tried heating pad and noted that it didn't help. She eventually awoke at 330am to the same pain, with more intensity noted and radiation of symptoms into right arm, prompting her presentation to the ED. Patient recently admitted for NSTEMI on 09/01. Underwent LHC on 09/03 LAD mid/distal stenosis, OM2 30%, L PDA 50% prox/mid, and proximal RCA with 100% chronic. Culprit lesion determined to be LAD given severe occlusion. PCI with 2 JOSE DAVID placed in LAD. Patient discharged on Brilinta, Eliquis, metoprolol and statin therapy. Patient reports compliance. In the ED, vitals were notable for BP of 110s-150s, HR of 80s-90s, and O2 sat high 90s on room air Labs with initial trop 44.3 downtrending to 22.2, UA negative, Imaging revealed CTA chest without ant dissection or intramural hematoma, CXR stable EKG NSR, TWI V1, V2 similar to prior 09/04 ED interventions: s/p 1L Ns, 0.5 Dilaudid Consultants: ED spoke with Lazaro prior to admission--less suspicion for ACS Patient to be admitted to [facility] for further evaluation and management of chest pain. Allergies Allergy/AdvReac Type Severity Reaction Status Date / Time bee pollen Allergy Severe Anaphylaxis Verified 04/02/23 11:17 amlodipine AdvReac Unknown Unknown Verified 04/02/23 11:17 furosemide AdvReac Unknown Unknown Verified 04/02/23 11:17 hydrochlorothiazide AdvReac Unknown Unknown Verified 04/02/23 11:17 lisinopril AdvReac Unknown Unknown Verified 04/02/23 11:17 losartan AdvReac Unknown Unknown Verified 04/02/23 11:17 Home Medications Medication Instructions Recorded Confirmed Type apixaban 5 mg tablet (Eliquis) 5 mg PO BID 09/01/23 09/09/23 History diclofenac sodium 1 % topical gel 4 g topical QID PRN Pain 09/01/23 09/09/23 History epinephrine 0.3 mg/0.3 mL 0.3 mg IM UD PRN Anaphylaxis 09/01/23 09/09/23 History injection, auto-injector insulin glargine 100 unit/mL (3 33 unit subcut UD 09/01/23 09/09/23 History mL) subcutaneous pen (Lantus Solostar U-100 Insulin) levothyroxine 25 mcg tablet 25 mcg PO DAILY 09/01/23 09/09/23 History metformin 1,000 mg tablet 1,000 mg PO BID 09/01/23 09/09/23 History tramadol 50 mg tablet 50 mg PO BID PRN Pain 09/01/23 09/09/23 History acetaminophen 500 mg tablet 500 mg PO Q4H PRN Fever Or Pain 09/02/23 09/09/23 History cholecalciferol (vitamin D3) 50 100 mcg PO QAM 09/02/23 09/09/23 History mcg (2,000 unit) tablet (Vitamin D3) vitamin B complex 1 tab PO BID 09/02/23 09/09/23 History atorvastatin 40 mg tablet 40 mg PO QAM #30 tabs 09/06/23 09/09/23 Rx metoprolol succinate 100 mg 100 mg PO DAILY #30 tabs 09/06/23 09/09/23 Rx tablet,extended release 24 hr pantoprazole 40 mg tablet,delayed 40 mg PO DAILY #30 tabs 09/06/23 09/09/23 Rx release ticagrelor 90 mg tablet (Brilinta) 90 mg PO BID #60 tabs 09/06/23 09/09/23 Rx Past Med/Surg History Medical History (Updated 09/09/23 @ 10:09 by Danyelle Cabrera MD) Syncope (2021) Allergic reaction Rib pain on right side Hypothyroidism Iron deficiency anemia Dyslipidemia CKD (chronic kidney disease) stage 3, GFR 30-59 ml/min Chronic anticoagulation Paroxysmal atrial fibrillation Hypertension Malignant neoplasm of upper-inner quadrant of left breast in female, estrogen receptor positive (06/29/17) Diabetes Surgical History History of partial mastectomy of left breast 2018 - with sentinel node biopsy (Dr. Diana Jansen) Family History Mother Myocardial infarction Social History Smoking Status: Never smoker Second Hand Exposure: No; Do You Dip or Chew Tobacco: No; Hx Alcohol Use: No Hx Substance Use: No Preferred Language: Welsh Communication Ability: Effective [employer] Required: No Beliefs That Will Affect Care: None marital status: / Current Living Situation: Alone Feels Safe at Home: Yes Assistive Devices: Cane Review of Systems Review of Systems: Constitutional: (-) fever/chills, (-) recent loss of weight, (-) appetite changes, (-) night sweats. Head: (-) headache, (-) dizziness. Eye: (-) blurring of vision, (-) double vision, (-) redness. Ear: (-) hearing loss, (-) discharge, (-) vertigo Nose: (-) discharge, (-) bleeding, (-) congestion, (-) post nasal drip. Throat: (-) sore throat, (-) hoarseness of voice, (-) odynophagia. Cardiovascular: (+) chest pain, (-) palpitations, (-) syncope, (-) orthopnea, (- ) PND, (-) leg swelling. Respiratory: (-) shortness of breath, (-) cough, (-) wheezing, (-) hemoptysis. Neuro: (-) weakness in extremities, (-) numbness, (-) tingling, (-) tremor. Gastrointestinal: (-) belly pain, (-) belly distension, (-) nausea, (-) vomiting, (-) diarrhea, (-) constipation Genitourinary: (-) hematuria, (-) dysuria, (-) polyuria, (-) hesitancy, (-) freq uency, (-) urinary incontinence. Musculoskeletal: (-) myalgia, (-) arthralgia. Skin: (-) rashes. Endocrine: (-) heat/cold intolerance. Psychiatry: (-) depression, (-) hallucination. Physical Exam Physical Exam: GENERAL APPEARANCE: AxOx4, generally well-appearing, mildly anxious female HEENT: NC, AT. MMM. EOMI, clear conjunctiva, oropharynx clear. NECK: Supple without lymphadenopathy. Pain/symptoms reproduced with palpation of right occiput and along trapezius, discomfort with extension HEART: Normal rate and regular rhythm, normal S1/S1, no m/r/g LUNGS: CTAB, moving air well. No crackles or wheezes are heard. ABDOMEN: Soft, nontender, nondistended with good bowel sounds heard. BACK: No CVAT, no obvious deformity. EXTREMITIES: Without cyanosis, clubbing or edema. NEUROLOGICAL: Grossly nonfocal. Alert and oriented, moving all 4 extremities. CN not formally tested but appear grossly intact. Skin: Warm and dry without any rash. Results & Data Results & Data Vital Signs (Past 12 Hours) Vital Signs Temp Pulse Pulse Resp BP BP Pulse Ox 09/09/23 07:39 95 H 18 155/82 H 97 09/09/23 06:54 91 H 20 112/62 99 09/09/23 05:49 91 H 22 98 09/09/23 05:42 92 H 09/09/23 05:39 36.5 C 92 H 18 140/72 98 09/09/23 05:39 O2 Del Method 09/09/23 07:39 Room Air 09/09/23 06:54 Room Air 09/09/23 05:49 Room Air 09/09/23 05:42 09/09/23 05:39 Room Air 09/09/23 05:39 Room Air Laboratory Results Short CBC 09/09/23 Range/Units 05:50 WBC 9.89 (4.8-10.8) K/ul Hgb 11.5 L (12.0-16.0) g/dl Hct 34.9 L (37.0-47.0) % Plt Count 273 (130-400) K/uL BMP 09/09/23 05:50 Sodium 136 Potassium 3.7 Chloride 104 Carbon Dioxide 23 BUN 13 Creatinine 1.03 Glucose 136 H Calcium 9.2 Liver Function 09/09/23 Range/Units 05:50 Total Bilirubin 0.3 (0.2-1.0) mg/dl AST 21 (13-39) U/L ALT 31 (7-52) U/L Alkaline Phosphatase 62 (34-104) U/L Albumin 4.3 (3.4-5.0) gm/dl Urine 09/09/23 Range/Units 07:37 Urine Color Yellow Urine Appearance Clear (Clear) Urine pH 6.5 (4.5-7.5) Ur Specific [place] 1.012 (1.000-1.030) Urine Protein Negative (Negative) Urine Glucose (UA) Negative (Negative) Diagnostic Findings Chest X-Ray 09/09/23 05:36 XR chest 1V portable CLINICAL HISTORY: Chest pain, nonspecific TECHNIQUE: Single frontal radiograph of the chest was obtained. Comparison: Comparison is made to chest radiograph 09/01/2023 FINDINGS: No lines and tubes are seen. The cardiomediastinal silhouette is normal. The lungs are clear. No evidence of pleural effusion or pneumothorax. IMPRESSION: No acute chest disease. ACT 112: Negative or not required by law. Electronically signed by: Pavel Venegas M.D. 09/09/2023 8:43 AM Chest CTA 09/09/23 06:44 CT angio chest dissec wo/w con CLINICAL HISTORY: right chest/back pain. recent right arm cath TECHNIQUE: Multidetector row helical CT of the chest was performed before and after injection of IV contrast. Coronal, sagittal, and MIP reformations were obtained. Automated dose lowering techniques and/or adjustment according to patient size were utilized for this exam. CT DOSE: 2518.45 mGy.cm Comparison: None available at the time of this dictation. FINDINGS: Lungs and pleura: Left apical scarring is seen. Heart and pericardium: Heart size is normal. No pericardial effusion. Vessels: No aortic dissection or intramural hematoma is seen. Mediastinum and amadou: Unremarkable. Chest wall and lower neck: Unremarkable. Abdomen: Unremarkable. Bones: Degenerative changes in the thoracic spine. IMPRESSION: No acute abnormality and in particular no evidence of acute aortic injury. ACT 112: Negative or not required by law. Electronically signed by: Pavel Venegas M.D. 09/09/2023 7:39 AM Medications Administered Home Medications Medication Instructions Recorded Confirmed Last Taken apixaban 5 mg tablet (Eliquis) 5 mg PO BID 09/01/23 09/09/23 09/09/23 diclofenac sodium 1 % topical gel 4 g topical QID PRN Pain 09/01/23 09/09/23 09/09/23 epinephrine 0.3 mg/0.3 mL 0.3 mg IM UD PRN Anaphylaxis 09/01/23 09/09/23 Unknown injection, auto-injector insulin glargine 100 unit/mL (3 33 unit subcut UD 09/01/23 09/09/23 09/09/23 mL) subcutaneous pen (Lantus Solostar U-100 Insulin) levothyroxine 25 mcg tablet 25 mcg PO DAILY 09/01/23 09/09/23 09/09/23 metformin 1,000 mg tablet 1,000 mg PO BID 09/01/23 09/09/23 09/09/23 tramadol 50 mg tablet 50 mg PO BID PRN Pain 09/01/23 09/09/23 Unknown acetaminophen 500 mg tablet 500 mg PO Q4H PRN Fever Or Pain 09/02/23 09/09/23 Unknown cholecalciferol (vitamin D3) 50 100 mcg PO QAM 09/02/23 09/09/23 09/09/23 mcg (2,000 unit) tablet (Vitamin D3) vitamin B complex 1 tab PO BID 09/02/23 09/09/23 09/09/23 atorvastatin 40 mg tablet 40 mg PO QAM #30 tabs 09/06/23 09/09/23 09/09/23 metoprolol succinate 100 mg 100 mg PO DAILY #30 tabs 09/06/23 09/09/23 09/09/23 tablet,extended release 24 hr pantoprazole 40 mg tablet,delayed 40 mg PO DAILY #30 tabs 09/06/23 09/09/23 09/09/23 release ticagrelor 90 mg tablet (Brilinta) 90 mg PO BID #60 tabs 09/06/23 09/09/23 09/09/23
[2023-09-09] MEDS ORDERED: TROLAMINE SALICYLATE 10% CRM 255 APPLN/85 GM TUBE EXT PRN (09:33)
[2023-09-09] MEDS ORDERED: TROLAMINE SALICYLATE 10% CRM 255 APPLN/85 GM TUBE EXT STA (09:36)
[2023-09-09] MEDS: TICAGRELOR 90 MG TAB PO STA (10:39)
[2023-09-09] MEDS: APIXABAN 5 MG TABLET PO STA (10:40)
[2023-09-09] MEDS: METOPROLOL SUCC 50MG EXT REL TAB PO STA (10:40)
[2023-09-09] MEDS: CYCLOBENZAPRINE HCL 10 MG TAB PO STA (10:41)
[2023-09-09] MEDS: ACETAMINOPHEN 500 MG TAB PO STA (10:42)
[2023-09-09] MEDS ORDERED: DICLOFENAC SOD 1% GEL 100 GM TUBE EXT PRN (10:54)
[2023-09-09] MEDS ORDERED: GLUCAGON FOR INJ 1 MG VIAL SQ PRN (10:54)
[2023-09-09] MEDS ORDERED: GLUCOSE 10 TAB/TUBE PO PRN (10:54)
[2023-09-09] MEDS ORDERED: NITROGLYCERIN SL 0.4 MG/TAB TAB SL PRN (10:54)
[2023-09-09] MEDS ORDERED: DEXTROSE 50% 50 ML SYRINGE IV PRN (10:54)
[2023-09-09] MEDS ORDERED: CARBOHYDRATES FOR HYPOGLYCEMIA PO PRN (10:54)
[2023-09-09] MEDS ORDERED: GLUCOSE 40% GEL 15 GM TUBE PO PRN (10:54)
[2023-09-09] MEDS ORDERED: POLYETHYLENE (MIRALAX) 17 GM PACK PO PRN (10:54)
[2023-09-09] MEDS ORDERED: EPINEPHrine INJ 1 MG/ML AMP IM PRN (11:07)
[2023-09-09] MEDS: PANTOprazole 40 MG TAB PO SCH (11:22)
[2023-09-09] MEDS: VITAMIN B COMPLEX TAB PO SCH (11:22)
[2023-09-09] MEDS: ATORVASTATIN 40 MG TAB PO SCH (11:22)
[2023-09-09] MEDS: LANTUS PER UNIT CHARGE SQ SCH (11:22)
[2023-09-09] MEDS: INSULIN ASPART PER UNIT CHARGE SC SCH (12:56)
--- NOTE | 2023-09-09 14:44 | XRay Report ---
XR cervical spine w flex/ext CLINICAL HISTORY: cervical angina TECHNIQUE: AP, lateral, bilateral oblique, and open-jaw as well as flexion and extension images of th e cervical spine were obtained. COMPARISON: None available at the time of this dictation. FINDINGS: No fractures or subluxations are identified. Degenerative changes are noted in the cervical spine. Th e alignment is anatomic. Prevertebral soft tissues are within normal limits. IMPRESSION: Degenerative changes without evidence of acute abnormality. ACT 112: Negative or not required by law. Electronically signed by: Pavel Venegas M.D. 09/09/2023 2:41 PM
[2023-09-09] MEDS: ACETAMINOPHEN 500 MG TAB PO PRN (19:30)
[2023-09-09] MEDS: APIXABAN 5 MG TABLET PO SCH (20:19)
[2023-09-09] MEDS: traMADol HCL 50 MG TABLET PO PRN (20:19)
[2023-09-09] MEDS: TICAGRELOR 90 MG TAB PO SCH (20:19)
[2023-09-09] MEDS: CYCLOBENZAPRINE HCL 10 MG TAB PO PRN (20:20)
[2023-09-10] MEDS: LEVOTHYROXINE SODIUM 25 MCG TABLET PO SCH (05:28)
[2023-09-10 06:38] LABS: Hematocrit (blood only) 35.1 % (37.0-47.0); Hemoglobin 11.3 g/dl (12.0-16.0); Mean Corpuscular Hemoglobin 29.2 pg (25.0-34.0); Mean Corpuscular Hgb Conc 32.2 g/dL (32.0-36.0); Mean Corpuscular Volume 90.7 fL (80.0-100.0); Mean Platelet Volume 9.4 fL (9.4-12.4); Platelet Count 256 K/uL (130-400); RDW Coefficient of Variation 12.7 % (11.5-14.5); RDW Standard Deviation 41.7 fL (36.4-46.3); Red Blood Count 3.87 M/uL (4.20-5.40); White Blood Count 5.97 K/ul (4.8-10.8)
[2023-09-10 07:15] VITALS: RESP 18
[2023-09-10 07:15] LABS: Calcium 9.2 mg/dl (8.6-10.3); Creatinine Clr Calc Pharmacy 40.7 ml/min; Est GFR (African American) 53.9 ml/min; Est GFR (Non-African American) 46.5 ml/min; Magnesium 1.9 mg/dl (1.7-2.4); Phosphorus 4.3 mg/dl (2.5-4.9); Potassium 3.7 mmol/L (3.5-5.1)
[2023-09-10] MEDS: METOPROLOL SUCC 50MG EXT REL TAB PO SCH (07:53)
[2023-09-10] MEDS: CHOLECALCIFEROL 25 MCG (1000 UNITS) TAB PO SCH (07:54)
[2023-09-10 11:10] VITALS: O2SAT 97
--- NOTE | 2023-09-10 11:41 | XCELERA ---
[id number] [id number]
--- NOTE | 2023-09-10 15:09 | Cardiology Consultation ---
Date of Consultation September 10, 2023 Assessment & Plan (1) CAD (coronary artery disease): (2) Status post insertion of drug-eluting stent into left anterior descending (LAD) artery: (3) Elevated troponin I level: (4) Shoulder pain: (5) Paroxysmal atrial fibrillation: (6) Hypertension: (7) Dyslipidemia: Plan ASSESSMENT/PLAN: 1. Right shoulder pain: Completely different than prior angina. Not consistent with ischemic heart disease. As per primary hospitalist service. 2. CAD s/p LAD PCI x 2: No further angina. Continue antiplatelet therapy as outlined by interventional cardiology earlier this month. On Brilinta. Single antiplatelet therapy while also on Eliquis. Continue beta-sy and high intensity statin therapy. Recommend cardiac rehab from previous hospitalization. 3. Elevated troponin: Pattern did not suggest ACS and symptoms also inconsistent with ACS and different than prior angina. Further ischemic evaluation is not necessary. Presentation/troponin/ECG does not suggest stent thrombus/failure. 4. Paroxysmal atrial fibrillation: As per records. On anticoagulation therapy for stroke risk reduction. Continue beta-sy. 5. Hypertension: Blood pressure has been mostly normotensive. No changes made today. 6. Dyslipidemia: Continue high intensity statin therapy. 7. Disposition: Follow-up with Mr. Allen who she typically follows in the outpatient setting. She has appointment pending already. Patient care communicated with primary hospitalist, Dr. Hannah. Cardiology will sign off at this time. Today's visit was 57 minutes in duration, which includes [id number] time, counseling patient, reviewing records, reviewing Images, coordinating care, and completing documentation. Thank you for allowing me to participate in the care of your patient. Please call for any other questions or concerns. Sincerely, Benson Louis M.D. History of Present Illness Reason for Consultation: "chest pain, s/p cath Sep 03, increasing trop" Requesting Physician: Dr. Hannah Attending Physician: Danyelle Cabrera MD History of Present Illness Ms. Davenport is a very pleasant 72-year-old female with a history significant for CAD s/p LAD PCI (09/04/2023 Dr. Garibay), hypertension, type 2 diabetes, dyslipidemia, paroxysmal atrial fibrillation, CKD, left breast cancer, and hypothyroidism. She follows with Mr. Arnoldo Allen SUSAN in the outpatient setting. She was recently discharged on 09/06/2023 after presenting with minimally elevated high-sensitivity troponin. She underwent cardiac catheterization on 09/04/2023 and was found to have severe LAD CAD with ALFIE I flow as well as chronically occluded RCA with [id number] collaterals. Otherwise, nonobstructive CAD reported. She was readmitted on 09/09/2023 with right shoulder pain. She states that the pain was sharp and also noted laterally on the right side of her back. It occurred while she was sleeping in a recliner and she felt more short of breath when it occurred. 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 She believes it is from overuse after being sedentary for a few days during her recent hospitalization. Her presenting symptom this time was completely different than her chest discomfort which prompted her PCI earlier this month. She recalls feeling symptoms at approximately 10:30 PM on 09/08/2023 and used a heating pad. She woke up at 3:30 AM on 09/09/2023 with ongoing symptoms, prompting her presentation. She admits that symptoms improved with pain medication. She has not had any further recurrent chest discomfort following discharge from her PCI. She otherwise denies shortness of breath, edema, palpitations, melena, hematochezia, hematuria, or other bleeding. She had diarrhea and believes it was due to medications. She was taking magnesium and has held magnesium for 2 days and the diarrhea has since resolved. She is currently chest pain-free in her hospital room. Review of systems: As above. Review of systems otherwise negative/unremarkable. Family history: Mother and brother with CAD. Social history: She denies tobacco, alcohol, or drug abuse. She lives alone. x 1 and x 1. She has a son. She was unaccompanied. Allergies Allergy/AdvReac Type Severity Reaction Status Date / Time bee pollen Allergy Severe Anaphylaxis Verified 04/02/23 11:17 amlodipine AdvReac Unknown Unknown Verified 04/02/23 11:17 furosemide AdvReac Unknown Unknown Verified 04/02/23 11:17 hydrochlorothiazide AdvReac Unknown Unknown Verified 04/02/23 11:17 lisinopril AdvReac Unknown Unknown Verified 04/02/23 11:17 losartan AdvReac Unknown Unknown Verified 04/02/23 11:17 Home Medications Medication Instructions Recorded Confirmed Type apixaban 5 mg tablet (Eliquis) 5 mg PO BID 09/01/23 09/09/23 History diclofenac sodium 1 % topical gel 4 g topical QID PRN Pain 09/01/23 09/09/23 History epinephrine 0.3 mg/0.3 mL 0.3 mg IM UD PRN Anaphylaxis 09/01/23 09/09/23 History injection, auto-injector insulin glargine 100 unit/mL (3 33 unit subcut UD 09/01/23 09/09/23 History mL) subcutaneous pen (Lantus Solostar U-100 Insulin) levothyroxine 25 mcg tablet 25 mcg PO DAILY 09/01/23 09/09/23 History metformin 1,000 mg tablet 1,000 mg PO BID 09/01/23 09/09/23 History tramadol 50 mg tablet 50 mg PO BID PRN Pain 09/01/23 09/09/23 History acetaminophen 500 mg tablet 500 mg PO Q4H PRN Fever Or Pain 09/02/23 09/09/23 History cholecalciferol (vitamin D3) 50 100 mcg PO QAM 09/02/23 09/09/23 History mcg (2,000 unit) tablet (Vitamin D3) vitamin B complex 1 tab PO BID 09/02/23 09/09/23 History atorvastatin 40 mg tablet 40 mg PO QAM #30 tabs 09/06/23 09/09/23 Rx metoprolol succinate 100 mg 100 mg PO DAILY #30 tabs 09/06/23 09/09/23 Rx tablet,extended release 24 hr pantoprazole 40 mg tablet,delayed 40 mg PO DAILY #30 tabs 09/06/23 09/09/23 Rx release ticagrelor 90 mg tablet (Brilinta) 90 mg PO BID #60 tabs 09/06/23 09/09/23 Rx Patient History Medical History (Updated 09/10/23 @ 15:16 by Mark Louis MD) Type 2 diabetes mellitus Status post insertion of drug-eluting stent into left anterior descending (LAD) artery (09/04/23) CAD (coronary artery disease) Syncope (2021) Allergic reaction Rib pain on right side Hypothyroidism Iron deficiency anemia Dyslipidemia CKD (chronic kidney disease) stage 3, GFR 30-59 ml/min Chronic anticoagulation Paroxysmal atrial fibrillation Hypertension Malignant neoplasm of upper-inner quadrant of left breast in female, estrogen receptor positive (06/29/17) Diabetes Surgical History History of partial mastectomy of left breast 2018 - with sentinel node biopsy (Dr. 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 Alert. HEENT: Anicteric sclera. Neck: No JVD. No bruits. Normal carotid upstrokes bilaterally. Cardiac: No ventricular heave. Regular. Normal S1-S2. No murmurs, rubs, or gallops. Pulmonary: Clear to auscultation bilaterally without wheezes, rales, or rhonchi. Abdomen: Soft, nontender, nondistended, with normoactive bowel sounds. No bruits noted. Extremities: 2+ radial pulses bilaterally. Right radial cath site is clean, dry, and intact without erythema or discharge. Ecchymosis noted. No hematoma. 2+ posterior tibialis pulses bilaterally. No edema or cyanosis. Back: Focal tenderness right lateral side. Results & Data Vital Signs (Past 12 Hours) Vital Signs Temp Pulse Pulse Resp BP Pulse Ox O2 Del Method 09/10/23 11:08 36.3 C L 65 18 108/58 L 97 Room Air 09/10/23 09:37 82 09/10/23 07:11 36.6 C 67 18 130/65 96 Room Air Laboratory Results Laboratory Results - last 24 hr 09/09/23 09/09/23 09/09/23 17:01 17:48 20:06 WBC RBC Hgb Hct MCV MCH MCHC RDW Std Deviation RDW Coeff of Ho Plt Count MPV Sodium Potassium Chloride Carbon Dioxide Anion Gap BUN Creatinine Est Cr Clr Drug Dosing Est GFR ( Amer) Est GFR (Non-Af Amer) BUN/Creatinine Ratio Glucose POC Glucose 99 107 H Calcium Phosphorus Magnesium Troponin I High Sens 37.5 H 09/10/23 09/10/23 09/10/23 06:06 07:49 11:31 WBC 5.97 RBC 3.87 L Hgb 11.3 L Hct 35.1 L MCV 90.7 MCH 29.2 MCHC 32.2 RDW Std Deviation 41.7 RDW Coeff of Ho 12.7 Plt Count 256 MPV 9.4 Sodium 138 Potassium 3.7 Chloride 105 Carbon Dioxide 25 Anion Gap 8 BUN 14 Creatinine 1.17 Est Cr Clr Drug Dosing 40.7 Est GFR ( Amer) 53.9 Est GFR (Non-Af Amer) 46.5 BUN/Creatinine Ratio 12.0 Glucose 76 POC Glucose 78 91 Calcium 9.2 Phosphorus 4.3 Magnesium 1.9 Troponin I High Sens Diagnostic Findings Telemetry personally reviewed: PA wave morphology changed on 09/10/2023 at 3:34 AM where heart rate increased from 60s to 80s consistently remaining in the 80s until 7:07 AM when P wave morphology changed and heart rate reduced to the 60s. Probable paroxysmal ectopic atrial rhythm. Labs reviewed and notable for high-sensitivity troponin slightly elevated but trend is not consistent with ACS. High-sensitivity troponin initially 44, then 22, 34 and then 37. Stable renal function, mild anemia, normal transaminase and magnesium levels. ECG personally reviewed: ECG 09/09/2023 5:39 AM: Sinus rhythm 94 bpm. Nonspecific T wave abnormality. ECG 09/09/2023 at 7:57 AM: NSR 95 bpm. Nonspecific T wave abnormality. Limited echo ordered and reviewed 09/10/2023: Possible very small area of hypokinesis involving the apex, similar to previous study on 09/02/2023 but better visualized on current study. LVEF 55 to 60%. Cardiac cath reviewed from 09/02/2023: [id number]. Bifurcates into LAD and circumflex. No disease. LAD-proximal segment without disease and then just before the first major diagonal branch there is a 50 to 70% stenosis. There is then an aneurysmal segment in the midportion of the vessel followed by a long subtotal (99%) early distal vessel lesion which has no more than ALFIE I flow beyond the lesion. First major diagonal has ostial 60% stenosis, is small to medium in caliber and branches. Second diagonal is PCI and is noted medium to large and long without significant disease. It is located more towards the apex. [id number] and dominant vessel. The AV groove vessel has no disease. It provides a small to medium caliber OM1, large branching OM 2 which has proximal 30% stenosis, small to medium caliber OM 3, large posterolateral branch #1, small to medium caliber posterolateral #2. All of these additional branches have no disease. The circumflex then terminates in a large caliber long PDA which has proximal and mid up to 50% stenosis. It provides left to right collateralization. RCA-small caliber and 100% occluded proximally. It is probably nondominant it appears that the collaterals from left to right go to RV marginal branches. PCI of LAD-0% residual stenosis post PCI with implantation of 2 overlapped drug- eluting stents. ALFIE-3 flow post PCI No evidence of dissection or perforation post PCI CTA chest 09/09/2023: No aortic dissection per radiology. Medications Administered Current Inpatient Medications Acetaminophen (Acetaminophen 500 Mg Tab) 500 mg PO Q4H PRN PRN Reason: Fever Or Pain Stop: 10/09/23 10:53 Last Admin: 09/10/23 05:27 Dose: 500 mg Apixaban (Apixaban 5 Mg Tablet) 5 mg PO BID [facility] Stop: 10/09/23 20:59 Last Admin: 09/10/23 07:53 Dose: 5 mg Atorvastatin Calcium (Atorvastatin 40 Mg Tab) 40 mg PO QAM [facility] Stop: 10/09/23 10:53 Last Admin: 09/10/23 07:54 Dose: 40 mg Cyclobenzaprine HCl (Cyclobenzaprine Hcl 10 Mg Tab) 10 mg PO Q6H PRN PRN Reason: neck pain Stop: 10/09/23 10:53 Last Admin: 09/10/23 05:27 Dose: 10 mg Dextrose (Dextrose 50% 50 Ml Syringe) 25 - 50 ml IV UD PRN; Protocol PRN Reason: Hypoglycemia Protocol Stop: 10/09/23 10:53 Diclofenac Sodium (Diclofenac Sod 1% Gel 100 Gm Tube) 4 gm EXT QID PRN; Protocol PRN Reason: Pain Stop: 10/09/23 10:53 Epinephrine HCl (Epinephrine Inj 1 Mg/Ml Amp) 0.3 mg IM ONCE PRN PRN Reason: ANAPHYLAXIS Stop: 10/09/23 11:06 Glucagon (Glucagon For Inj 1 Mg Vial) 1 mg SQ UD PRN; Protocol PRN Reason: Hypoglycemia Protocol Stop: 10/09/23 10:53 Glucose (Glucose 10 Tab/Tube) 4 - 8 tab PO UD PRN; Protocol PRN Reason: Hypoglycemia Treatment Stop: 10/09/23 10:53 Glucose (Glucose 40% Gel 15 Gm Tube) 15 - 30 gm PO UD PRN; Protocol PRN Reason: Hypoglycemia Protocol Stop: 10/09/23 10:53 Insulin Aspart (Insulin Aspart Per Unit Charge) 0 units SC ACHS [facility] Stop: 10/09/23 11:29 Last Admin: 09/10/23 12:48 Dose: 1 units Insulin Glargine (Lantus Per Unit Charge) 15 units SQ BID [facility] Stop: 10/09/23 10:53 Last Admin: 09/10/23 09:12 Dose: 15 units Levothyroxine Sodium (Levothyroxine Sodium 25 Mcg Tablet) 25 mcg PO DAILYBB [facility] Stop: 10/10/23 06:29 Last Admin: 09/10/23 05:28 Dose: 25 mcg Metoprolol Succinate (Metoprolol Succ 50mg Ext Rel Tab) 100 mg PO DAILY [facility] Stop: 10/10/23 08:59 Last Admin: 09/10/23 07:53 Dose: 100 mg Miscellaneous (Carbohydrates For Hypoglycemia ) 15 - 30 gm PO UD PRN PRN Reason: Hypoglycemia Protocol Stop: 10/09/23 10:53 Nitroglycerin (Nitroglycerin Sl 0.4 Mg/Tab Tab) 0.4 mg SL Q5M PRN PRN Reason: Chest Pain Stop: 10/09/23 10:53 Pantoprazole Sodium (Pantoprazole 40 Mg Tab) 40 mg PO DAILY [facility] Stop: 10/09/23 10:53 Last Admin: 09/10/23 07:53 Dose: 40 mg Polyethylene Glycol (Polyethylene (Miralax) 17 Gm Pack) 17 gm PO DAILY PRN PRN Reason: Constipation Stop: 10/09/23 10:53 Ticagrelor (Ticagrelor 90 Mg Tab) 90 mg PO BID [facility] Stop: 10/09/23 20:59 Last Admin: 09/10/23 07:54 Dose: 90 mg Tramadol HCl (Tramadol Hcl 50 Mg Tablet) 50 mg PO BID PRN PRN Reason: Moderate Pain (Scale 4, 5, 6) Stop: 10/09/23 10:53 Last Admin: 09/10/23 07:57 Dose: 50 mg Trolamine Salicylate (Trolamine Salicylate 10% Crm 255 Appln/85 Gm Tube) 1 appln EXT Q4H PRN PRN Reason: Pain Stop: 10/09/23 09:32 Vitamin B Complex (Vitamin B Complex Tab) 1 tab PO BID [facility] Stop: 10/09/23 10:53 Last Admin: 09/10/23 07:53 Dose: 1 tab Vitamin D (Cholecalciferol 25 Mcg (1000 Units) Tab) 100 mcg PO QAM [facility] Stop: 10/10/23 08:59 Last Admin: 09/10/23 07:54 Dose: 100 mcg PG Care Time/CCT Total # of Minutes Spent Total Time Spent: 57 Total Time Spent with Patient: Total time spent is greater than 50% in coordination of care (as documented) at patient's floor/unit and/or counseling patient: Coding Level of Care Code 42953 INT INP/OBS CARE 2/55MIN Diagnoses CAD (coronary artery disease) I25.10 Status post insertion of drug-eluting stent into left anterior descending (LAD) artery Z95.5 Elevated troponin I level R79.89 Shoulder pain M25.519 Paroxysmal atrial fibrillation I48.0 Hypertension I10 Dyslipidemia E78.5 Time Spent (min) 57
[2023-09-10 15:43] VITALS: BP 126/68; TEMP 98.6
--- NOTE | 2023-09-10 17:10 | Discharge Summary ---
Discharge Summary Date of Service September 10, 2023 Notes For Next Care Provider Medication Changes From Visit Flexeril 10mg q6h prn Admission HPI Per Admitting Provider Ms. Davenport is a 72 year old woman with past medical history remarkable for HTN, DMTII, HLD, hypothyroidism, paroxysmal atrial fibrillation, HTN, CKDIII, chronic GABRIELLA, prior breast cancer (left, ER+), obstructive CAD s/p JOSE DAVID to LAD on 09/04/23 presented to [facility] ED due to chest pain and right arm pain. Patient states that she noted pain that seemed to start in her neck on the right side that came on suddenly around 10pm 09/07. She tried heating pad and noted that it didn't help. She eventually awoke at 330am to the same pain, with more intensity noted and radiation of symptoms into right arm, prompting her presentation to the ED. Patient recently admitted for NSTEMI on 09/01. Underwent LHC on 09/03 LAD mid/distal stenosis, OM2 30%, L PDA 50% prox/mid, and proximal RCA with 100% chronic. Culprit lesion determined to be LAD given severe occlusion. PCI with 2 JOSE DAVID placed in LAD. Patient discharged on Brilinta, Eliquis, metoprolol and statin therapy. Patient reports compliance. In the ED, vitals were notable for BP of 110s-150s, HR of 80s-90s, and O2 sat high 90s on room air Labs with initial trop 44.3 downtrending to 22.2, UA negative, Imaging revealed CTA chest without ant dissection or intramural hematoma, CXR stable EKG NSR, TWI V1, V2 similar to prior 09/04 ED interventions: s/p 1L Ns, 0.5 Dilaudid Consultants: ED spoke with Lazaro prior to admission--less suspicion for ACS Patient [facility] be [facility] evaluation and management of chest pain. Principal Dx & Hospital Course #1 = Principal Diagnosis (1) Non-cardiac chest pain: (2) CAD (coronary artery disease): (3) Status post insertion of drug-eluting stent into left anterior descending (LAD) artery: (4) Paroxysmal atrial fibrillation: Plan Ms. Davenport is a 72 year old woman with past medical history remarkable for HTN, DMTII, HLD, hypothyroidism, paroxysmal atrial fibrillation, HTN, CKDIII, chronic GABRIELLA, prior breast cancer (left, ER+), obstructive CAD s/p JOSE DAVID to LAD on 09/04/23 presented to [facility] ED due to chest pain and right arm pain on 09/08 and admitted for evaluation of such. Patient with recent admission for NSTEMI. Troponin mildly elevated to 44 with downtrend in setting of known chronic occlusions. Pain is not consistent with ACS, given reproduction of symptoms with palpation along right neck, occipital region. #Neck pain with radiculopathic symptoms, c/f occipital neuralgia #Non-cardiac chest pain #ACS r/o -Pain reproduced on palpation of base of skull, with radiation to posterior scapula (right) and down into arm/shoulder, around front of clavicle -Less suspicious for coronary syndrome and notably no new ischemic changes on EKG, dpwntrending trop; reports medication compliance -Admit to med/tele for 24 hour monitoring -Nitro prn chest pain -Resume meds below -Cervical spine XR -Trial of Flexeril/Tylenol combo with myoflex #Obstructive CAD s/p JOSE DAVID LAD on 09/03 #HTN #HLD #Prior NSTEMI -Trop downtrending on admission, repeat x2 for ACS r/o -Continue Brilinta 90mg BID and eliquis 5mg BID (not on ASA) -Continue Statin -Continue Toprol 100mg daily -EKG prn for chest pain -Consider formal cards consult if troponin peaks, ischemic changes or symptoms suggestive of cardiac chest pain #Paroxysmal Atrial fibrillation -NSR on admission -Continue Metoprolol XL 100mg daily -Continue Eliquis -Monitor on tele #DMTII - Glargine 30 U qam/ 20 Uqpm, Metformin 1000 BID - Start with 15 U BID and SSI, adjust as tolerated while inpatient #Hypothyroidism -Continue Levothyroxine DVT eliquis Admit med tele/obs Updated Medication List Medication Instructions Recorded Confirmed Type apixaban 5 mg tablet (Eliquis) 5 mg PO BID 09/01/23 09/09/23 History diclofenac sodium 1 % topical gel 4 g topical QID PRN Pain 09/01/23 09/09/23 History epinephrine 0.3 mg/0.3 mL 0.3 mg IM UD PRN Anaphylaxis 09/01/23 09/09/23 History injection, auto-injector insulin glargine 100 unit/mL (3 33 unit subcut UD 09/01/23 09/09/23 History mL) subcutaneous pen (Lantus Solostar U-100 Insulin) levothyroxine 25 mcg tablet 25 mcg PO DAILY 09/01/23 09/09/23 History metformin 1,000 mg tablet 1,000 mg PO BID 09/01/23 09/09/23 History tramadol 50 mg tablet 50 mg PO BID PRN Pain 09/01/23 09/09/23 History acetaminophen 500 mg tablet 500 mg PO Q4H PRN Fever Or Pain 09/02/23 09/09/23 History cholecalciferol (vitamin D3) 50 100 mcg PO QAM 09/02/23 09/09/23 History mcg (2,000 unit) tablet (Vitamin D3) vitamin B complex 1 tab PO BID 09/02/23 09/09/23 History atorvastatin 40 mg tablet 40 mg PO QAM #30 tabs 09/06/23 09/09/23 Rx metoprolol succinate 100 mg 100 mg PO DAILY #30 tabs 09/06/23 09/09/23 Rx tablet,extended release 24 hr pantoprazole 40 mg tablet,delayed 40 mg PO DAILY #30 tabs 09/06/23 09/09/23 Rx release ticagrelor 90 mg tablet (Brilinta) 90 mg PO BID #60 tabs 09/06/23 09/09/23 Rx cyclobenzaprine 10 mg tablet 10 mg PO Q6H PRN muscle spasm #30 09/10/23 Rx tabs Hospital Stay Data Consultations 09/09/23 08:55 ED Decision to Admit Stat 09/09/23 15:27 Consult Orthopedic Spine Surgery Routine 09/10/23 08:22 Consult Cardiology Routine Diagnostic Imagining Performed 09/09/23 06:44 CT angio chest dissec wo/w con Stat Pending Results Patient Have Any Pending Studies at Discharge: No Discharge Instructions Given to Patient (Per Discharging Provider) Ms. Davenport, You were admitted and a cardiac cause of your chest/shoulder pain was ruled out by your data entry analyst. We are discharging you home with Flexeril to help your shoulder pain. Please take it as needed to help with your pain. You can also use your home Tramadol to help as well. Please continue taking all your other home medications as prescribed for your heart. Continue with cardiac rehab as you were doing. Please keep follow up with your cardiology provider Arnoldo Allen as scheduled. You are also scheduled for follow up with your primary provider tomorrow. Please keep that appointment as scheduled. Please do not hesitate to come back to the emergency room if your symptoms worsen or return. It was a pleasure taking care of you while you were here.
[2023-09-10 17:25] VITALS: PULSE 67
== END 2023-09-10 18:24 | disposition home or self-care (01) ==
LOC: ED 05:33 → EDINP 05:33 → 2N 10:54